=== PATIENT | female | born 1960 | race Caucasian/White ===

== ENCOUNTER 2020-01-12 13:53 | Outpatient (REF) | payer OTHER, SELFPAY | END 2020-01-12 13:54 | disposition home or self-care (01) | LOC: HO.LNP 13:53 | PROVIDERS: Visit Provider Internal Medicine | DX: Z20.828 Contact with and (suspected) exposure to other viral communicable diseases (principal) | CPT/HCPCS: U0003 ==

== ENCOUNTER 2020-02-13 11:04 | Outpatient (REF) | payer OTHER, SELFPAY ==
[2020-02-13 12:03] LABS: Baso%MD 0.4 %; Eos%MD 0.6 %; Hematocrit 39.8 % (37-47); Hemoglobin 13.4 g/dl (12.0-16.0); IG%MD 0.5 %; Lymph%MD 13.1 %; Mean Corpuscular HGB Conc 33.7 g/dl (31.0-35.0); Mean Corpuscular Hemoglobin 32.5 pg (27.0-33.0); Mean Corpuscular Volume 96.6 fL (80-98); Mean Platelet Volume 10.6 fL (9.4-12.3); Mono%MD 3.9 %; Neut%MD 81.5 %; Platelet Count 244 X10*3/uL (160-400); Red Blood Count 4.12 X10*6/uL (4.20-5.50); White Blood Count 11.2 X10*3/uL (4.8-10.8)
[2020-02-13 12:33] LABS: Alanine Aminotransferase 30 U/L (0-31); Albumin Level 4.7 g/dL (3.5-5.0); Alkaline Phosphatase 61 U/L (39-117); Amylase 57 U/L (28-100); Anion Gap 15 (12-20); Aspartate Amino Transferase 21 U/L (5-31); Bilirubin Direct < 0.2 mg/dL (0.0-0.5); Bilirubin Total 0.5 mg/dL (0.0-1.0); Blood Urea Nitrogen 27 mg/dL (9-16); C Reactive Protein 0.07 mg/dL (< or = 0.50); Calcium 9.6 mg/dL (8.4-10.2); Carbon Dioxide 26 mmol/L (22-29); Chloride 102 mmol/L (96-108); Estimated Glomerular Filt Rate > 60; Glucose Random 97 mg/dL (60-115); Iron 94 mcg/dL (30-160); Lipase 24 U/L (8-78); Percent Iron Saturation 27 % (15-50); Potassium 4.8 mmol/l (3.3-5.1); Sodium 138 mmol/L (135-145); Total Iron Binding Capacity 342 mcg/dL (228-428); Unsaturated Iron Binding 248 ug/dL
[2020-02-13 12:55] LABS: Erythrocyte Sedimentation Rate 6 MM/HR (0-20)
[2020-02-13 13:04] LABS: Ferritin 22 ng/mL (10-250); Thyroid Stimulating Hormone 2.29 uIU/mL (0.32-4.0)
[2020-02-13 13:40] LABS: T4 Thyroxine 8.9 ug/dL (4.5-12.0)
[2020-02-13 14:01] LABS: Folate > 20.0 ng/mL (> or = 4.0); Vitamin B12 1854 pg/mL (200-900)
[2020-02-13 14:53] LABS: Band Neutrophils Percent 2 % (3-5); Lymphocytes Absolute Manual 1.3 X10*3/uL (0.6-4.8); Lymphocytes Percent Manual 12 % (20-40); Monocytes Absolute Manual 0.6 X10*3/uL (0.0-1.2); Monocytes Percent Manual 5 % (2-11); Neutrophils Absolute Manual 9.3 X10*3/uL (2.2-7.9); Neutrophils Percent Manual 81 % (45-73)
[2020-02-13 14:54] LABS: Platelet Estimate NORMAL (NORMAL); Platelet Morphology Comment NORMAL; RBC Morphology NORMAL
[2020-02-13 15:08] LABS: Influenza A PCR NEGATIVE (Negative); Influenza B PCR NEGATIVE (Negative); Resp Syncy Virus RNA Qual PCR NEGATIVE (Negative); SARS COV2 PCR INHOUSE NEGATIVE (Negative)
[2020-02-15 08:22] LABS: HBc Num1 0.06 S/CO (0.00-0.79); Hepatitis B Core Antibody Nonreactive (Nonreactive); Hepatitis B Surface Antigen Negative (Negative)
[2020-02-15 08:40] LABS: HBS Num1 0.62 mIU/mL (0-7.99); ~Hepatitis B Surface Antibody NONREACTIVE (Nonreactive)
[2020-02-16 19:53] LABS: TS Negative Control Passed; TS Panel A 1; TS Panel B 2; TS Positive Control Passed; TSpotTB Negative (SeeBelow)
== END 2020-02-13 11:05 | disposition home or self-care (01) ==
LOC: HO.LAB 11:04
PROVIDERS: PCP Internal Medicine; Visit Provider Internal Medicine
DX: Z20.828 Contact with and (suspected) exposure to other viral communicable diseases (principal); K52.89 Other specified noninfective gastroenteritis and colitis; R19.7 Diarrhea, unspecified
CPT/HCPCS: 0241U; 36415; 80053; 80076; 82150; 82248; 82607; 82728; 82746; 83540; 83690; 84436; 84443; 85007; 85027; 85652; 86140; 86481; 86704; 86706; 87340

== ENCOUNTER 2020-03-15 11:04 | Outpatient (REF) | payer BC, SELFPAY ==
--- NOTE | 2020-03-15 11:26 | XR_ITS ---
No arthropathic changes of the sacroiliac joints are visualized. Mild scattered aortic calcific atherosclerosis is visualized. EXAMINATION: XR LUMBOSACRAL SPINE CLINICAL INFORMATION: Right leg pain. COMPARISON: Lumbar spine radiograph 06/22/2014 TECHNIQUE: Three views of the lumbosacral spine. FINDINGS: 6 lumbar type vertebral bodies are identified as noted on the comparison examination. The previous examination suspected hypoplastic 12th ribs vertebral bodies are enumerated with reference to this past scheme with the inferior most lumbar type vertebral body designated as L5 for enumeration purposes in this exam. Moderate rotatory dextroscoliosis of lumbar spine is present and appears slightly increased in prominence compared with 06/22/2014. At L2-L3, moderate-marked intervertebral disc space narrowing is noted along with prominent endplate sclerosis with findings increased in degree compared with 06/22/2014. Mild-moderate intervertebral disc space narrowing at L1-L2 is unchanged appreciably compared with 06/22/2014. Moderate scattered aortic calcific atherosclerosis is noted. XR/XR lumbar spine 2-3V IMPRESSION: 1. Six (6) lumbar type vertebral bodies which may give rise to ambiguity in vertebral body level enumeration. As in the comparison exam of 06/22/2014, the inferior most lumbar type vertebral body is designated L5 for enumeration purposes in this examination. 2. Moderate rotatory dextroscoliosis of the lumbar spine increased in prominence compared with 06/22/2014. 3. L2-L3 moderate-marked intervertebral disc space narrowing consistent with underlying degenerative disc disease with findings increased in prominence compared with 06/22/2014. 4. Unchanged L1-L2 mild-moderate intervertebral disc space narrowing.
[2020-03-15 11:57] LABS: MANUAL DIFF FLAG NO
[2020-03-15 12:16] LABS: Basophils Percent Auto 0.3 % (0-2); Eosinophils Absolute Auto 0.2 X10*3/uL (0.0-0.4); Eosinophils Percent Auto 1.8 % (0-4); Hematocrit 39.7 % (37-47); Hemoglobin 12.9 g/dl (12.0-16.0); Imm Gran Abs Auto 0.02 X10*3/uL (0.00-0.03); Imm Gran Pct Auto 0.2 % (0.0-0.4); Lymphocytes Absolute Auto 1.4 X10*3/uL (1.2-4.9); Lymphocytes Percent Auto 14.9 % (20-40); Mean Corpuscular HGB Conc 32.5 g/dl (31.0-35.0); Mean Corpuscular Hemoglobin 31.9 pg (27.0-33.0); Mean Corpuscular Volume 98.3 fL (80-98); Mean Platelet Volume 10.5 fL (9.4-12.3); Monocytes Absolute Auto 0.4 X10*3/uL (0.1-1.2); Monocytes Percent Auto 4.6 % (2-11); Neutrophils Absolute Auto 7.1 X10*3/uL (2.0-8.3); Neutrophils Percent Auto 78.2 % (45-73); Platelet Count 196 X10*3/uL (160-400); Red Blood Count 4.04 X10*6/uL (4.20-5.50); Red Cell Distribution Width 12.5 % (11.0-16.0); White Blood Count 9.1 X10*3/uL (4.8-10.8)
[2020-03-15 12:28] LABS: Anion Gap 13 (12-20); Blood Urea Nitrogen 24 mg/dL (9-16); C Reactive Protein 0.07 mg/dL (< or = 0.50); Calcium 9.4 mg/dL (8.4-10.2); Carbon Dioxide 28 mmol/L (22-29); Chloride 103 mmol/L (96-108); Estimated Glomerular Filt Rate > 60; Glucose Random 108 mg/dL (60-115); Potassium 4.8 mmol/l (3.3-5.1); Sodium 139 mmol/L (135-145)
== END 2020-03-15 11:05 | disposition home or self-care (01) ==
LOC: HO.LAB 11:04
PROVIDERS: PCP Internal Medicine; Visit Provider Internal Medicine
DX: M79.604 Pain in right leg (principal); M41.9 Scoliosis, unspecified
CPT/HCPCS: 36415; 72100; 80048; 82550; 85025; 86140

== ENCOUNTER 2021-01-29 08:09 | Outpatient (REF) | payer BC, SELFPAY ==
[2021-01-29 08:18] LABS: MANUAL DIFF FLAG NO
[2021-01-29 08:56] LABS: Basophils Percent Auto 0.5 % (0-2); Eosinophils Absolute Auto 0.3 X10*3/uL (0.0-0.4); Eosinophils Percent Auto 3.7 % (0-4); Hematocrit 43.2 % (37.0-47.0); Hemoglobin 14.3 g/dl (12.0-16.0); Imm Gran Abs Auto 0.02 X10*3/uL (0.00-0.03); Imm Gran Pct Auto 0.3 % (0.0-0.4); Lymphocytes Absolute Auto 3.2 X10*3/uL (1.2-4.9); Lymphocytes Percent Auto 40.8 % (20-40); Mean Corpuscular HGB Conc 33.1 g/dl (31.0-35.0); Mean Corpuscular Hemoglobin 32.4 pg (27.0-33.0); Mean Corpuscular Volume 97.7 fL (80.0-98.0); Mean Platelet Volume 10.8 fL (9.4-12.3); Monocytes Absolute Auto 0.5 X10*3/uL (0.1-1.2); Monocytes Percent Auto 6.2 % (2-11); Neutrophils Absolute Auto 3.8 x10*3/uL (2.0-8.3); Neutrophils Percent Auto 48.5 % (45-73); Platelet Count 190 X10*3/uL (160-400); Red Blood Count 4.42 X10*6/uL (4.20-5.50); Red Cell Distribution Width 11.9 % (11.0-16.0); White Blood Count 7.9 X10*3/uL (4.8-10.8)
[2021-01-29 09:21] LABS: Alanine Aminotransferase 24 U/L (0-31); Albumin Level 4.4 g/dL (3.5-5.0); Alkaline Phosphatase 51 U/L (39-117); Anion Gap 12 (12-20); Aspartate Amino Transferase 24 U/L (5-31); Bilirubin Total 0.3 mg/dL (0.0-1.0); Blood Urea Nitrogen 21 mg/dL (9-16); Calcium 9.7 mg/dL (8.4-10.2); Carbon Dioxide 29 mmol/L (22-29); Chloride 104 mmol/L (96-108); Cholesterol 199 mg/dL; Estimated Glomerular Filt Rate > 60; Glucose Random 96 mg/dL (60-115); HDL Cholesterol 68 mg/dL; LDL Cholesterol Calculated 92 mg/dl; Potassium 4.3 mmol/L (3.3-5.1); Sodium 141 mmol/L (135-145); Total Protein 6.5 g/dL (6.5-8.0); Triglycerides 195 mg/dL
[2021-01-29 09:45] LABS: Free T4 (Free Thyroxine) 1.05 ng/dL (0.71-1.85); Thyroid Stimulating Hormone 1.73 uIU/mL (0.32-4.0); Vitamin D 25-OH Total 42.2 ng/mL (>30)
== END 2021-01-29 08:10 | disposition home or self-care (01) ==
LOC: HO.LAB 08:09
PROVIDERS: PCP Internal Medicine; Visit Provider Internal Medicine
DX: I25.10 Atherosclerotic heart disease of native coronary artery without angina pectoris (principal); E78.00 Pure hypercholesterolemia, unspecified; E03.9 Hypothyroidism, unspecified; M19.90 Unspecified osteoarthritis, unspecified site; K58.9 Irritable bowel syndrome, unspecified
CPT/HCPCS: 36415; 80053; 80061; 82306; 84439; 84443; 85025

== ENCOUNTER 2021-06-20 12:46 | Outpatient (REF) | payer BC, SELFPAY ==
[2021-06-20 13:16] LABS: MANUAL DIFF FLAG NO
[2021-06-20 13:30] LABS: Basophils Percent Auto 0.4 % (0-2); Eosinophils Absolute Auto 0.1 X10*3/uL (0.0-0.4); Eosinophils Percent Auto 1.7 % (0-4); Hemoglobin 13.6 g/dl (12.0-16.0); Imm Gran Abs Auto 0.02 X10*3/uL (0.00-0.03); Imm Gran Pct Auto 0.2 % (0.0-0.4); Lymphocytes Percent Auto 12.8 % (20-40); Mean Corpuscular HGB Conc 33.2 g/dl (31.0-35.0); Mean Corpuscular Hemoglobin 32.8 pg (27.0-33.0); Mean Corpuscular Volume 98.8 fL (80.0-98.0); Mean Platelet Volume 10.5 fL (9.4-12.3); Monocytes Absolute Auto 0.4 X10*3/uL (0.1-1.2); Monocytes Percent Auto 5.3 % (2-11); Neutrophils Absolute Auto 6.4 x10*3/uL (2.0-8.3); Neutrophils Percent Auto 79.6 % (45-73); Platelet Count 177 X10*3/uL (160-400); Red Blood Count 4.15 X10*6/uL (4.20-5.50); White Blood Count 8.1 X10*3/uL (4.8-10.8)
[2021-06-20 13:51] LABS: Alanine Aminotransferase 24 U/L (0-31); Albumin Level 4.4 g/dL (3.5-5.0); Alkaline Phosphatase 58 U/L (39-117); Aspartate Amino Transferase 24 U/L (5-31); Bilirubin Direct < 0.2 mg/dL (0.0-0.5); Bilirubin Total 0.3 mg/dL (0.0-1.0); C Reactive Protein 0.14 mg/dL (< or = 0.50); Lipase 12 U/L (8-78); Total Protein 6.5 g/dL (6.5-8.0)
[2021-06-20 14:09] LABS: Erythrocyte Sedimentation Rate 6 MM/HR (0-20)
== END 2021-06-20 12:47 | disposition home or self-care (01) ==
LOC: HO.LAB 12:46
PROVIDERS: PCP Internal Medicine; Visit Provider Internal Medicine
DX: R10.13 Epigastric pain (principal)
CPT/HCPCS: 36415; 80076; 83690; 85025; 85652; 86140

== ENCOUNTER 2021-06-21 11:00 | Outpatient (REF) | payer BC, SELFPAY ==
[2021-06-21 12:14] LABS: Erythrocyte Sedimentation Rate 6 MM/HR (0-20)
[2021-06-21 12:42] LABS: Vitamin B12 1207 pg/mL (200-900)
[2021-06-21 13:22] LABS: Anion Gap 12 (12-20); Blood Urea Nitrogen 29 mg/dL (9-16); Carbon Dioxide 28 mmol/L (22-29); Chloride 103 mmol/L (96-108); Estimated Glomerular Filt Rate > 60; Glucose Random 90 mg/dL (60-115); Potassium 5.3 mmol/L (3.3-5.1); Sodium 138 mmol/L (135-145)
[2021-06-21 13:37] LABS: Free T4 (Free Thyroxine) 1.24 ng/dL (0.71-1.85); Rheumatoid Factor < 15.0 IU/mL (<15.0)
[2021-06-24 13:56] LABS: Anti Nuclear Antibody Screen NEGATIVE (NEGATIVE)
[2021-06-24 22:47] LABS: Lyme Abs Screen <0.90 index
== END 2021-06-21 11:01 | disposition home or self-care (01) ==
LOC: HO.LAB 11:00
PROVIDERS: PCP Internal Medicine; Visit Provider Internal Medicine
DX: R53.83 Other fatigue (principal); E03.9 Hypothyroidism, unspecified; T14.8XXD Other injury of unspecified body region, subsequent encounter; W57.XXXD Bitten or stung by nonvenomous insect and other nonvenomous arthropods, subsequent encounter; M25.50 Pain in unspecified joint
CPT/HCPCS: 36415; 80048; 82607; 84439; 84443; 85652; 86038; 86039; 86431; 86617; 86618

== ENCOUNTER 2021-07-26 10:49 | Day surgery (SDC) | payer BC, SELFPAY ==
--- NOTE | 2021-07-24 13:04 | HO.ANESPROP2 ---
Documented by User: Sharon Morrison NP 07/24/21 13:05 HPI - Anesthesia Eval Consult details Narrative: 61yo F for Upper Endoscopy [facility] Past Medical History Medical History Anxiety Back pain Barretts esophagus Collagenous colitis Erosive esophagitis GERD (gastroesophageal reflux disease) History of degenerative disc disease Hyperlipidemia Hypothyroidism Myocardial infarction On beta rena at home Scoliosis Surgical History Surgical History H/O heart artery stent History of endometrial ablation History of total left knee replacement History of tubal ligation Hx of colonoscopy Hx of esophagogastroduodenoscopy Hx of varicose vein ligation and stripping Social History Social History Patient Tobacco Use Status: Former Tobacco user Tobacco use type: Cigarette Use of substances other than those prescribed or required for medical reasons: No Are you DNR?: No Advance Directives: No Advance Directives Information Provided: Yes Recently lost weight without trying: No Nutrition Risks: No Nutritional Risk Meds Allergies Allergy/AdvReac Type Severity Reaction Status Date / Time droperidol [From Inapsine] Allergy Intermediate SHAKING Verified 07/26/21 11:33 Home Medications Medication Instructions Recorded Confirmed Last Taken Type acetaminophen 500 mg capsule 500 mg PO Q6H PRN 07/22/21 07/22/21 Unknown History albuterol sulfate 90 mcg/actuation 2 puff PO BID PRN 07/22/21 07/22/21 Unknown History aerosol inhaler alprazolam 0.5 mg tablet 1 tab PO BID 07/22/21 07/22/21 Unknown History aspirin 81 mg tablet,delayed 81 mg PO DAILY 07/22/21 07/22/21 Unknown History release atorvastatin 10 mg tablet 1 tab PO DAILY 07/22/21 07/22/21 Unknown History calcium carbonate 600 mg calcium 600 mg PO DAILY 07/22/21 07/22/21 Unknown History (1,500 mg) tablet diclofenac sodium 1 % topical gel TOPICAL DAILY 07/22/21 Unknown History diphenoxylate-atropine 2.5 1 - 2 tab PO Q6H PRN 07/22/21 07/22/21 Unknown History mg-0.025 mg tablet famotidine 20 mg tablet 1 tab PO BID 07/22/21 07/22/21 Unknown History fluticasone propionate 50 1 spray INTRANASAL BID 07/22/21 07/22/21 Unknown History mcg/actuation nasal spray,suspension hyoscyamine sulfate 0.375 mg 1 tab PO Q12H 07/22/21 07/22/21 Unknown History tablet,extended release,12 hr levothyroxine 137 mcg tablet 1 tab PO DAILY 07/22/21 07/22/21 07/26/21 History loratadine 10 mg tablet 1 tab PO DAILY 07/22/21 07/22/21 Unknown History metoprolol tartrate 25 mg tablet 1 tab PO BID 07/22/21 07/22/21 07/26/21 History multivitamin with minerals 1 tab PO DAILY 07/22/21 07/22/21 Unknown History omeprazole 40 mg capsule,delayed 1 cap PO DAILY 07/22/21 07/22/21 07/26/21 History release prednisone 5 mg tablet mg PO 07/22/21 07/26/21 History simethicone 80 mg chewable tablet 80 mg PO BEDTIME 07/22/21 07/22/21 Unknown History trazodone 50 mg tablet 1 - 2 tab PO BEDTIME 07/22/21 07/22/21 Unknown History Exam Exam Date and Time: July 24, 2021 1304 Pertinent Lab Results Pertinent Lab Results: Laboratory Tests 06/20/21 06/21/21 13:15 Unknown WBC 8.1 Hgb 13.6 Hct 41.0 Plt Count 177 Sodium 138 Potassium 5.3 H D Chloride 103 Carbon Dioxide 28 BUN 29 H Creatinine 0.88 Assessment and Plan Assessment Anesthesia Assessment: Chart Reviewed Documented by User: Tabitha Jacobs MD 07/26/21 13:04 [facility] Active Problems Active Problems: 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 Patient states had echo and stress test. Reportedly ok. No reports in chart. Not on any cardiac meds except for metoprolol. Reports no chest pain recently Past Medical History Medical History Anxiety Back pain Barretts esophagus Collagenous colitis Erosive esophagitis GERD (gastroesophageal reflux disease) History of degenerative disc disease Hyperlipidemia Hypothyroidism Myocardial infarction On beta rena at home Scoliosis Family History Family history of problems with anesthesia: No Surgical History Surgical History H/O heart artery stent History of endometrial ablation History of total left knee replacement History of tubal ligation Hx of colonoscopy Hx of esophagogastroduodenoscopy Hx of varicose vein ligation and stripping History of Problems with Anesthesia: No Social History Social History Patient Tobacco Use Status: Former Tobacco user Tobacco use type: Cigarette Use of substances other than those prescribed or required for medical reasons: No Are you DNR?: No Advance Directives: No Advance Directives Information Provided: Yes Recently lost weight without trying: No Nutrition Risks: No Nutritional Risk Meds Allergies Allergy/AdvReac Type Severity Reaction Status Date / Time droperidol [From Inapsine] Allergy Intermediate SHAKING Verified 07/26/21 11:33 Home Medications Medication Instructions Recorded Confirmed Last Taken Type acetaminophen 500 mg capsule 500 mg PO Q6H PRN 07/22/21 07/22/21 Unknown History albuterol sulfate 90 mcg/actuation 2 puff PO BID PRN 07/22/21 07/22/21 Unknown History aerosol inhaler alprazolam 0.5 mg tablet 1 tab PO BID 07/22/21 07/22/21 Unknown History aspirin 81 mg tablet,delayed 81 mg PO DAILY 07/22/21 07/22/21 Unknown History release atorvastatin 10 mg tablet 1 tab PO DAILY 07/22/21 07/22/21 Unknown History calcium carbonate 600 mg calcium 600 mg PO DAILY 07/22/21 07/22/21 Unknown History (1,500 mg) tablet diclofenac sodium 1 % topical gel TOPICAL DAILY 07/22/21 Unknown History diphenoxylate-atropine 2.5 1 - 2 tab PO Q6H PRN 07/22/21 07/22/21 Unknown History mg-0.025 mg tablet famotidine 20 mg tablet 1 tab PO BID 07/22/21 07/22/21 Unknown History fluticasone propionate 50 1 spray INTRANASAL BID 07/22/21 07/22/21 Unknown History mcg/actuation nasal spray,suspension hyoscyamine sulfate 0.375 mg 1 tab PO Q12H 07/22/21 07/22/21 Unknown History tablet,extended release,12 hr levothyroxine 137 mcg tablet 1 tab PO DAILY 07/22/21 07/22/21 07/26/21 History loratadine 10 mg tablet 1 tab PO DAILY 07/22/21 07/22/21 Unknown History metoprolol tartrate 25 mg tablet 1 tab PO BID 07/22/21 07/22/21 07/26/21 History multivitamin with minerals 1 tab PO DAILY 07/22/21 07/22/21 Unknown History omeprazole 40 mg capsule,delayed 1 cap PO DAILY 07/22/21 07/22/21 07/26/21 History release prednisone 5 mg tablet mg PO 07/22/21 07/26/21 History simethicone 80 mg chewable tablet 80 mg PO BEDTIME 07/22/21 07/22/21 Unknown History trazodone 50 mg tablet 1 - 2 tab PO BEDTIME 07/22/21 07/22/21 Unknown History Exam Height,Weight and Vital Signs: Height 5 ft 7 in Weight 59.421 kg Vital Signs Temp Pulse Resp BP Pulse Ox 07/26/21 11:46 98.1 F 63 16 119/65 99 Airway Mallampati Class: II TM Dist: >3cm Neck ROM: Full Loose/Missing/Broken Teeth: No Heart: RRR Lungs: CTAB Assessment and Plan Assessment Anesthesia Assessment: Anesthesia Plan Discussed Final Anesthetic Review Family History of Problems with Anesthesia: No History of Problems with Anesthesia: No NPO: Yes ASA Class: III Final Preanesthetic Review: No Changes in Pt Med Stat, Meds/Allgs Chart Reviewed, Consent Obtained/Reviewed and Anes Risks/Benef Reviewed Patient Risk: Intermediate Procedure Risk: Low Assessment/Block/Sedation in SS: Assess/Block/Sedation-SS Anesthetic Plan Anesthetic Plan: MAC: Disposition: Standard PACU
[2021-07-26 11:37] VITALS: BMI 20.5
[2021-07-26 11:46] VITALS: BP 119/65; PULSE 63; RESP 16; TEMP 36.7; O2SAT 99
[2021-07-26] MEDS: Lactated Ringers 1,000 ML 100 ML IVCONT (11:59)
[2021-07-26 13:50] VITALS: BP 108/62; PULSE 64; RESP 12; TEMP 37.2; O2SAT 4
--- NOTE | 2021-07-26 13:51 | PM.OP ---
Brief Operative Note Date of Service: 07/26/21 Pre-op diagnosis: Abdominal pain, GERD, Mandel's Post-op diagnosis: other (Gastric ulcers, GERD) Procedure: EGD with biopsies Surgeon: Mathew Perez Anesthesia: MAC Was an Nutrition Services Assistant used for this Procedure?: No Estimated blood loss (mL): 2.0 Pathology: other (A. Gastric antrum B. EG Junction at 38cm) Condition: stable Disposition: PACU
[2021-07-26 14:14] VITALS: BP 138/79; PULSE 71; RESP 14; O2SAT 100
--- NOTE | 2021-08-08 17:44 | OP_ITS ---
SURGEON: Mathew Perez MD INDICATIONS: The patient presents for evaluation of abdominal pain, gastroesophageal reflux, and Mandel's esophagus. Full consent was obtained from her for this, including risks of bleeding and perforation. PREOPERATIVE DIAGNOSIS: POSTOPERATIVE DIAGNOSIS: PROCEDURE PERFORMED: Esophagogastroduodenoscopy with biopsies. ESTIMATED BLOOD LOSS: COMPLICATIONS: ANESTHESIA: Monitored anesthesia care. ASSISTANTS: SPECIMENS: PREOPERATIVE DIAGNOSES: Abdominal pain, gastroesophageal reflux, history of Mandel's esophagus. POSTOPERATIVE DIAGNOSES: Abdominal pain, gastroesophageal reflux, history of Mandel's esophagus, pre-pyloric gastric ulcers, small hiatal hernia, gastroesophageal reflux. DESCRIPTION OF PROCEDURE: The patient was placed in the left lateral decubitus position. The Olympus video gastroscope was passed into the posterior oropharynx and upper esophagus under direct vision. The scope was passed slowly to the distal esophagus. The gastroesophageal junction appeared at 38 cm. This area was slightly irregular consistent with reflux with areas of some erythema and some friability. There were no erosions or ulceration. The scope entered into the stomach. There was a small hiatal hernia. The scope was advanced to the pylorus and the duodenum was cannulated to the descending portion of the duodenum including the bulb appeared normal without mass or ulceration. The scope was withdrawn back into the stomach. In the pre-pyloric antrum, almost just at the pylorus, were 2 ulcer craters. One was approximately 12 mm in diameter with a clean base and no sign of any bleeding. The other ulcer, which was opposite that, was approximately 8 mm with a clean base and no bleeding. They appeared very benign. The remainder of the antrum and body appeared normal with good peristalsis. Biopsies were obtained from the antrum. The scope was retroflexed visualizing the proximal stomach carefully, which appeared normal, without any sign of mass or ulceration. The scope was straightened and withdrawn back to the esophagus. Biopsies were obtained at the EG junction. Proximal to this, the esophageal mucosa appeared normal. The scope was withdrawn from the patient. She tolerated the procedure well and was returned to the recovery area in stable condition. IMPRESSION: 1. Pre-pyloric gastric ulcers. 2. Hiatal hernia. 3. Gastroesophageal reflux with history of Mandel's esophagus. PLAN: The results of the biopsies will be checked. If H. pylori is present in the gastric biopsies, I would recommend treating that. She has been advised to stop all NSAIDs, as she had been using Advil every day. However, she does need to stay on her low dose of prednisone and low-dose aspirin in relation to her underlying collagenous colitis and coronary artery disease, respectively. She has been using 1 40mg omeprazole daily and I shall increase this to 40 mg b.i.d. I shall also start her on Carafate 1 g t.i.d. as well. She was advised to see me by the fall for a followup visit. Again, she has been advised to avoid all NSAIDs completely. MD LEONELA Wright/ALCIRA / [id number] MTDD
== END 2021-07-26 14:50 | disposition home or self-care (01) ==
PROVIDERS: PCP Internal Medicine; Visit Provider Internal Medicine
PROC: 0DJ08ZZ Inspection of Upper Intestinal Tract, Via Natural or Artificial Opening Endoscopic (ICD-10-PCS; CPT 43235; principal; 2021-07-26 12:20)
DX: K25.9 Gastric ulcer, unspecified as acute or chronic, without hemorrhage or perforation (principal); K21.9 Gastro-esophageal reflux disease without esophagitis; K22.70 Barrett's esophagus without dysplasia; K52.831 Collagenous colitis; K44.9 Diaphragmatic hernia without obstruction or gangrene; E78.5 Hyperlipidemia, unspecified; E03.9 Hypothyroidism, unspecified; I25.10 Atherosclerotic heart disease of native coronary artery without angina pectoris; I25.2 Old myocardial infarction; Z98.61 Coronary angioplasty status; Z79.52 Long term (current) use of systemic steroids; Z79.82 Long term (current) use of aspirin; Z79.899 Other long term (current) drug therapy; Z96.652 Presence of left artificial knee joint; Z87.891 Personal history of nicotine dependence
CPT/HCPCS: 43239; 88305; 88342

== ENCOUNTER 2021-07-29 13:31 | Outpatient (REF) | payer BC, SELFPAY ==
--- NOTE | ~2021-07-29 | XR_ITS ---
EXAMINATION: XR PELVIS CLINICAL INFORMATION: Back and right hip pain COMPARISON: Left hip x-ray August 2016 TECHNIQUE: AP view of the pelvis. FINDINGS: Bone alignment is normal. No fracture or dislocation is seen. There is mild arthritis at both hip joints with small osteophytes. Sacroiliac joints and pubic symphysis are normal. Bones of the pelvis are normal. Soft tissues are normal. There is curvature of the lumbar sacral spine to the left. XR/XR pelvis 1-2V IMPRESSION: Mild degenerative changes at the hip joints.
--- NOTE | ~2021-07-29 | XR_ITS ---
EXAMINATION: XR LUMBOSACRAL SPINE CLINICAL INFORMATION: Pain COMPARISON: Previous x-ray March 2020 TECHNIQUE: Three views of the lumbosacral spine. FINDINGS: There is curvature of the proximal lumbar spine to the right and lumbar sacral spine to the left. Bone alignment is otherwise normal. No fracture or dislocation is seen. There is degenerative disc disease and spondylosis at L1-L2, L2-L3 and L3-L4. There is lower lumbar spine facet arthritis. There is evidence of atherosclerotic disease. XR/XR lumbar spine 2-3V IMPRESSION: Scoliosis and degenerative changes.
== END 2021-07-29 13:32 | disposition home or self-care (01) ==
LOC: HO.XRAY 13:31
PROVIDERS: PCP Internal Medicine; Visit Provider Internal Medicine
DX: M25.551 Pain in right hip (principal); M54.50 Low back pain, unspecified
CPT/HCPCS: 72100; 72170

== ENCOUNTER 2022-06-18 14:34 | Outpatient (REF) | payer BC, SELFPAY ==
[2022-06-18 14:55] LABS: MANUAL DIFF FLAG NO
[2022-06-18 17:00] LABS: Basophils Percent Auto 0.3 % (0-2); Eosinophils Percent Auto 0.3 % (0-4); Hematocrit 38.6 % (37.0-47.0); Hemoglobin 12.9 g/dl (12.0-16.0); Imm Gran Abs Auto 0.03 X10*3/uL (0.00-0.03); Imm Gran Pct Auto 0.3 % (0.0-0.4); Lymphocytes Absolute Auto 0.9 X10*3/uL (1.2-4.9); Lymphocytes Percent Auto 10.3 % (20-40); Mean Corpuscular HGB Conc 33.4 g/dl (31.0-35.0); Mean Corpuscular Hemoglobin 32.3 pg (27.0-33.0); Mean Corpuscular Volume 96.5 fL (80.0-98.0); Mean Platelet Volume 10.8 fL (9.4-12.3); Monocytes Absolute Auto 0.3 X10*3/uL (0.1-1.2); Monocytes Percent Auto 3.3 % (2-11); Neutrophils Absolute Auto 7.4 x10*3/uL (2.0-8.3); Neutrophils Percent Auto 85.5 % (45-73); Platelet Count 242 X10*3/uL (160-400); Red Cell Distribution Width 12.2 % (11.0-16.0); White Blood Count 8.7 X10*3/uL (4.8-10.8)
[2022-06-18 17:37] LABS: Alanine Aminotransferase 31 U/L (0-31); Albumin Level 4.3 g/dL (3.5-5.0); Alkaline Phosphatase 73 U/L (39-117); Anion Gap 13 (12-20); Aspartate Amino Transferase 22 U/L (5-31); Bilirubin Direct 0.1 mg/dL (0.0-0.5); Bilirubin Total 0.3 mg/dL (0.0-1.0); Blood Urea Nitrogen 19 mg/dL (9-16); C Reactive Protein < 0.10 mg/dL (< or = 0.50); Calcium 8.8 mg/dL (8.4-10.2); Carbon Dioxide 26 mmol/L (22-29); Chloride 104 mmol/L (96-108); Estimated Glomerular Filt Rate > 60; Glucose Random 118 mg/dL (60-115); Potassium 4.5 mmol/L (3.3-5.1); Sodium 138 mmol/L (135-145); Total Protein 6.1 g/dL (6.5-8.0)
[2022-06-19 16:24] LABS: Immunoglobulin A 110 mg/dL (70-320)
[2022-06-20 08:24] LABS: HBc Num1 0.07 S/CO (0.00-0.79); HBsAGNum1 0.29 S/CO (0.00-0.99); Hepatitis B Core Antibody Nonreactive (Nonreactive); Hepatitis B Surface Antigen Negative (Negative); ~Hepatitis B Surface Antibody NONREACTIVE (Nonreactive)
[2022-06-20 23:29] LABS: TS Negative Control Passed; TS Panel A 3; TS Panel B 2; TS Positive Control Passed; TSpotTB Negative (Negative)
[2022-06-21 08:47] LABS: Gliadin Deamidated IgA Ab <1.0 U/mL; Gliadin Deamidated IgG Ab <1.0 U/mL; Transglutaminase Ab IgG <1.0 U/mL; Transglutaminase IgA <1.0 U/mL
[2022-06-22 14:24] LABS: Endomysial IgA Antibody Negative (Negative)
== END 2022-06-18 14:35 | disposition home or self-care (01) ==
LOC: HO.LAB 14:34
PROVIDERS: PCP Internal Medicine; Visit Provider Internal Medicine
DX: K52.89 Other specified noninfective gastroenteritis and colitis (principal); R19.7 Diarrhea, unspecified
CPT/HCPCS: 36415; 80048; 80076; 82784; 84443; 85025; 86140; 86231; 86258; 86364; 86481; 86704; 86706; 87340

== ENCOUNTER 2022-08-25 09:30 | Emergency (ER) | payer BC, SELFPAY ==
--- NOTE | ~2022-08-25 | XR_ITS ---
EXAMINATION: XR ABDOMEN KUB CLINICAL INDICATION: Diarrhea COMPARISON: None available. TECHNIQUE: AP view of the abdomen. FINDINGS: The bowel gas pattern is normal with no evidence of ileus or obstruction. No unusual soft tissue calcifications are noted. There is dextroscoliosis of lumbar spine XR/XR KUB IMPRESSION: Unremarkable examination.
[2022-08-25 10:04] VITALS: BP 117/65; PULSE 66; RESP 18; TEMP 36.1; O2SAT 99; BMI 18.9
[2022-08-25 10:21] LABS: MANUAL DIFF FLAG NO
[2022-08-25 10:25] LABS: Basophils Percent Auto 0.4 % (0-2); Eosinophils Absolute Auto 0.3 X10*3/uL (0.0-0.4); Eosinophils Percent Auto 2.6 % (0-4); Hematocrit 38.6 % (37.0-47.0); Hemoglobin 12.5 g/dl (12.0-16.0); Imm Gran Abs Auto 0.03 X10*3/uL (0.00-0.03); Imm Gran Pct Auto 0.3 % (0.0-0.4); Lymphocytes Absolute Auto 2.3 X10*3/uL (1.2-4.9); Mean Corpuscular HGB Conc 32.4 g/dl (31.0-35.0); Mean Corpuscular Hemoglobin 31.2 pg (27.0-33.0); Mean Corpuscular Volume 96.3 fL (80.0-98.0); Mean Platelet Volume 10.1 fL (9.4-12.3); Monocytes Absolute Auto 0.6 X10*3/uL (0.1-1.2); Neutrophils Absolute Auto 7.2 x10*3/uL (2.0-8.3); Neutrophils Percent Auto 68.7 % (45-73); Platelet Count 192 X10*3/uL (160-400); Red Blood Count 4.01 X10*6/uL (4.20-5.50); Red Cell Distribution Width 12.7 % (11.0-16.0); White Blood Count 10.4 X10*3/uL (4.8-10.8)
[2022-08-25 10:42] LABS: Alanine Aminotransferase 25 U/L (0-31); Albumin Level 3.8 g/dL (3.5-5.0); Alkaline Phosphatase 44 U/L (39-117); Anion Gap 14 (12-20); Aspartate Amino Transferase 23 U/L (5-31); Bilirubin Total 0.3 mg/dL (0.0-1.0); Blood Urea Nitrogen 26 mg/dL (9-16); Calcium 9.1 mg/dL (8.4-10.2); Carbon Dioxide 26 mmol/L (22-29); Chloride 106 mmol/L (96-108); Creatinine Clr Calc Pharmacy 58.7; Estimated Glomerular Filt Rate > 60; Glucose Random 95 mg/dL (60-115); Potassium 4.6 mmol/L (3.3-5.1); Sodium 141 mmol/L (135-145); Total Protein 5.8 g/dL (6.5-8.0)
[2022-08-25 10:50] VITALS: BP 140/78; PULSE 92; RESP 18; TEMP 36.7; O2SAT 98
--- NOTE | 2022-08-25 10:54 | PC.NURSE ---
Alert and oriented. Arrived from home stating tath she is patient of Dr. Vera and for 4-5 years has been having Gi issues. has chronic diarrhea after eating, abdominal cramping after eating, and takes 8-10mg of lomodial daily. for the last two weeks has had increasing lethargy and weakness. States had an episode last week dizzy and lightheaded while in the shower. States legs got weak and flet like they were going to give out. Vomited once this morning, states looked like yellow stomach bile. Also reports lower back pain that she feels may be from having to go to the bathroom all the time. Rates pain at a 7/10 currently. Reports that BM`s are always loose and smell like im rotting from the inside out . States she is unable to digest any food. Center of stomach tender to touch.
--- OUTSIDE RECORDS SUMMARY | 2022-08-25 11:03 | XMS_ITS | Continuity of Care Document ---
Author Name Unknown Organization [facility] ter Address [address] [place] [id number]- Care Team Providers Care Adult Live In Caregiver Name Role Phone Jeff Marcelo MD Primary Care Physician [id number] Date(s): 06/05/20 - 07/05/[address] [address] Attending Physician: Not on Staff, Attending MD Admitting Physician: Not on Staff, Admitting MD Referring Physician: Not on Staff, Referring MD Allergies, Adverse Reactions, Alerts Substance Reaction Severity Status Inapsine Active Medications acetaminophen 325 mg oral tablet 650 mg, By Mouth, Every 6 hours, May take OTC, not to exceed 3000 mg/day, Refills 0, Maintenance, 06/06/20 8:25:00 EDT, Partial fill upon patient request if the prescription is for a schedule II opioid drug. Start Date: 06/06/20 Status: Ordered ALPRAZolam 0.5 mg oral tablet 0.5 mg, 1, tablet, By Mouth, 2 times a day, Refills 0, Maintenance, 06/05/20 6:56:00 EDT, Partial fill upon patient request if the prescription is for a schedule II opioid drug. Start Date: 06/05/20 Status: Ordered Aspirin Tablet 325 mg, By Mouth, 2 times a day, Refills 0, Maintenance, 06/06/20 8:25:00 EDT, Partial fill upon patient request if the prescription is for a schedule II opioid drug. Start Date: 06/06/20 Status: Ordered atropine-diphenoxylate 0.025 mg-2.5 mg oral tablet 2, tablet, By Mouth, 4 times a day, PRN, Refills 0, Maintenance, for loose stool, 05/29/20 10:12:00EDT, Tablet, Partial fill upon patient request if the prescription is for a schedule II opioid drug. Start Date: 05/29/20 Status: Ordered celecoxib 200 mg oral capsule 1 capsule = 200 mg, By Mouth, Daily in AM, 0 Refills, Maintenance, 06/06/20 8:25:00 EDT, Capsule, Partial fill upon patient request if the prescription is for a schedule II opioid drug. Start Date: 06/06/20 Status: Ordered Colace Capsule 100 mg, 1, capsule, By Mouth, 2 times a day, Hold for loose stools, Refills 0, Maintenance, 06/06/20 8:26:00 EDT, Partial fill upon patient request if the prescription is for a schedule II opioid drug. Start Date: 06/06/20 Status: Ordered famotidine 20 mg oral tablet 20 mg, 1, tablet, By Mouth, 2 times a day, # 60 tablet, Refills 0, Maintenance, 05/29/20 10:09:00 EDT, Partial fill upon patient request if the prescription is for a schedule II opioid drug. Start Date: 05/29/20 Status: Ordered fluticasone propionate 55 mcg/inh inhalation powder 1 puffs, Inhalation, Every 12 hours, # 1 each, 0 Refills, Maintenance, 05/29/20 10:13:00 EDT, Powder, Partial fill upon patient request if the prescription is for a schedule II opioid drug. Start Date: 05/29/20 Status: Ordered hyoscyamine 0.375 mg dual-release oral tablet, extended release 1 tablet = 0.375 mg, By Mouth, Every 12 hours, # 28 tablet, 0 Refills, Maintenance, 05/29/20 10:10:00 EDT, ER Tablet, Partial fill upon patient request if the prescription is for a schedule II opioiddrug. Start Date: 05/29/20 Status: Ordered levothyroxine 137 mcg (0.137 mg) oral capsule 1 capsule = 137 mcg, By Mouth, Daily, # 30 capsule, 0 Refills, Maintenance, 05/29/20 10:14:00 EDT, Capsule, Partial fill upon patient request if the prescription is for a schedule II opioid drug. Start Date: 05/29/20 Status: Ordered Lipitor 10 mg oral tablet 1 tablet = 10 mg, By Mouth, Daily, # 90 tablet, 0 Refills, Maintenance, 05/31/20 16:07:00 EDT, [facility], Partial fill upon patient request if the prescription is for a schedule II opioid drug., 170, cm, 05/31/20 15:41:00 EDT, Height Start Date: 05/31/20 Stop Date: 08/29/20 Status: Ordered Maalox Plus Liquid 30 mL, By Mouth, Every 4 hours, PRN Other, Heartburn, 0 Refills, Maintenance, 06/06/20 8:25:00 EDT,Suspension, Partial fill upon patient request if the prescription is for a schedule II opioid drug. Start Date: 06/06/20 Status: Ordered metoprolol 25 mg oral tablet 12.5 mg, 0.5, tablet, By Mouth, 2 times a day, # 180 tablet, Refills 0, Tot. Refills 0, Maintenance, 05/29/20 10:26:00 EDT, Print Requisition, Partial fill upon patient request if the prescription isfor a schedule II opioid drug. Start Date: 05/29/20 Status: Ordered MiraLax Powder 1 pack/packet = 17 Gm, By Mouth, Daily, PRN Constipation, 0 Refills, Maintenance, 06/06/20 8:26:00 EDT, Powder, Partial fill upon patient request if the prescription is for a schedule II opioid drug. Start Date: 06/06/20 Status: Ordered nitroglycerin 0.4 mg sublingual tablet 1 tablet, Sublingual, Once, PRN Chest Pain, one time only for chest pain and SBP greater than 100 mmHg, # 25 tablet, 0 Refills Start Date: 08/25/08 Status: Ordered omeprazole 20 mg oral enteric coated capsule 1 capsule, By Mouth, Daily, # 30 capsule, 0 Refills Start Date: 08/25/08 Status: Ordered ondansetron 4 mg oral tablet 1 tablet = 4 mg, By Mouth, Every 6 hours, # 30 tablet, 0 Refills, Maintenance, 06/06/20 14:27:00 EDT, Tablet, [facility], Partial fill upon patient request if the prescription is for a schedule II opioid drug., 169, cm, 06/06/20 11:11:00... Start Date: 06/06/20 Status: Ordered oxyCODONE 5 mg oral tablet 5 mg, 1, tablet, By Mouth, Every 4 hours, PRN, Refills 0, Tot. Refills 0, Maintenance, Pain , Mild,06/06/20 15:14:00 EDT, Partial fill upon patient request if the prescription is for a schedule II opioid drug. Start Date: 06/06/20 Status: Ordered oxyCODONE 5 mg oral tablet 10 mg, 2, tablet, By Mouth, Every 4 hours, PRN, Refills 0, Tot. Refills 0, Maintenance, Pain , Severe, 06/06/20 15:14:00 EDT, Partial fill upon patient request if the prescription is for a schedule II opioid drug. Start Date: 06/06/20 Status: Ordered predniSONE 5 mg oral tablet 5 tablet = 25 mg, By Mouth, Daily, # 50 tablet, 0 Refills, Maintenance, 05/29/20 10:14:00 EDT, Tablet, Partial fill upon patient request if the prescription is for a schedule II opioid drug. Start Date: 05/29/20 Status: Ordered senna 187 mg oral tablet 1 tablet = 8.6 mg, By Mouth, Daily at bedtime, PRN as needed for constipation, 0 Refills, Maintenance, 06/06/20 8:26:00 EDT, Tablet, Partial fill upon patient request if the prescription is for a schedule II opioid drug. Start Date: 06/06/20 Status: Ordered traZODone 50 mg oral tablet 50 mg, 1, tablet, By Mouth, Daily at bedtime, # 30 tablet, Refills 0, Maintenance, 06/05/20 6:56:00EDT, Partial fill upon patient request if the prescription is for a schedule II opioid drug. Start Date: 06/05/20 Status: Ordered Problem List Condition Effective Dates Status Health Status Inform ant Colitis(Confirmed) Active Family history of cardiac di sorder in father(Confirmed) Active Status post insertion of angela g-eluting stent into left anterior descending artery(Confirmed) Active Hypertension(Confirmed) Active Hypothyroid(Confirmed) Active ST elevation (STEMI) myocard ial infarction involving left anterior descending coronary artery(Confirmed) Active Osteoarthritis(Confirmed) Active History of smoking(Confirmed) Active
--- OUTSIDE RECORDS SUMMARY | 2022-08-25 11:03 | XMS_ITS | Continuity of Care Document ---
Author Name Unknown Organization [facility] Address [address] [address]- Care Team Providers Care Leather Drier Name Role Phone Jeff Marcelo MD Primary Care Physician [phone] [id number] Date[facility] 05/30/[facility] - 06/06/20 [facility] [address] [address]- Attending Physician: Caroline Mccartney NP Admitting Physician: Caroline Mccartney NP Referring Physician: Caroline Mccartney NP Allergies, Adverse Reactions, Alerts Substance Reaction Severity [...] 0 Refills, Maintenance, 06/06/20 14:27:00 EDT, Tablet, [facility], Partial fill upon patient [...]
--- OUTSIDE RECORDS SUMMARY | 2022-08-25 11:03 | XMS_ITS | Continuity of Care Document ---
Author Name Unknown Organization [facility] Address [address] [place] [id number]- Care Team Providers Care Billet Shearer Name Role Phone Jeff Marcelo MD Primary Care Physician Encounter [facility] Date(s): 05/31/20 - 06/30/20 [facility] [address] [place] [id number]- Allergies, Adverse Reactions, Alerts Substance Reaction Severity [...] 0 Refills, Maintenance, 06/06/20 14:27:00 EDT, Tablet, [facility], Partial fill upon patient request if [...]
--- OUTSIDE RECORDS SUMMARY | 2022-08-25 11:03 | XMS_ITS | Continuity of Care Document ---
Author Name Unknown Organization [facility] Address [address] [place] [id number]- Care Team Providers Care Office Messenger Helper Name Role Phone Jeff Marcelo MD Primary Care Physician Encounter 06/07/20 - 06/14/20 [facility] [address] [place] [id number]- Discharge Disposition: GOALS MET Allergies, Adverse Reactions, Alerts Substance Reaction Severity [...] 0 Refills, Maintenance, 06/06/20 14:27:00 EDT, Tablet, [facility], Partial fill upon patient request if [...]
--- OUTSIDE RECORDS SUMMARY | 2022-08-25 11:03 | XMS_ITS | Continuity of Care Document ---
Author Name Unknown Organization [facility] Address [address] [place] [address]- Care Team Providers Care Weekend Receptionist Name Role Phone Jeff Marcelo MD Primary Care Physician [phone] [place] [facility] [place] 12/[place]/[address] [facility] [address] [place] [address]- Attending Physician: Leah Cuevas MD Admitting Physician: Leah Cuevas MD Referring Physician: Jeff Marcelo MD Allergies, Adverse Reactions, Alerts Substance Reaction [...] 0 Refills, Maintenance, 06/06/20 14:27:00 EDT, Tablet, [facility], Partial fill upon patient [...]
--- OUTSIDE RECORDS SUMMARY | 2022-08-25 11:03 | XMS_ITS | Continuity of Care Document ---
Author Name Unknown Organization [facility] ter Address [address] [place] [address]- Care Team Providers Care Technical Maintenance Technician Name Role Phone Jeff Marcelo MD Primary Care Physician [phone] [place] [facility] [place] - 06/24/[address] [address]- Attending Physician: Jimmie Hernandez Admitting Physician: AdmtrJimmie Referring Physician: Admtr, Ar8 Allergies, Adverse Reactions, Alerts Substance Reaction Severity [...] 0 Refills, Maintenance, 06/06/20 14:27:00 EDT, Tablet, [facility], Partial fill upon patient [...]
--- OUTSIDE RECORDS SUMMARY | 2022-08-25 11:03 | XMS_ITS | Continuity of Care Document ---
Author Name Unknown Organization [facility] ter Address [address] [place] [address]- Care Team Providers Care Software Development Analyst Name Role Phone Jeff Marcelo MD Primary Care Physician [phone] [place] [facility] [place]/09/20 - 06/17/[address] [address]- Attending Physician: Arden Nunez MD Admitting Physician: Arden Nunez MD Referring Physician: Arden Nunez MD Allergies, Adverse Reactions, Alerts Substance Reaction [...] 0 Refills, Maintenance, 06/06/20 14:27:00 EDT, Tablet, [facility], Partial fill upon patient [...]
--- OUTSIDE RECORDS SUMMARY | 2022-08-25 11:03 | XMS_ITS | Continuity of Care Document ---
Author Name Unknown Organization [facility] Address [address] [place] [address]- Care Team Providers Care Wood Window And Door Craftsman Name Role Phone Jeff Marcelo MD Primary Care Physician [place] [facility] [place]20 - 01/30/21 [facility] [address] [place] [address]- [place] Allergies, Adverse Reactions, Alerts Substance Reaction Severity [...] mg, By Mouth, Daily, # 90 tablet, 3 Refills, Maintenance, 01/04/21 16:52:00 EDT, [facility], 169, cm, 06/06/20 11:11:00 EDT, Height, 59.1, kg, 06/05/20 7:02:00 EDT, DryWeight Start Date: 01/04/21 Stop Date: 12/30/21 Status: Ordered Maalox Plus Liquid 30 mL, [...] 0 Refills, Maintenance, 06/06/20 14:27:00 EDT, Tablet, [facility], Partial fill upon patient [...]
--- OUTSIDE RECORDS SUMMARY | 2022-08-25 11:03 | XMS_ITS | Continuity of Care Document ---
Author Name Unknown Organization [facility] ter Address [address] [place] [address]- Care Team Providers Care Junior Media Buyer Name Role Phone Jeff Marcelo MD Primary Care Physician Encounter [facility] [place] Date(s): 06/05/20 - 06/06/[address] [address] Discharge Disposition: A-Transfer VNA/Home Health Attending Physician: Arden Nunez MD Admitting Physician: [...] opioid drug. Start Date: 06/06/20 Status: Ordered Acetaminophen Tablet 650 mg, Tablet, By Mouth, 06/06/20 13:00:00 EDT Start Date: 06/06/20 Stop Date: 06/06/20 Status: Completed ALPRAZolam 0.5 mg oral tablet 0.5 mg, [...] opioid drug. Start Date: 05/29/20 Status: Ordered metoprolol 25 mg oral tablet 12.5 mg, Tablet, By Mouth, 06/06/20 9:00:00 EDT Start Date: 06/06/20 Stop Date: 06/06/20 Status: Completed MiraLax Powder 1 pack/packet = 17 Gm, [...] 0 Refills, Maintenance, 06/06/20 14:27:00 EDT, Tablet, [facility], Partial fill upon patient request if the prescription is for a schedule II opioid drug., 169, cm, 06/06/20 11:11:00... Start Date: 06/06/20 Status: Ordered oxyCODONE 5 mg oral tablet 5 mg, Tablet, By Mouth, Every 4 hours, PRN for Pain , Mild, Routine, 06/06/20 13:19:00 EDT Start Date: 06/06/20 Stop Date: 06/07/20 Status: Discontinued oxyCODONE 5 mg oral tablet 5 mg, [...] Active Osteoarthritis(Confirmed) Active History of smoking(Confirmed) Active Results Radiology Reports * Exam Date Time Procedure Performing Provider Status 06/05/20 11:23 PM Knee 1 or 2 Views Left Trina Millicent te; Auth (Verified) Notes: (Knee 1 or 2 Views Left) Reason For Exam: Postop RESULT: Knee 1 or 2 Views Left Knee 1 or 2 Views Left, Reason: Postop; Clinical Question(s): Other:; Implant Position; Special Instructions: Do today at 2200, No flexed knee in the lateral position. Keep leg straight; 2 Views COMPARISON: None. FINDINGS: Status post total left knee arthroplasty. The distal femoral and proximal tibial components are well-positioned without complication. Postsurgical soft tissue changes. A surgical drain terminates in the suprapatellar region. IMPRESSION: Total left knee arthroplasty without complication. WSN: [id number] Ordering Physician: Yasmani Wei V Dictated By: Pj William DO Dictated Date/Time: 06/05/20 11:45 p Reviewed By: Pj William DO Signed By: Pj William DO Signed Date/Time: 06/05/20 11:45 pm Transcribed By: [email or web address] Transcribed Date/Time: 06/05/20 11:45 pm Vital Signs Most recent to oldest [Reference Range]: 1 2 3 Height 169 cm (06/06/20 11:11 AM) 169 cm (06/06/20 6:30 AM) 169 cm (06/05/20 2:23 PM) Weight 59.1 kg (06/05/20 9:19 AM) 59.1 kg (06/05/20 7:02 AM) Oxygen Saturation [94-100 %] 100 % (06/06/20 11:11 AM) 100 % (06/06/20 6:30 AM) 100 % (06/06/20 3:00 AM) Pulse Rate [55-90 bpm] 63 bpm (06/06/20 11:11 AM) 74 bpm (06/06/20 6:30 AM) 64 bpm (06/06/20 6:26 AM) Body Mass Index [18.5-24.99] 20.69 (06/05/20 9:19 AM) 20.69 (06/05/20 7:02 AM) Blood Pressure [90-138/55-84 mm Hg] 131/70mm Hg (06/06/20 11:11 AM) 132/74mm Hg (06/06/20 6:30 AM) 128/72mm Hg (06/06/20 6:26 AM) Respiratory Rate [16-30 br/min] 18 br/min (06/06/20 2:25 PM) 18 br/min (06/06/20 2:25 PM) 18 br/min (06/06/20 1:52 PM) Temperature [96.8-100.4 DegF] 98.8 DegF (06/06/20 11:11 AM) 97.7 DegF (06/06/20 6:30 AM) 97.7 DegF (06/06/20 3:00 AM) Mode of Delivery (Oxygen) Room air (06/06/20 11:11 AM) Room air (06/06/20 6:30 AM) Room air (06/06/20 3:00 AM) Blood pressure sites Arm, right (06/06/20 3:00 AM) Arm, right (06/05/20 11:00 PM) Arm, right (06/05/20 2:23 PM) Temperature Route Oral (06/06/20 11:11 AM) Oral (06/06/20 6:30 AM) Oral (06/06/20 3:00 AM) Dry Weight 59.1 kg (06/05/20 7:02 AM)
--- OUTSIDE RECORDS SUMMARY | 2022-08-25 11:03 | XMS_ITS | Continuity of Care Document ---
Author Name Unknown Organization [facility] Address [address] [place] [address]- Care Team Providers Care Manager Heart Name Role Phone Jeff Marcelo MD Primary Care Physician [phone] [place] [facility] [id number] Date(s): 05/30/20 - 07/04/20 [facility] [address] [place] [address]- Attending Physician: Caroline Mccartney NP Admitting Physician: Caroline Mccartney NP Referring Physician: Jeff Marcelo MD Allergies, Adverse [...] 0 Refills, Maintenance, 06/06/20 14:27:00 EDT, Tablet, [facility], Partial fill upon patient [...]
--- OUTSIDE RECORDS SUMMARY | 2022-08-25 11:03 | XMS_ITS | Continuity of Care Document ---
Author Name Unknown Organization [facility] Address [address] [place] [address]- Care Team Providers Care Hydrostatic Tester Name Role Phone Jeff Marcelo MD Primary Care Physician [phone] En[place] [facility] [place] Date(s): 12/31/20 - 01/30/21 [facility] [address] [place] [address]- [place] Allergies, Adverse Reactions, Alerts Substance Reaction [...] 0 Refills, Maintenance, 06/06/20 14:27:00 EDT, Tablet, [facility], Partial fill upon patient request if [...]
--- OUTSIDE RECORDS SUMMARY | 2022-08-25 11:03 | XMS_ITS | Continuity of Care Document ---
Author Name Unknown Organization [facility] Address [address] [place] [address]- Care Team Providers Care Seo Engineer Name Role Phone Jeff Marcelo MD Primary Care Physician [phone] [place] [facility] [place] 02/10/21 [facility] [address] [place] [address]- Attending Physician: Jimmie Hernandez Admitting Physician: Jimmie Hernandez Referring Physician: AdmtrJimmie Allergies, Adverse Reactions, Alerts Substance Reaction Severity [...] 0 Refills, Maintenance, 06/06/20 14:27:00 EDT, Tablet, [facility], Partial fill upon patient request [...]
--- OUTSIDE RECORDS SUMMARY | 2022-08-25 11:03 | XMS_ITS | Continuity of Care Document ---
Author Name Unknown Organization [facility] Address [address] [place] [address]- Care Team Providers Care Instrument Repairer Steam Plant Name Role Phone Jeff Marcelo MD Primary Care Physician [phone] [place] [facility] [place] - 06/21/20 [facility] [address] [place] [address]- Allergies, Adverse Reactions, Alerts Substance Reaction Severity [...] 0 Refills, Maintenance, 06/06/20 14:27:00 EDT, Tablet, [facility], Partial fill upon patient request [...]
--- OUTSIDE RECORDS SUMMARY | 2022-08-25 11:03 | XMS_ITS ---
Author Name Mathew Marie Address [address] [place] [address] Organization [facility] Address [address] [place] [address] Care Team Providers Care Check Out Clerk Name Role Phone Mathew Marie Unavailable [phone] PROBLEMS Type Condition ICD9-CM Code [id number] Code Onset Dates Condition Status SNOMED Code Problem Collagenous colitis K52.89 Active 34525284 Problem Encounter for screening for malignant neoplasm of rectum Z12.12 Active 259640826 Problem GERD (gastroesophagea l reflux disease) K21.9 Active 142107768 Problem GERD with esophagitis K21.0 Active 388114519 Problem Encounter for screening for malignant neoplasm of colon Z12.11 Active 807229029 Problem Irritable bowel syndrome with diarrhea K58.0 Active 617789745 Problem Abdominal bloating R14.0 Active 842080714 Problem Diarrhea, unspecified type R19.7 Active 47810128 Problem Gastro-esophagea l reflux disease with esophagitis, without bleeding K21.00 Active Problem Collagenous colitis K52.831 Active 66723334 Problem Gastric ulcer K25.9 Active 589726901 Problem Barretts esophagus without dysplasia K22.70 Active 203015858 Problem Abdominal pain, generalized R10.84 Active 485993110 Problem Diarrhea R19.7 Active Problem Microscopic colitis K52.89 Active Problem Abdominal pain, epigastric R10.13 Active 77793716 ALLERGIES Substance Reaction Event Type Date Status Inapsine Unknown Drug Allergy Jun, Active ENCOUNTERS Encounter Location Date Diagnosis [facility] [address] [place] [phone] 08 Aug, 2022 [facility] [address] [place] [address] July, [facility] [address] [place] [address] July, [facility] [address] [place] [address] Jun, [facility] [address] [place] [address] Jun, Collagenous colitis K52.89 ; Barretts esophagus without dysplasia K22.70 and Diarrhea, unspecified type R19.7 [facility] [address] [place] [address] May, [facility] [address] [place] [address] Dec, [facility] [address] [place] [address] Dec, Gastric ulcer K25.9 ; Collagenous colitis K52.89 ; Gastro-esophageal reflux disease with esophagitis, without bleeding K21.00 and Barretts esophagus without dysplasia K22.70 [facility] [address] [place] [address] 24 Dec, 2021 [facility] [address] [place] [phone] 05 Dec, 2021 [facility] Outpatient [address] [place] [id number] July, Gastric ulcer K25.9 ; Gastro-esophageal reflux disease with esophagitis, without bleeding K21.00 ; Hiatal hernia K44.9 and History of colitis Z87.19 [facility] [address] [place] [address] 14 Jun, 2021 Abdominal pain, epigastric R10.13 ; Collagenous colitis K52.89 ; GERD (gastroesophageal reflux disease) K21.9 ; Barretts esophagus without dysplasia K22.70 and Diarrhea, unspecified type R19.7 [facility] [address] [place] [address] Feb, Collagenous colitis K52.89 ; Diarrhea, unspecified type R19.7 and Abdominal bloating R14.0 [facility] [address] [place] [address] Dec, [facility] [address] [place] Oct, [facility] [address] [place] July, Collagenous colitis K52.89 ; Diarrhea, unspecified type R19.7 and Abdominal bloating R14.0 [facility] [address] [place] [address] July, [facility] [address] [place] May, [facility] [address] [place] [address] May, Collagenous colitis K52.89 and Diarrhea R19.7 [facility] [address] [place] May, [facility] [address] [place] May, [facility] [address] [place] Mar, [facility] [address] [facility] [place] Mar, [facility] [address] [place] Mar, [facility] [address] [place] Feb, [facility] [address] [place] [address] Feb, [facility] [address] [place] Jan, Microscopic colitis K52.89 and Diarrhea R19.7 [facility] [address] [place], [place] Dec, [facility] [address] [place] [address] Nov, [facility] [address] [facility] [place] [address] Oct, [facility] [address] [facility] [place] [address] Oct, Collagenous colitis K52.89 ; Irritable bowel syndrome with diarrhea K58.0 ; Abdominal bloating R14.0 and Abdominal pain, generalized R10.84 [facility] [address] [facility] [place] [address] Sep, [facility] [address] [facility] [place] [address] Sep, [facility] [address] [facility] [place] [address] Sep, Collagenous colitis K52.831 ; Diarrhea, unspecified type R19.7 and Abdominal pain, generalized R10.84 [facility] [address] [facility] [place] [address] Sep, Diarrhea, unspecified type R19.7 ; Collagenous colitis K52.89 and Abdominal bloating R14.0 [facility] Outpatient [address] [place] [phone] Nov, Richardson esophagus K22.70 and Gastritis, chronic K29.50 [facility] [address] [place] [phone] Nov, [facility] [address] [place] [address] July, [facility] [address] [place] [address] Jun, [facility] [address] [place] [address] Jun, [facility] [address] [place] [address] [place] [address] May, Barretts esophagus without dysplasia K22.70 ; Collagenous colitis K52.831 ; GERD with esophagitis K21.0 and Irritable bowel syndrome with diarrhea K58.0 [facility] [address] [facility] [place] [address] Dec, [facility] [address] [place] [address] Nov, Collagenous colitis K52.831 ; Barretts esophagus without dysplasia K22.70 ; GERD with esophagitis K21.0 and Irritable bowel syndrome with diarrhea K58.0 [facility] [address] [place] [address] 17 Nov, 2017 [facility] [address] [place] [address] Nov, [facility] [address] [place] [address] Jun, [facility] [address] [place] [address] Jan, [facility] [address] [place] [address] Nov, [facility] [address] [place] [address] Nov, Collagenous colitis K52.831 ; Barretts esophagus without dysplasia K22.70 and GERD with esophagitis K21.0 [facility] [address] [place] [address] Oct, [facility] [address] [place] [address] July, [facility] [address] [place] [address] Jun, [facility] [address] [place] [address] Jun, Collagenous colitis K52.831 ; Barretts esophagus without dysplasia K22.70 and GERD with esophagitis K21.0 [facility] [address] [place] [address] May, [facility] Outpatient [address] [place] [phone] Nov, [facility] [address] [place] [address] Oct, Collagenous colitis K52.89 ; Encounter for screening for malignant neoplasm of colon Z12.11 ; Encounter for screening for malignant neoplasm of rectum Z12.12 and GERD (gastroesophageal reflux disease) K21.9 [facility] [address] [place] [address] July, [facility] [address] [place] [address] Jun, [facility] [address] [place] [address] Jun, Collagenous colitis 558.9 [facility] [address] [place] [address] May, Collagenous colitis 558.9 [facility] [address] [place] [address] Dec, [facility] [address] [place] [address] Sep, [facility] [address] [place] Sep, [facility] [address] [place] [address] Sep, Collagenous colitis 558.9 ; Colon cancer screening V76.51 and Abdominal pain, right upper quadrant 789.01 [facility] [address] [place] [address] Sep, [facility] [address] [place] [address] Sep, Change in bowel habits 787.99 [facility] [address] [place] [address] Aug, Collagenous colitis 558.9 [facility] [address] [place] [address] July, [facility] ER [address] [place] [phone] Dec, [facility] Outpatient [address] [place], [place] [phone] May, [facility] ER [address] [place], [place] [phone] Jan, IMMUNIZATIONS Vaccine Route Administration Date Status Influenza Unknown Jan 28, 2022 Administered Influenza Unknown Dec 19, 2020 Administered Influenza Unknown Jan 04, 2021 Administered Influenza Unknown Nov 07, 2018 Administered Influenza Unknown Dec 16, 2017 Administered SOCIAL HISTORY Qualifiers Date Former Smoker REASON FOR REFERRAL FUNCTIONAL STATUS PLAN OF CARE Activity Details VITAL SIGNS Weight 124 lbs 2022 Weight 129 lbs 2022-01-01 Weight 131 lbs 2021-06-20 Weight 135 lbs 2021-02-06 Weight 132 lbs 2020-07-31 Weight 135 lbs 2020-05-09 Weight 142 lbs 2019-10-12 Weight 142 lbs 2019-09-08 Weight 140 lbs 2018-06-02 Weight 146 lbs 2017-12-04 Weight 150 lbs 2016-12-02 Weight 151 lbs 2016-06-11 Weight 150 lbs 2015-10-31 Weight 152 lbs 2014-09-28 Height 66.5 in 2022 Height 66.5 in 2022-01-01 Height 66.5 in 2021-06-20 Height 66.5 in 2021-02-06 Height 66.5 in 2020-07-31 Height 66.5 in 2020-05-09 Height 66.5 in 2019-10-12 Height 66.5 in 2019-09-08 Height 66.5 in 2018-06-02 Height 66.5 in 2017-12-04 Height 66.5 in 2016-12-02 Height 66.5 in 2016-06-11 Height 66.5 in 2015-10-31 Height 66.5 in 2014-09-28 BMI 19.71 kg/m2 2022 BMI 20.51 kg/m2 2022-01-01 BMI 20.82 kg/m2 2021-06-20 BMI 21.46 kg/m2 2021-02-06 BMI 20.98 kg/m2 2020-07-31 BMI 21.46 kg/m2 2020-05-09 BMI 22.57 kg/m2 2019-10-12 BMI 22.57 kg/m2 2019-09-08 BMI 22.26 kg/m2 2018-06-02 BMI 23.21 kg/m2 2017-12-04 BMI 23.85 kg/m2 2016-12-02 BMI 24.00 kg/m2 2016-06-11 BMI 23.85 kg/m2 2015-10-31 BMI 24.16 kg/m2 2014-09-28 Heart Rate 80 /min 2018-06-02 Heart Rate 84 /min 2015-10-31 Temperature 97.5 degrees Fahrenheit Temperature 96.8 degrees Fahrenheit Temperature 97.5 degrees Fahrenheit Temperature 96.9 degrees Fahrenheit Temperature 97.3 degrees Fahrenheit Temperature 97.5 degrees Fahrenheit Temperature 97.7 degrees Fahrenheit Blood pressure systolic 000 mm Hg Blood pressure diastolic 00 mm Hg 2022-06 MEDICATIONS Medication Instructions Dosage Frequency Start Date End Date Duration Status Caltrate 600 Act nila Atorvastatin Calcium 10 MG Orally Once a day 1 tablet 24h 30 day(s) Active Levothyroxine Sodium 137 MCG Orally Once a day 1 capsule 24h Active Vitamin C 500 MG Orally Once a day 1 tablet 24h Active Diclofenac Sodium 1 % 1 application Activ e Diphenoxylate-At ropine Active Fluticasone Propionate Not-Taki ng Claritin 10 MG Orally Once a day 1 tablet 24h 30 day(s) Active ALPRAZolam 0.5 MG Orally BID 1 tablet 12h Active Metoprolol Tartrate 25 MG Orally Twice a day 1/2 tablet with food 12h Active Gas-X 80 MG Orally prn 1 tablet after meals and at bedtime as needed Active predniSONE 5 MG Orally Once a day 1 tablet 24h 30 day(s) Active Hyoscyamine Sulfate ER 0.375 MG TAKE ONE TABLET BY MOUTH EVERY 12 HOURS 30 Active Multi Vitamin/Minerals - Orally once a day as directed 24h Active Advil Active Famotidine Not-T katerine ng Humira Pen 40 MG/0.4ML Subcutaneous Every other week 1 Pen Jun, 28 days Active Lomotil 2.5-0.025 MG PO Q 6 hours prn diarrhea 1-2 tablets Dec, 30 days Active Hyoscyamine Sulfate 0.125 MG Orally every 4-6 hours prn cramps/bloating 1-2 tablet as needed 30 Not-Taki ng Omeprazole 20 MG Orally QHS 1 capsule Not-Taki ng traZODone HCl 50 MG Orally Once a day 1 tablet at bedtime as needed 24h Active Budesonide 3 MG Orally QD for 1 month and then 2 daily 3 30 Not-Taki ng Humira Pen-CD/UC/HS Starter 80 MG/0.8ML Subcutaneous Daily Take 1 pen on Day #1, Take 1 Pen on Day #2, Take 1 Pen on Day #15 24h Jun, 3 days Active Omeprazole 40 MG Orally Every morning 1 July, 30 day(s) Active predniSONE 5 MG Orally Once a day take 8 pills(40mg) daily for 1 week, and then decrease by 1 pill(5mg) every week 24h 12 Jun, 2022 56 days Active Aspirin 81 MG Orally Once a day 1 tablet 24h Active Omeprazole 40 MG TAKE ONE CAPSULE BY MOUTH TWICE A DAY 30 Active Tylenol Not-Taki ng PROCEDURES Procedure Date Ordered Result Body Site TOBACCO NON-USER Oct 12, 2019 DOC MEDS VERIFIED W/PT OR RE Feb 06, 2021 UPPER GI ENDOSCOPY, BIOPSY Nov 29, 2018 DOC MEDS VERIFIED W/PT OR RE July 31, 2020 DOC MEDS VERIFIED W/PT OR RE May 09, 2020 PT TOBACCO SCREEN RCVD TLK June 02, 2018 TOBACCO NON-USER Feb 06, 2021 TV 21+ Minutes September 08, 2019 TOBACCO NON-USER July 31, 2020 UPPER GI ENDOSCOPY, BIOPSY July 26, 2021 TOBACCO NON-USER May 09, 2020 COLORECTAL CA SCREEN DOC REV Oct 12, 2019 COLORECTAL CA SCREEN DOC REV June 02, 2018 COLORECTAL CA SCREEN DOC REV 2022 TOBACCO NON-USER Jan 01, 2022 TOBACCO NON-USER June 20, 2021 TOBACCO NON-USER 2022 COLORECTAL CA SCREEN DOC REV Feb 06, 2021 BP SCR NOT PRFRM REC REASON NOS Jan 01, 2022 COLORECTAL CA SCREEN DOC REV July 31, 2020 BP SCR NOT PRFRM REC REASON NOS June 20, 2021 COLORECTAL CA SCREEN DOC REV May 09, 2020 BP SCR NOT PRFRM REC REASON NOS Feb 06, 2021 BP SCR PRFRM RCMDD DEFIND SCR INTVL July 31, 2020 DOC MEDS VERIFIED W/PT OR RE Jan 01, 2022 BP SCR PRFRM RCMDD DEFIND SCR INTVL May 09, 2020 DOC MEDS VERIFIED W/PT OR RE June 20, 2021 BP SCR PRFRM RCMDD DEFIND SCR INTVL Oct 12, 2019 COLORECTAL CA SCREEN DOC REV Jan 01, 2022 BP SCR PRFRM RCMDD DEFIND SCR INTVL June 02, 2018 COLORECTAL CA SCREEN DOC REV June 20, 2021 BP SCR NOT PRFRM REC REASON NOS 2022 DOC MEDS VERIFIED W/PT OR RE Oct 12, 2019 DOC MEDS VERIFIED W/PT OR RE June 02, 2018 DOC MEDS VERIFIED W/PT OR RE 2022 RESULTS Name Result Date Reference Range Complete Blood Count Auto Diff 2022 White Blood Count 8.7 4.8-10.8 Red Blood Count 4.00 4.20-5.50 Hemoglobin 12.9 12.0-16.0 Hematocrit 38.6 37.0-47.0 Mean Corpuscular Volume 96.5 80.0 -98.0 Mean Corpuscular Hemoglobin 32.3 27.0-33.0 Mean Corpuscular HGB Conc 33.4 31 .0-35.0 Red Cell Distribution Width 12.2 11.0-16.0 Platelet Count 242 160-400 Mean Platelet Volume 10.8 9.4-12. 3 Neutrophils Percent Auto 85.5 45- 73 Imm Gran Pct Auto 0.3 0.0-0.4 Lymphocytes Percent Auto 10.3 20- 40 Monocytes Percent Auto 3.3 2-11 Eosinophils Percent Auto 0.3 0-4 Basophils Percent Auto 0.3 0-2 NRBC Pct Auto 0.0 0.0-0.2 Neutrophils Absolute Auto 7.4 2. 0-8.3 Imm Gran Abs Auto 0.03 0.00-0.03 Lymphocytes Absolute Auto 0.9 1. 2-4.9 Monocytes Absolute Auto 0.3 0.1- 1.2 Eosinophils Absolute Auto 0.0 0. 0-0.4 Basophils Absolute Auto 0.0 0.0- 0.2 NRBC Abs Auto 0.000 0.0-0.012 Liver Panel 2022 Bilirubin Total 0.3 0.0-1.0 Bilirubin Direct 0.1 0.0-0.5 Aspartate Amino Transferase 22 5-31 Alanine Aminotransferase 31 0-3 1 Total Protein 6.1 6.5-8.0 Albumin Level 4.3 3.5-5.0 Alkaline Phosphatase 73 39-117 Basic Metabolic Panel 2022 Sodium 138 135-145 Potassium 4.5 3.3-5.1 Chloride 104 96-108 Carbon Dioxide 26 22-29 Anion Gap 13 12-20 Blood Urea Nitrogen 19 9-16 Creatinine 0.80 0.5-1.4 Estimated Glomerular Filt Rate >60 Glucose Random 118 60-115 Calcium 8.8 8.4-10.2 C Reactive Protein 2022 C Reactive Protein < 0.10 < or = 0. 50 Immunoglobulin A 2022 Immunoglobulin A 110 70-320 Transglutaminase Ab IgG 2022 Transglutaminase Ab IgG <1.0 Transglutaminase IgA 2022 Transglutaminase IgA <1.0 Gliadin Ab Panel 2022 Gliadin Deamidated IgA Ab <1.0 Gliadin Deamidated IgG Ab <1.0 Endomysial IgA rflx Titer 2022 Endomysial IgA Antibody Negative Nega tive Endomysial Titer TNP Hepatitis B Profile 2022 Hepatitis B Surface Antibody NONREACTIVE Nonreactive Hepatitis B Core Antibody Nonreactive No nreactive Hepatitis B Surface Antigen Negative Negative TSH reflex Free T4 2022 TSH reflex Free T4 1.80 0.32-4.0 T Spot TB 2022 TSpotTB Negative Negative TS Panel A 3 TS Panel B 2 TS Negative Control Passed TS Positive Control Passed Pathology 2021-07-26 Complete Blood Count Auto Diff 2021-06-20 White Blood Count 8.1 4.8-10.8 Red Blood Count 4.15 4.20-5.50 Hemoglobin 13.6 12.0-16.0 Hematocrit 41.0 37.0-47.0 Mean Corpuscular Volume 98.8 80.0 -98.0 Mean Corpuscular Hemoglobin 32.8 27.0-33.0 Mean Corpuscular HGB Conc 33.2 31 .0-35.0 Red Cell Distribution Width 12.0 11.0-16.0 Platelet Count 177 160-400 Mean Platelet Volume 10.5 9.4-12. 3 Neutrophils Percent Auto 79.6 45- 73 Imm Gran Pct Auto 0.2 0.0-0.4 Lymphocytes Percent Auto 12.8 20- 40 Monocytes Percent Auto 5.3 2-11 Eosinophils Percent Auto 1.7 0-4 Basophils Percent Auto 0.4 0-2 NRBC Pct Auto 0.0 0.0-0.2 Neutrophils Absolute Auto 6.4 2. 0-8.3 Imm Gran Abs Auto 0.02 0.00-0.03 Lymphocytes Absolute Auto 1.0 1. 2-4.9 Monocytes Absolute Auto 0.4 0.1- 1.2 Eosinophils Absolute Auto 0.1 0. 0-0.4 Basophils Absolute Auto 0.0 0.0- 0.2 NRBC Abs Auto 0.000 0.0-0.012 Erythrocyte Sedimentation Rate 2021-06-20 Erythrocyte Sedimentation Rate 6 0-20 Liver Panel 2021-06-20 Bilirubin Total 0.3 0.0-1.0 Bilirubin Direct < 0.2 0.0-0.5 Aspartate Amino Transferase 24 5-31 Alanine Aminotransferase 24 0-3 1 Total Protein 6.5 6.5-8.0 Albumin Level 4.4 3.5-5.0 Alkaline Phosphatase 58 39-117 C Reactive Protein 2021-06-20 C Reactive Protein 0.14 < or = 0. 50 Lipase 2021-06-20 Lipase 12 8-78 CHEM 7 PROFILE 2019-09-27 NA 135 135-145 K 4.9 3.3-5.1 CL 99 96-108 CO2 26 22-29 ANION GAP 15 12-20 GLUCOSE,RANDOM 88 60-115 BUN 20 9-16 CREATININE 0.88 0.5-1.4 ESTIMATED GFR >60 LIVER PROFILE 2019-09-27 PROTEIN, TOTAL 6.7 6.5-8.0 ALBUMIN 4.8 3.5-5.0 BILIRUBIN, TOTAL 0.3 0.0-1.0 BILIRUBIN, DIRECT < 0.2 0.0-0.5 ALK. PHOS. 61 39-117 GOT 23 5-31 GPT 25 0-31 AMYLASE 2019-09-27 AMYLASE 36 28-100 LIPASE 2019-09-27 LIPASE 8 8-78 CRP 2019-09-27 CRP 0.31 < OR = 0.50 CBC w DIFF 2019-09-27 WBC 7.4 4.8-10.8 RBC 4.14 4.20-5.50 HEMOGLOBIN 13.0 12.0-16.0 HEMATOCRIT 39.0 37-47 MCV 94.2 80-98 MCH 31.4 27.0-33.0 MCHC 33.3 31.0-35.0 PLATELET COUNT 191 160-400 RDW 11.9 11.0-16.0 NEUTROPHILS 57.6 45-73 LYMPHOCYTES 32.3 20-40 MONOCYTES 6.1 2-11 EOSINOPHILS 3.2 0-4 BASOPHILS 0.5 0-2 ABSOLUTE NEUTROPHIL COUNT 4.3 2. 0-8.3 ABSOLUTE LYMPHOCYTE COUNT 2.4 1. 2-4.9 ABSOLUTE MONOCYTE COUNT 0.5 0.1- 1.2 ABSOLUTE EOSINOPHIL COUNT 0.2 0. 0-0.4 ABSOLUTE BASOPHIL COUNT 0.0 0.0- 0.2 SED RATE (ESR) 2019-09-27 SED RATE 8 0-20 XR ABD UPRIGHT AND CHEST 2019-09-27 STOOL WBC 2019-09-16 STOOL WBC NEGATIVE NEGATIVE GIARDIA AG, STOOL EIA 2019-09-16 GIARDIA AG, STOOL EIA Not Detected Not De tected OVA & PARASITES (O&P) 2019-09-16 OVA & PARASITES SEE NOTE () CULTURE, STOOL 2019-09-16 CULTURE, STOOL STOOL CULTURE RESULT CULTURE, STOOL No Salmonella, Shige lla, Campylobacter isolated. CULTURE, STOOL No Sorbitol-neg E. c simeon isolated. CULTURE, STOOL Contact lab if other pathogens are suspected. CULTURE, STOOL C DIFFICILE RFLX PCR 2019-09-16 C DIFF GDH AG NEGATIVE NEGATIVE CDIFF TOXIN NEGATIVE NEGATIVE C DIFF INTERPRETATION SEE NOTE GI BIOPSY 2018-11-29 G.I. BIOPSY GI BIOPSY 2015-12-03 G.I. BIOPSY US ABD 2014-10-03 LIVER PROFILE 2014-09-20 PROTEIN, TOTAL 6.7 6.5-8.0 ALBUMIN 4.6 3.5-5.0 BILIRUBIN, TOTAL 0.2 0.0-1.0 BILIRUBIN, DIRECT < 0.2 0.0-0.5 ALK. PHOS. 56 39-117 GOT 21 5-31 GPT 23 0-31 CRP 2014-09-20 CRP 1.67 < OR = 0.50 CBC w DIFF 2014-09-20 WBC 8.0 4.8-10.8 ABSOLUTE NEUTROPHIL COUNT 5.3 2. 2-7.9 RBC 4.13 4.20-5.50 HEMOGLOBIN 13.6 12.0-16.0 HEMATOCRIT 37.9 37-47 MCV 91.9 80-98 MCH 33.0 27.0-33.0 MCHC 35.9 31.0-35.0 PLATELET COUNT 186 160-400 RDW 11.4 11.0-16.0 NEUTROPHILS 66.4 45-73 LYMPHOCYTES 24.8 20-40 MONOCYTES 4.5 2-11 EOSINOPHILS 3.4 0-4 BASOPHILS 1.0 0-2 SED RATE (ESR) 2014-09-20 SED RATE 15 0-20 CELIAC PANEL #10 2014-09-20 IgA, SERUM 127 81-463 ANTI-GLIADIN AB - IGA 5 <20 ANTI-GLIADIN AB - IGG 4 <20 TRANSGLUTAMINASE AB IGA 1 <4 TRANSGLUTAMINASE AB IGG 1 <6 REASON FOR VISIT Patient presents today for gerd, See update re:needs r/f on sucrafate/ waiting on pt call back,R/F REQUEST DIPHENOXYLATE -ATROPI/waiting on investigation of ins to start humira/ pa ends september 19,xxxxxxxxxxxxxxxxx, start humira/ pa forms on your desk/ waiting on ins/pt needs one aday omeprazole script/waiting on pt call back, Patient presents today for GERD, gastric ulcer. , needs r/f on lomotil, EGD recall, Patient presents today for a GASTRIC ULCER, INS Referral EXP, left message for pt to call back, gerd,[facility], 1 month f/u, Patient presents today for colitis, Patient presents todayfor colitis, refill on lomotil , Patient presents today for colitis, R/S OV, patient presents todayfor office f/u colitis, COVID Screen, COVID Screen, refill on lomotil , Refill Lomotil , abd pain ,r/s ov , COVID QUES. , needs script for lomotil, diarrhea and abd pain, abd pain, awaiting Covid 19test results, abdominal pain, positive cov2 on 11/03/2019/being seen in office on 11/22/2019/ update, symptoms , patient presents today for abd pain,diarrhea, diarrhea/ update, pt called back, marie patient/explosive diarrhea/stomach pains/ patient called back, Pt''s cell [phone], patient presents today for abd pain, diarrhea, GERD,Barretts, Budesonide, LETTER MAILED ASKING FOR INSURANCE INFORMATION, [place] [facility] not currently active, Patient presents today for follow up colitis, sharpert side pain under ribe cage , PATIENT PRESENTS TODAY FOR f/u visit GERD, RE: budesonide script, diarrhea, refill on budesonide , put on upper recall for 11/2018, Patient presents today for follow up for GERD, refill, refill request/budesonide, Colitis meds, Patient presents today for follow up for GERD, ? insurance, screening,GERD, prescreening colon, Having much diarrhea, Looking for refill, requesting refill/update, REFILL/DELZICOL, screening colonoscopy, cancelled appt, Delzicol RX failed, send over colyte prep, apriso not working Insurance Providers Health Insurance Type Health Plan Insurance Address Health Plan Insurance Phone Health Plan Insurance Name Health Plan Coverage Dates Member ID Patient Relationship to Subscriber Patient Address Patient Phone Patient Name Patient Date of Subscriber ID Subscriber Name Subscriber Date of Group No KELSO PILGRIM [address] [facility] [phone] KELSO PILGRIM self BRITTNEY MOREIRA [id number] [facility] [place] [employer] PROFESSION AL CLAIMS [address] [facility] [phone] [facility] [place] self BRITTNEY MOREIRA [id number]
--- OUTSIDE RECORDS SUMMARY | 2022-08-25 11:03 | XMS_ITS | Continuity of Care Document ---
Author Name Unknown Organization [facility] Address [address] [place] [id number]- Care Team Providers Care Ball Holder Name Role Phone Jeff Marcelo MD Primary Care Physician [place] [facility] 12[place]05[place]20 - 02/10/21 [facility] [address] [place] [id number]- Attending Physician: Leah Cuevas MD Admitting Physician: [...] 0 Refills, Maintenance, 06/06/20 14:27:00 EDT, Tablet, [facility], Partial fill upon patient request [...]
--- OUTSIDE RECORDS SUMMARY | 2022-08-25 11:03 | XMS_ITS | Continuity of Care Document ---
Author Name Unknown Organization [facility] Address [address] [address]- Care Team Providers Care Allopathic Doctor Name Role Phone Jeff Marcelo MD Primary Care Physician [facility] [id number] Date(s): 05/30/20 - 06/29/20 [facility] [address] [address]- Attending Physician: Jimmie Hernandez Admitting Physician: AdmtrJimmie [...] 0 Refills, Maintenance, 06/06/20 14:27:00 EDT, Tablet, [facility], Partial fill upon patient [...]
--- OUTSIDE RECORDS SUMMARY | 2022-08-25 11:03 | XMS_ITS | Continuity of Care Document ---
Author Name Unknown Organization [facility] Address [address] [place] [address]- Care Team Providers Care Rehab Tech Name Role Phone Jeff Marcelo MD Primary Care Physician [phone] [facility] [id number] Date(s): 05/31/20 - 06/30/20 [facility] [address], [place] [address] Attending Physician: Jimmie Hernandez Admitting Physician: AdmtrJimmie Referring Physician: Admtr, ArBryan Allergies, Adverse Reactions, Alerts Substance Reaction Severity [...] 0 Refills, Maintenance, 06/06/20 14:27:00 EDT, Tablet, [facility], Partial fill upon patient request [...]
--- OUTSIDE RECORDS SUMMARY | 2022-08-25 11:03 | XMS_ITS | Continuity of Care Document ---
Author Name Unknown Organization [facility] Address [address] [place] [id number] Care Team Providers Care Wash Tub Machine Operator Name Role Phone Jeff Marcelo MD Primary Care Physician [phone] Encounter [facility] [place] [id number] Date(s): 06/04/20 - 07/04/20 [facility] [address] [place] [id number]- Attending Physician: Jimmie Hernandez Admitting Physician: AdmtrJimmie [...] 0 Refills, Maintenance, 06/06/20 14:27:00 EDT, Tablet, [facility], Partial fill upon patient [...]
[2022-08-25] MEDS: 0.9 % Sodium Chloride 1,000 ML 999 ML IV (11:58)
[2022-08-25 12:09] LABS: Appearance Urine Clear; Color Urine Yellow; Glucose Urine UA Negative (Negative); Leukocyte Esterase Urine Negative (Negative); Nitrite Urine Positive (Negative); Specific Gravity - Urine 1.025 (1.005-1.025); UMIC TRIGGER UACC YES; Urine Blood Negative (Negative); Urine Ketones Negative (Negative); Urine Protein Negative (Neg-Trace)
[2022-08-25 12:11] LABS: Bacteria Urine 4+ (None Seen); Hyaline Casts Urine 0-2 /LPF (0-2); RBC Urine 0-2 /HPF (0-2); Squamous Epithelial Cell Urine 0-2 /HPF (0-2); UACC Culture Trigger YES; WBC Urine 0-5 /HPF (0-5)
--- NOTE | 2022-08-25 12:45 | PC.NURSE ---
Alert and oriented, states still has 6/10 abdominal pain. Iv fluids running as ordered. Blood cultures obtained per order.
[2022-08-25 12:57] LABS: Lactic Acid 0.5 mmol/L (0.5-2.0)
[2022-08-25] MEDS: cefTRIAXone sodium 1 GM in 0.9 % Sodium Chloride 50 ML IV (13:03)
--- NOTE | 2022-08-25 13:11 | ED_ITS ---
HPI - General Adult General Chief complaint: General Medical Stated complaint: abd pain, throwing up Time Seen by Provider: 08/25/22 10:58 Source: patient Mode of arrival: ambulatory History of Present Illness HPI narrative: 62-year-old female who presents with complaints of chronic diarrhea but states she has been experiencing some nausea and vomiting with increasing feeling unwell. Patient states she has had some lightheadedness. She denies any overt fevers, but describes abdominal discomfort. Related Data Home Medications Medication Instructions Recorded Confirmed acetaminophen 500 mg capsule 500 mg PO Q6H PRN Pain 07/22/21 07/22/21 albuterol sulfate 90 mcg/actuation 2 puff PO BID PRN Wheezing 07/22/21 07/22/21 aerosol inhaler alprazolam 0.5 mg tablet 1 tab PO BID 07/22/21 07/22/21 aspirin 81 mg tablet,delayed 81 mg PO DAILY 07/22/21 07/22/21 release atorvastatin 10 mg tablet 1 tab PO DAILY 07/22/21 07/22/21 calcium carbonate 600 mg calcium 600 mg PO DAILY 07/22/21 07/22/21 (1,500 mg) tablet diclofenac sodium 1 % topical gel topical DAILY 07/22/21 diphenoxylate-atropine 2.5 1 - 2 tab PO Q6H PRN diarrhea 07/22/21 07/22/21 mg-0.025 mg tablet famotidine 20 mg tablet 1 tab PO BID 07/22/21 07/22/21 fluticasone propionate 50 1 spray intranasal BID 07/22/21 07/22/21 mcg/actuation nasal spray,suspension hyoscyamine sulfate 0.375 mg 1 tab PO Q12H 07/22/21 07/22/21 tablet,extended release,12 hr levothyroxine 137 mcg tablet 1 tab PO DAILY 07/22/21 07/22/21 loratadine 10 mg tablet 1 tab PO DAILY 07/22/21 07/22/21 metoprolol tartrate 25 mg tablet 1 tab PO BID 07/22/21 07/22/21 multivitamin with minerals 1 tab PO DAILY 07/22/21 07/22/21 omeprazole 40 mg capsule,delayed 1 cap PO DAILY 07/22/21 07/22/21 release prednisone 5 mg tablet mg PO 07/22/21 simethicone 80 mg chewable tablet 80 mg PO BEDTIME 07/22/21 07/22/21 trazodone 50 mg tablet 1 - 2 tab PO BEDTIME 07/22/21 07/22/21 Previous Rx's Medication Instructions Recorded cefdinir 300 mg capsule 300 mg PO BID 7 days #14 caps 08/25/22 ondansetron 4 mg disintegrating 4 mg PO Q8H PRN nausea and 08/25/22 tablet vomiting 4 days #10 tabs Allergies Allergy/AdvReac Type Severity Reaction Status Date / Time droperidol [From Inapsine] Allergy Intermediate SHAKING Verified 08/25/22 10:10 Review of Systems Review of Systems: Pertinent positives and negatives as stated in HPI [facility] Past Medical History Source: nursing notes reviewed Medical History Anxiety Back pain Barretts esophagus Collagenous colitis Erosive esophagitis GERD (gastroesophageal reflux disease) History of degenerative disc disease Hyperlipidemia Hypothyroidism Myocardial infarction On beta rena at home Scoliosis Surgical History H/O heart artery stent History of endometrial ablation History of total left knee replacement History of tubal ligation Hx of colonoscopy Hx of esophagogastroduodenoscopy Hx of varicose vein ligation and stripping Social History Social History Alcohol intake: former Patient Tobacco Use Status: Former Tobacco user Tobacco use type: Cigarette Smoked in Last 30 Days: No Use of substances other than those prescribed or required for medical reasons: No Advance Directives: No Advance Directives Information Provided: Yes Patient : No Physical Exam ED Vital Signs: Vital Signs - 24 hr 08/25/22 10:04 08/25/22 10:50 08/25/22 13:29 Temperature 97.0 F 98.1 F Pulse Rate 66 92 95 Respiratory Rate 18 18 18 Blood Pressure 117/65 140/78 H 134/73 Pulse Oximetry 99 98 100 Oxygen Delivery Method Room Air Room Air Room Air BMI result Body Mass Index 18.9 VITAL SIGNS: Reviewed. GENERAL: Well developed, well nourished, in no acute distress. HEAD: Normocephalic/atraumatic EYES: PERRLA, EOMI OROPHARYNX: no oral lesions noted, posterior pharynx clear NECK: Supple, no adenopathy LUNGS: Normal breath sounds. No adventitious sounds or accessory muscle use. SpO2<98> CARDIOVASCULAR: Regular rate and rhythm without noted murmurs ABDOMEN: Soft, non-tender, non-distended with bowel sounds. MUSCULOSKELETAL: No tenderness, deformities, or effusions noted on gross inspection. EXTREMITIES: No cyanosis, clubbing or edema. SKIN: Inspection of the skin reveals no rashes NEUROLOGIC: Alert and oriented x 4. Strength and sensation to light touch were grossly intact x 4. Medications Administered Discontinued Medications Generic Name Dose Route Start Last Admin Trade Name Freq PRN Reason Stop Dose Admin Sodium Chloride 1,000 mls @ 999 mls/hr 08/25/22 11:30 08/25/22 13:03 Ns IV 08/25/22 12:30 Infused .Q1H1M CHARU Infusion Ceftriaxone Sodium 1 gm/ 50 mls @ 100 mls/hr 08/25/22 12:25 08/25/22 13:33 Sodium Chloride IV 08/25/22 12:54 Infused ONCE ONE Infusion Ondansetron HCl 4 mg 08/25/22 13:15 08/25/22 13:28 Ondansetron Hcl 4 Mg/2 Ml Vial IVPUSH 08/25/22 13:16 4 mg ONCE ONE Administration Medical Decision Making Medical Decision Making MDM Narrative: 62-year-old female with history and clinical presentation after review of all investigations my diagnosis is pyelonephritis, she is otherwise hemodynamically stable, not meeting SIRS, no further episodes of nausea, vomiting or diarrhea here in the emergency room. I did discuss the results with the patient, she has received IV fluids and will receive an initial dose of IV antibiotics in the discharged on remaining course. Patient has had IV fluid hydration, antibiotics, and is tolerating oral intake. Differential Diagnosis Please see the discussion above Lab Data Please see the discussion above 08/25/22 10:15 08/25/22 10:15 Labs: Lab Results 08/25/22 08/25/22 08/25/22 Range/Units 10:15 10:15 11:54 WBC 10.4 (4.8-10.8) X10*3/uL RBC 4.01 L (4.20-5.50) X10*6/uL Hgb 12.5 (12.0-16.0) g/dl Hct 38.6 (37.0-47.0) % MCV 96.3 (80.0-98.0) fL MCH 31.2 (27.0-33.0) pg MCHC 32.4 (31.0-35.0) g/dl RDW 12.7 (11.0-16.0) % Plt Count 192 (160-400) X10*3/uL MPV 10.1 (9.4-12.3) fL Immature Gran % (Auto) 0.3 (0.0-0.4) % Neut % (Auto) 68.7 (45-73) % Lymph % (Auto) 22.0 (20-40) % [place] % (Auto) 6.0 (2-11) % Eos % (Auto) 2.6 (0-4) % Baso % (Auto) 0.4 (0-2) % Lymph # (Auto) 2.3 (1.2-4.9) X10*3/uL [place] # (Auto) 0.6 (0.1-1.2) X10*3/uL Eos # (Auto) 0.3 (0.0-0.4) X10*3/uL Baso # (Auto) 0.0 (0.0-0.2) X10*3/uL Abs Immat Gran (auto) 0.03 (0.00-0.03) X10*3/uL Absolute Neuts (auto) 7.2 (2.0-8.3) x10*3/uL Absolute Nucleated RBC 0.000 (0.0-0.012) X10*3/uL Nucleated RBC % (auto) 0.0 (0.0-0.2) /100WBC Sodium 141 (135-145) mmol/L Potassium 4.6 (3.3-5.1) mmol/L Chloride 106 (96-108) mmol/L Carbon Dioxide 26 (22-29) mmol/L Anion Gap 14 (12-20) BUN 26 H (9-16) mg/dL Creatinine 0.85 (0.5-1.4) mg/dL Estim Creat Clear Calc 58.7 Estimated GFR > 60 Random Glucose 95 (60-115) mg/dL Lactic Acid (0.5-2.0) mmol/L Calcium 9.1 (8.4-10.2) mg/dL Total Bilirubin 0.3 (0.0-1.0) mg/dL AST 23 (5-31) U/L ALT 25 (0-31) U/L Alkaline Phosphatase 44 (39-117) U/L Total Protein 5.8 L (6.5-8.0) g/dL Albumin 3.8 (3.5-5.0) g/dL Urine Color Yellow Urine Appearance Clear Urine pH 6.0 (5.0-9.0) Ur Specific [place] 1.025 (1.005-1.025) Urine Protein Negative (Neg-Trace) mg/dL Urine Glucose (UA) Negative (Negative) mg/dL Urine Ketones Negative (Negative) mg/dL Urine Blood Negative (Negative) Urine Nitrite Positive H (Negative) Ur Leukocyte Esterase Negative (Negative) Urine RBC 0-2 (0-2) /HPF Urine WBC 0-5 (0-5) /HPF Ur Squamous Epith Cells 0-2 (0-2) /HPF Urine Bacteria 4+ (None Seen) Hyaline Casts 0-2 (0-2) /LPF 08/25/22 Range/Units 12:39 WBC (4.8-10.8) X10*3/uL RBC (4.20-5.50) X10*6/uL Hgb (12.0-16.0) g/dl Hct (37.0-47.0) % MCV (80.0-98.0) fL MCH (27.0-33.0) pg MCHC (31.0-35.0) g/dl RDW (11.0-16.0) % Plt Count (160-400) X10*3/uL MPV (9.4-12.3) fL Immature Gran % (Auto) (0.0-0.4) % Neut % (Auto) (45-73) % Lymph % (Auto) (20-40) % [place] % (Auto) (2-11) % Eos % (Auto) (0-4) % Baso % (Auto) (0-2) % Lymph # (Auto) (1.2-4.9) X10*3/uL [place] # (Auto) (0.1-1.2) X10*3/uL Eos # (Auto) (0.0-0.4) X10*3/uL Baso # (Auto) (0.0-0.2) X10*3/uL Abs Immat Gran (auto) (0.00-0.03) X10*3/uL Absolute Neuts (auto) (2.0-8.3) x10*3/uL Absolute Nucleated RBC (0.0-0.012) X10*3/uL Nucleated RBC % (auto) (0.0-0.2) /100WBC Sodium (135-145) mmol/L Potassium (3.3-5.1) mmol/L Chloride (96-108) mmol/L Carbon Dioxide (22-29) mmol/L Anion Gap (12-20) BUN (9-16) mg/dL Creatinine (0.5-1.4) mg/dL Estim Creat Clear Calc Estimated GFR Random Glucose (60-115) mg/dL Lactic Acid 0.5 (0.5-2.0) mmol/L Calcium (8.4-10.2) mg/dL Total Bilirubin (0.0-1.0) mg/dL AST (5-31) U/L ALT (0-31) U/L Alkaline Phosphatase (39-117) U/L Total Protein (6.5-8.0) g/dL Albumin (3.5-5.0) g/dL Urine Color Urine Appearance Urine pH (5.0-9.0) Ur Specific Poyen (1.005-1.025) Urine Protein (Neg-Trace) mg/dL Urine Glucose (UA) (Negative) mg/dL Urine Ketones (Negative) mg/dL Urine Blood (Negative) Urine Nitrite (Negative) Ur Leukocyte Esterase (Negative) Urine RBC (0-2) /HPF Urine WBC (0-5) /HPF Ur Squamous Epith Cells (0-2) /HPF Urine Bacteria (None Seen) Hyaline Casts (0-2) /LPF Radiology Impression Radiologist Impression: My interpretation is in agreement with radiology's impression Discharge Plan Discharge Clinical Impression: Pyelonephritis Patient Disposition: Home, Self-Care Instructions: Kidney Infection (ED) Additional Instructions: 1. Resume all home medications as prescribed. 2. Please complete the entire course of antibiotics as ordered. 3. You have been given a prescription for antinausea medication. 4. Please follow-up with the primary care doctor in the next 1-2 days. Return to the ER for any worsening symptoms. Prescriptions: New cefdinir 300 mg capsule 300 mg PO BID 7 Days Qty: 14 0RF ondansetron 4 mg tablet,disintegrating 4 mg PO Q8H PRN (Reason: nausea and vomiting) 4 Days Qty: 10 0RF No Action levothyroxine 137 mcg tablet 1 tab PO DAILY trazodone 50 mg tablet 1 - 2 tab PO BEDTIME atorvastatin 10 mg tablet 1 tab PO DAILY prednisone 5 mg tablet PO diphenoxylate-atropine 2.5-0.025 mg tablet 1 - 2 tab PO Q6H PRN (Reason: diarrhea) omeprazole 40 mg capsule,delayed release(DR/EC) 1 cap PO DAILY aspirin [Aspir-81] 81 mg Tablet,Delayed Release (Dr/Ec) 81 mg PO DAILY alprazolam 0.5 mg tablet 1 tab PO BID calcium carbonate [Caltrate 600] 600 mg calcium (1,500 mg) Tablet 600 mg PO DAILY famotidine 20 mg tablet 1 tab PO BID hyoscyamine sulfate 0.375 mg tablet extended release 12 hr 1 tab PO Q12H multivitamin with minerals Tablet 1 tab PO DAILY albuterol sulfate 90 mcg/actuation HFA aerosol inhaler 2 puff PO BID PRN (Reason: Wheezing) fluticasone propionate 50 mcg/actuation spray,suspension 1 spray intranasal BID acetaminophen 500 mg Capsule 500 mg PO Q6H PRN (Reason: Pain) loratadine 10 mg tablet 1 tab PO DAILY simethicone [Gas-X] 80 mg Tablet,Chewable 80 mg PO BEDTIME metoprolol tartrate 25 mg tablet 1 tab PO BID diclofenac sodium 1 % gel TOPICAL DAILY Referrals: Jeff Marcelo MD [Primary Care Provider] -
[2022-08-25] MEDS: ondansetron HCL 4 MG/2 ML VIAL IVPUSH (13:28)
[2022-08-25 13:29] VITALS: BP 134/73; PULSE 95; RESP 18; O2SAT 100
[2022-08-25 14:06] VITALS: BP 124/63; PULSE 61; RESP 14; TEMP 37.6; O2SAT 96
--- NOTE | 2022-08-25 14:21 | PC.NURSE ---
Alert and oriented, reviewed discharge plan with patient who verbalized understanding.
== END 2022-08-25 14:21 | disposition home or self-care (01) ==
PROVIDERS: Emergency Provider Student in an Organized Health Care Education/Training Program; PCP Internal Medicine
DX: N12 Tubulo-interstitial nephritis, not specified as acute or chronic (principal); R19.7 Diarrhea, unspecified; Z87.891 Personal history of nicotine dependence; Z79.899 Other long term (current) drug therapy
CPT/HCPCS: 36415; 74018; 80053; 81001; 83605; 85025; 87040; 87086; 87088; 87186; 96361; 96365; 96375; 99284; J0696; J2405

== ENCOUNTER 2022-10-25 07:47 | Outpatient (REF) | payer BC, SELFPAY ==
[2022-10-25 08:12] LABS: MANUAL DIFF FLAG NO
[2022-10-25 09:03] LABS: Basophils Absolute Auto 0.1 X10*3/uL (0.0-0.2); Basophils Percent Auto 0.6 % (0-2); Eosinophils Absolute Auto 0.3 X10*3/uL (0.0-0.4); Eosinophils Percent Auto 3.4 % (0-4); Hematocrit 36.8 % (37.0-47.0); Hemoglobin 11.9 g/dl (12.0-16.0); Imm Gran Abs Auto 0.03 X10*3/uL (0.00-0.03); Imm Gran Pct Auto 0.4 % (0.0-0.4); Lymphocytes Absolute Auto 2.9 X10*3/uL (1.2-4.9); Lymphocytes Percent Auto 34.2 % (20-40); Mean Corpuscular HGB Conc 32.3 g/dl (31.0-35.0); Mean Corpuscular Hemoglobin 30.6 pg (27.0-33.0); Mean Corpuscular Volume 94.6 fL (80.0-98.0); Mean Platelet Volume 10.5 fL (9.4-12.3); Monocytes Absolute Auto 0.6 X10*3/uL (0.1-1.2); Monocytes Percent Auto 7.1 % (2-11); Neutrophils Absolute Auto 4.6 x10*3/uL (2.0-8.3); Neutrophils Percent Auto 54.3 % (45-73); Platelet Count 252 X10*3/uL (160-400); Red Blood Count 3.89 X10*6/uL (4.20-5.50); White Blood Count 8.5 X10*3/uL (4.8-10.8)
[2022-10-25 09:14] LABS: Appearance Urine Clear; Color Urine Yellow; Glucose Urine UA Negative (Negative); Leukocyte Esterase Urine Negative (Negative); Nitrite Urine Negative (Negative); PH 7.5 (5.0-9.0); Specific Gravity - Urine 1.015 (1.005-1.025); Urine Blood Negative (Negative); Urine Ketones Negative (Negative); Urine Protein Negative (Neg-Trace)
[2022-10-25 09:46] LABS: Alanine Aminotransferase 23 U/L (0-31); Albumin Level 3.9 g/dL (3.5-5.0); Alkaline Phosphatase 62 U/L (39-117); Anion Gap 10 (12-20); Aspartate Amino Transferase 20 U/L (5-31); Bilirubin Total 0.2 mg/dL (0.0-1.0); Blood Urea Nitrogen 20 mg/dL (9-16); C Reactive Protein < 0.10 mg/dL (< or = 0.50); Calcium 9.1 mg/dL (8.4-10.2); Carbon Dioxide 29 mmol/L (22-29); Chloride 104 mmol/L (96-108); Cholesterol 232 mg/dL; Estimated Glomerular Filt Rate > 60; Glucose Random 88 mg/dL (60-115); HDL Cholesterol 71 mg/dL; LDL Cholesterol Calculated 120 mg/dl; Potassium 4.2 mmol/L (3.3-5.1); Sodium 139 mmol/L (135-145); Triglycerides 209 mg/dL
[2022-10-25 09:51] LABS: Free T4 (Free Thyroxine) 0.94 ng/dL (0.71-1.85); Thyroid Stimulating Hormone 5.33 uIU/mL (0.32-4.0)
== END 2022-10-25 07:48 | disposition home or self-care (01) ==
LOC: HO.LAB 07:47
PROVIDERS: PCP Internal Medicine; Visit Provider Internal Medicine
DX: I25.10 Atherosclerotic heart disease of native coronary artery without angina pectoris (principal); E03.9 Hypothyroidism, unspecified; E78.00 Pure hypercholesterolemia, unspecified; R63.4 Abnormal weight loss
CPT/HCPCS: 36415; 80053; 80061; 81003; 82550; 84439; 84443; 85025; 86140

== ENCOUNTER 2022-12-02 08:36 | Outpatient (REF) | payer BC, SELFPAY ==
[2022-12-05 03:58] LABS: HPV mRNA E6/E7 rflx Not Detected (Not Detected)
== END 2022-12-02 08:37 | disposition home or self-care (01) ==
LOC: HO.LNP 08:36
PROVIDERS: PCP Internal Medicine; Visit Provider Advanced Practice Midwife
DX: Z01.419 Encounter for gynecological examination (general) (routine) without abnormal findings (principal); Z11.51 Encounter for screening for human papillomavirus (HPV)
CPT/HCPCS: 87624; 88142

== ENCOUNTER 2022-12-02 08:36 | Outpatient (AMB) | payer BC, SELFPAY ==
--- NOTE | 2022-12-02 08:38 | MHC.OFFVIS ---
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 Scribed for KVNG Mclean by Radha Alexander chief medical officer, on 12/02/2022 at 8:58am EST. Asbestos Remover: Asbestos Remover Present (Jeni) Allergies droperidol [From Inapsine] Allergy (Intermediate, Verified 12/02/22 08:39) SHAKING HPI HPI Comments History of Present Illness Details She is a postmenopausal woman presenting for annual exam. 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 Patient admits she tries to eat a healthy diet including Calcium and Vitamin D. She stays active with exercise. Currently sexually active. STD screening offered; she declines. Denies vaginal itching and irritation. Denies family hx of breast, colon and ovarian cancer. Last pap smear 06/23/14. Last mammogram 02/09/19. UTD on colonoscopy. [facility] Medical History On beta rena at home Back pain History of degenerative disc disease Scoliosis Erosive esophagitis Collagenous colitis Barretts esophagus GERD (gastroesophageal reflux disease) Hyperlipidemia Hypothyroidism Anxiety Myocardial infarction Surgical History H/O heart artery stent History of total left knee replacement History of endometrial ablation History of tubal ligation Hx of varicose vein ligation and stripping Hx of esophagogastroduodenoscopy Hx of colonoscopy Family History Father Diabetes Family/Other Breast cancer Social History Alcohol intake: former Patient Tobacco Use Status: Former Tobacco user Tobacco use type: Cigarette Sexual orientation: Straight/Heterosexual Gender identity: Female Female Reproductive History Menstrual Menopause type: natural Total pregnancies: 3 Full term: 3 Number of Living Children: 3 Date of last pap smear: 06/23/14 (neg pap and hpv) Date of Mammogram: 02/09/19 Physical Exam Vital Signs: Last Vital Signs BP 100/60 12/02/22 08:39 BMI result Body Mass Index 20.2 Const General: cooperative, healthy appearing, no acute distress, well developed and alert Orientation/consciousness: patient oriented x3 HEENT Head: Yes normal to inspection Eyes General: appearance normal, both eyes and all related structures Neck Neck: Yes normal visual inspection Thyroid: Thyroid normal Chest Chest palpation & inspection: normal inspection of the chest Breast/axilla inspection: normal inspection of the breasts (no puckering, dimpling, peau de orange, retraction, discharge, masses) Breast/axilla palpation: normal palpation of the breasts Resp Effort & Inspection: normal respiratory effort GI Inspection: Yes normal to inspection Palpation (GI): Soft to palpation (to palpation) Rectal Exam - Female: deferred General: Yes bladder normal to inspection External Female Exam: normal external appearance and normal appearance of the urethra Speculum Exam - Vagina: normal appearance of the vagina, normal palpation and vagina atrophic Speculum Exam - Cervix: normal appearance of the cervix and normal palpation Bimanual exam- vagina & uterus: normal palpation and normal palpation Bimanual Exam- Adnexa, other: normal adnexae and no masses Skin General skin exam: no rashes or lesions noted Neuro General: patient oriented x3 Cognition (Neuro): normal cognition Extrem General: Yes normal to inspection Psych Attitude: cooperative Thought process: Normal thought process present Assessment & Plan Assessment & Plan (1) Encounter for well woman exam: Code(s): Z01.419 - Encounter for gynecological examination (general) (routine) without abnormal findings Plan: Discussed: Current recommendations for pap smears per ASCCP guidelines. Breast awareness and periodic self breast exams. Encouraged yearly mammograms. Mammogram ordered. Maintaining a healthy lifestyle including a well balanced diet including Calcium and Vitamin D and routine exercise. Encouraged patient to sign up for patient portal. Contact office with any PMB. All of her questions and concerns were addressed to the best of my ability. RTO in 1 year for AG. Orders: Orders MM tomosynthesis screening BI Today Z12.31 - Encounter for screening mammogram for malignant neoplasm of breast Pap Smear Today Z01.419 - Encounter for gynecological examination (general) (routine) without abnormal findings Coding Level of Care Code New Pt Prev Care 40-64y(75001) Diagnoses Encounter for well woman exam Z01.419
[2022-12-02 08:39] VITALS: BP 100/60; BMI 20.2
== END 2022-12-02 09:24 | disposition home or self-care (01) ==
PROVIDERS: PCP Internal Medicine; Visit Provider Advanced Practice Midwife
DX: Z01.419 Encounter for gynecological examination (general) (routine) without abnormal findings (principal)
CPT/HCPCS: 99386

== ENCOUNTER 2023-01-08 08:57 | Outpatient (REF) | payer BC, SELFPAY ==
--- NOTE | ~2023-01-08 | MM_ITS ---
EXAMINATION: BONE DENSITOMETRY CLINICAL INDICATION: Menopause. COMPARISON: Baseline BD dated 04/02/2012. TECHNIQUE: Using a [employer] DXA System (software version: 13.1) manufactured by [employer], dual-energy x-ray absorptiometry was performed of the lumbar spine and left hip. The images are of good technical quality. Summary results are attached. FINDINGS: LEFT FEMUR, NECK: Current: BMD 0.808 g/cm2, Z-score -0.1, T-score -1.7, osteopenia. Baseline: BMD 0.933 g/cm2. LEFT FEMUR, TOTAL: Current: BMD 0.792 g/cm2, Z-score -0.4, T-score -1.7, osteopenia, 15.0% decrease from baseline (<5% change is not significant). Baseline: BMD 0.932 g/cm2. AP SPINE L1-L4 (excluding L2): The data of L1-L4 has been changed to exclude the L2 vertebral body, because degenerative sclerosis at this level may cause overestimation of lumbar spine density. Current: BMD 1.318 g/cm2, Z-score 3.0, T-score 1.2, normal, 5.4% increase from baseline (<5% change is not significant). Baseline: BMD 1.250 g/cm2. IDENTIFIED RISK FACTORS: Early menopause, glucocorticoids (chronic), secondary osteoporosis (intestinal or bowel disease). HISTORY OF FRACTURE: None listed. MEDICATIONS: None listed. MM/XR DEXA axial skeleton IMPRESSION: 1. DIAGNOSIS: Osteopenia based on the lowest T-score value of -1.7 in the femur neck and total femur applying World Health Organization criteria. 2. 10-YEAR FRACTURE RISK PREDICTION, FRAX: Major osteoporotic fracture (clinical spine, forearm, hip or shoulder) 12.7%. Hip fracture 1.8%. 3. Treatment Recommendations: NOF guidelines recommend consideration for treatment in postmenopausal women and men age 50 and older presenting with the following: -A hip or vertebral (clinical or morphometric) fracture. -T-score less than or equal to -2.5 at the femoral neck or spine after appropriate evaluation to exclude secondary causes. -Low bone mass at the hip or spine and a 10-year fracture probability by FRAX of greater than or equal to 3% for hip fracture or greater than or equal to 20% for major osteoporotic fracture based on the [place] adapted WHO algorithm. 4. Other Recommendations: All treatment decisions require clinical judgment and consideration of individual patient factors, including patient preferences, comorbidities, previous drug use, risk factors not captured in the FRAX model (e.g. frailty, falls, vitamin D deficiency, increased bone turnover, interval significant decline in bone density) and possible under or overestimation of fracture risk by FRAX. Additional medical evaluation for secondary cause of low bone mineral density may be appropriate. FUTURE SCAN RECOMMENDATION: People with diagnosed cases of osteoporosis or at high risk for fracture should have regular bone mineral density tests. For patients eligible for Medicare, routine testing is allowed once every 2 years. The testing frequency can be increased to one year for patients who have rapidly progressing disease, those who are receiving or discontinuing medical therapy to restore bone mass, or have additional risk factors.
== END 2023-01-08 08:58 | disposition home or self-care (01) ==
LOC: HO.MAMMO 08:57
PROVIDERS: PCP Internal Medicine; Visit Provider Advanced Practice Midwife
DX: Z12.31 Encounter for screening mammogram for malignant neoplasm of breast (principal); Z13.820 Encounter for screening for osteoporosis; Z78.0 Asymptomatic menopausal state
CPT/HCPCS: 77063; 77067; 77080

== ENCOUNTER → 2023-01-08 09:30 | Outpatient (BNV) | payer BC, SELFPAY | PROVIDERS: PCP Internal Medicine; Visit Provider Radiology Diagnostic Radiology | DX: Z12.31 Encounter for screening mammogram for malignant neoplasm of breast (principal) | CPT/HCPCS: 77063; 77067 ==

== ENCOUNTER 2023-02-19 12:17 | Outpatient (REF) | payer BC, SELFPAY ==
[2023-02-19 13:50] LABS: Basophils Absolute Auto 0.1 X10*3/uL (0.0-0.2); Basophils Percent Auto 0.5 % (0-2); Eosinophils Absolute Auto 0.1 X10*3/uL (0.0-0.4); Eosinophils Percent Auto 0.7 % (0-4); Hematocrit 30.2 % (37.0-47.0); Hemoglobin 8.8 g/dl (12.0-16.0); Imm Gran Abs Auto 0.05 X10*3/uL (0.00-0.03); Imm Gran Pct Auto 0.5 % (0.0-0.4); Lymphocytes Percent Auto 9.4 % (20-40); MANUAL DIFF FLAG NO; Mean Corpuscular HGB Conc 29.1 g/dl (31.0-35.0); Mean Corpuscular Hemoglobin 22.9 pg (27.0-33.0); Mean Corpuscular Volume 78.4 fL (80.0-98.0); Mean Platelet Volume 10.4 fL (9.4-12.3); Monocytes Absolute Auto 0.4 X10*3/uL (0.1-1.2); Monocytes Percent Auto 3.2 % (2-11); Neutrophils Absolute Auto 9.4 x10*3/uL (2.0-8.3); Neutrophils Percent Auto 85.7 % (45-73); Platelet Count 346 X10*3/uL (160-400); Red Blood Count 3.85 X10*6/uL (4.20-5.50); Red Cell Distribution Width 15.8 % (11.0-16.0)
[2023-02-19 14:04] LABS: Alanine Aminotransferase 23 U/L (0-31); Albumin Level 4.3 g/dL (3.5-5.0); Alkaline Phosphatase 63 U/L (39-117); Anion Gap 13 (12-20); Aspartate Amino Transferase 20 U/L (5-31); Bilirubin Total 0.2 mg/dL (0.0-1.0); Blood Urea Nitrogen 21 mg/dL (9-16); C Reactive Protein < 0.10 mg/dL (< or = 0.50); Calcium 9.3 mg/dL (8.4-10.2); Carbon Dioxide 24 mmol/L (22-29); Chloride 104 mmol/L (96-108); Estimated Glomerular Filt Rate > 60; Glucose Random 116 mg/dL (60-115); Potassium 4.3 mmol/L (3.3-5.1); Sodium 137 mmol/L (135-145); Total Protein 6.6 g/dL (6.5-8.0)
[2023-02-19 14:07] LABS: Estimated Average Glucose 117 mg/dL; Hemoglobin A1c % 5.7 % (<6.0)
[2023-02-19 14:10] LABS: Free T4 (Free Thyroxine) 0.84 ng/dL (0.71-1.85); Thyroid Stimulating Hormone 5.04 uIU/mL (0.32-4.0)
[2023-02-19 15:01] LABS: Appearance Urine Clear; Color Urine Yellow; Glucose Urine UA Negative (Negative); Leukocyte Esterase Urine Negative (Negative); Nitrite Urine Positive (Negative); Specific Gravity - Urine 1.015 (1.005-1.025); UMIC TRIGGER UACC YES; Urine Blood Negative (Negative); Urine Ketones Negative (Negative); Urine Protein Negative (Neg-Trace)
[2023-02-19 15:10] LABS: Bacteria Urine 4+ (None Seen); Hyaline Casts Urine 0-2 /LPF (0-2); RBC Urine 0-2 /HPF (0-2); Squamous Epithelial Cell Urine 0-2 /HPF (0-2); UACC Culture Trigger YES; WBC Urine 0-5 /HPF (0-5)
== END 2023-02-19 12:18 | disposition home or self-care (01) ==
LOC: HO.10HDL 12:17
PROVIDERS: Visit Provider Internal Medicine
DX: R06.02 Shortness of breath (principal); E03.9 Hypothyroidism, unspecified; M25.50 Pain in unspecified joint; R82.90 Unspecified abnormal findings in urine; Z83.3 Family history of diabetes mellitus
CPT/HCPCS: 36415; 80053; 81001; 82550; 83036; 84439; 84443; 85025; 86140; 87086; 87088; 87186

== ENCOUNTER 2023-02-23 11:14 | Day surgery (SDC) | payer BC, SELFPAY ==
--- NOTE | 2023-02-20 09:22 | HO.ANESPROP2 ---
Documented by User: Sharon Morrison NP 02/20/23 09:24 HPI - Anesthesia Eval Consult details Narrative: 62yo F for Upper Endoscopy CAD with RI / stent 2008 [facility] Past Medical History Medical History On beta rena at home Back pain History of degenerative disc disease Scoliosis Erosive esophagitis Collagenous colitis Barretts esophagus GERD (gastroesophageal reflux disease) Hyperlipidemia Hypothyroidism Anxiety Myocardial infarction Family History Family History Father Diabetes Family/Other Breast cancer Family history of problems with anesthesia: No Surgical History Surgical History H/O heart artery stent History of total left knee replacement History of endometrial ablation History of tubal ligation Hx of varicose vein ligation and stripping Hx of esophagogastroduodenoscopy Hx of colonoscopy History of Problems with Anesthesia: No Social History Social History Alcohol intake: former Patient Tobacco Use Status: Former Tobacco user Tobacco use type: Cigarette Advance Directives: No Advance Directives Information Provided: Yes Sexual orientation: Straight/Heterosexual Gender identity: Female Meds Allergies Allergy/AdvReac Type Severity Reaction Status Date / Time droperidol [From Inapsine] Allergy Intermediate SHAKING Verified 12/02/22 08:39 Home Medications Medication Instructions Recorded Confirmed Last Taken Type acetaminophen 500 mg capsule 500 mg PO Q6H PRN Pain 07/22/21 07/22/21 Unknown History albuterol sulfate 90 mcg/actuation 2 puff PO BID PRN Wheezing 07/22/21 07/22/21 Unknown History aerosol inhaler alprazolam 0.5 mg tablet 1 tab PO BID 07/22/21 07/22/21 Unknown History aspirin 81 mg tablet,delayed 81 mg PO DAILY 07/22/21 07/22/21 Unknown History release atorvastatin 10 mg tablet 1 tab PO DAILY 07/22/21 07/22/21 Unknown History calcium carbonate 600 mg calcium 600 mg PO DAILY 07/22/21 07/22/21 Unknown History (1,500 mg) tablet diclofenac sodium 1 % topical gel topical DAILY 07/22/21 Unknown History diphenoxylate-atropine 2.5 1 - 2 tab PO Q6H PRN diarrhea 07/22/21 07/22/21 Unknown History mg-0.025 mg tablet famotidine 20 mg tablet 1 tab PO BID 07/22/21 07/22/21 Unknown History fluticasone propionate 50 1 spray intranasal BID 07/22/21 07/22/21 Unknown History mcg/actuation nasal spray,suspension hyoscyamine sulfate 0.375 mg 1 tab PO Q12H 07/22/21 07/22/21 Unknown History tablet,extended release,12 hr levothyroxine 137 mcg tablet 1 tab PO DAILY 07/22/21 07/22/21 07/26/21 History loratadine 10 mg tablet 1 tab PO DAILY 07/22/21 07/22/21 Unknown History metoprolol tartrate 25 mg tablet 1 tab PO BID 07/22/21 07/22/21 07/26/21 History multivitamin with minerals 1 tab PO DAILY 07/22/21 07/22/21 Unknown History omeprazole 40 mg capsule,delayed 1 cap PO DAILY 07/22/21 07/22/21 07/26/21 History release prednisone 5 mg tablet mg PO 07/22/21 07/26/21 History simethicone 80 mg chewable tablet 80 mg PO BEDTIME 07/22/21 07/22/21 Unknown History trazodone 50 mg tablet 1 - 2 tab PO BEDTIME 07/22/21 07/22/21 Unknown History sucralfate 1 gram tablet 1 g PO QID 12/02/22 Unknown History Exam Pertinent Lab Results Pertinent Lab Results: Laboratory Tests 02/19/23 12:36 WBC 11.0 H Hgb 8.8 L D Hct 30.2 L Plt Count 346 D Sodium 137 Potassium 4.3 Chloride 104 Carbon Dioxide 24 BUN 21 H Creatinine 0.73 Assessment and Plan Assessment Anesthesia Assessment: Chart Reviewed Final Anesthetic Review Family History of Problems with Anesthesia: No History of Problems with Anesthesia: No Documented by User: Tabitha Jacobs MD 02/23/23 12:42 PMFSH Active Problems Active Problems: CAD. Stent placed >10 years ago. Denies recent chest pain Former smoker Past Medical History Medical History On beta rena at home Back pain History of degenerative disc disease Scoliosis Erosive esophagitis Collagenous colitis Barretts esophagus GERD (gastroesophageal reflux disease) Hyperlipidemia Hypothyroidism Anxiety Myocardial infarction Family History Family History Father Diabetes Family/Other Breast cancer Surgical History Surgical History H/O heart artery stent History of total left knee replacement History of endometrial ablation History of tubal ligation Hx of varicose vein ligation and stripping Hx of esophagogastroduodenoscopy Hx of colonoscopy Social History Social History Alcohol intake: former Patient Tobacco Use Status: Former Tobacco user Tobacco use type: Cigarette Advance Directives: No Advance Directives Information Provided: Yes Sexual orientation: Straight/Heterosexual Gender identity: Female Meds Allergies Allergy/AdvReac Type Severity Reaction Status Date / Time droperidol [From Inapsine] Allergy Intermediate SHAKING Verified 12/02/22 08:39 Home Medications Medication Instructions Recorded Confirmed Last Taken Type acetaminophen 500 mg capsule 500 mg PO Q6H PRN Pain 07/22/21 07/22/21 Unknown History albuterol sulfate 90 mcg/actuation 2 puff PO BID PRN Wheezing 07/22/21 07/22/21 Unknown History aerosol inhaler alprazolam 0.5 mg tablet 1 tab PO BID 07/22/21 07/22/21 Unknown History aspirin 81 mg tablet,delayed 81 mg PO DAILY 07/22/21 07/22/21 Unknown History release atorvastatin 10 mg tablet 1 tab PO DAILY 07/22/21 07/22/21 Unknown History calcium carbonate 600 mg calcium 600 mg PO DAILY 07/22/21 07/22/21 Unknown History (1,500 mg) tablet diclofenac sodium 1 % topical gel topical DAILY 07/22/21 Unknown History diphenoxylate-atropine 2.5 1 - 2 tab PO Q6H PRN diarrhea 07/22/21 07/22/21 Unknown History mg-0.025 mg tablet famotidine 20 mg tablet 1 tab PO BID 07/22/21 07/22/21 Unknown History fluticasone propionate 50 1 spray intranasal BID 07/22/21 07/22/21 Unknown History mcg/actuation nasal spray,suspension hyoscyamine sulfate 0.375 mg 1 tab PO Q12H 07/22/21 07/22/21 Unknown History tablet,extended release,12 hr levothyroxine 137 mcg tablet 1 tab PO DAILY 07/22/21 07/22/21 07/26/21 History loratadine 10 mg tablet 1 tab PO DAILY 07/22/21 07/22/21 Unknown History metoprolol tartrate 25 mg tablet 1 tab PO BID 07/22/21 07/22/21 07/26/21 History multivitamin with minerals 1 tab PO DAILY 07/22/21 07/22/21 Unknown History omeprazole 40 mg capsule,delayed 1 cap PO DAILY 07/22/21 07/22/21 07/26/21 History release prednisone 5 mg tablet mg PO 07/22/21 07/26/21 History simethicone 80 mg chewable tablet 80 mg PO BEDTIME 07/22/21 07/22/21 Unknown History trazodone 50 mg tablet 1 - 2 tab PO BEDTIME 07/22/21 07/22/21 Unknown History sucralfate 1 gram tablet 1 g PO QID 12/02/22 Unknown History Exam Height,Weight and Vital Signs: Height 5 ft 7 in Weight 58.06 kg Vital Signs Temp Pulse Resp BP Pulse Ox O2 Del Method 02/23/23 12:05 97.2 F 71 16 128/70 100 Room Air Airway Mallampati Class: II TM Dist: >3cm Neck ROM: Full Loose/Missing/Broken Teeth: Yes (Missing Molars top right and left. Denies broken or loose teeth) Heart: RRR Lungs: CTAB Assessment and Plan Assessment Anesthesia Assessment: Anesthesia Plan Discussed Final Anesthetic Review NPO: Yes ASA Class: III Final Preanesthetic Review: No Changes in Pt Med Stat, Meds/Allgs Chart Reviewed, Consent Obtained/Reviewed and Anes Risks/Benef Reviewed Patient Risk: Intermediate Procedure Risk: Low Assessment/Block/Sedation in SS: Assess/Block/Sedation-SS Anesthetic Plan Anesthetic Plan: GA and MAC: Disposition: Standard PACU
[2023-02-23] VITALS (7 sets, daily range): BP systolic 125–146; BP diastolic 60–77; PULSE 67–71; RESP 16; TEMP 36.2–36.9; O2SAT 98–100
--- OUTSIDE RECORDS SUMMARY | 2023-02-23 11:16 | XMS_ITS | Continuity of Care Document ---
Author Name Unknown Organization [facility] Address [address] [place] [id number]- Care Team Providers Care X Ray Examiner Of Aircraft Name Role Phone Jeff Marcelo MD Primary Care Physician [phone] [facility] [place] [facility] [address] [place] [id number]- Attending Physician: Leah Cuevas MD Admitting Physician: [...] Start Date: 06/05/20 Status: Ordered Aspirin Tablet 81 mg, By Mouth, Daily, Refills 0, Maintenance, 06/06/20 8:25:00 EDT, Partial fill upon patient request if the prescription is for a schedule II opioid drug. Start Date: 06/06/20 Status: Ordered atorvastatin 10 mg oral tablet 1 tablet, By Mouth, Daily, # 90 tablet, 3 Refills, Maintenance, 07/21/22 10:02:00 EDT, [facility], 169, cm, 08/23/21 14:23:00 EDT, Height Start Date: 07/21/22 Status: Ordered famotidine 20 mg oral tablet [...] Date: 01/04/21 Stop Date: 12/30/21 Status: Ordered metoprolol 25 mg oral tablet 12.5 mg, 0.5, tablet, By Mouth, 2 times a day, # 180 tablet, Refills 0, Tot. Refills 0, Maintenance, 05/29/20 10:26:00 EDT, Print Requisition, Partial fill upon patient request if the prescription isfor a schedule II opioid drug. Start Date: 05/29/20 Status: Ordered nitroglycerin 0.4 mg sublingual tablet 1 tablet, Sublingual, Once, PRN Chest Pain, one time only for chest pain and SBP greater than 100 mmHg, # 25 tablet, 0 Refills Start Date: 08/25/08 Status: Ordered omeprazole 20 mg oral enteric coated capsule = 40 mg, By Mouth, 2 times a day, # 30 capsule, 0 Refills, 08/25/08 17:22:03 EDT Start Date: 08/25/08 Status: Ordered predniSONE 5 mg oral tablet 5 tablet = 25 mg, By Mouth, Daily, # 50 tablet, 0 Refills, Maintenance, 05/29/20 10:14:00 EDT, Tablet, Partial fill upon patient request if the prescription is for a schedule II opioid drug. Start Date: 05/29/20 Status: Ordered Sucralfate = 600 mg, By Mouth, 3 times a day before meals and bedtime, 0 Refills, Maintenance, 08/23/21 14:28:00 EDT, Partial fill upon patient request if the prescription is for a schedule II opioid drug. Start Date: 08/23/21 Status: Ordered traZODone 50 mg oral tablet 50 mg, 1, tablet, By Mouth, Daily at bedtime, # 30 tablet, Refills 0, Maintenance, 06/05/20 6:56:00EDT, Partial fill upon patient request if the prescription is for a schedule II opioid drug. Start Date: 06/05/20 Status: Ordered Problem List Condition Confirmation Course Effective Dates Status H ealth Status Informant Colitis Confirmed Active Coronary artery disease Confirmed Active Family history of cardiac disorder in father Confirmed Active Status post insertion of drug-eluting stent into left anterior descending artery Confirmed Active Hyperlipidemia Confirmed Active Hypertension Confirmed Active Hypothyroid Confirmed Active ST elevation (STEMI) myocardial infarction involving left anterior descending coronary artery Confirmed Active Osteoarthritis Confirmed Active History of smoking Confirmed Active Patient Care team information Care Team Personnel Name: Jeff Marcelo MD Position: [facility] Outreach Member Role: PCP Address: Address: [address] [place] [address]- [place] Name: Jelena Stringer RN Position: [facility] Hospital Milling Machinist Member Role: Primary Care Nurse Care Team Related Persons Name: BETTIE MOREIRA Address: [address] [place] [address]
--- OUTSIDE RECORDS SUMMARY | 2023-02-23 11:16 | XMS_ITS | Continuity of Care Document ---
Author Name Unknown Organization [facility] Address [address] [place] [id number]- Care Team Providers Care Search Marketing Analyst Name Role Phone Jeff Marcelo MD Primary Care Physician [place] [facility] [place] [facility] [address] [place] [id number]- Attending Physician: Jimmie Hernandez Admitting Physician: Jimmie [...] Team Personnel Name: Jeff Marcelo MD Position: [facility] Outreach Member Role: PCP Address: Address: [address] [place] [address]- [place] Name: Jelena Stringer RN Position: [facility] Hospital Sewing Room Supervisor Member Role: Primary Care Nurse Care Team Related Persons Name: BETTIE MOREIRA Address: [address] [address]
[2023-02-23] MEDS: Lactated Ringers 1,000 ML 100 ML IVCONT (12:08)
--- NOTE | 2023-02-23 13:01 | PM.OP ---
Brief Operative Note Date of Service: 02/23/23 Pre-op diagnosis: GERD, Hx of gastric ulcers Post-op diagnosis: other (Pyloric channel ulcer with partial gastric outlet obstruction, Hiatal hernia with GERD) Procedure: EGD with biopsies Surgeon: Mathew Perez MD Anesthesia: MAC Was an Cath Laboratory Technician used for this Procedure?: No Estimated blood loss (mL): 2.0 Pathology: other (A. Gastric antrum) Condition: stable Disposition: PACU
[2023-02-23 13:20] LABS: MANUAL DIFF FLAG NO
[2023-02-23 13:25] LABS: Basophils Percent Auto 0.5 % (0-2); Eosinophils Absolute Auto 0.3 X10*3/uL (0.0-0.4); Eosinophils Percent Auto 4.2 % (0-4); Hematocrit 27.1 % (37.0-47.0); Imm Gran Abs Auto 0.03 X10*3/uL (0.00-0.03); Imm Gran Pct Auto 0.4 % (0.0-0.4); Lymphocytes Absolute Auto 2.1 X10*3/uL (1.2-4.9); Lymphocytes Percent Auto 28.7 % (20-40); Mean Corpuscular HGB Conc 29.5 g/dl (31.0-35.0); Mean Corpuscular Hemoglobin 22.9 pg (27.0-33.0); Mean Corpuscular Volume 77.7 fL (80.0-98.0); Mean Platelet Volume 9.3 fL (9.4-12.3); Monocytes Absolute Auto 0.5 X10*3/uL (0.1-1.2); Monocytes Percent Auto 7.2 % (2-11); Neutrophils Absolute Auto 4.3 x10*3/uL (2.0-8.3); Platelet Count 263 X10*3/uL (160-400); Red Blood Count 3.49 X10*6/uL (4.20-5.50); Red Cell Distribution Width 16.1 % (11.0-16.0); White Blood Count 7.4 X10*3/uL (4.8-10.8)
[2023-02-23 13:28] LABS: INTERNATIONAL NORM RATIO 1.1 (0.9-1.1); Prothrombin Time 13.4 SEC (11.1-13.3)
--- NOTE | 2023-02-23 14:10 | OP_ITS ---
DATE OF SERVICE: 02/23/2023 SURGEON: Mathew Perez MD INDICATIONS: The patient presents for evaluation of chronic gastroesophageal reflux, upper abdominal discomfort, and anemia. Full consent has been obtained from her for this, including risks of bleeding and perforation. PREOPERATIVE DIAGNOSIS: POSTOPERATIVE DIAGNOSIS: PROCEDURE PERFORMED: Esophagogastroduodenoscopy with biopsies. ESTIMATED BLOOD LOSS: COMPLICATIONS: ANESTHESIA: Monitored anesthesia care converted to GA via Endotracheal Intubation. ASSISTANTS: SPECIMENS: PREOPERATIVE DIAGNOSES: Gastroesophageal reflux, upper abdominal discomfort, and anemia. POSTOPERATIVE DIAGNOSES: Gastroesophageal reflux, upper abdominal discomfort, anemia, pyloric channel ulcer with partial gastric outlet obstruction and gastric retention, hiatal hernia, reflux. DESCRIPTION OF PROCEDURE: The patient was placed in the left lateral decubitus position. The Olympus video gastroscope was passed in the posterior oropharynx and upper esophagus under direct vision. The scope was passed slowly to the distal esophagus. The gastroesophageal junction appeared normal at 35 cm. There was no esophagitis, Mandel's mucosa, nor mass. The scope entered the stomach. There was a small hiatal hernia. Immediately upon entering the stomach, I visualized some retained old food and liquid. I could see the pyloric channel had an associated ulcer. However, at that point the scope was taken out of the patient due to the gastric retention and her increased risk of aspiration. She was then intubated under GA by the anesthesiologist so as to protect the airway in the event of reflux and to avoid aspiration. Once she was intubated and under general anesthesia, the scope was then placed back into the posterior oropharynx and upper esophagus under direct vision. The scope was advanced back to the distal esophagus. The scope entered the stomach and was advanced to the region of the pylorus. The pyloric channel was notable for a circumferential ulceration with friability. I was unable to advance the gastroscope into the duodenum; although I was able to visualize the duodenal bulb well and there did not appear to be any associated ulceration or mass in the bulb. Peristalsis in the stomach appeared normal. The pyloric channel ulcer was quite friable with oozing, but there was no active bleeding. Given the associated ulceration and friability, I did not think dilating with a balloon was safe at this time. I did obtain gastric antral biopsies. The scope was retroflexed visualizing the proximal stomach carefully, which appeared normal without mass or ulceration; although visualization was somewhat limited due to the retained food. The scope was straightened and withdrawn back into the esophagus. The esophageal mucosa appeared normal. The scope was withdrawn from the patient. She tolerated the procedure well and was returned to the recovery area in stable condition. IMPRESSION: 1. Pyloric channel ulcer with gastric outlet obstruction and gastric retention. 2. Hiatal hernia and reflux. PLAN: These findings were discussed with the patient in detail once she was fully awake. Given these findings, she has been advised to be sure to avoid all NSAIDs long-term including her diclofenac gel. She is already on omeprazole 40 mg each morning and 40 mg each evening, as well as sucralfate 4 times a day. She advises me that she is using an 81mg aspirin twice a day for her underlying coronary artery disease, rather than just once a day as directed by her physicians. As such, I advised her to just use it once a day. She was advised to stay on a very, very soft diet, such as mashed potatoes, smoothies, and scrambled eggs and to avoid all roughage such as salads, raw fruits and vegetables until this situation gets treated and improved. She was advised to resume her single 81mg aspirin on , February 26. She was advised not to eat or drink for at least several hours before bedtime. We will need to repeat the upper endoscopy in about 3 or 4 weeks to hopefully find the ulcer has healed and then be able to dilate the narrow area in the pyloric channel to allow for better stomach emptying. I shall check a repeat CBC and gastrin level today. She was advised to use iron supplements twice a day. She has been given written instructions for all this and I did review this with her daughter, Abbie as well. She will continue her current regimen of prednisone 7.5 mg alternating with 5 mg daily for underlying collagenous colitis and chronic diarrhea. Despite the omeprazole and sucralfate, I suspect the combination of 2 low-dose aspirin for the coronary artery disease and the prednisone is contributing to the ulcer as well. Gastric biopsies in early 2021 when she had other ulcers had been negative for H pylori. MD LEONELA Wright/ALCIRA / [id number]
[2023-02-28 15:28] LABS: Gastrin 441 pg/mL (<=100)
== END 2023-02-23 14:47 | disposition home or self-care (01) ==
PROVIDERS: PCP Internal Medicine; Visit Provider Internal Medicine
PROC: 0DJ08ZZ Inspection of Upper Intestinal Tract, Via Natural or Artificial Opening Endoscopic (ICD-10-PCS; CPT 43235; principal; 2023-02-23 12:20)
DX: K25.9 Gastric ulcer, unspecified as acute or chronic, without hemorrhage or perforation (principal); K31.89 Other diseases of stomach and duodenum; K44.9 Diaphragmatic hernia without obstruction or gangrene; K21.9 Gastro-esophageal reflux disease without esophagitis; K52.89 Other specified noninfective gastroenteritis and colitis; D64.9 Anemia, unspecified; Z87.19 Personal history of other diseases of the digestive system; E78.5 Hyperlipidemia, unspecified; I25.2 Old myocardial infarction; E03.9 Hypothyroidism, unspecified; Z87.891 Personal history of nicotine dependence; Z79.899 Other long term (current) drug therapy; Z79.02 Long term (current) use of antithrombotics/antiplatelets; Z79.82 Long term (current) use of aspirin
CPT/HCPCS: 43239; 36415; 82941; 85025; 85610; 88305; 88342; J2704

== ENCOUNTER 2023-02-26 11:03 | Outpatient (REF) | payer BC, SELFPAY ==
[2023-02-26 11:15] LABS: MANUAL DIFF FLAG NO
[2023-02-26 12:09] LABS: Basophils Absolute Auto 0.1 X10*3/uL (0.0-0.2); Basophils Percent Auto 0.7 % (0-2); Eosinophils Absolute Auto 0.3 X10*3/uL (0.0-0.4); Eosinophils Percent Auto 3.1 % (0-4); Hematocrit 29.8 % (37.0-47.0); Hemoglobin 8.6 g/dl (12.0-16.0); Imm Gran Abs Auto 0.06 X10*3/uL (0.00-0.03); Imm Gran Pct Auto 0.6 % (0.0-0.4); Lymphocytes Absolute Auto 1.2 X10*3/uL (1.2-4.9); Lymphocytes Percent Auto 12.3 % (20-40); Mean Corpuscular HGB Conc 28.9 g/dl (31.0-35.0); Mean Corpuscular Hemoglobin 23.1 pg (27.0-33.0); Mean Corpuscular Volume 80.1 fL (80.0-98.0); Mean Platelet Volume 10.2 fL (9.4-12.3); Monocytes Absolute Auto 0.5 X10*3/uL (0.1-1.2); Monocytes Percent Auto 5.7 % (2-11); Neutrophils Absolute Auto 7.4 x10*3/uL (2.0-8.3); Neutrophils Percent Auto 77.6 % (45-73); Platelet Count 309 X10*3/uL (160-400); Red Blood Count 3.72 X10*6/uL (4.20-5.50); White Blood Count 9.6 X10*3/uL (4.8-10.8)
== END 2023-02-26 11:04 | disposition home or self-care (01) ==
LOC: HO.LAB 11:03
PROVIDERS: PCP Internal Medicine; Visit Provider Internal Medicine
DX: D50.0 Iron deficiency anemia secondary to blood loss (chronic) (principal)
CPT/HCPCS: 36415; 85025

== ENCOUNTER 2023-03-12 10:40 | Outpatient (REF) | payer BC, SELFPAY ==
[2023-03-12 11:07] LABS: Basophils Absolute Auto 0.1 X10*3/uL (0.0-0.2); Basophils Percent Auto 0.6 % (0-2); Eosinophils Absolute Auto 0.2 X10*3/uL (0.0-0.4); Eosinophils Percent Auto 2.5 % (0-4); Hematocrit 34.6 % (37.0-47.0); Hemoglobin 10.4 g/dl (12.0-16.0); Imm Gran Abs Auto 0.04 X10*3/uL (0.00-0.03); Imm Gran Pct Auto 0.4 % (0.0-0.4); Lymphocytes Absolute Auto 1.3 X10*3/uL (1.2-4.9); Lymphocytes Percent Auto 13.4 % (20-40); MANUAL DIFF FLAG NO; Mean Corpuscular HGB Conc 30.1 g/dl (31.0-35.0); Mean Corpuscular Hemoglobin 25.6 pg (27.0-33.0); Mean Corpuscular Volume 85.2 fL (80.0-98.0); Mean Platelet Volume 9.8 fL (9.4-12.3); Monocytes Absolute Auto 0.5 X10*3/uL (0.1-1.2); Monocytes Percent Auto 5.7 % (2-11); Neutrophils Absolute Auto 7.2 x10*3/uL (2.0-8.3); Neutrophils Percent Auto 77.4 % (45-73); Platelet Count 237 X10*3/uL (160-400); Red Blood Count 4.06 X10*6/uL (4.20-5.50); White Blood Count 9.3 X10*3/uL (4.8-10.8)
== END 2023-03-12 10:41 | disposition home or self-care (01) ==
LOC: HO.10HDL 10:40
PROVIDERS: Visit Provider Internal Medicine
DX: D50.0 Iron deficiency anemia secondary to blood loss (chronic) (principal)
CPT/HCPCS: 36415; 85025

== ENCOUNTER 2023-03-26 13:04 | Day surgery (SDC) | payer BC, SELFPAY ==
--- NOTE | 2023-03-24 12:16 | HO.ANESPROP2 ---
Documented by User: Sharon Morrison NP 03/24/23 12:17 HPI - Anesthesia Eval Consult details Narrative: 62yo F for?Upper Endoscopy with Balloon Dilitation s/p same 02/2023 - required rapid sequence induction when found to have food in stomach with EGD CAD with MT / stent 2008 [facility] Past Medical History Medical History On beta rena at home Back pain History of degenerative disc disease Scoliosis Erosive esophagitis Collagenous colitis Barretts esophagus GERD (gastroesophageal reflux disease) Hyperlipidemia Hypothyroidism Anxiety Myocardial infarction Family History Family History Father Diabetes Family/Other Breast cancer Family history of problems with anesthesia: No Surgical History Surgical History H/O heart artery stent History of total left knee replacement History of endometrial ablation History of tubal ligation Hx of varicose vein ligation and stripping Hx of esophagogastroduodenoscopy Hx of colonoscopy History of Problems with Anesthesia: No Social History Social History Alcohol intake: former Patient Tobacco Use Status: Former Tobacco user Tobacco use type: Cigarette Use of substances other than those prescribed or required for medical reasons: No Are you DNR?: No Advance Directives: No Advance Directives Information Provided: Yes Sexual orientation: Straight/Heterosexual Gender identity: Female Meds Allergies Allergy/AdvReac Type Severity Reaction Status Date / Time droperidol [From Inapsine] Allergy Intermediate SHAKING Verified 03/26/23 13:35 Home Medications Medication Instructions Recorded Confirmed Last Taken Type acetaminophen 500 mg capsule 500 mg PO Q6H PRN Pain 07/22/21 03/24/23 Unknown History albuterol sulfate 90 mcg/actuation 2 puff PO BID PRN Wheezing 07/22/21 03/24/23 Unknown History aerosol inhaler alprazolam 0.5 mg tablet 1 tab PO BID 07/22/21 03/24/23 Unknown History aspirin 81 mg tablet,delayed 81 mg PO DAILY 07/22/21 03/24/23 Unknown History release atorvastatin 10 mg tablet 1 tab PO DAILY 07/22/21 03/24/23 Unknown History calcium carbonate 600 mg calcium 600 mg PO DAILY 07/22/21 03/24/23 Unknown History (1,500 mg) tablet diclofenac sodium 1 % topical gel 1 ea topical DAILY 07/22/21 03/24/23 Unknown History diphenoxylate-atropine 2.5 1 - 2 tab PO Q6H PRN diarrhea 07/22/21 03/24/23 Unknown History mg-0.025 mg tablet famotidine 20 mg tablet 1 tab PO BID 07/22/21 03/24/23 Unknown History fluticasone propionate 50 1 spray intranasal BID 07/22/21 03/24/23 Unknown History mcg/actuation nasal spray,suspension hyoscyamine sulfate 0.375 mg 1 tab PO Q12H 07/22/21 03/24/23 Unknown History tablet,extended release,12 hr levothyroxine 137 mcg tablet 1 tab PO DAILY 07/22/21 03/26/23 03/26/23 History loratadine 10 mg tablet 1 tab PO DAILY 07/22/21 03/24/23 Unknown History metoprolol tartrate 25 mg tablet 1 tab PO BID 07/22/21 03/26/23 03/26/23 History multivitamin with minerals 1 tab PO DAILY 07/22/21 03/24/23 Unknown History omeprazole 40 mg capsule,delayed 1 cap PO DAILY 07/22/21 03/24/23 07/26/21 History release prednisone 5 mg tablet 10 mg PO DAILY 07/22/21 03/24/23 07/26/21 History simethicone 80 mg chewable tablet 80 mg PO BEDTIME 07/22/21 03/24/23 Unknown History trazodone 50 mg tablet 1 - 2 tab PO BEDTIME 07/22/21 03/24/23 Unknown History sucralfate 1 gram tablet 1 g PO QID 12/02/22 03/24/23 Unknown History Exam Height,Weight and Vital Signs: Height 5 ft 6.5 in Weight 57.153 kg Pertinent Lab Results Pertinent Lab Results: Laboratory Tests 02/19/23 12:36 WBC 11.0 H Hgb 8.8 L D Hct 30.2 L Plt Count 346 D Sodium 137 Potassium 4.3 Chloride 104 Carbon Dioxide 24 BUN 21 H Creatinine 0.73 Assessment and Plan Assessment Anesthesia Assessment: Chart Reviewed Final Anesthetic Review Family History of Problems with Anesthesia: No History of Problems with Anesthesia: No Documented by User: Pretty Keyes MD 03/26/23 14:21 PMFSH Past Medical History Medical History On beta rena at home Back pain History of degenerative disc disease Scoliosis Erosive esophagitis Collagenous colitis Barretts esophagus GERD (gastroesophageal reflux disease) Hyperlipidemia Hypothyroidism Anxiety Myocardial infarction Family History Family History Father Diabetes Family/Other Breast cancer Surgical History Surgical History H/O heart artery stent History of total left knee replacement History of endometrial ablation History of tubal ligation Hx of varicose vein ligation and stripping Hx of esophagogastroduodenoscopy Hx of colonoscopy Social History Social History Alcohol intake: former Patient Tobacco Use Status: Former Tobacco user Tobacco use type: Cigarette Use of substances other than those prescribed or required for medical reasons: No Are you DNR?: No Advance Directives: No Advance Directives Information Provided: Yes Sexual orientation: Straight/Heterosexual Gender identity: Female Meds Allergies Allergy/AdvReac Type Severity Reaction Status Date / Time droperidol [From Inapsine] Allergy Intermediate SHAKING Verified 03/26/23 13:35 Home Medications Medication Instructions Recorded Confirmed Last Taken Type acetaminophen 500 mg capsule 500 mg PO Q6H PRN Pain 07/22/21 03/24/23 Unknown History albuterol sulfate 90 mcg/actuation 2 puff PO BID PRN Wheezing 07/22/21 03/24/23 Unknown History aerosol inhaler alprazolam 0.5 mg tablet 1 tab PO BID 07/22/21 03/24/23 Unknown History aspirin 81 mg tablet,delayed 81 mg PO DAILY 07/22/21 03/24/23 Unknown History release atorvastatin 10 mg tablet 1 tab PO DAILY 07/22/21 03/24/23 Unknown History calcium carbonate 600 mg calcium 600 mg PO DAILY 07/22/21 03/24/23 Unknown History (1,500 mg) tablet diclofenac sodium 1 % topical gel 1 ea topical DAILY 07/22/21 03/24/23 Unknown History diphenoxylate-atropine 2.5 1 - 2 tab PO Q6H PRN diarrhea 07/22/21 03/24/23 Unknown History mg-0.025 mg tablet famotidine 20 mg tablet 1 tab PO BID 07/22/21 03/24/23 Unknown History fluticasone propionate 50 1 spray intranasal BID 07/22/21 03/24/23 Unknown History mcg/actuation nasal spray,suspension hyoscyamine sulfate 0.375 mg 1 tab PO Q12H 07/22/21 03/24/23 Unknown History tablet,extended release,12 hr levothyroxine 137 mcg tablet 1 tab PO DAILY 07/22/21 03/26/23 03/26/23 History loratadine 10 mg tablet 1 tab PO DAILY 07/22/21 03/24/23 Unknown History metoprolol tartrate 25 mg tablet 1 tab PO BID 07/22/21 03/26/23 03/26/23 History multivitamin with minerals 1 tab PO DAILY 07/22/21 03/24/23 Unknown History omeprazole 40 mg capsule,delayed 1 cap PO DAILY 07/22/21 03/24/23 07/26/21 History release prednisone 5 mg tablet 10 mg PO DAILY 07/22/21 03/24/23 07/26/21 History simethicone 80 mg chewable tablet 80 mg PO BEDTIME 07/22/21 03/24/23 Unknown History trazodone 50 mg tablet 1 - 2 tab PO BEDTIME 07/22/21 03/24/23 Unknown History sucralfate 1 gram tablet 1 g PO QID 12/02/22 03/24/23 Unknown History Exam Airway Mallampati Class: II TM Dist: <=3cm Neck ROM: Limited Heart: rrr Lungs: cta Assessment and Plan Final Anesthetic Review NPO: Yes ASA Class: III Final Preanesthetic Review: No Changes in Pt Med Stat, Meds/Allgs Chart Reviewed, Consent Obtained/Reviewed and Anes Risks/Benef Reviewed Patient Risk: Intermediate Procedure Risk: Low Anesthetic Plan Anesthetic Plan: GA (pt has pyloric ulcer with stricture, last anesthetic mac converted to GA due to food visualised in stomach. says pt still on same meds, he did not dilate last procedure, pathology unchanged.) Disposition: Standard PACU
--- OUTSIDE RECORDS SUMMARY | 2023-03-26 13:07 | XMS_ITS | Patient Health Record ---
Author Name Unknown Organization [facility] Address [address] [place] [address] Care Team Providers Care Finisher Hand Name Role Phone Jeff Flores MD Primary Care Provider Mathew Torres [phone] ALLERGIES Allergen (clinical drug ingredient) Drug/Non Drug Allergy documented on EMR Reaction Allergy Type Onset Date Status Inapsine Unknown Drug Allergy Active RESULTS Component Value Reference Range Notes TSH reflex Free T4 Reviewed date:2022 06:40:53 PM Interpretation: Performing Lab:[facility], [address] [place] [phone] Notes/Report: TSH reflex Free T4 1.80 0.32-4.0 uIU/mL T Spot TB Reviewed date:06/21/2022 06:54:51 PM Interpretation: Performing Lab:[facility], [address] [place] [phone] Notes/Report: TSpotTB Negative Negative A negative test result does not exclude the possibility of exposure to or infection with Mycobacterium tuberculosis (M. tuberculosis). Patients with recent exposure to TB infected individuals exhibiting a negative T-SPOT.TB result should be considered for retesting within 6 weeks or if other relevant clinical symptoms indicate. Results from T-SPOT.TB testing must be used in conjunction with each individual's epidemiological history, current medical status, and results of other diagnostic evaluations. The T-SPOT.TB test is qualitative and results are reported as positive, borderline, or negative, given that the test controls perform as expected. In line with the Centers for Disease Control and Prevention's 2010 recommendation to report quantitative measurements alongside the qualitative result, the laboratory provides spot counts for informational purposes only. The T-SPOT.TB test should not be interpreted as a quantitative test. TS Panel A 3 TS Panel B 2 TS Negative Control Passed TS Positive Control Passed For additional information, please refer to http://education.MobilePeak/faq/LAU711 (This link is being provided for informational/ educational purposes only.) THIS TEST WAS PERFORMED AT: [employer]/[address] [phone] MARCO CARROLL MD,PHD Complete Blood Count Auto Di ff Reviewed date:2022 06:39:41 PM Interpretation: Performing Lab:[facility], [address] [place] [phone] Notes/Report: White Blood Count 8.7 4.8-10.8 X10*3/uL Red Blood Count 4.00 4.20-5.50 X10*6/uL Hemoglobin 12.9 12.0-16.0 g/dl Hematocrit 38.6 37.0-47.0 % Mean Corpuscular Volume 96.5 80.0-98.0 fL Mean Corpuscular Hemoglobin 32.3 27.0-33.0 pg Mean Corpuscular HGB Conc 33.4 31.0-35.0 g/dl Red Cell Distribution Width 12.2 11.0-16.0 % Platelet Count 242 160-400 X10*3/uL Mean Platelet Volume 10.8 9.4-12.3 fL Neutrophils Percent Auto 85.5 45-73 % Imm Gran Pct Auto 0.3 0.0-0.4 % Lymphocytes Percent Auto 10.3 20-40 % Monocytes Percent Auto 3.3 2-11 % Eosinophils Percent Auto 0.3 0-4 % Basophils Percent Auto 0.3 0-2 % NRBC Pct Auto 0.0 0.0-0.2 /100WBC Neutrophils Absolute Auto 7.4 2.0-8.3 x10*3/u L Imm Gran Abs Auto 0.03 0.00-0.03 X10*3/uL Lymphocytes Absolute Auto 0.9 1.2-4.9 X10*3/u L Monocytes Absolute Auto 0.3 0.1-1.2 X10*3/uL Eosinophils Absolute Auto 0.0 0.0-0.4 X10*3/u L Basophils Absolute Auto 0.0 0.0-0.2 X10*3/uL NRBC Abs Auto 0.000 0.0-0.012 X10*3/uL Liver Panel Reviewed date:2022 06:40:03 PM Interpretation: Performing Lab:[facility], [address] [place] [phone] Notes/Report: Bilirubin Total 0.3 0.0-1.0 mg/dL Bilirubin Direct 0.1 0.0-0.5 mg/dL Aspartate Amino Transferase 22 5-31 U/L Alanine Aminotransferase 31 0-31 U/L Total Protein 6.1 6.5-8.0 g/dL Albumin Level 4.3 3.5-5.0 g/dL Alkaline Phosphatase 73 39-117 U/L Basic Metabolic Panel Reviewed date:2022 06:40:31 PM Interpretation: Performing Lab:[facility], [address] [place] [phone] Notes/Report: Sodium 138 135-145 mmol/L Potassium 4.5 3.3-5.1 mmol/L Chloride 104 96-108 mmol/L Carbon Dioxide 26 22-29 mmol/L Anion Gap 13 12-20 Blood Urea Nitrogen 19 9-16 mg/dL Creatinine 0.80 0.5-1.4 mg/dL Estimated Glomerular Filt Rate > 60 NOTE: For -Greenlandic individuals, multiply the result by 1.210. Chronic Kidney Disease: Estimated GFR < 60 mL/min/1.73m2 Severe Kidney Disease: Estimated GFR < 15 mL/min/1.73m2 Glucose Random 118 60-115 mg/dL Calcium 8.8 8.4-10.2 mg/dL C Reactive Protein Reviewed date:2022 06:40:44 PM Interpretation: Performing Lab:[facility], [address] [place] [phone] Notes/Report: C Reactive Protein < 0.10 < or = 0.50 mg/dL Immunoglobulin A Reviewed date:06/29/2022 12:36:15 AM Interpretation: Performing Lab:[facility], [address] [place] [phone] Notes/Report: Immunoglobulin A 110 70-320 mg/dL THIS TEST WAS PERFORMED AT: [facility] [address] [place] [phone] DEBI DODD MD Transglutaminase Ab IgG Reviewed date:06/29/2022 12:36:25 AM Interpretation: Performing Lab:[address] [phone] Notes/Report: Transglutaminase Ab IgG <1.0 Value Interpretation ----- <15.0 Antibody not detected > or = 15.0 Antibody detected THIS TEST WAS PERFORMED AT: [facility] [address] [place] [phone] DEBI DODD MD Transglutaminase IgA Reviewed date:06/29/2022 12:36:38 AM Interpretation: Performing Lab:[address] [phone] Notes/Report: Transglutaminase IgA <1.0 Value Interpretation ----- <15.0 Antibody not detected > or = 15.0 Antibody detected THIS TEST WAS PERFORMED AT: [facility] [address] [place] [phone] DEBI DODD MD Gliadin Ab Panel Reviewed date:06/29/2022 12:36:48 AM Interpretation: Performing Lab:[address] [phone] Notes/Report: Gliadin Deamidated IgA Ab <1.0 Value Interpretation ----- <15.0 Antibody not detected > or = 15.0 Antibody detected Gliadin Deamidated IgG Ab <1.0 Value Interpretation ----- <15.0 Antibody not detected > or = 15.0 Antibody detected THIS TEST WAS PERFORMED AT: [facility] [address] [place] [phone] DEBI DODD MD Endomysial IgA rflx Titer Reviewed date:06/29/2022 12:37:11 AM Interpretation: Performing Lab:[address], [place] [address] Notes/Report: Endomysial IgA Antibody Negative Negative THIS TEST WAS PERFORMED AT: [employer]/[address] MARCO CARROLL MD,PHD Endomysial Titer TNP Hepatitis B Profile Reviewed date:06/21/2022 06:54:37 PM Interpretation: Performing Lab:[address] [phone] Notes/Report: Hepatitis B Surface Antibody NONREACTIVE Nonreactive Nonreactive: < 8.00 mIU/mL Hepatitis B Core Antibody Nonreactive Nonreactive Hepatitis B Surface Antigen Negative Negative Gastrin (Not yet reviewed by provider) Interpretation: Performing Lab:[address] [phone] Notes/Report: Gastrin 441 <=100 pg/mL Reference range applies to fasting specimens only. For additional information, please refer to [email or web address].com.tr.Dasher/[email or web address] (This link is being provided for informational/ educational purposes only.) THIS TEST WAS PERFORMED AT: [employer]/[facility] MARCO CARROLL MD,PHD Complete Blood Count Auto Di ff Reviewed date:02/23/2023 05:46:57 PM Interpretation: Performing Lab:[address] [phone] Notes/Report: White Blood Count 7.4 4.8-10.8 X10*3/uL Red Blood Count 3.49 4.20-5.50 X10*6/uL Hemoglobin 8.0 12.0-16.0 g/dl Hematocrit 27.1 37.0-47.0 % Mean Corpuscular Volume 77.7 80.0-98.0 fL Mean Corpuscular Hemoglobin 22.9 27.0-33.0 pg Mean Corpuscular HGB Conc 29.5 31.0-35.0 g/dl Red Cell Distribution Width 16.1 11.0-16.0 % Platelet Count 263 160-400 X10*3/uL Mean Platelet Volume 9.3 9.4-12.3 fL Neutrophils Percent Auto 59.0 45-73 % Imm Gran Pct Auto 0.4 0.0-0.4 % Lymphocytes Percent Auto 28.7 20-40 % Monocytes Percent Auto 7.2 2-11 % Eosinophils Percent Auto 4.2 0-4 % Basophils Percent Auto 0.5 0-2 % NRBC Pct Auto 0.0 0.0-0.2 /100WBC Neutrophils Absolute Auto 4.3 2.0-8.3 x10*3/u L Imm Gran Abs Auto 0.03 0.00-0.03 X10*3/uL Lymphocytes Absolute Auto 2.1 1.2-4.9 X10*3/u L Monocytes Absolute Auto 0.5 0.1-1.2 X10*3/uL Eosinophils Absolute Auto 0.3 0.0-0.4 X10*3/u L Basophils Absolute Auto 0.0 0.0-0.2 X10*3/uL NRBC Abs Auto 0.000 0.0-0.012 X10*3/uL Prothrombin Time INR Reviewed date:02/23/2023 05:47:02 PM Interpretation: Performing Lab:[facility], [address] [place] [phone] Notes/Report: Prothrombin Time 13.4 11.1-13.3 SEC INTERNATIONAL NORM RATIO 1.1 0.9-1.1 INTERNATIONAL NORMALIZED RATIO (INR) REFERENCE RANGES Reference Range For patients not on anticoagulant therapy: 0.9 - 1.1 INR ranges for oral anticoagulant therapy: For prevention and treatment of venous thrombosis and pulmonary embolism: 2.0 - 3.0 For acute myocardial infarction with aspirin therapy: 2.0 - 3.0 For acute myocardial infarction without aspirin therapy: 3.0 - 4.0 For patients with mechanical prosthetic heart valves: 2.5 - 3.5 Pathology Reviewed date:02/26/2023 05:14:26 PM Interpretation: Performing Lab:[facility], [address] [place] [phone] Notes/Report: Complete Blood Count Auto Di ff Reviewed date:02/26/2023 05:13:34 PM Interpretation: Performing Lab:[facility], [address] [place] [phone] Notes/Report: White Blood Count 9.6 4.8-10.8 X10*3/uL Red Blood Count 3.72 4.20-5.50 X10*6/uL Hemoglobin 8.6 12.0-16.0 g/dl Hematocrit 29.8 37.0-47.0 % Mean Corpuscular Volume 80.1 80.0-98.0 fL Mean Corpuscular Hemoglobin 23.1 27.0-33.0 pg Mean Corpuscular HGB Conc 28.9 31.0-35.0 g/dl Red Cell Distribution Width 18.0 11.0-16.0 % Platelet Count 309 160-400 X10*3/uL Mean Platelet Volume 10.2 9.4-12.3 fL Neutrophils Percent Auto 77.6 45-73 % Imm Gran Pct Auto 0.6 0.0-0.4 % Lymphocytes Percent Auto 12.3 20-40 % Monocytes Percent Auto 5.7 2-11 % Eosinophils Percent Auto 3.1 0-4 % Basophils Percent Auto 0.7 0-2 % NRBC Pct Auto 0.0 0.0-0.2 /100WBC Neutrophils Absolute Auto 7.4 2.0-8.3 x10*3/u L Imm Gran Abs Auto 0.06 0.00-0.03 X10*3/uL Lymphocytes Absolute Auto 1.2 1.2-4.9 X10*3/u L Monocytes Absolute Auto 0.5 0.1-1.2 X10*3/uL Eosinophils Absolute Auto 0.3 0.0-0.4 X10*3/u L Basophils Absolute Auto 0.1 0.0-0.2 X10*3/uL NRBC Abs Auto 0.000 0.0-0.012 X10*3/uL Complete Blood Count Auto Di ff Reviewed date:03/21/2023 07:21:24 PM Interpretation: Performing Lab:[facility], [address] [place] [phone] Notes/Report: White Blood Count 9.3 4.8-10.8 X10*3/uL Red Blood Count 4.06 4.20-5.50 X10*6/uL Hemoglobin 10.4 12.0-16.0 g/dl Hematocrit 34.6 37.0-47.0 % Mean Corpuscular Volume 85.2 80.0-98.0 fL Mean Corpuscular Hemoglobin 25.6 27.0-33.0 pg Mean Corpuscular HGB Conc 30.1 31.0-35.0 g/dl Red Cell Distribution Width 26.0 11.0-16.0 % Platelet Count 237 160-400 X10*3/uL Mean Platelet Volume 9.8 9.4-12.3 fL Neutrophils Percent Auto 77.4 45-73 % Imm Gran Pct Auto 0.4 0.0-0.4 % Lymphocytes Percent Auto 13.4 20-40 % Monocytes Percent Auto 5.7 2-11 % Eosinophils Percent Auto 2.5 0-4 % Basophils Percent Auto 0.6 0-2 % NRBC Pct Auto 0.0 0.0-0.2 /100WBC Neutrophils Absolute Auto 7.2 2.0-8.3 x10*3/u L Imm Gran Abs Auto 0.04 0.00-0.03 X10*3/uL Lymphocytes Absolute Auto 1.3 1.2-4.9 X10*3/u L Monocytes Absolute Auto 0.5 0.1-1.2 X10*3/uL Eosinophils Absolute Auto 0.2 0.0-0.4 X10*3/u L Basophils Absolute Auto 0.1 0.0-0.2 X10*3/uL NRBC Abs Auto 0.000 0.0-0.012 X10*3/uL REASON FOR REFERRAL Referring Provider First Name Jeff Referring Provider Last Name Davian Referring Provider Speciality Internal edicine Referred Organization [facility] Referred Provider Mathew Guevara Referred Address [address] [place] [address] [address],[phone],[place] Referred Provider Specialty Gastroentero logy General Notes Loretta Beckett 023 09:38:24 AM EDT > REQUESTED AN HMO BLUE REFERRAL FROM DR FLORES'S OFFICE FOR PROCEDURE WITH DR GUEVARA ON 02-06-2023 EXT [id number] Referral Priority Routine Referring Provider First Name Jeff Referring Provider Last Name Davian Referring Provider Speciality Internal edicine Referred Organization [facility] Referred Provider Mathew Guevara Referred Address [address] [place] [address], [place] [address],[place],[address],[place] Referred Provider Specialty Gastroentero logy Referral Priority Routine MEDICATIONS Medication SIG (Take, Route, Frequency, Duration) Notes Start Date End Date Status Metoprolol Tartrate 25 MG 1/2 tablet with food Orally Twice a day Active Aspirin 81 MG 1 tablet Orally Once a day Active predniSONE 10 MG 1 tablet Orally Once a day Active traZODone HCl 50 MG 1 tablet at bedtime as needed Orally Once a day Active Levothyroxine Sodium 137 MCG 1 capsule Orally Once a day Active Advil PRN Active Sucralfate 1 GM 1 tablet on an empty stomach 30-60 minutes before a meal, and once at bedtime Orally Four times a day for 30 days Please make sure this Sucralfate prescription won't interfere with her other medications. Thanks very much. 10/28/2022 Active Lomotil 2.5-0.025 MG 1-2 tablets PO Q 6 hours prn diarrhea for 30 days 12/19/2020 Active ALPRAZolam 0.5 MG 1 tablet Orally BID Active Atorvastatin Calcium 10 MG 1 tablet Orally Once a day for 30 day(s) Active Diclofenac Sodium 1 % 1 application Externally Gel Active Caltrate 600 Active Diphenoxylate-Atropin e Active Claritin 10 MG 1 tablet Orally Once a day for 30 day(s) Active Gas-X 80 MG 1 tablet after meals and at bedtime as needed Orally prn Active Vitamin C 500 MG 1 tablet Orally Once a day Active Multi Vitamin/Minerals - as directed Orally once a day Active Diphenoxylate-Atropin e 2.5-0.025 MG TAKE 1-2 TABLETS BY MOUTH EVERY 6 HOURS NEEDED FOR DIARRHEA for 12 11/21/2022 Active Omeprazole 40 MG TAKE ONE CAPSULE BY MOUTH TWICE A DAY for 30 Active Hyoscyamine Sulfate ER 0.375 MG TAKE ONE TABLET BY MOUTH EVERY 12 HOURS for 30 Active IMMUNIZATIONS Vaccine Route Administration Date Status Comme nts Influenza Unknown 12/16/2017 Administered Influenza Unknown 11/07/2018 Administered Influenza Unknown 01/04/2021 Administered Influenza Unknown 12/19/2020 Administered Influenza Unknown 01/28/2022 Administered Influenza Unknown 05/09/2020 Refused SOCIAL HISTORY Tobacco Use: Social History Observation Description Date Details (start date - stop date) Former Smoker NA - NA Sex Assigned At : Social History Observation Description Sex Assigned At Unknown Tobacco Use/Smoking Question Answer Notes Patient is a former smoker How long has it been since you last smoked? 6-12 months Alcohol Screen Question Answer Notes Did you have a drink containing alcohol in the p ast year? No Points 0 Interpretation Negative PROBLEMS Problem Type ICD Code Onset Dates Problem Status W/U Status Risk SNOMED Code Notes Problem Encounter for screening for malignant neoplasm of colon (Z12.11) Active confirmed 707920151 Problem Abdominal bloating (R14.0) Active confirmed 537318634 Problem Diarrhea (R19.7) Active confirmed Diarrhea (79393955) Problem Irritable bowel syndrome with diarrhea (K58.0) Active confirmed 937555001 Problem Encounter for screening for malignant neoplasm of rectum (Z12.12) Active confirmed Screening fo r malignant neoplasm of rectum (449971793) Problem Abdominal pain, epigastric (R10.13) Active confirmed 96144188 Problem Iron deficiency anemia (D50.9) Active confirmed Iron deficien cy anemia (81460273) Problem Barretts esophagus without dysplasia (K22.70) Active confirmed 833817204 Problem Microscopic colitis (K52.89) Active confirmed Microscopic col itis (570127213) Problem Iron deficiency anemia due to chronic blood loss (D50.0) Active confirmed 060248777 Problem GERD with esophagitis (K21.0) Active confirmed 118701356 Problem GERD (gastroesophage al reflux disease) (K21.9) Active confirmed Gastroesophagea l reflux disease (510854672) Problem Collagenous colitis (K52.89) Active confirmed 10623332 Problem Abdominal pain, generalized (R10.84) Active confirmed 584455530 Problem Diarrhea, unspecified type (R19.7) Active confirmed 04875015 Problem Collagenous colitis (K52.831) Active confirmed 71861737 Problem Gastric ulcer (K25.9) Active confirmed Gastric ulcer (203619381) Problem Acute pyloric channel ulcer (K25.3) Active confirmed 16917879 Problem Gastro-esophage al reflux disease with esophagitis, without bleeding (K21.00) Active confirmed Gastroesophagea l reflux disease with esophagitis (disorder) (194201696) Problem Partial gastric outlet obstruction (K31.1) Active confirmed 595580351 Encounters Encounter Location Date Provider Diagnosis [facility] [address] [place] [id number] 02/06/2023 Mathew Guevara [facility] [address] [place] [id number] 02/23/2023 Mathew Guevara Hiatal hernia K44.9 ; Gastric ulcer K25.9 ; Pyloric stricture K31.1 ; Chronic GERD K21.9 ; Upper abdominal pain R10.10 and Iron deficiency anemia D50.9 [facility] [address] [place] [id number] 03/26/2023 Mathew Guevara [facility] [address] [place] [address] 2022 Mathew Guevara Collagenous colitis K52.89 ; Barretts esophagus without dysplasia K22.70 and Diarrhea, unspecified type R19.7 [facility] [address] [place] [address] 10/28/2022 Mathew Guevara Collagenous colitis K52.89 ; GERD (gastroesophageal reflux disease) K21.9 and Gastric ulcer K25.9 [facility] [address] [place] [phone] 05/14/2022 Mathew Guevara [facility] [address] [place] [phone] 2022 Mathew Guevara [facility] [address] [place] [phone] 07/09/2022 Mathew Guevara [facility] [address] [place] [address] 07/29/2022 Mathew Guevara [facility] [address] [place] [phone] 08/14/2022 Mathew Guevara [facility] [address] [place] [phone] 11/20/2022 Mathew Guevara [facility] [address] [place] [address] 02/03/2023 Mathew Guevara [facility] [address] [place] [address] 02/17/2023 Mathew Guevara [facility] [address] [place] [address] 02/18/2023 Mathew Guevara [facility] [address] [place] [address] 02/20/2023 Mathew Guevara [facility] [address] [place] [address] 02/23/2023 Mathew Guevara Iron deficiency anemia due to chronic blood loss D50.0 [facility] [address] [place] [address] 02/26/2023 Mathew Guevara Acute pyloric channe l ulcer K25.3 ; Partial gastric outlet obstruction K31.1 and Iron deficiency anemia due to chronic blood loss D50.0 ASSESSMENTS Encounter Date Diagnosis Assessment Notes Treatment Notes Treatment Clinical Notes 02/23/2023 Hiatal hernia (ICD-10 - K44.9) 02/23/2023 Gastric ulcer (ICD-10 - K25.9) 2022 Barretts esophagus without dysplasia (ICD-10 - K22.70) Decrease omeprazole to just once a day 2022 Collagenous colitis (ICD-10 - K52.89) Increase prednisone to 40mg daily(8 of the 5mg pills) for 1 week, and then decrease by 1 pill per week. We will look into getting you on Humira 10/28/2022 GERD (gastroesophageal reflux disease) (ICD-10 - K21.9) 10/28/2022 Collagenous colitis (ICD-10 - K52.89) Decrease the prednisone to 1 1/2 pills alternating with 2 pills every day. After 1 month go to 1 1/2 pills daily and then stay on that. 02/23/2023 Iron deficiency anemia due to chronic blood loss (ICD-10 - D50.0) 02/26/2023 Acute pyloric channel ulcer (ICD-10 - K25.3) 02/23/2023 Pyloric stricture (ICD-10 - K31.1) 2022 Diarrhea, unspecified type (ICD-10 - R19.7) 10/28/2022 Gastric ulcer (ICD-10 - K25.9) Begin the Carafate and use the Omeprazole once or twice every day 02/26/2023 Partial gastric outlet obstruction (ICD-10 - K31.1) 02/23/2023 Chronic GERD (ICD-10 - K21.9) 02/26/2023 Iron deficiency anemia due to chronic blood loss (ICD-10 - D50.0) 02/23/2023 Upper abdominal pain (ICD-10 - R10.10) 02/23/2023 Iron deficiency anemia (ICD-10 - D50.9) PLAN OF TREATMENT Pending Test Test Name Order Date CHEM 7 PROFILE 09/17/2019 CHEM 7 PROFILE 2022 CHEM 7 PROFILE 01/24/2020 LIVER PROFILE 2022 LIVER PROFILE 01/24/2020 LIVER PROFILE 08/21/2014 LIVER PROFILE 06/20/2021 LIVER PROFILE 09/17/2019 AMYLASE 09/17/2019 AMYLASE 01/24/2020 LIPASE 09/17/2019 LIPASE 01/24/2020 LIPASE 06/20/2021 T4 (THYROXINE) 01/24/2020 TSH (THYROID STIMULATING HORMONE) 2019 IRON + IBC (FE) 01/24/2020 FERRITIN 01/24/2020 CRP 06/20/2021 CRP 2022 CRP 08/21/2014 CRP 09/17/2019 CRP 01/24/2020 VITAMIN B12 AND FOLATE 01/24/2020 CBC w DIFF 06/20/2021 CBC w DIFF 2022 CBC w DIFF 02/23/2023 CBC w DIFF 08/21/2014 CBC w DIFF 09/17/2019 CBC w DIFF 02/26/2023 CBC with MANUAL DIFFERENTIAL 01/24/2020 SED RATE (ESR) 01/24/2020 SED RATE (ESR) 06/20/2021 SED RATE (ESR) 2022 SED RATE (ESR) 08/21/2014 SED RATE (ESR) 09/17/2019 HEPATITIS B PROFILE 01/24/2020 HEPATITIS B PROFILE 2022 STOOL WBC 09/08/2019 CELIAC PANEL #10 09/07/2014 GIARDIA AG, STOOL EIA 09/08/2019 OVA & PARASITES (O&P) 09/08/2019 CULTURE, STOOL 09/08/2019 T SPOT TB 01/24/2020 C DIFFICILE RFLX PCR 09/08/2019 CALPROTECTIN, STOOL 01/24/2020 Gastrin 02/23/2023 Celiac Panel 10 2022 Future Test Test Name Order Date UPPER GI ENDOSCOPY 10/31/2015 COLONOSCOPY 10/31/2015 UPPER GI ENDOSCOPY 06/02/2018 UPPER GI ENDOSCOPY 06/20/2021 UPPER GI ENDOSCOPY 10/28/2022 UPPER GI ENDOSCOPY DILATION OF GASTRIC O UTLET OBSTRUCTION 02/26/2023 Next Appt Details Provider Name:Mathew Guevara , 03/26/2023 02:10:00 PM, [address] [place] [address] , [place], [place], [phone], Insurance Providers Payer Name Payer Address Payer Phone Subscriber Number Group Number Insured Name Patient Relationship to Insured Coverage Start Date Coverage End Date [facility] [employer] [address] [place] [address] [id number] BRITTNEY MOREIRA Self - patient is the insured MEDICAL (GENERAL) HISTORY Medical History History ICD Code Colonoscopy 06-03-2004--diagn osed with collagenous colitis--responded well to Asacol for a few years--has responded to courses of Entocort---celiac disease labs are negative Hypothyroidism Denies DM,CVA,Lung disease,renal disease Anxiety [place] at age 48-had 1 stent placed Hyperlipiodemia Negative abdominal ultrasound in 2014 an d 2019 GERD and Mandel's esophagus --upper endoscopy in November 2015 revealed a small hiatal hernia, erosive esophagitis, and Mandel's esophagus, with biopsies negative for dysplasia---duodenal biopsies were negative for celiac disease Colonoscopy in November 6 reveal biopsies consistent with collagenous colitis, but no evidence of any polyps Negative celiac disease labs in 2014 EGD in 11/2018 with erosive g astritis, neg. Hpylori; no Mandel's nor esophagitis; small HH Collagenous colitis flared u p toward the latter part of 2019 and required the addition of prednisone and Lomotil on a regular basis--her symptoms were refractory to Mesalamine products, Entocort, Imodium, and cholestyramine Upper endoscopy in June of 2021- two benign gastric ulcers with gastric biopsies negative for H. pylori-these were felt to be related to her use of prednisone, aspirin 81 mg, and Advil--biopsies from the gastroesophageal junction did not show any sign of Mandel's mucosa She was approved to start Hu maribel in 06/2022 due to a flareup of colitis colitis that required increasing her prednisone to 40 mg daily. However, she decided to hold off on that due to a urinary infection and dental issues. Surgical History Surgery Date(Month/Year) Varicose vein stripping Tubal ligation Uterine ablation Left knee replacement 06/05/[address] Nunez
[2023-03-26] MEDS: Lactated Ringers 1,000 ML 100 ML IVCONT (13:33)
[2023-03-26 13:34] VITALS: BP 128/74; PULSE 72; RESP 16; TEMP 36.7; O2SAT 100
[2023-03-26 15:35] VITALS: BP 124/77; PULSE 75; RESP 16; TEMP 36.6; O2SAT 99
[2023-03-26] MEDS: ondansetron HCL 4 MG/2 ML VIAL IVPUSH (15:37)
--- NOTE | 2023-03-26 15:39 | PM.OP ---
Brief Operative Note Date of Service: 03/26/23 Pre-op diagnosis: Pyloric stricture Post-op diagnosis: other (Same, Pyloric ulcer) Procedure: EGD with Pyloric Balloon Dilation with an 8 to 10mm Balloon Surgeon: Mathew Perez MD Anesthesia: GETA Was an Salesperson Books used for this Procedure?: No Estimated blood loss (mL): 2.0 Pathology: none sent Condition: stable Disposition: PACU
[2023-03-26 15:40] VITALS: BP 138/80; PULSE 72; RESP 16; O2SAT 99
[2023-03-26 15:45] VITALS: BP 138/78; PULSE 71; RESP 16; O2SAT 99
[2023-03-26 15:50] VITALS: BP 151/82; PULSE 72; RESP 16; O2SAT 100
[2023-03-26 16:05] VITALS: BP 127/61; PULSE 69; RESP 18; TEMP 36.2; O2SAT 99
--- NOTE | 2023-03-27 12:57 | OP_ITS ---
DATE OF SERVICE: 03/26/2023 SURGEON: Mathew Perez MD INDICATIONS: The patient presents for followup of a pyloric channel ulcer and pyloric stricture. Full consent has been obtained from her for this, including risks of bleeding and perforation. 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 PROCEDURE PERFORMED: Esophagogastroduodenoscopy with balloon dilation of pyloric stricture. ESTIMATED BLOOD LOSS: COMPLICATIONS: ANESTHESIA: General anesthesia. ASSISTANTS: SPECIMENS: PREOPERATIVE DIAGNOSES: Pyloric channel ulcer and pyloric channel stricture. DESCRIPTION OF PROCEDURE: The patient was placed in the supine position. The Olympus video gastroscope was passed in the posterior oropharynx and upper esophagus under direct vision. The scope was passed slowly to the distal esophagus. The gastroesophageal junction appeared normal at 36 cm. There was no sign of any esophagitis. The scope entered the stomach. There was a small hiatal hernia. There was a very small retained food in the proximal stomach, but otherwise just some bile and liquid were suctioned away and removed. The scope was advanced to the pylorus. The pyloric channel still had some overlying exudate and friability consistent with ulcer disease in the pyloric channel. Despite some gentle pressure, the scope would not enter the duodenum. The duodenal bulb did appear normal from what I could see through the pylorus. Using the [employer] pyloric balloon, I did dilate the pylorus from 8 mm to 10 mm at the recommended pressure for 60 seconds each. Post dilation, it was easy to then advance the scope into the duodenum to the second and third portions. The duodenum including the bulb appeared normal without mass or ulceration. The scope was withdrawn back to the stomach. The pyloric channel was friable, but there was no sign of any active bleeding. I did not dilate the pylorus any further given the associated ulceration and friability. The gastric antrum and body appeared normal with good peristalsis. The scope was retroflexed visualizing the proximal stomach carefully, which appeared normal, without any sign of mass or ulceration. The scope was straightened. Biopsies were not obtained as gastric biopsies from last month were negative for H pylori. The scope was withdrawn back to the esophagus. The esophageal mucosa appeared normal. The scope was withdrawn from the patient. She tolerated the procedure well and was returned to the recovery area in stable condition. IMPRESSION: 1. Pyloric ulcer with pyloric channel stricture, status post balloon dilation. 2. Hiatal hernia. PLAN: The patient will continue her current regimen of omeprazole 40 mg twice a day, and she will continue to avoid all NSAIDs other than her single 81 mg aspirin daily for her heart. She will continue her sucralfate 1 g q.i.d. as well in addition to the omeprazole. She did have an elevated gastrin level over 400 in February, which I checked due to her recurrent ulcer disease. We shall continue to follow this and may need imaging of the pancreas. However, I want to see if the elevated gastrin level will possibly come down by decreasing her component of gastric outlet obstruction. She will be seen in followup in the office as well. Her most recent hemoglobin is up to 10.4, and we shall continue to follow that as well on her oral iron. MD LEONELA Wright/ALCIRA / [id number] IBRAHIMA
== END 2023-03-26 16:13 | disposition home or self-care (01) ==
PROVIDERS: PCP Internal Medicine; Visit Provider Internal Medicine
PROC: (CPT 43245; principal; 2023-03-26 14:10)
DX: K31.1 Adult hypertrophic pyloric stenosis (principal); K25.3 Acute gastric ulcer without hemorrhage or perforation; E16.4 Increased secretion of gastrin; K21.9 Gastro-esophageal reflux disease without esophagitis; K44.9 Diaphragmatic hernia without obstruction or gangrene; K52.831 Collagenous colitis; K22.70 Barrett's esophagus without dysplasia; Z79.52 Long term (current) use of systemic steroids; I25.2 Old myocardial infarction; Z95.5 Presence of coronary angioplasty implant and graft; I25.10 Atherosclerotic heart disease of native coronary artery without angina pectoris; E78.5 Hyperlipidemia, unspecified; Z79.899 Other long term (current) drug therapy; Z79.82 Long term (current) use of aspirin; Z88.8 Allergy status to other drugs, medicaments and biological substances; Z87.891 Personal history of nicotine dependence
CPT/HCPCS: 43245; C1726; J0330; J2405; J2704

== ENCOUNTER 2023-04-25 08:13 | Outpatient (REF) | payer BC, SELFPAY ==
[2023-04-25 08:29] LABS: MANUAL DIFF FLAG NO
[2023-04-25 12:00] LABS: Basophils Absolute Auto 0.1 X10*3/uL (0.0-0.2); Basophils Percent Auto 0.8 % (0-2); Eosinophils Absolute Auto 0.3 X10*3/uL (0.0-0.4); Eosinophils Percent Auto 4.7 % (0-4); Hematocrit 40.5 % (37.0-47.0); Imm Gran Abs Auto 0.03 X10*3/uL (0.00-0.03); Imm Gran Pct Auto 0.4 % (0.0-0.4); Lymphocytes Absolute Auto 2.5 X10*3/uL (1.2-4.9); Lymphocytes Percent Auto 35.8 % (20-40); Mean Corpuscular HGB Conc 32.1 g/dl (31.0-35.0); Mean Corpuscular Hemoglobin 28.9 pg (27.0-33.0); Mean Platelet Volume 10.5 fL (9.4-12.3); Monocytes Absolute Auto 0.5 X10*3/uL (0.1-1.2); Monocytes Percent Auto 6.5 % (2-11); Neutrophils Absolute Auto 3.7 x10*3/uL (2.0-8.3); Neutrophils Percent Auto 51.8 % (45-73); Platelet Count 181 X10*3/uL (160-400); Red Cell Distribution Width 22.3 % (11.0-16.0); White Blood Count 7.1 X10*3/uL (4.8-10.8)
[2023-05-01 03:58] LABS: Gastrin 129 pg/mL (<=100)
== END 2023-04-25 08:14 | disposition home or self-care (01) ==
LOC: HO.LAB 08:13
PROVIDERS: PCP Internal Medicine; Visit Provider Internal Medicine
DX: D50.0 Iron deficiency anemia secondary to blood loss (chronic) (principal); E16.4 Increased secretion of gastrin
CPT/HCPCS: 36415; 82941; 85025

== ENCOUNTER 2023-06-16 06:22 | Day surgery (SDC) | payer BC, SELFPAY ==
--- NOTE | 2023-06-15 10:42 | HO.ANESPROP2 ---
Documented by User: Sharon Morrison NP 06/15/23 10:45 HPI - Anesthesia Eval Consult details Narrative: 62yo F for Upper Endoscopy with Balloon Dilitation s/p same 03/2023 with GA-ETT 7 s/p same 02/2023 - required rapid sequence induction when found to have food in stomach with EGD CAD with NC / stent 2008 [facility] Past Medical History Medical History On beta rena at home Back pain History of degenerative disc disease Scoliosis Erosive esophagitis Collagenous colitis Barretts esophagus GERD (gastroesophageal reflux disease) Hyperlipidemia Hypothyroidism Anxiety Myocardial infarction Family History Family History Father Diabetes Family/Other Breast cancer Family history of problems with anesthesia: No Surgical History Surgical History H/O heart artery stent History of total left knee replacement History of endometrial ablation History of tubal ligation Hx of varicose vein ligation and stripping Hx of esophagogastroduodenoscopy Hx of colonoscopy History of Problems with Anesthesia: No Social History Social History Alcohol intake: former Patient Tobacco Use Status: Former Tobacco user Quit Date: 2 yrs ago Tobacco use type: Cigarette Use of substances other than those prescribed or required for medical reasons: No Are you DNR?: No Advance Directives: No Advance Directives Information Provided: Yes Sexual orientation: Straight/Heterosexual Gender identity: Female Meds Allergies Allergy/AdvReac Type Severity Reaction Status Date / Time droperidol [From Inapsine] Allergy Intermediate SHAKING Verified 06/16/23 06:35 Home Medications ?Medication ?Instructions ?Recorded ?Confirmed ?Last Taken ?Type albuterol sulfate 90 mcg/actuation 2 puff PO BID PRN Wheezing 07/22/21 03/24/23 Unknown History aerosol inhaler alprazolam 0.5 mg tablet 1 tab PO BID 07/22/21 06/12/23 Unknown History aspirin 81 mg tablet,delayed 81 mg PO DAILY 07/22/21 06/12/23 Unknown History release atorvastatin 10 mg tablet 1 tab PO DAILY 07/22/21 06/12/23 Unknown History calcium carbonate 600 mg calcium 600 mg PO DAILY 07/22/21 06/12/23 Unknown History (1,500 mg) tablet diphenoxylate-atropine 2.5 1 - 2 tab PO Q6H PRN diarrhea 07/22/21 06/12/23 Unknown History mg-0.025 mg tablet hyoscyamine sulfate 0.375 mg 1 tab PO Q12H 07/22/21 06/12/23 Unknown History tablet,extended release,12 hr levothyroxine 137 mcg tablet 1 tab PO DAILY 07/22/21 06/12/23 03/26/23 History loratadine 10 mg tablet 1 tab PO DAILY 07/22/21 06/12/23 Unknown History metoprolol tartrate 25 mg tablet 12.5 mg PO BID 07/22/21 06/12/23 03/26/23 History multivitamin with minerals 1 tab PO DAILY 07/22/21 06/12/23 Unknown History omeprazole 40 mg capsule,delayed 1 cap PO DAILY 07/22/21 06/12/23 07/26/21 History release prednisone 5 mg tablet 10 mg PO DAILY 07/22/21 06/12/23 07/26/21 History simethicone 80 mg chewable tablet 80 mg PO BEDTIME PRN Abdominal 07/22/21 06/12/23 Unknown History Discomfort trazodone 50 mg tablet 1 - 2 tab PO BEDTIME 07/22/21 06/12/23 Unknown History ascorbic acid (vitamin C) 500 mg 500 mg PO DAILY 06/12/23 06/12/23 Unknown History tablet (Vitamin C) sucralfate 1 gram tablet 1 g PO QID 06/16/23 06/16/23 Unknown History Exam Height,Weight and Vital Signs: Height 5 ft 6.5 in Weight 57.153 kg Pertinent Lab Results Pertinent Lab Results: Laboratory Tests 02/19/23 12:36 WBC 11.0 H Hgb 8.8 L D Hct 30.2 L Plt Count 346 D Sodium 137 Potassium 4.3 Chloride 104 Carbon Dioxide 24 BUN 21 H Creatinine 0.73 Laboratory Tests 04/25/23 08:28 WBC 7.1 Hgb 13.0 D Hct 40.5 Plt Count 181 Assessment and Plan Assessment Anesthesia Assessment: Chart Reviewed Final Anesthetic Review Family History of Problems with Anesthesia: No History of Problems with Anesthesia: No Documented by User: Apurva Castañeda MD 06/16/23 07:30 [facility] Past Medical History Medical History On beta rena at home Back pain History of degenerative disc disease Scoliosis Erosive esophagitis Collagenous colitis Barretts esophagus GERD (gastroesophageal reflux disease) Hyperlipidemia Hypothyroidism Anxiety Myocardial infarction Family History Family History Father Diabetes Family/Other Breast cancer Surgical History Surgical History H/O heart artery stent History of total left knee replacement History of endometrial ablation History of tubal ligation Hx of varicose vein ligation and stripping Hx of esophagogastroduodenoscopy Hx of colonoscopy Social History Social History Alcohol intake: former Patient Tobacco Use Status: Former Tobacco user Quit Date: 2 yrs ago Tobacco use type: Cigarette Use of substances other than those prescribed or required for medical reasons: No Are you DNR?: No Advance Directives: No Advance Directives Information Provided: Yes Sexual orientation: Straight/Heterosexual Gender identity: Female Meds Allergies Allergy/AdvReac Type Severity Reaction Status Date / Time droperidol [From Inapsine] Allergy Intermediate SHAKING Verified 06/16/23 06:35 Home Medications ?Medication ?Instructions ?Recorded ?Confirmed ?Last Taken ?Type albuterol sulfate 90 mcg/actuation 2 puff PO BID PRN Wheezing 07/22/21 03/24/23 Unknown History aerosol inhaler alprazolam 0.5 mg tablet 1 tab PO BID 07/22/21 06/12/23 Unknown History aspirin 81 mg tablet,delayed 81 mg PO DAILY 07/22/21 06/12/23 Unknown History release atorvastatin 10 mg tablet 1 tab PO DAILY 07/22/21 06/12/23 Unknown History calcium carbonate 600 mg calcium 600 mg PO DAILY 07/22/21 06/12/23 Unknown History (1,500 mg) tablet diphenoxylate-atropine 2.5 1 - 2 tab PO Q6H PRN diarrhea 07/22/21 06/12/23 Unknown History mg-0.025 mg tablet hyoscyamine sulfate 0.375 mg 1 tab PO Q12H 07/22/21 06/12/23 Unknown History tablet,extended release,12 hr levothyroxine 137 mcg tablet 1 tab PO DAILY 07/22/21 06/12/23 03/26/23 History loratadine 10 mg tablet 1 tab PO DAILY 07/22/21 06/12/23 Unknown History metoprolol tartrate 25 mg tablet 12.5 mg PO BID 07/22/21 06/12/23 03/26/23 History multivitamin with minerals 1 tab PO DAILY 07/22/21 06/12/23 Unknown History omeprazole 40 mg capsule,delayed 1 cap PO DAILY 07/22/21 06/12/23 07/26/21 History release prednisone 5 mg tablet 10 mg PO DAILY 07/22/21 06/12/23 07/26/21 History simethicone 80 mg chewable tablet 80 mg PO BEDTIME PRN Abdominal 07/22/21 06/12/23 Unknown History Discomfort trazodone 50 mg tablet 1 - 2 tab PO BEDTIME 07/22/21 06/12/23 Unknown History ascorbic acid (vitamin C) 500 mg 500 mg PO DAILY 06/12/23 06/12/23 Unknown History tablet (Vitamin C) sucralfate 1 gram tablet 1 g PO QID 06/16/23 06/16/23 Unknown History Exam Airway Mallampati Class: II TM Dist: >3cm Neck ROM: Full Loose/Missing/Broken Teeth: No Heart: RRR Lungs: CTA Assessment and Plan Assessment Anesthesia Assessment: Anesthesia Plan Discussed Final Anesthetic Review NPO: Yes ASA Class: III Final Preanesthetic Review: Meds/Allgs Chart Reviewed, Consent Obtained/Reviewed and Anes Risks/Benef Reviewed Patient Risk: Intermediate Procedure Risk: Intermediate Anesthetic Plan Anesthetic Plan: MAC: Disposition: Standard PACU
[2023-06-16 06:38] VITALS: BMI 20.7
[2023-06-16 06:50] VITALS: BP 121/66; PULSE 59; RESP 16; TEMP 36.2; O2SAT 98
[2023-06-16] MEDS: Lactated Ringers 1,000 ML 100 ML IVCONT (07:00)
[2023-06-16 08:03] VITALS: BP 107/58; PULSE 58; RESP 16; TEMP 37; O2SAT 98
--- NOTE | 2023-06-16 08:10 | P.BOP_ITS ---
Brief Operative Note Date of Service: 06/16/23 Pre-op diagnosis: Pyloric stricture Post-op diagnosis: other (Same, Pyloric ulcer, Minimal gastric retention) Procedure: EGD with pyloric balloon dilation from 12 to 13.5mm Surgeon: Mathew Perez MD Anesthesia: MAC Was an Bond Clerk used for this Procedure?: No Estimated blood loss (mL): 2.0 Pathology: none sent Condition: stable Disposition: PACU
[2023-06-16 08:18] VITALS: BP 119/67; PULSE 58; RESP 16; TEMP 37; O2SAT 98
--- NOTE | 2023-06-16 08:53 | OP_ITS ---
DATE OF SERVICE: 06/16/2023 SURGEON: Mathew Perez MD INDICATIONS: The patient presents for evaluation of known pyloric stricture and pyloric ulcer. Full consent was obtained from her for this, including risks of bleeding and perforation. PREOPERATIVE DIAGNOSIS: POSTOPERATIVE DIAGNOSIS: PROCEDURE PERFORMED: Esophagogastroduodenoscopy with balloon dilation of pyloric stricture. ESTIMATED BLOOD LOSS: COMPLICATIONS: ANESTHESIA: Monitored anesthesia care. ASSISTANTS: SPECIMENS: PREOPERATIVE DIAGNOSES: Pyloric stricture and pyloric ulcer. POSTOPERATIVE DIAGNOSES: Pyloric stricture and pyloric ulcer, minimal gastric retention. DESCRIPTION OF PROCEDURE: The patient was placed in the left lateral decubitus position. The Olympus video gastroscope was passed in the posterior oropharynx and upper esophagus under direct vision. The scope was passed slowly to the distal esophagus. The gastroesophageal junction appeared at 36 cm. There was no sign of any esophagitis nor Mandel mucosa. There was a small hiatal hernia. There was a very minimal retained liquid and several small pieces of food noted in the stomach. However, there was no significant retention of solid nor liquid food. The scope was advanced to pylorus. The pyloric channel still had some overlying exudate and friability, but overall appeared improved from previously. The scope passed into the duodenum easily which was an improvement compared to previous procedures in which the scope could not be passed. The duodenum was cannulated to the descending portion. The duodenum including the bulb appeared normal. The scope was withdrawn back in the stomach. The gastric antrum and body appeared normal with good peristalsis. The scope was retroflexed visualizing the proximal stomach carefully, which appeared normal, without any sign of mass or ulceration. The scope was straightened. I did use a [employer] incremental pyloric dilating balloon to dilate the pyloric channel from 12 mm to 13.5 mm at the recommended pressure for 60 seconds each. Post-dilation there was clear disruption of the stricture and heme. It was definitely easy to pass the scope into and out of the duodenum at that point. The scope was then withdrawn back in the esophagus. The esophageal mucosa appeared normal. The scope was withdrawn from the patient. She tolerated the procedure well and was returned to recovery area in stable condition. IMPRESSION: 1. Pyloric channel ulcer and stricture, status post balloon dilation. 2. Hiatal hernia. PLAN: The patient will continue her current regimen of omeprazole and sucralfate. She was advised to resume her low-dose aspirin tomorrow. She was reminded to avoid all NSAIDs long-term. She was instructed to decrease her prednisone to 5 mg daily in regard to the underlying collagenous colitis. She will be seen in followup. At this point, I would hold off on any further upper endoscopies as long as she is doing well from a symptomatic standpoint. She does report that she has been eating normally and comfortably, and has gained about 7 pounds. This has been discussed with her . MD LEONELA Wright/ALCIRA / [id number] MTDD
== END 2023-06-16 08:44 | disposition home or self-care (01) ==
PROVIDERS: PCP Internal Medicine; Visit Provider Internal Medicine
PROC: (CPT 43245; principal; 2023-06-16 07:30)
DX: K31.1 Adult hypertrophic pyloric stenosis (principal); K44.9 Diaphragmatic hernia without obstruction or gangrene; K25.9 Gastric ulcer, unspecified as acute or chronic, without hemorrhage or perforation; K52.831 Collagenous colitis; K21.9 Gastro-esophageal reflux disease without esophagitis; Z79.82 Long term (current) use of aspirin; Z79.52 Long term (current) use of systemic steroids; Z79.899 Other long term (current) drug therapy; Z88.8 Allergy status to other drugs, medicaments and biological substances; Z87.891 Personal history of nicotine dependence
CPT/HCPCS: 43245; C1726; J2704; J3010

== ENCOUNTER 2023-08-06 12:16 | Outpatient (REF) | payer BC, SELFPAY ==
[2023-08-06 12:28] LABS: MANUAL DIFF FLAG NO
[2023-08-06 12:38] LABS: Basophils Absolute Auto 0.1 X10*3/uL (0.0-0.2); Basophils Percent Auto 0.7 % (0-2); Eosinophils Absolute Auto 0.1 X10*3/uL (0.0-0.4); Eosinophils Percent Auto 1.4 % (0-4); Hematocrit 40.1 % (37.0-47.0); Hemoglobin 13.8 g/dl (12.0-16.0); Imm Gran Abs Auto 0.04 X10*3/uL (0.00-0.03); Imm Gran Pct Auto 0.4 % (0.0-0.4); Lymphocytes Absolute Auto 1.2 X10*3/uL (1.2-4.9); Mean Corpuscular HGB Conc 34.4 g/dl (31.0-35.0); Mean Corpuscular Hemoglobin 33.5 pg (27.0-33.0); Mean Corpuscular Volume 97.3 fL (80.0-98.0); Monocytes Absolute Auto 0.4 X10*3/uL (0.1-1.2); Monocytes Percent Auto 4.4 % (2-11); Neutrophils Absolute Auto 7.4 x10*3/uL (2.0-8.3); Neutrophils Percent Auto 80.1 % (45-73); Platelet Count 197 X10*3/uL (160-400); Red Blood Count 4.12 X10*6/uL (4.20-5.50); Red Cell Distribution Width 12.9 % (11.0-16.0); White Blood Count 9.2 X10*3/uL (4.8-10.8)
[2023-08-06 13:08] LABS: Anion Gap 12 (12-20); Blood Urea Nitrogen 18 mg/dL (9-16); Calcium 9.7 mg/dL (8.4-10.2); Carbon Dioxide 28 mmol/L (22-29); Chloride 102 mmol/L (96-108); Estimated Glomerular Filt Rate > 60; Glucose Random 109 mg/dL (60-115); Iron 107 mcg/dL (30-160); Percent Iron Saturation 37 % (15-50); Potassium 4.9 mmol/L (3.3-5.1); Sodium 137 mmol/L (135-145); Total Iron Binding Capacity 290 mcg/dL (228-428); Unsaturated Iron Binding 183 ug/dL
[2023-08-06 13:26] LABS: Free T4 (Free Thyroxine) 1.05 ng/dL (0.71-1.85); Thyroid Stimulating Hormone 1.55 uIU/mL (0.32-4.0)
== END 2023-08-06 12:17 | disposition home or self-care (01) ==
LOC: HO.LAB 12:16
PROVIDERS: PCP Internal Medicine; Visit Provider Internal Medicine
DX: D64.9 Anemia, unspecified (principal); E03.9 Hypothyroidism, unspecified
CPT/HCPCS: 36415; 80048; 83540; 84439; 84443; 85025

== ENCOUNTER 2023-08-19 10:47 | Outpatient (REF) | payer BC, SELFPAY ==
--- NOTE | ~2023-08-19 | XR_ITS ---
EXAMINATION: XR LUMBOSACRAL SPINE CLINICAL INFORMATION: Back pain. COMPARISON: KUB of 08/25/2022, lumbar spine of 07/29/2021. TECHNIQUE: Three views of the lumbosacral spine. FINDINGS: Dextroscoliosis of the lumbar spine. Facet arthritis in the lower lumbar spine. Multilevel lumbar spondylosis with loss of disc space height and hypertrophic change most notable at L2-L3. XR/XR lumbar spine 2-3V IMPRESSION: Multilevel lumbar spondylosis most notable at L2-L3.
== END 2023-08-19 10:48 | disposition home or self-care (01) ==
LOC: HO.XRAY 10:47
PROVIDERS: PCP Internal Medicine; Visit Provider Internal Medicine
DX: M54.9 Dorsalgia, unspecified (principal); M41.9 Scoliosis, unspecified
CPT/HCPCS: 72100

== ENCOUNTER 2024-01-14 08:56 | Outpatient (REF) | payer BC, SELFPAY ==
--- NOTE | ~2024-01-14 | MM_ITS ---
EXAMINATION: MM SCREENING DIGITAL BREAST TOMOSYNTHESIS, BILATERAL CLINICAL INFORMATION: Screening. Asymptomatic. COMPARISON: Mammography: Comparison is made with available priors TECHNIQUE: Digital breast mammography with tomosynthesis is performed in both the craniocaudal and mediolateral oblique views along with computer-aided detection (CAD). FINDINGS: The breasts are heterogeneously dense, which may obscure small masses (ACR BI-RADS breast composition Category c). There are no significant masses, abnormal calcifications, or other abnormalities. MM/MM tomosynthesis screening BI IMPRESSION: No mammographic evidence of malignancy. ASSESSMENT: BI-RADS BI-RADS 1 - Negative RECOMMENDATION: Routine annual mammography screening. 1 year F/U This examination should not preclude the clinical evaluation of a suspicious palpable abnormality. This patient's information was entered into a reminder system with a target due date for their next mammogram. Electronically signed by: Ruth Yuen DO 01/22/2024 04:07 PM JULIOCESAR
== END 2024-01-14 08:57 | disposition home or self-care (01) ==
LOC: HO.MAMMO 08:56
PROVIDERS: PCP Internal Medicine; Visit Provider Internal Medicine
DX: Z12.31 Encounter for screening mammogram for malignant neoplasm of breast (principal)
CPT/HCPCS: 77063; 77067

== ENCOUNTER → 2024-01-14 09:00 | Outpatient (BNV) | payer BC, SELFPAY | PROVIDERS: PCP Internal Medicine; Visit Provider Internal Medicine | DX: Z12.31 Encounter for screening mammogram for malignant neoplasm of breast (principal) | CPT/HCPCS: 77063; 77067 ==

== ENCOUNTER 2024-05-31 10:09 | Outpatient (AMB) | payer BC, SELFPAY ==
[2024-05-31 10:45] VITALS: BP 116/72; BMI 21.5
--- NOTE | 2024-05-31 10:45 | MHC.OFFVIS ---
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 She is doing well with clinical professor concerns: admits to vaginal odor, no itching or irritation, no urinary symptoms or pelvic pain. Currently not sexually active. Attempting to eat a healthy diet with calcium and vitamin D and stays active with exercise-walks. Last pap smear; 2022, negative. Last mammogram; 2023. Colonoscopy is booked. Denies any family history of ovarian or colon cancer FH breast cancer-m.cousin.. [facility] Medical History (Updated 05/31/24 @ 11:00 by Michelle Salgado CNM) Encounter for well woman exam with routine gynecological exam On beta rena at home Back pain History of degenerative disc disease Scoliosis Erosive esophagitis Collagenous colitis Barretts esophagus GERD (gastroesophageal reflux disease) Hyperlipidemia Hypothyroidism Anxiety Myocardial infarction Surgical History H/O heart artery stent History of total left knee replacement History of endometrial ablation History of tubal ligation Hx of varicose vein ligation and stripping Hx of esophagogastroduodenoscopy Hx of colonoscopy Family History (Updated 05/31/24 @ 10:48 by BAYLEE Brice) Father Diabetes Family/Other Breast cancer Cervical cancer Skin cancer Social History Alcohol intake: former Patient Tobacco Use Status: Former Tobacco user Tobacco use type: Cigarette Sexual orientation: Straight/Heterosexual Gender identity: Female Female Reproductive History Menstrual control method: permanent sterilization Permanent Sterilization: BTL Total pregnancies: 3 Full term: 3 Number of Living Children: 3 Date of last pap smear: 12/02/22 (neg pap and hpv) Date of Mammogram: 01/14/24 (Birad 1) Date of last Bone Density Screenin01/08/23 Review of Systems Const All systems reviewed & are unremarkable except as noted in HPI and below Reports as per HPI Eyes Reports no additional complaints ENT Reports no additional complaints Card Reports no additional complaints Resp Reports no additional complaints GI Reports as per HPI and Reports no additional complaints Reports as per HPI Musc Reports no additional complaints Skin/Breast Reports as per HPI Neuro Reports no additional complaints Psych Reports no additional complaints Endo Reports no additional complaints Mc/Lymph Reports no additional complaints Aller/Immun Reports no additional complaints Physical Exam Vital Signs: Last Vital Signs BP 116/72 05/31/24 10:45 BMI result Body Mass Index 21.5 Const General: cooperative, healthy appearing, no acute distress, well developed and alert Orientation/consciousness: patient oriented x3 HEENT Head: Yes normal to inspection Eyes General: appearance normal, both eyes and all related structures Neck Neck: Yes normal visual inspection Thyroid: Thyroid normal Chest Chest palpation & inspection: normal inspection of the chest and other (no puckering, dimpling, peau de orange, retraction, discharge, masses) Breast/axilla inspection: normal inspection of the breasts Breast/axilla palpation: normal palpation of the breasts Resp Effort & Inspection: normal respiratory effort GI Inspection: Yes normal to inspection Palpation (GI): Soft to palpation Rectal Exam - Female: deferred General: Yes bladder normal to palpation External Female Exam: normal external appearance and normal appearance of the urethra Speculum Exam - Vagina: normal appearance of the vagina, normal palpation, normal vaginal discharge (scant clear) and vagina atrophic Speculum Exam - Cervix: normal appearance of the cervix and normal palpation Bimanual exam- vagina & uterus: normal bimanual exam, normal palpation, uterine size normal, bladder normal to palpation, normal palpation and non-tender Bimanual Exam- Adnexa, other: no masses Skin Other: moultiple nevi, moles General skin exam: no rashes or lesions noted Rashes: no rashes Neuro General: patient oriented x3 Cognition (Neuro): normal cognition Extrem General: Yes normal to inspection Psych Attitude: cooperative Thought process: Normal thought process present Assessment & Plan Assessment & Plan (1) Encounter for well woman exam with routine gynecological exam: Code(s): Z01.419 - Encounter for gynecological examination (general) (routine) without abnormal findings Category: Medical Plan: Discussed: Current recommendations for pap smears per ASCCP guidelines. Breast awareness, periodic self breast exams and yearly mammogram. Maintain a healthy lifestyle, well balanced diet including Calcium 1,200 mg and Vitamin D 600 IU daily, and routine exercise. Contact the office with any postmenopausal bleeding. Patient verbalizes understanding and agrees to the plan of care. She was given opportunity to ask questions and all questions were answered to the best of my ability. RTO in 1 year for annual clinical professor exam. This note is constructed using voice recognition software. While every effort has been made to ensure accuracy, marketing strategy analyst errors may have been included. (2) Vaginal odor: Code(s): N89.8 - Other specified noninflammatory disorders of vagina Plan: BV panel taken, await results for plan of care. Discussed/reviewed various causes of odors, some can be benign sources. Total time I personally spent on visit and management today: ?10 minutes. Time spent included review of pertinent office notes in the electronic health record; review of laboratory and imaging results; review of personal family medical history; performing physical exam; discussing diagnosis and plan of care with the patient; documenting the encounter in the EMR. (3) Skin mole: Code(s): D22.9 - Melanocytic nevi, unspecified Plan Referral placed to dermatology for a general skin evaluation. Orders: Orders Bacterial Vaginosis Panel Today N89.8 - Other specified noninflammatory disorders of vagina Bacterial Vaginosis Panel Today D22.9 - Melanocytic nevi, unspecified, N89.8 - Other specified noninflammatory disorders of vagina Referrals Dermatology Referral D22.9 - Melanocytic nevi, unspecified Coding Level of Care Code Est Pt Level 2 (73698) Est Pt Prev Care 40-64y(82767) Diagnoses Encounter for well woman exam with routine gynecological exam Z01.419 Vaginal odor N89.8 Skin mole D22.9
--- OUTSIDE RECORDS SUMMARY | 2024-05-31 12:03 | XMS_ITS ---
Author Organization [facility] Address [address] [place] [phone] Care Team Providers Care Inker Machine Name Role Phone Jeff Marcelo MD Primary Care Provider Mathew Torres [phone] Encounters Encounter Location Date Provider Diagnosis [facility] [address] [place] [phone] 01/29/2024 Mathew Perez Plan Of Treatment Next Appt Details Provider Name:Mathew Perez , 06/20/2024 09:30:00 AM, [address] [place] [address], [phone], Progress Notes * BRITTNEY MOREIRAOB:1960 (63 yo F)Acc No.[id number]:01/29/2024 Patient:?BRITTNEY MOREIRA :1960???Age:63 Y???Sex:Female Address:[address] [place] [id number] * true * Date:? Generated for Printi alec/Lamin/eTransmitting on:?05/31/2024 12:03 PM EDT
--- OUTSIDE RECORDS SUMMARY | 2024-05-31 12:03 | XMS_ITS ---
Author Organization [facility] Address [address] [place] [phone] Care Team Providers Care Transverse Abdominal Muscle Surgeon Name Role Phone Jeff Marcelo MD Primary Care Provider Mathew Torres [phone] REASON FOR VISIT lomotil Medications Medication SIG (Take, Route, Frequency, Duration) Notes Start Date End Date Status Diphenoxylate-Atropine 2.5-0.025 MG TAKE 1-2 TABLETS BY MOUTH EVERY 6 HOURS IF NEEDED FOR DIARRHEA Orally Every 6 hours if needed for diarrhea for 30 days 05/16/2024 Active Encounters Encounter Location Date Provider Diagnosis [facility] [address] [facility] [address] [place] [phone] 05/16/2024 Mathew Perez Plan Of Treatment Medication Medication Name Sig Start Date Stop Date Notes Diphenoxylate-Atropine 2.5-0.025 MG TAKE 1-2 TABLETS BY MOUTH EVERY 6 HOURS IF NEEDED FOR DIARRHEA Orally Every 6 hours if needed for diarrhea for 30 days 05/16/2024 Next Appt Details Provider Name:Mathew Perez , 06/20/2024 09:30:00 AM, [address] [place] [address], [id number], Progress Notes * BRITTNEY MOREIRAOB:1960 (63 yo F)Acc No.[id number]:05/16/2024 Patient:?BRITTNEY MOREIRA :1960???Age:63 Y???Sex:Female Address:[address] [place] [address] [place] [address] * Refills? Refill Diphenoxylate-Atropine Tablet, 2.5-0.025 MG, Orally, 100, TAKE 1-2 TABLETS BY MOUTH EVERY 6 HOURS IF NEEDED FOR DIARRHEA, Every 6 hours if needed for diarrhea, 30 days, Refills=5 * true * Date:? Generated for Marina michael/Lamin/Shaheeditting on:?05/31/2024 12:03 PM EDT
--- OUTSIDE RECORDS SUMMARY | 2024-05-31 12:04 | XMS_ITS ---
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 Role Phone Jeff Marcelo MD Primary Care Provider Mathew Torres [phone] Allergies Allergen (clinical drug ingredient) Drug/Non Drug Allergy documented on EMR Reaction Allergy Type Onset Date Status Inapsine Unknown Drug Allergy Active REASON FOR VISIT Patient presents today for pyloric stricture Medications Medication SIG (Take, Route, Frequency, Duration) Notes Start Date End Date Status Levothyroxine Sodium 137 MCG 1 capsule Orally Once a day Active ALPRAZolam 0.5 MG 1 tablet Orally BID Active Atorvastatin Calcium 10 MG 1 tablet Oral ly Once a day for 30 day(s) Active Caltrate 600 Active traZODone HCl 50 MG 1 tablet at bedtime as needed Orally Once a day Active predniSONE 5 MG 1 tablet Orally Once a day for 90 days Active Sucralfate 1 GM TAKE 1 TABLET BY LUPE 4 TIMES A DAY ON AN EMPTY STOMACH, 30 TO 60 MINUTES BEFORE A MEAL, AND ONCE AT BEDTIME for 30 Active Hyoscyamine Sulfate ER 0.375 MG TAKE ONE TABLET BY MOUTH EVERY 12 HOURS for 30 Active Diphenoxylate-Atropine 2.5-0.025 MG TAKE 1 OR 2 TABLETS BY MOUTH EVERY 6 HOURS NEEDED FOR DIARRHEA. for 10/29/2023 Active Omeprazole 40 MG TAKE ONE CAPSULE BY MOUTH TWICE A DAY Orally Twice a day for 30 days Active Advil PRN Active Lomotil 2.5-0.025 MG 1-2 tablets PO Q 6 hours prn diarrhea for 30 days 12/19/2020 Active Famotidine 40 MG 1 Orally Twice a day for 10 days 04/12/2023 Active Ondansetron 4 MG 1 tablet on the tong ue and allow to dissolve Orally Every 6 hours as needed for nausea for 30 day(s) 03/26/2023 Active predniSONE 10 MG 1 tablet Orally Once a day Active Diclofenac Sodium 1 % 1 application Externally Gel Active Diphenoxylate-Atropine Active Claritin 10 MG 1 tablet Orally Once a day for 30 day(s) Active Gas-X 80 MG 1 tablet after meals and at bedtime as needed Orally prn Active Vitamin C 500 MG 1 tablet Orally Once a day Active Multi Vitamin/Minerals - as directed Ora lly once a day Active Metoprolol Tartrate 25 MG 1/2 tablet wit h food Orally Twice a day Active Aspirin 81 MG 1 tablet Orally Once a day Active Immunizations Vaccine Route Administration Date Status Comme nts Influenza Unknown 02/24/2024 Refused Social History Tobacco Use: Social History Observation Description Date Details (start date - stop date) Former Smoker NA - NA Tobacco Use/Smoking Question Answer Notes Patient is a former smoker How long has it been since you last smoked? 6-12 months Alcohol Screen Question Answer Notes Did you have a drink containing alcohol in the p ast year? No Points 0 Interpretation Negative Section Notes: Nonsmoker since fall ; no sig alcohol Problems Problem Type SNOMED Code ICD Code Onset Dates Problem Status W/U Status Risk Notes Problem Family history of polyp of colon (situation) (188725835) Family history of colon polyps, unspecified (Z83.719) Active confirmed Vital Signs Temperature 96.9 degrees Fahrenheit 02/24/20 24 Blood pressure systolic 000 mm Hg 02/24/20 24 Blood pressure diastolic 00 mm Hg 024 Height 66.5 in 02/24/2024 Weight 137 lbs 02/24/2024 BMI 21.78 kg/m2 02/24/2024 Encounters Encounter Location Date Provider Diagnosis [facility] [address] [place] [address] 02/24/2024 Mathew Perez Collagenous colitis K52.89 ; Pyloric stricture K31.1 ; Encounter for screening for malignant neoplasm of colon Z12.11 ; GERD (gastroesophageal reflux disease) K21.9 ; Barretts esophagus without dysplasia K22.70 ; Acute pyloric channel ulcer K25.3 and Family history of colon polyps, unspecified Z83.719 Assessments Encounter Date Diagnosis (ICD Code) Assessment Notes Treatment Notes Treatment Clinical Notes Section Notes 02/24/2024 Collagenous colitis (ICD-10 - K52.89) Need Bone density [place] [facility] Overall, Brittney Meyer appears well. Her chronic GI issues of the collagenous colitis and pyloric stricture seem to be clinically stable at this time on her current medical regimen. I did advise her to continue the low-dose prednisone 5 mg per day to hopefully maintain remission of the collagenous colitis and avoid exacerbations. We again reviewed potential side effects of prednisone on a long-term basis but at this point given her inability to come off of the prednisone without exacerbating the colitis we're both comfortable with her remaining on the low-dose. She was advised to continue her calcium and vitamin D long-term in that regard. I did advise her to continue her current regimen of the omeprazole and sucralfate in regard to the pyloric stricture. She will undergo a repeat upper endoscopy to reassess the stricture and determine whether or not repeat dilation is required and/or if any change in her regimen is required. I also recommended a colonoscopy on the same day for followup of screening given her last exam being in 2015 and the reported family history of her brother having had multiple colon polyps removed. We did review the rationale for that in regard to colon cancer prevention. Full consent was obtained from her for both procedures, including risks of bleeding and perforation. The procedures will be done with monitored anesthesia care. She was given the below instructions regarding adjustment of her medications for the procedure. Brittney Meyer was comfortable with this plan. Thank you again for allowing me to participate in Brittney Meyer's care. I shall continue to keep you advised of her progress. 02/24/2024 Pyloric stricture (ICD-10 - K31.1) Overall, Brittney Meyer appears well. Her chronic GI issues of the collagenous colitis and pyloric stricture seem to be clinically stable at this time on her current medical regimen. I did advise her to continue the low-dose prednisone 5 mg per day to hopefully maintain remission of the collagenous colitis and avoid exacerbations. We again reviewed potential side effects of prednisone on a long-term basis but at this point given her inability to come off of the prednisone without exacerbating the colitis we're both comfortable with her remaining on the low-dose. She was advised to continue her calcium and vitamin D long-term in that regard. I did advise her to continue her current regimen of the omeprazole and sucralfate in regard to the pyloric stricture. She will undergo a repeat upper endoscopy to reassess the stricture and determine whether or not repeat dilation is required and/or if any change in her regimen is required. I also recommended a colonoscopy on the same day for followup of screening given her last exam being in 2015 and the reported family history of her brother having had multiple colon polyps removed. We did review the rationale for that in regard to colon cancer prevention. Full consent was obtained from her for both procedures, including risks of bleeding and perforation. The procedures will be done with monitored anesthesia care. She was given the below instructions regarding adjustment of her medications for the procedure. Brittney Meyer was comfortable with this plan. Thank you again for allowing me to participate in Brittney Meyer's care. I shall continue to keep you advised of her progress. 02/24/2024 Encounter for screening for malignant neoplasm of colon (ICD-10 - Z12.11) Do not take aspirin on the morning of the procedures Overall, Brittney Meyer appears well. Her chronic GI issues of the collagenous colitis and pyloric stricture seem to be clinically stable at this time on her current medical regimen. I did advise her to continue the low-dose prednisone 5 mg per day to hopefully maintain remission of the collagenous colitis and avoid exacerbations. We again reviewed potential side effects of prednisone on a long-term basis but at this point given her inability to come off of the prednisone without exacerbating the colitis we're both comfortable with her remaining on the low-dose. She was advised to continue her calcium and vitamin D long-term in that regard. I did advise her to continue her current regimen of the omeprazole and sucralfate in regard to the pyloric stricture. She will undergo a repeat upper endoscopy to reassess the stricture and determine whether or not repeat dilation is required and/or if any change in her regimen is required. I also recommended a colonoscopy on the same day for followup of screening given her last exam being in 2015 and the reported family history of her brother having had multiple colon polyps removed. We did review the rationale for that in regard to colon cancer prevention. Full consent was obtained from her for both procedures, including risks of bleeding and perforation. The procedures will be done with monitored anesthesia care. She was given the below instructions regarding adjustment of her medications for the procedure. Brittney Meyer was comfortable with this plan. Thank you again for allowing me to participate in Brittney Meyer's care. I shall continue to keep you advised of her progress. 02/24/2024 GERD (gastroesophage al reflux disease) (ICD-10 - K21.9) Overall, Brittney Meyer appears well. Her chronic GI issues of the collagenous colitis and pyloric stricture seem to be clinically stable at this time on her current medical regimen. I did advise her to continue the low-dose prednisone 5 mg per day to hopefully maintain remission of the collagenous colitis and avoid exacerbations. We again reviewed potential side effects of prednisone on a long-term basis but at this point given her inability to come off of the prednisone without exacerbating the colitis we're both comfortable with her remaining on the low-dose. She was advised to continue her calcium and vitamin D long-term in that regard. I did advise her to continue her current regimen of the omeprazole and sucralfate in regard to the pyloric stricture. She will undergo a repeat upper endoscopy to reassess the stricture and determine whether or not repeat dilation is required and/or if any change in her regimen is required. I also recommended a colonoscopy on the same day for followup of screening given her last exam being in 2015 and the reported family history of her brother having had multiple colon polyps removed. We did review the rationale for that in regard to colon cancer prevention. Full consent was obtained from her for both procedures, including risks of bleeding and perforation. The procedures will be done with monitored anesthesia care. She was given the below instructions regarding adjustment of her medications for the procedure. Brittney Meyer was comfortable with this plan. Thank you again for allowing me to participate in Brittney Meyer's care. I shall continue to keep you advised of her progress. 02/24/2024 Barretts esophagus without dysplasia (ICD-10 - K22.70) Overall, Brittney Meyer appears well. Her chronic GI issues of the collagenous colitis and pyloric stricture seem to be clinically stable at this time on her current medical regimen. I did advise her to continue the low-dose prednisone 5 mg per day to hopefully maintain remission of the collagenous colitis and avoid exacerbations. We again reviewed potential side effects of prednisone on a long-term basis but at this point given her inability to come off of the prednisone without exacerbating the colitis we're both comfortable with her remaining on the low-dose. She was advised to continue her calcium and vitamin D long-term in that regard. I did advise her to continue her current regimen of the omeprazole and sucralfate in regard to the pyloric stricture. She will undergo a repeat upper endoscopy to reassess the stricture and determine whether or not repeat dilation is required and/or if any change in her regimen is required. I also recommended a colonoscopy on the same day for followup of screening given her last exam being in 2015 and the reported family history of her brother having had multiple colon polyps removed. We did review the rationale for that in regard to colon cancer prevention. Full consent was obtained from her for both procedures, including risks of bleeding and perforation. The procedures will be done with monitored anesthesia care. She was given the below instructions regarding adjustment of her medications for the procedure. Brittney Meyer was comfortable with this plan. Thank you again for allowing me to participate in Brittney Meyer's care. I shall continue to keep you advised of her progress. 02/24/2024 Acute pyloric channel ulcer (ICD-10 - K25.3) Overall, Brittney Meyer appears well. Her chronic GI issues of the collagenous colitis and pyloric stricture seem to be clinically stable at this time on her current medical regimen. I did advise her to continue the low-dose prednisone 5 mg per day to hopefully maintain remission of the collagenous colitis and avoid exacerbations. We again reviewed potential side effects of prednisone on a long-term basis but at this point given her inability to come off of the prednisone without exacerbating the colitis we're both comfortable with her remaining on the low-dose. She was advised to continue her calcium and vitamin D long-term in that regard. I did advise her to continue her current regimen of the omeprazole and sucralfate in regard to the pyloric stricture. She will undergo a repeat upper endoscopy to reassess the stricture and determine whether or not repeat dilation is required and/or if any change in her regimen is required. I also recommended a colonoscopy on the same day for followup of screening given her last exam being in 2015 and the reported family history of her brother having had multiple colon polyps removed. We did review the rationale for that in regard to colon cancer prevention. Full consent was obtained from her for both procedures, including risks of bleeding and perforation. The procedures will be done with monitored anesthesia care. She was given the below instructions regarding adjustment of her medications for the procedure. Brittney Meyer was comfortable with this plan. Thank you again for allowing me to participate in Brittney Meyer's care. I shall continue to keep you advised of her progress. 02/24/2024 Family history of colon polyps, unspecified (ICD-10 - Z83.719) Overall, Brittney Meyer appears well. Her chronic GI issues of the collagenous colitis and pyloric stricture seem to be clinically stable at this time on her current medical regimen. I did advise her to continue the low-dose prednisone 5 mg per day to hopefully maintain remission of the collagenous colitis and avoid exacerbations. We again reviewed potential side effects of prednisone on a long-term basis but at this point given her inability to come off of the prednisone without exacerbating the colitis we're both comfortable with her remaining on the low-dose. She was advised to continue her calcium and vitamin D long-term in that regard. I did advise her to continue her current regimen of the omeprazole and sucralfate in regard to the pyloric stricture. She will undergo a repeat upper endoscopy to reassess the stricture and determine whether or not repeat dilation is required and/or if any change in her regimen is required. I also recommended a colonoscopy on the same day for followup of screening given her last exam being in 2015 and the reported family history of her brother having had multiple colon polyps removed. We did review the rationale for that in regard to colon cancer prevention. Full consent was obtained from her for both procedures, including risks of bleeding and perforation. The procedures will be done with monitored anesthesia care. She was given the below instructions regarding adjustment of her medications for the procedure. Brittney Meyer was comfortable with this plan. Thank you again for allowing me to participate in Brittney Meyer's care. I shall continue to keep you advised of her progress. Plan Of Treatment Treatment Notes Assessment Notes Collagenous colitis Need Bone density st [facility] from [facility] Encounter for screening for malignant neoplasm of colon Do not take aspirin on the morning of e procedures Future Test Test Name Order Date UPPER GI ENDOSCOPY DILATION OF GASTRIC O UTLET OBSTRUCTION 02/24/2024 COLONOSCOPY 02/24/2024 Next Appt Details Follow Up: prn, Reason: Provider Name:Mathew Perez , 06/20/2024 09:30:00 AM, [address] [place] [address], [phone], Progress Notes * BRITTNEY MOREIRAOB:1960 (63 yo F)Acc No.[id number]:02/24/2024 Progress Notes Patient:?BRITTNEY MOREIRA Provider:?Mathew Perez MD :1960???Age:63 Y???Sex:Female D ate:02/24/2024 Address:[address] [place], [place] [id number] Pcp:Jeff Marcelo MD Subjective: * Chief Complaints: * ???Patient presents today fo r pyloric stricture * HPI: ???incontinence:? I saw Brittney Meyer in followup today in regard to her underlying history of collagenous colitis, a pyloric channel ulcer with an associated stricture, family history of colorectal polyps, and discussion of colorectal cancer screening. ?I last saw Brittney Meyer in June, at which time she underwent a followup upper endoscopy. This revealed the pylorus to be more patent. At that time I was able to pass the gastroscope into the duodenum without having to dilate the pylorus first. However, there was still some associated ulceration and relative narrowing. Therefore, I did dilate the pyloric channel with a balloon. At the time of that endoscopy there was a very minimal amount of liquid and tiny bits of food in the stomach. ?Since the procedure in June she has been basically feeling well. She has been eating carefully but generally normally. She remains on omeprazole 40 mg b.i.d. and sucralfate q.i.d.. She denies any significant heartburn, dysphagia, abdominal pain, vomiting, nausea, nor jaundice. Her weight has been quite stable since over one year ago. She still will have some reflux in the evening if she tends to eat too close to bedtime. She does describe that she does have to eat smaller meals than previously but is otherwise eating quite adequately as her weight has remained very stable. ?She does describe that her brother had multiple colon polyps removed. However, there is no known family history of colon cancer. Brittney Meyer's last colonoscopy in 2016 did not reveal any polyps although did show the underlying collagenous colitis on the biopsies. ?She does report that her bowel movements have remained quite stable on the low dose of maintenance prednisone at this time. She denies any significant diarrhea, constipation, hematochezia, or melena. As you know, previous attempts at weaning her off the prednisone completely were unsuccessful despite trying to treat the colitis with mesalamine, cholestyramine, and Lomotil. She reports that she still uses the 0.375 mg hyoscyamine twice a day and only occasional Lomotil. At one point we were going to get her started on Humira for the colitis but she opted to hold off on that and to stay on the low dose of prednisone. ?She does report that she had a bone density study about a year or so ago that was normal as far she knows. I asked her about that as she is on chronic prednisone and was going to order one for her myself. * ROS:?General/Constitutional:?Patient denies?denies.?Chills?denies.?Fatigue?denies.?Ophthalmologic:?Patient denies? Negative..?ENT:?Patient denies?Negative..?Respiratory:?Patient denies?No coughing/hemoptysis..?Cardiovascular:?Patient denies? No chest pain/orthopnea..?Gastrointestinal:?Comments?See HPI for details.?Genitourinary:?Patient denies? No dysuria/hematuria..?Incontinence?denies.?Musculoskeletal:?Patient denies?Left knee pain.?Skin:?Patient denies?No rash/pruritus..?Neurologic:?Patient denies? No headaches/seizures..?Psychiatric:?Patient denies?Negative..? * Medical History:? * Surgical History:?Varicose v ein stripping Tubal ligation Uterine ablation Left knee replacement 06/05/[address] Nunez * Hospitalization/Major Diagno stic Procedure:?No Hospitalization History. * Family History:?Father: dece ased, diagnosed with HTN (hypertension), Diabetes.?Mother: , diagnosed with HTN (hypertension).?Maternal uncle: , pancreatic cancer.? No family hx of colon cancer nor celiac disease. Father may have had colitis-not sure what type. 1st cousin with cervical and breast cancer; she also had colon cancer in her 60's. * Social History:?Tobacco Use:?Tobacco Use/Smoking?Patient is a?former smoker,?How long has it been since you last smoked??6-12 months.?Drugs/Alcohol:?Alcohol Screen?Did you have a drink containing alcohol in the past year??No,?Points?0,?Interpretation?Negative.?Miscellaneous:?Marital status: . 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 ???Nonsmoker since fall; no sig alcohol. * Medications:?TakingCaltrate 600 Atorvastatin Calcium 10 MG Tablet 1 tablet Orally Once a dayALPRAZolam 0.5 MG Tablet 1 tablet Orally BIDLevothyroxine Sodium 137 MCG Capsule 1 capsule Orally Once a daytraZODone HCl 50 MG Tablet 1 tablet at bedtime as needed Orally Once a dayAspirin 81 MG Tablet Chewable 1 tablet Orally Once a dayMetoprolol Tartrate 25 MG Tablet 1/2 tablet with food Orally Twice a dayMulti Vitamin/Minerals - Tablet as directed Orally once a dayVitamin C 500 MG Capsule 1 tablet Orally Once a dayGas-X 80 MG Tablet Chewable 1 tablet after meals and at bedtime as needed Orally prnClaritin 10 MG Tablet 1 tablet Orally Once a dayDiphenoxylate-Atropine Diclofenac Sodium 1 % Gel 1 application Externally , Notes: GelLomotil 2.5-0.025 MG Tablet 1-2 tablets PO Q 6 hours prn diarrheaAdvil , Notes: PRNpredniSONE 10 MG Tablet 1 tablet Orally Once a dayOndansetron 4 MG Tablet Disintegrating 1 tablet on the tongue and allow to dissolve Orally Every 6 hours as needed for nauseaFamotidine 40 MG Tablet 1 Orally Twice a dayOmeprazole 40 MG Capsule Delayed Release TAKE ONE CAPSULE BY MOUTH TWICE A DAY Orally Twice a dayDiphenoxylate-Atropine 2.5-0.025 MG Tablet TAKE 1 OR 2 TABLETS BY MOUTH EVERY 6 HOURS NEEDED FOR DIARRHEA. Hyoscyamine Sulfate ER 0.375 MG Tablet Extended Release 12 Hour TAKE ONE TABLET BY MOUTH EVERY 12 HOURS Sucralfate 1 GM Tablet TAKE 1 TABLET BY MOUTH 4 TIMES A DAY ON AN EMPTY STOMACH, 30 TO 60 MINUTES BEFORE A MEAL, AND ONCE AT BEDTIME predniSONE 5 MG Tablet 1 tablet Orally Once a dayMedication List reviewed and reconciled with the patientTaking Caltrate 600 Taking Atorvastatin Calcium 10 MG Tablet 1 tablet Orally Once a dayTaking ALPRAZolam 0.5 MG Tablet 1 tablet Orally BIDTaking Levothyroxine Sodium 137 MCG Capsule 1 capsule Orally Once a dayTaking traZODone HCl 50 MG Tablet 1 tablet at bedtime as needed Orally Once a dayTaking Aspirin 81 MG Tablet Chewable 1 tablet Orally Once a dayTaking Metoprolol Tartrate 25 MG Tablet 1/2 tablet with food Orally Twice a dayTaking Multi Vitamin/Minerals - Tablet as directed Orally once a dayTaking Vitamin C 500 MG Capsule 1 tablet Orally Once a dayTaking Gas-X 80 MG Tablet Chewable 1 tablet after meals and at bedtime as needed Orally prnTaking Claritin 10 MG Tablet 1 tablet Orally Once a dayTaking Diphenoxylate-Atropine Taking Diclofenac Sodium 1 % Gel 1 application Externally , Notes: GelTaking Lomotil 2.5-0.025 MG Tablet 1-2 tablets PO Q 6 hours prn diarrheaTaking Advil , Notes: PRNTaking predniSONE 10 MG Tablet 1 tablet Orally Once a dayTaking Ondansetron 4 MG Tablet Disintegrating 1 tablet on the tongue and allow to dissolve Orally Every 6 hours as needed for nauseaTaking Famotidine 40 MG Tablet 1 Orally Twice a dayTaking Omeprazole 40 MG Capsule Delayed Release TAKE ONE CAPSULE BY MOUTH TWICE A DAY Orally Twice a dayTaking Diphenoxylate-Atropine 2.5-0.025 MG Tablet TAKE 1 OR 2 TABLETS BY MOUTH EVERY 6 HOURS NEEDED FOR DIARRHEA. Taking Hyoscyamine Sulfate ER 0.375 MG Tablet Extended Release 12 Hour TAKE ONE TABLET BY MOUTH EVERY 12 HOURS Taking Sucralfate 1 GM Tablet TAKE 1 TABLET BY MOUTH 4 TIMES A DAY ON AN EMPTY STOMACH, 30 TO 60 MINUTES BEFORE A MEAL, AND ONCE AT BEDTIME Taking predniSONE 5 MG Tablet 1 tablet Orally Once a dayMedication List reviewed and reconciled with the patient * Allergies:?Inapsineyes[Aller gies Verified] Objective: * Vitals:?Wt: 137 lbs, Ht: 66. 5 in, BMI:21.78 Index, BP: 000/00 mm Hg, Temp: 96.9. * Examination: ???General Examination: ?GENERAL APPEARANCE:?pleasant, well nourished, well developed, in no acute distress.?EYES:?sclera non-icteric.?ORAL CAVITY:?mucosa moist.?NECK/THYROID:?no cervical lymphadenopathy, neck supple.?SKIN:?nonjaundiced, no spider angiomata..?HEART:?S1, S2 normal.?LUNGS:?clear to auscultation bilaterally.?ABDOMEN:?normal bowel sounds, no guarding or rigidity, no hepatosplenomegaly, no masses palpable, soft, nontender, nondistended..?EXTREMITIES:?no edema.?NEUROLOGIC:?alert and oriented.? Assessment: * Assessment: 1.?Pyloric stricture - K31.1 (Primary)?2.?Collagenous colitis - K52.89?3.?Encounter for screening for malignant neoplasm of colon - Z12.11?4.?GERD (gastroesophageal reflux disease) - K21.9?5.?Barretts esophagus without dysplasia - K22.70?6.?Acute pyloric channel ulcer - K25.3?7.?Family history of colon polyps, unspecified - Z83.719? Overall, Karunadarian florian. Her chronic GI issues of the collagenous colitis and pyloric stricture seem to be clinically stable at this time on her current medical regimen. I did advise her to continue the low-dose prednisone 5 mg per day to hopefully maintain remission of the collagenous colitis and avoid exacerbations. We again reviewed potential side effects of prednisone on a long-term basis but at this point given her inability to come off of the prednisone without exacerbating the colitis we're both comfortable with her remaining on the low-dose. She was advised to continue her calcium and vitamin D long-term in that regard. I did advise her to continue her current regimen of the omeprazole and sucralfate in regard to the pyloric stricture. She will undergo a repeat upper endoscopy to reassess the stricture and determine whether or not repeat dilation is required and/or if any change in her regimen is required. I also recommended a colonoscopy on the same day for followup of screening given her last exam being in 2015 and the reported family history of her brother having had multiple colon polyps removed. We did review the rationale for that in regard to colon cancer prevention. Full consent was obtained from her for both procedures, including risks of bleeding and perforation. The procedures will be done with monitored anesthesia care. She was given the below instructions regarding adjustment of her medications for the procedure. Brittney Meyer was comfortable with this plan. Thank you again for allowing me to participate in Brittney Meyer's care. I shall continue to keep you advised of her progress. Plan: * Treatment: 2.?Collagenous colitis? Notes: Need Bone density study from [facility] [place]3.?Encounter for screening for malignant neoplasm of colon?Procedure: COLONOSCOPY (Ordered for 02/24/2024)* with MACsched for 06/20/24 at 9:30 ammiralax Notes: Do not take aspirin on the morning of the procedures??4.?GERD (gastroesophageal reflux disease)?Procedure: UPPER GI ENDOSCOPY DILATION OF GASTRIC OUTLET OBSTRUCTION (Ordered for 02/24/2024)* with MAC 5.?Barretts esophagus without dysplasia?Procedure: UPPER GI ENDOSCOPY DILATION OF GASTRIC OUTLET OBSTRUCTION (Ordered for 02/24/2024)* with MAC 6.?Acute pyloric channel ulcer?Procedure: UPPER GI ENDOSCOPY DILATION OF GASTRIC OUTLET OBSTRUCTION (Ordered for 02/24/2024)* with MAC 7.?Family history of colon polyps, unspecified?Procedure: COLONOSCOPY (Ordered for 02/24/2024)* with MACsched for 06/20/24 at 9:30 ammiralax * Immunizations:? Influenza (Not administered - Refused: Patient decision) * Procedure Codes:?3017F COLOR ECTAL CA SCREEN DOC [id number] TOBACCO NON-BREIH9402 BP SCR NOT PRFRM REC REASON NOS * Follow Up:?prn * * Sign off status: Completed true * Provider:?Mathew Perez MD Date:? 024 Generated for Nelidai alec/Lamin/eTransmitting on:?05/31/2024 12:03 PM EDT History and Physical Notes * HPI (History of Present Illness) Category Sub-Category Detail Notes Category Not es incontinence I saw Brittney Meyer in followup today in regard to her underlying history of collagenous colitis, a pyloric channel ulcer with an associated stricture, family history of colorectal polyps, and discussion of colorectal cancer screening. I last saw Brittney Meyer in June, at which time she underwent a followup upper endoscopy. This revealed the pylorus to be more patent. At that time I was able to pass the gastroscope into the duodenum without having to dilate the pylorus first. However, there was still some associated ulceration and relative narrowing. Therefore, I did dilate the pyloric channel with a balloon. At the time of that endoscopy there was a very minimal amount of liquid and tiny bits of food in the stomach. Since the procedure in June she has been basically feeling well. She has been eating carefully but generally normally. She remains on omeprazole 40 mg b.i.d. and sucralfate q.i.d.. She denies any significant heartburn, dysphagia, abdominal pain, vomiting, nausea, nor jaundice. Her weight has been quite stable since over one year ago. She still will have some reflux in the evening if she tends to eat too close to bedtime. She does describe that she does have to eat smaller meals than previously but is otherwise eating quite adequately as her weight has remained very stable. She does describe that her brother had multiple colon polyps removed. However, there is no known family history of colon cancer. Brittney Meyer's last colonoscopy in 2015 did not reveal any polyps although did show the underlying collagenous colitis on the biopsies. She does report that her bowel movements have remained quite stable on the low dose of maintenance prednisone at this time. She denies any significant diarrhea, constipation, hematochezia, or melena. As you know, previous attempts at weaning her off the prednisone completely were unsuccessful despite trying to treat the colitis with mesalamine, cholestyramine, and Lomotil. She reports that she still uses the 0.375 mg hyoscyamine twice a day and only occasional Lomotil. At one point we were going to get her started on Humira for the colitis but she opted to hold off on that and to stay on the low dose of prednisone. She does report that she had a bone density study about a year or so ago that was normal as far she knows. I asked her about that as she is on chronic prednisone and was going to order one for her myself. Examination Category Sub-Category Detail Notes Category Not es General Examination GENERAL APPEARANCE: pleasant , well nourished, well developed, in no acute distress EYES: sclera non-icteric NECK/THYROID: no cervical lymphade nopathy, neck supple HEART: S1, S2 normal LUNGS: clear to auscultatio n bilaterally ABDOMEN: normal bowel sounds, no guarding or rigidity, no hepatosplenomegaly, no masses palpable, soft, nontender, nondistended. NEUROLOGIC: alert and oriented SKIN: nonjaundiced, no spi anca angiomata. EXTREMITIES: no edema ORAL CAVITY: mucosa moist
== END 2024-05-31 11:18 | disposition home or self-care (01) ==
LOC: HO.HWS 10:09
PROVIDERS: PCP Internal Medicine; Visit Provider Advanced Practice Midwife
DX: Z01.419 Encounter for gynecological examination (general) (routine) without abnormal findings (principal); N89.8 Other specified noninflammatory disorders of vagina; D22.9 Melanocytic nevi, unspecified
CPT/HCPCS: 99212; 99396; 99459

== ENCOUNTER 2024-05-31 10:09 | Outpatient (REF) | payer BC, SELFPAY ==
[2024-05-31 14:46] LABS: Bacterial Vaginosis PCR NEGATIVE (Negative); Candida Group PCR NOT DETECTED (Not Detect); Candida glab krusei PCR NOT DETECTED (Not Detect); Trichomonas vaginalis PCR NOT DETECTED (Not Detect)
== END 2024-05-31 10:10 | disposition home or self-care (01) ==
LOC: HO.LAB 10:09
PROVIDERS: PCP Internal Medicine; Visit Provider Advanced Practice Midwife
DX: Z01.419 Encounter for gynecological examination (general) (routine) without abnormal findings (principal); N89.8 Other specified noninflammatory disorders of vagina; D22.9 Melanocytic nevi, unspecified
CPT/HCPCS: 81515

== ENCOUNTER 2024-06-20 08:22 | Day surgery (SDC) | payer BC, SELFPAY ==
[2024-06-20 08:33] VITALS: BMI 21.1
--- NOTE | 2024-06-20 08:35 | P.CONAN_ITS ---
HPI - Anesthesia Eval Consult details Narrative: double endo plus colon PMFSH Active Problems Active Problems: All Active Problems Encounter for well woman exam with routine gynecological exam (Acute) Past Medical History Medical History Encounter for well woman exam with routine gynecological exam On beta rena at home Back pain History of degenerative disc disease Scoliosis Erosive esophagitis Collagenous colitis Barretts esophagus GERD (gastroesophageal reflux disease) Hyperlipidemia Hypothyroidism Anxiety Myocardial infarction Family History Family History Father Diabetes Family/Other Breast cancer Cervical cancer Skin cancer Family history of problems with anesthesia: No Surgical History Surgical History H/O heart artery stent History of total left knee replacement History of endometrial ablation History of tubal ligation Hx of varicose vein ligation and stripping Hx of esophagogastroduodenoscopy Hx of colonoscopy History of Problems with Anesthesia: No Social History Social History Are you a primary physician assistant primary care to a significant other at home: No Do you presently have visiting nurse or other home services: No Alcohol intake: former Patient Tobacco Use Status: Former Tobacco user Tobacco use type: Cigarette Have you been hit, kicked, punched, or otherwise hurt by someone within the past year? If so, by whom?: No Are you DNR?: No Advance Directives: No Advance Directives Information Provided: Yes Poor oral hygiene: No Sexual orientation: Straight/Heterosexual Gender identity: Female Meds Allergies Allergy/AdvReac Type Severity Reaction Status Date / Time droperidol [From Inapsine] Allergy Intermediate SHAKING Verified 06/20/24 08:36 Active Medications: Current Medications Lactated Ringer's (Lr) 1,000 mls @ 50 mls/hr IVCONT .Q20H CHARU Sodium Biphosphate/Sodium Phosphate (Sodium Phosphate,[place]-Dibasic 133 Ml Enema) 133 ml CO ONCE PRN PRN Reason: Poor Colonoscopy Prep Results Home Medications ?Medication ?Instructions ?Recorded ?Confirmed ?Last Taken ?Type albuterol sulfate 90 mcg/actuation 2 puff PO BID PRN Wheezing 07/22/21 06/16/24 Unknown History aerosol inhaler aspirin 81 mg tablet,delayed 81 mg PO DAILY 07/22/21 06/12/23 06/09/23 History release atorvastatin 10 mg tablet 1 tab PO DAILY 07/22/21 06/16/24 Unknown History calcium carbonate 600 mg PO DAILY 07/22/21 06/12/23 Unknown History diphenoxylate-atropine 2.5 1 - 2 tab PO Q6H PRN diarrhea 07/22/21 06/16/24 Unknown History mg-0.025 mg tablet hyoscyamine sulfate 0.375 mg 1 tab PO Q12H 07/22/21 06/16/24 Unknown History tablet,extended release,12 hr levothyroxine 137 mcg tablet 1 tab PO DAILY 07/22/21 06/16/24 06/16/23 05:45 History loratadine 10 mg tablet 1 tab PO DAILY 07/22/21 06/16/24 Unknown History metoprolol tartrate 25 mg tablet 12.5 mg PO BID 07/22/21 06/16/24 06/16/23 05:45 History multivitamin with minerals 1 tab PO DAILY 07/22/21 06/12/23 Unknown History omeprazole 40 mg capsule,delayed 1 cap PO DAILY 07/22/21 06/16/24 07/26/21 History release prednisone 5 mg tablet 10 mg PO DAILY 07/22/21 06/16/24 07/26/21 History simethicone 80 mg chewable tablet 80 mg PO BEDTIME PRN Abdominal 07/22/21 06/16/24 Unknown History Discomfort trazodone 50 mg tablet 1 - 2 tab PO BEDTIME 07/22/21 06/16/24 Unknown History ascorbic acid (vitamin C) 500 mg 500 mg PO DAILY 06/12/23 06/12/23 Unknown History tablet (Vitamin C) sucralfate 1 gram tablet 1 g PO QID 06/16/23 06/16/24 Unknown History Exam Height,Weight and Vital Signs: Height 5 ft 6.5 in Weight 60.328 kg Airway Mallampati Class: II TM Dist: >3cm Neck ROM: Full Heart: rrr Lungs: cta Assessment and Plan Assessment Anesthesia Assessment: Anesthesia Plan Discussed and Chart Reviewed Final Anesthetic Review Family History of Problems with Anesthesia: No History of Problems with Anesthesia: No NPO: Yes ASA Class: III Final Preanesthetic Review: No Changes in Pt Med Stat, Meds/Allgs Chart Reviewed, Consent Obtained/Reviewed and Anes Risks/Benef Reviewed Patient Risk: Intermediate Procedure Risk: Low Anesthetic Plan Anesthetic Plan: MAC: Disposition: Standard PACU
[2024-06-20 08:37] VITALS: BP 90/54; PULSE 69; RESP 18; TEMP 36.8; O2SAT 96
[2024-06-20] MEDS: Lactated Ringers 1,000 ML 50 ML IVCONT (08:42)
[2024-06-20 08:48] VITALS: BP 102/65
[2024-06-20 10:16] VITALS: BP 94/53; PULSE 58; RESP 16; TEMP 36.1; O2SAT 98
--- NOTE | 2024-06-20 10:23 | PM.OP ---
Brief Operative Note Date of Service: 06/20/24 Pre-op diagnosis: Pyloric stricture, Screening Post-op diagnosis: other (Same, Hiatal hernia, Colon polyp) Procedure: EGD with Pyloric Dilation 12mm to 13.5mm and 15mm, and biopsies, and Colonoscopy to the cecum and TI with cold snare polypectomy x 1 with placement of 2 Resolution clips, and biopsies Surgeon: Mathew Perez MD Anesthesia: MAC Was an Solution Sales Senior Executive used for this Procedure?: No Estimated blood loss (mL): 2.0 Pathology: other (A. Gastric antrum B. Ascending colon polyp C. Ascending colon) Condition: stable Disposition: PACU
[2024-06-20 10:30] VITALS: BP 122/63; PULSE 61; RESP 16; TEMP 36.1; O2SAT 98
--- NOTE | 2024-06-20 11:46 | OP_ITS ---
DATE OF SERVICE: 06/20/2024 SURGEON: Mathew Perez MD INDICATIONS: The patient presents for followup of a history of pyloric stricture and colorectal cancer screening. Full consent has been obtained from her for this, including risks of bleeding and perforation. PREOPERATIVE DIAGNOSIS: POSTOPERATIVE DIAGNOSIS: PROCEDURE PERFORMED: Esophagogastroduodenoscopy with balloon dilation of pyloric stricture, and biopsies, and colonoscopy to the cecum and terminal ileum with biopsies, cold snare polypectomy, and placement of 2 resolution clips onto the polypectomy site. ESTIMATED BLOOD LOSS: COMPLICATIONS: ANESTHESIA: Medication used, monitored anesthesia care. ASSISTANTS: SPECIMENS: PREOPERATIVE DIAGNOSES: History of pyloric stricture, history of collagenous colitis, colorectal cancer screening, family history of colon polyps. POSTOPERATIVE DIAGNOSES: History of pyloric stricture, history of collagenous colitis, colorectal cancer screening, family history of colon polyps, pyloric stricture, hiatal hernia, colon polyp, diverticulosis, and internal hemorrhoids. DESCRIPTION OF PROCEDURE: The patient was placed in the left lateral decubitus position. The Olympus video gastroscope was passed in the posterior oropharynx and upper esophagus under direct vision. The scope was passed slowly into the distal esophagus. The gastroesophageal junction appeared at 38 cm. There was some very minimal irregularity consistent with reflux but no evidence of any esophagitis nor Mandel esophagus. The scope entered the stomach. There was a small hiatal hernia. There was no retained food in the stomach. The scope was advanced to the pylorus. The pylorus was somewhat narrow, but allowed easy passage of the scope into the duodenum with some gentle pressure. There was no ulceration within the pyloric channel. The duodenal bulb and descending duodenum appeared normal as well. The scope was withdrawn back in the colon. I did use a pyloric balloon to dilate the pylorus from 12 mm to 13.5 mm to 15 mm at the recommended pressure given that there was some slight narrowing and based on her clinical history. Post dilation, there was some heme noted and the pylorus was definitely more patent. The gastric antrum and body had some areas of erythema but otherwise appeared normal. There was good peristalsis. Biopsies were obtained. The scope was retroflexed visualizing the proximal stomach carefully, which appeared normal, without any sign of mass or ulceration. The scope was straightened and withdrawn back in the esophagus. The esophageal mucosa appeared normal. The scope was withdrawn from the patient. She was turned around for the colonoscopy. The digital rectal exam revealed no abnormalities. The Olympus video pediatric colonoscope was entered into the rectum and advanced easily to the cecum. Once in the cecum I did identify normal-appearing cecal pouch with appendiceal orifice and a normal-appearing ileocecal valve. The terminal ileum was cannulated and appeared normal. The scope was withdrawn back in the colon. The entire cecum and ileocecal valve appeared normal. The scope was slowly withdrawn assessing all mucosal surfaces carefully. Preparation was for the most part very good, but there were some areas that had some residual vegetable matter. In the proximal ascending colon was an approximately 6 to 8 mm flat, but slightly raised polyp, which was removed by cold snare polypectomy and recovered by suction. The polypectomy site appeared clean, without any sign of residual polyp nor bleeding. Two resolution clips were applied to the polypectomy site with good deployment and good hemostasis. I did not visualize any other polyps, colitis, nor angiodysplasia. I did obtain random biopsies in the ascending colon given the history of underlying collagenous colitis. There was a mild amount of sigmoid diverticulosis. In the rectum, scope was retroflexed visualizing internal hemorrhoids, but no other pathology. The rectal mucosa appeared normal. Scope was straightened and withdrawn from the patient. She tolerated both procedures well and was returned to the recovery area in stable condition. IMPRESSION: 1. Mild pyloric stricture, status post balloon dilation. 2. Hiatal hernia. 3. Colon polyp. 4. History of collagenous colitis. 5. Diverticulosis. 6. Internal hemorrhoids. PLAN: The results of the pathology will be checked. She was advised to resume her aspirin in 48 hours. She was advised to continue her current regimen of the b.i.d. omeprazole and the q.i.d. sucralfate. I would recommend a repeat colonoscopy in 5 years. She will be seen in the fall for a followup visit as well. She was advised to avoid all NSAIDs long-term. MD LEONELA Wright/ALCIRA / [phone] MTDIdalia
== END 2024-06-20 11:17 | disposition home or self-care (01) ==
PROVIDERS: PCP Internal Medicine; Visit Provider Internal Medicine
PROC: (CPT 45385; principal; 2024-06-20 09:30)
PROC: 0DJD8ZZ Inspection of Lower Intestinal Tract, Via Natural or Artificial Opening Endoscopic (ICD-10-PCS; CPT 45378; 2024-06-20 09:30)
DX: Z12.11 Encounter for screening for malignant neoplasm of colon (principal); D12.2 Benign neoplasm of ascending colon; K52.831 Collagenous colitis; K57.30 Diverticulosis of large intestine without perforation or abscess without bleeding; K64.8 Other hemorrhoids; Z83.719 Family history of colon polyps, unspecified; K31.1 Adult hypertrophic pyloric stenosis; K44.9 Diaphragmatic hernia without obstruction or gangrene; K25.3 Acute gastric ulcer without hemorrhage or perforation; K21.9 Gastro-esophageal reflux disease without esophagitis; E78.5 Hyperlipidemia, unspecified
CPT/HCPCS: 45385; 45380; 43249; 43239; 88305; 88342; C1726; J2003; J2704

== ENCOUNTER 2024-08-09 09:22 | Outpatient (REF) | payer BC, SELFPAY ==
[2024-08-09 10:20] LABS: MANUAL DIFF FLAG NO
[2024-08-09 11:18] LABS: Basophils Percent Auto 0.4 % (0-2); Eosinophils Absolute Auto 0.2 X10*3/uL (0.0-0.4); Eosinophils Percent Auto 1.4 % (0-4); Hematocrit 40.2 % (37.0-47.0); Hemoglobin 13.7 g/dl (12.0-16.0); Imm Gran Abs Auto 0.06 X10*3/uL (0.00-0.03); Imm Gran Pct Auto 0.6 % (0.0-0.4); Lymphocytes Absolute Auto 1.4 X10*3/uL (1.2-4.9); Lymphocytes Percent Auto 13.4 % (20-40); Mean Corpuscular HGB Conc 34.1 g/dl (31.0-35.0); Mean Corpuscular Hemoglobin 32.5 pg (27.0-33.0); Mean Corpuscular Volume 95.3 fL (80.0-98.0); Monocytes Absolute Auto 0.6 X10*3/uL (0.1-1.2); Monocytes Percent Auto 5.8 % (2-11); Neutrophils Absolute Auto 8.4 x10*3/uL (2.0-8.3); Neutrophils Percent Auto 78.4 % (45-73); Platelet Count 219 X10*3/uL (160-400); Red Blood Count 4.22 X10*6/uL (4.20-5.50); White Blood Count 10.7 X10*3/uL (4.8-10.8)
[2024-08-09 11:52] LABS: Anion Gap 12 (12-20); Blood Urea Nitrogen 20 mg/dL (9-16); Calcium 9.5 mg/dL (8.4-10.2); Carbon Dioxide 29 mmol/L (22-29); Chloride 99 mmol/L (96-108); Cholesterol 213 mg/dL (<200); Estimated Glomerular Filt Rate > 60; Glucose Random 85 mg/dL (60-115); HDL Cholesterol 63 mg/dL (>40); Iron 137 mcg/dL (30-160); LDL Cholesterol Calculated 121 mg/dL (<100); Percent Iron Saturation 49 % (15-50); Potassium 4.5 mmol/L (3.3-5.1); Sodium 135 mmol/L (135-145); Total Iron Binding Capacity 281 mcg/dL (228-428); Triglycerides 149 mg/dL (<150); Unsaturated Iron Binding 144 ug/dL
[2024-08-09 12:07] LABS: TSH reflex Free T4 3.84 uIU/mL (0.32-4.0); Vitamin D 25-OH Total 90.3 ng/mL (>30)
[2024-08-09 12:10] LABS: Vitamin B12 987 pg/mL (200-900)
== END 2024-08-09 09:23 | disposition home or self-care (01) ==
LOC: HO.LAB 09:22
PROVIDERS: PCP Internal Medicine; Visit Provider Physician Assistant
DX: E03.9 Hypothyroidism, unspecified (principal); E78.5 Hyperlipidemia, unspecified; I25.10 Atherosclerotic heart disease of native coronary artery without angina pectoris; K22.70 Barrett's esophagus without dysplasia; R53.83 Other fatigue; M53.9 Dorsopathy, unspecified; L82.1 Other seborrheic keratosis; M85.80 Other specified disorders of bone density and structure, unspecified site
CPT/HCPCS: 36415; 80048; 80061; 82306; 82607; 83540; 84443; 85025

== ENCOUNTER 2024-08-09 09:22 | Outpatient (AMB) | payer BC, SELFPAY ==
--- NOTE | 2024-08-09 09:25 | MHC.PC.OV ---
Vital Signs 08/09/24 09:30 Height 5 ft 7 in Weight 59.421 kg BMI 20.5 BP 118/68 Respiration 14 Pulse 62 Pulse Source Pulse Oximeter Temp 97.6 F Temp Source Temporal Artery Scan Pulse Oximetry (%) 97 Oxygen Delivery Method Room Air Intake Visit Reasons: refill rx Signs And Displays Sales Representative Required: No Accompanied by: Self / Same As Patient Allergies droperidol [From Inapsine] Allergy (Intermediate, Verified 08/09/24 09:26) SHAKING Medication List - Last Reconciled 08/09/24 by AVIS Ruiz albuterol sulfate 90 mcg/actuation 2 puffs PO BID PRN alprazolam 0.5 mg PO BID ascorbic acid (vitamin C) (Vitamin C) 500 mg PO DAILY aspirin 81 mg PO DAILY calcium carbonate 600 mg PO DAILY diphenoxylate-atropine 2.5-0.025 mg 1 - 2 tabs PO Q6H PRN gabapentin 300 mg PO BEDTIME hyoscyamine sulfate ER 1 tab PO Q12H levothyroxine 1 tab PO DAILY loratadine 1 tab PO DAILY metoprolol tartrate 12.5 mg (1/2 x 25 mg) PO BID multivitamin with minerals 1 tab PO DAILY omeprazole 1 cap PO DAILY prednisone 10 mg PO DAILY simethicone 80 mg PO BEDTIME PRN sucralfate 1 g PO QID trazodone 100 mg PO BEDTIME HPI HPI Comments History of Present Illness Details 64 year old female with history of CAD s/p ISIDRO x1 age 48, barretts esophagus, hypothyrdoism, hyperlipidemia presents to the office today for management of chronic conditions and to establish care. Hypothyroidism-overdue for TSH. Continues on levothyroxine daily. CAD-s/p ISIDRO x1 at age 48. Has not seen Cardiology in over 10 years. However, has no recurrent chest pain. Continues on baby aspirin, metoprolol. She did discontinue her statin but does feel she should resume this pending results of studies. Barretts esophagus-has undergone pyloric dilation. Overall, reflux symptoms are well-controlled with omeprazole, simethicone, sucralfate and Tikosyn mean. She also avoids triggering foods and eats dinner early. Anxiety-she is taking Xanax b.i.d. with good effect. States if she misses a dose she does experience significant anxiety. Insomnia well managed with trazodone which he reports taking 100 mg nightly Chronic low back pain with right-sided numbness-MRI of the lumbar spine does show scoliosis, mild to moderate multilevel degenerative disc disease with loss of disc height and disc desiccation seen throughout. Vertebral heights preserved, no melena movement. No high-grade canal stenosis or herniation. There are concentric disc bulges with multilevel foraminal narrowing and moderate to severe right foraminal narrowing at L4-5. No evidence of bone marrow edema. She is taking gabapentin at bedtime and Tylenol. Occasionally takes ibuprofen though is mindful of this given her gastric issues. Requesting pain management referral She was seen by her workforce specialist who noted skin lesions of the breasts bilaterally and sides of the chest bilaterally. She does report itchiness. They are new within the past year. Requesting derm referral Health maintenance: Last mammogram-01/2024, negative for malignancy, 1 year follow-up DEXA scan-last performed 01/08 showing osteopenia with lowest T value-1.7 and the femoral neck and total femur. FRAX score 12.7%. She does take calcium and vitamin-D Last Pap-12/02, negative for malignancy or suspicious lesion Last colonoscopy-11/2015 with 10 year follow-up advised ROS: General: No fevers, malaise, unintentional weight loss Cardiovascular: No chest pain, palpitations, or leg edema Respiratory: No shortness of breath, wheezing, cough GI: No abdominal pain, nausea, vomiting, diarrhea, constipation, melena, hematochezia. see hpi : No dysuria, hematuria, increased urinary frequency, decreased urinary output MSK:see hpi Neuro: No headaches, weakness. see hpi Skin: No rashes or lesions EXAM: Constitutional - Awake and Alert, No apparent distress Cardiovascular - S1S2, RRR, No edema Respiratory - Normal lung expansion, Normal respiratory effort, No respiratory distress, CTA bilaterally Extremities - no calf tenderness bilaterally, no swelling Skin - Warm/Dry. Tiny subcentimeter scaling woodward lesions on the bilateral breasts and sides of chest Neurological - Alert & oriented x3 Psychological - Appropriate affect [facility] Medical History (Updated 08/09/24 @ 10:04 by AVIS Ruiz) Seborrheic keratosis Osteopenia Right leg paresthesias Multilevel degenerative disc disease CAD (coronary artery disease) Encounter for well woman exam with routine gynecological exam On beta rena at home Back pain History of degenerative disc disease Scoliosis Erosive esophagitis Collagenous colitis Barretts esophagus GERD (gastroesophageal reflux disease) Hyperlipidemia Hypothyroidism Anxiety Myocardial infarction Surgical History (Updated 06/23/24 @ 06:39 by Meño Gonzalez MD) H/O heart artery stent History of total left knee replacement History of endometrial ablation History of tubal ligation Hx of varicose vein ligation and stripping Hx of esophagogastroduodenoscopy Hx of colonoscopy (06/20/24) Family History Father Diabetes Family/Other Breast cancer Cervical cancer Skin cancer Social History Are you a primary customer care agent to a significant other at home: No Do you presently have visiting nurse or other home services: No Alcohol intake: former Patient Tobacco Use Status: Former Tobacco user Tobacco use type: Cigarette Sexual orientation: Straight/Heterosexual Gender identity: Female Questionnaire PHQ-9 Over the last 2 weeks, how often have you been bothered by any of the following problems? 1. Little interest or pleasure in doing things: not at all 2. Feeling down, depressed, or hopeless: not at all 3. Trouble falling or staying asleep, or sleeping too much: not at all 4. Feeling tired or having little energy: not at all 5. Poor appetite or overeating: not at all 6. Feeling bad about yourself - or that you are a failure or have let yourself or your family down: not at all 7. Trouble concentrating on things, such as reading the newspaper or watching television: not at all 8. Moving or speaking so slowly that other people could have noticed. Or the opposite - being so fidgety or restless that you have been moving around a lot more than usual: not at all 9. Thoughts that you would be better off or of hurting yourself in some way: not at all Total score: 0 Source: Developed by Drs. Mathew Biswas, Claudette Saldana, Pratik Kim and colleagues, with an educational javi from [employer]. Thrive Questionnaire Date Thrive assessed: 08/09/24 I am a: Patient What is your living situation today?: I have a steady place to live Within the past 12 months, did the food you bought not last and you didn't have the money to get more?: Never true Within the past 12 months, did you worry whether your food would run out before you got money to buy more?: Never true Do you have trouble paying for medicines?: No Do you have trouble getting transportation to medical appointments?: No Do you have trouble paying your heating and electricity bill?: No Do you have trouble taking care of your child, family member or friend?: No Do you have trouble with day-to-day activities such as bathing, preparing meals, shopping, managing finances, etc.?: No Are you currently unemployed and looking for a job?: No Are you interested in more education?: No Please select the resources that you would like help with: None THRIVE Score: 0 HÉCTOR-7 AMB Questionnaire HÉCTOR-7 Date HÉCTOR - 7 assessed: 08/09/24 Feeling nervous, anxious, or on edge: 0 = Not at all Not being able to stop or control worryin = Not at all Worrying too much about different things: 0 = Not at all Trouble relaxin = Not at all Being so restless that it is hard to sit still: 0 = Not at all Becoming easily annoyed or irritable: 0 = Not at all Feeling afraid as if something awful might happen: 0 = Not at all Total HÉCTOR-7 score (0-4 normal; 5-9 mild; 10-14 moderate; 15-21 severe): 0 Source: Developed by Drs. Mathew Biswas, Claudette Saldana, Pratik Kim and colleagues, with an educational javi from [employer]. Physical exam (Primary Care) Vital Signs: Last Vital Signs Temp 97.6 F 08/09/24 09:30 Pulse 62 08/09/24 09:30 Resp 14 08/09/24 09:30 BP 118/68 08/09/24 09:30 Pulse Ox 97 08/09/24 09:30 Oxygen Delivery Method Room Air 08/09/24 09:30 BMI result Body Mass Index 20.5 Tobacco/Smoking Status: Tobacco use Status Patient Tobacco Use Status Former Tobacco user 08/09/24 09:33 Tobacco use type Cigarette 08/09/24 09:33 PHQ-9: PHQ-9 Score PHQ-9: Total score 0 08/09/24 10:09 Thrive Assessment: Date of Thrive Assessment Date Thrive assessed 08/09/24 08/09/24 10:09 Coding Level of Care Code New Pt Level 4 (74425) Complex EM visit Add On G2211 Diagnoses Hypothyroidism E03.9 Hyperlipidemia E78.5 CAD (coronary artery disease) I25.10 Barretts esophagus K22.70 Multilevel degenerative disc disease M53.9 Seborrheic keratosis L82.1 Osteopenia M85.80 Assessment & Plan Assessment & Plan (1) Hypothyroidism: Code(s): E03.9 - Hypothyroidism, unspecified Category: Medical Plan: TSH with reflex free T4 ordered. Continue levothyroxine, dose to be adjusted as needed pending results (2) Hyperlipidemia: Code(s): E78.5 - Hyperlipidemia, unspecified Category: Medical Plan: Lipid panel order. I do recommend resuming statin given history of coronary artery disease. However, we will assess dosage pending results of study. Recommend diet low in saturated fat and highly processed foods. (3) CAD (coronary artery disease): Code(s): I25.10 - Atherosclerotic heart disease of [place] coronary artery without angina pectoris Category: Medical Plan: No recent anginal chest pain. Continue aspirin, metoprolol. Do recommend statin as above. (4) Barretts esophagus: Code(s): K22.70 - Mandel's esophagus without dysplasia Category: Medical Plan: Continue following with Gastroenterology. Continue avoidance of triggering foods. Continue PPI, simethicone, sucralfate, hyoscyamine. (5) Multilevel degenerative disc disease: Code(s): M53.9 - Dorsopathy, unspecified Category: Medical Plan: MRI reviewed. She is referred to pain management. Continue p.r.n. pain management (6) Seborrheic keratosis: Code(s): L82.1 - Other seborrheic keratosis Category: Medical Plan: Referral to Dermatology placed (7) Osteopenia: Code(s): M85.80 - Other specified disorders of bone density and structure, unspecified site Category: Medical Plan: DEXA scans up-to-date. Will evaluate vitamin-D level. Continue calcium and vitamin-D supplementation. Recommend weight-bearing exercise. Plan Follow-up in the office in 6 months, sooner if needed. Labs to be completed today as ordered. Orders: Orders Basic Metabolic Panel Today I25.10 - Atherosclerotic heart disease of [place] coronary artery without angina pectoris Lipid Panel Today I25.10 - Atherosclerotic heart disease of [place] coronary artery without angina pectoris Vitamin D 25-OH Total Today M85.80 - Other specified disorders of bone density and structure, unspecified site, R53.83 - Other fatigue Vitamin B12 Today M85.80 - Other specified disorders of bone density and structure, unspecified site, R53.83 - Other fatigue Complete Blood Count Auto Diff Today I25.10 - Atherosclerotic heart disease of [place] coronary artery without angina pectoris IRON PROFILE Today I25.10 - Atherosclerotic heart disease of [place] coronary artery without angina pectoris TSH reflex Free T4 Today I25.10 - Atherosclerotic heart disease of [place] coronary artery without angina pectoris Referrals Pain Management Referral E03.9 - Hypothyroidism, unspecified, E78.5 - Hyperlipidemia, unspecified, I25.10 - Atherosclerotic heart disease of [place] coronary artery without angina pectoris, K22.70 - Mandel's esophagus without dysplasia, M53.9 - Dorsopathy, unspecified, R20.2 - Paresthesia of skin Dermatology Referral D22.9 - Melanocytic nevi, unspecified, L82.1 - Other seborrheic keratosis Medications: New trazodone 100 mg PO BEDTIME 90 tabs 1RF Discontinued trazodone Discontinued Reason: Doctor's Order 50 - 100 mg (1 - 2 x 50 mg) PO BEDTIME 180 tabs 1RF
[2024-08-09 09:30] VITALS: BP 118/68; PULSE 62; RESP 14; TEMP 36.4; O2SAT 97; BMI 20.5
== END 2024-08-09 10:37 | disposition home or self-care (01) ==
LOC: HO.HMCHD 09:22
PROVIDERS: PCP Internal Medicine; Visit Provider Physician Assistant
DX: E03.9 Hypothyroidism, unspecified (principal); E78.5 Hyperlipidemia, unspecified; I25.10 Atherosclerotic heart disease of native coronary artery without angina pectoris; K22.70 Barrett's esophagus without dysplasia; M53.9 Dorsopathy, unspecified; L82.1 Other seborrheic keratosis; M85.80 Other specified disorders of bone density and structure, unspecified site

== ENCOUNTER 2024-09-05 09:38 | Outpatient (AMB) | payer BC, SELFPAY ==
--- OUTSIDE RECORDS SUMMARY | 2023-10-27 09:20 | XMS_ITS ---
Author Organization [facility] Address [address] [facility] [address] [place] [phone] Care Team Providers Care Industrial Electrical Technician Name Role Phone Fouzia Sargent M.D. Primary Care Provider Mathew Morales [phone] REASON FOR VISIT Patient presents today for pyloric stricture Encounters Encounter Location Date Provider Diagnosis [facility] [address] [place] [phone] 10/27/2023 Mathew Perez Plan Of Treatment Next Appt Details Provider Name:Mathew Perez , 12/15/2024 11:00:00 AM, [address] [place] [address], [address], [place], [address], Progress Notes * BRITTNEY MOREIRAOB:1960 (64 yo F)Acc No.[id number]:10/27/2023 Progress Notes Patient: Abdi HAMEED BRITTNEY MANSFIELD Provider: Ronal Perez MD :1960 A ge:63 Y S ex:Female Date:10/27/2023 Address:[address] [place] [address] Pcp:Fouzia Sargent M.D. Subjective: * Chief Complaints: [...] 0 10/27/2023 Generated for Marina michael/Lamin/Adam on: 0 09/05/2024 10:03 AM EDT
--- NOTE | 2024-09-05 09:44 | MHC.OFFVIS ---
Vital Signs 09/05/24 09:49 Height 5 ft 7 in Weight 126 lb 7 oz BMI 19.8 BP 136/85 Blood Pressure Location Lt brachial Position Sitting Pulse 77 Pulse Source Pulse Oximeter Pulse Oximetry (%) 95 Oxygen Delivery Method Room Air Intake Visit Reasons: Dorsopathy, unspecified Intake Note: Pain today 2/ Research Hydraulic Engineer Required: No Accompanied by: Self / Same As Patient Allergies droperidol (From Inapsine) Allergy (Intermediate, Verified 09/05/24 09:48) SHAKING HPI Comments Details: The patient is a 64-year-old female presenting with chronic back pain radiating to the right leg. The back pain has been present for several years, with the patient reporting it started a couple of years ago. The pain is described as aching, heavy, shooting, radiating, throbbing and lancinating, with a severity of 10/10, affecting daily activities and mobility but not sleep. The pain radiates from the lower back across both buttocks and down the right leg, anterior thigh and into lateral shine with associated numbness and tingling. The patient denies any trauma or injury as a cause of the pain. 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 The patient has not undergone any recent physical therapy, massage, acupunture, TENS unit or chiropractic manipulation for the back pain. She completed PT about 6 years ago with partial relief. She has been using Tylenol for pain relief, which provides some alleviation. The patient also uses a heating pad at night, which helps reduce the pain. The patient has significant scoliosis with kyphotic posture and osteoarthritis, with imaging showing disc degeneration and spinal stenosis at L4-L5. She also has history of a left knee replacement four years ago, which healed well. The patient has a history of a bleeding ulcer and is currently taking prednisone for stomach issues per GI provider. She experienced a myocardial infarction at age 48 and currently takes baby aspirin. - Onset: Pain started a couple of years ago. - Quality: Described as aching, heavy, shooting, throbbing, radiating, numbness, pins and needles and lancinating. - Location: Lower back, radiating across both buttocks and down the right leg anteriorly and laterally. - Radiation: Pain radiates to the right leg. - Severity: Rated as 10/10 with movements, 2/10 sitting or resting. - Exacerbating factors: Standing for long periods, bending down, and driving for extended periods. Weather changes. - Relieving factors: Sitting, rest, Tylenol, and heat application. - Impact: Affects daily activities but not sleep. - Affect: Pain impacts daily activities but not sleep. - Analgesia: Currently using Tylenol and heating pad for pain relief; pain rated as 10/10 with ADLs/walking. - Adverse Effects: No adverse effects from current pain management reported. - Activities of Daily Living: Pain affects standing, bending, and driving. - Aberrant Drug Related Behaviors: No aberrant behaviors reported. Oswestry Low Back Pain Disability Score=18 [facility] Medical History Seborrheic keratosis Osteopenia Right leg paresthesias Multilevel degenerative disc disease CAD (coronary artery disease) Encounter for well woman exam with routine gynecological exam On beta rena at home Back pain History of degenerative disc disease Scoliosis Erosive esophagitis Collagenous colitis Barretts esophagus GERD (gastroesophageal reflux disease) Hyperlipidemia Hypothyroidism Anxiety Myocardial infarction Surgical History H/O heart artery stent History of total left knee replacement History of endometrial ablation History of tubal ligation Hx of varicose vein ligation and stripping Hx of esophagogastroduodenoscopy Hx of colonoscopy (06/20/24) Family History Father Diabetes Family/Other Breast cancer Cervical cancer Skin cancer Social History Are you a primary critical care cns to a significant other at home: No Do you presently have visiting nurse or other home services: No Alcohol intake: former Patient Tobacco Use Status: Former Tobacco user Tobacco use type: Cigarette Sexual orientation: Straight/Heterosexual Gender identity: Female Review of Systems Const Details: - Musculoskeletal: Reports chronic back pain radiating to the right leg, numbness, and tingling. - Neurological: Denies tingling, weakness, bladder or bowel dysfunction or saddle anesthesia. - Genitourinary: Denies urinary or bowel incontinence. - Gastrointestinal: Reports history of bleeding ulcer. - Cardiovascular: Reports history of myocardial infarction. All systems reviewed & are unremarkable except as noted in HPI and below Physical Exam Vital Signs: Last Vital Signs Pulse 77 09/05/24 09:49 BP 136/85 09/05/24 09:49 Pulse Ox 95 09/05/24 09:49 Oxygen Delivery Method Room Air 09/05/24 09:49 BMI result Body Mass Index 19.8 General: Appears afebrile. Alert and oriented. Mood and affect appropriate. Follows and participates in conversation appropriately. Respiratory effort is unlabored. No cough. Able to transition from sit to stand unassisted. Ambulates with bilaterally normal heel strike and toe off. General: Yes no CVA tenderness Back/Spine/Pelvis Other: Limited lumbar ROM due to pain. Lumbar flexion forward, bending and extension with axial rotation reproduce moderate-severe pain. Demonstrates 5/5 strength of quadriceps bilaterally as well as flexion/dorsiflexion of bilateral feet against resistance. 2+ pedal pulses bilaterally. Straight leg rise with dorsiflexion positive on the right. +1 right +2 left patellar and achilles reflexes bilaterally. Facet loading test positive bilaterally. Brittany sign, Chriss?s, Pelvic compression and Stinchfield tests are positive on the right. No groin pain with I/E hip rotations. Valsalva maneuver negative. Back: no CVA tenderness Cervical Spine: cervical ROM normal, loss of normal cervical lordosis, cervical muscular tenderness and No Cervical spine tenderness Thoracic/Lumbar Spine: thoracic and lumbar spine normal to inspection, No Thoracic/lumbar spine scar(s), kyphosis, Lasegue's sign positive on the right and localized, pain with thoraco-lumbar ROM, paraspinal muscle tenderness, thoraco-lumbar ROM limited, Thoracic/lumbar scoliosis, No thoracic spinal tenderness and lumbar spinal tenderness at L3, at L4 and at L5 Pelvis: no buttock tenderness Sacroiliac joints: on the right tender to palpation and on the left nontender Results Reviewed Results Reviewed: MR SPINE LUMBAR without CONTRAST 12/19/23 at [facility] INDICATION: Low back pain, RLE radiculopathy for 4 years, scoliosis. TECHNIQUE: Unenhanced multiplanar, multisequence MR imaging of the lumbar spine. COMPARISON: None available. FINDINGS: There is a right convex thoracolumbar curvature. Normal lumbar alignment is demonstrated. Vertebral heights are well maintained. Bone marrow signal is within normal limits, and no suspicious osseous lesion is identified. Conus medullaris is unremarkable. Paraspinal soft tissues and visualized portions of the abdomen and pelvis are unremarkable. At L1-2 concentric disc bulge with bcco-gc-nzmoohfz canal narrowing, and laqu-vy-iybasrtm bilateral foraminal narrowing. At L2-3 concentric disc bulge with mild canal narrowing, mild right and moderate left foraminal narrowing. At L3-4 concentric disc bulge with bbja-cb-iwanmirx canal narrowing, moderate right and vzrypmlt-fv-ebvtgo left foraminal narrowing. At L4-5 concentric disc bulge with crkc-ji-kzjhpbig canal narrowing, tgizgccj-yw-rwzwzu right and mild left foraminal narrowing. At L5-S1 concentric disc bulge with mild canal narrowing and mild bilateral foraminal narrowing. IMPRESSION: 1.Right convex thoracolumbar curvature. 2.Awlz-ls-xwpukkrm multilevel degenerative disc disease with loss of disc height and disc desiccation seen diffusely throughout the lumbar spine. 3.Vertebral heights are preserved. No malalignments. 4.No high-grade canal stenosis or disc herniation. 5.Concentric disc bulges with multilevel foraminal narrowing as above. Jfyeswdv-bx-szsyiv right foraminal narrowing at L4-5 level. 6.No STIR signal abnormality to suggest bone marrow edema, soft tissue or ligamentous injury. XR LUMBOSACRAL SPINE 08/19/23 CLINICAL INFORMATION: Back pain. COMPARISON: KUB of 08/25/2022, lumbar spine of 07/29/2021. TECHNIQUE: Three views of the lumbosacral spine. FINDINGS: Dextroscoliosis of the lumbar spine. Facet arthritis in the lower lumbar spine. Multilevel lumbar spondylosis with loss of disc space height and hypertrophic change most notable at L2-L3. IMPRESSION: Multilevel lumbar spondylosis most notable at L2-L3. Assessment & Plan Assessment & Plan (1) Right leg paresthesias: Code(s): R20.2 - Paresthesia of skin Category: Medical (2) Lumbar radiculopathy, right: Code(s): M54.16 - Radiculopathy, lumbar region Category: Medical (3) Lumbar degenerative disc disease: Code(s): M51.369 - Other intervertebral disc degeneration, lumbar region without mention of lumbar back pain or lower extremity pain Category: Medical (4) Lumbar scoliosis: Code(s): M41.9 - Scoliosis, unspecified Category: Medical (5) Lumbosacral spondylosis: Code(s): M47.817 - Spondylosis without myelopathy or radiculopathy, lumbosacral region Category: Medical Plan The plan includes initiating physical therapy to address the chronic back pain and improve mobility. An epidural steroid injection at the right L4-L5 level is planned to alleviate the lumbar radiculopathy symptoms, pending insurance approval. The patient is advised to avoid aspirin one week prior to the injection to minimize bleeding risk. The patient will continue using Tylenol and heating pads for pain management at home. Follow-up with a neurosurgeon may be considered if conservative measures do not provide sufficient relief. Schedule Right L4-L5 TFESI with local, oral Ativan and fluoroscopy. Expectations, risks and benefits were reviewed. Patient is aware she will be contacted to schedule this procedure. All questions and concerns have been answered and patient agreed with the treatment plan. Follow up after injection and sooner as needed. Patient was informed and verbally consented to the use of an ambient scribe for clinic note documentation during this visit. Orders: Orders PT Evaluation and Treatment Today M41.9 - Scoliosis, unspecified, M47.817 - Spondylosis without myelopathy or radiculopathy, lumbosacral region, M51.369 - Other intervertebral disc degeneration, lumbar region without mention of lumbar back pain or lower extremity pain, M54.16 - Radiculopathy, lumbar region, R20.2 - Paresthesia of skin Medications: New lidocaine 5% 1 patch topical DAILY 30 ea 1RF pain 30 days M47.817 - Spondylosis without myelopathy or radiculopathy, lumbosacral region, M51.369 - Other intervertebral disc degeneration, lumbar region without mention of lumbar back pain or lower extremity pain, M53.9 - Dorsopathy, unspecified, M54.16 - Radiculopathy, lumbar region Coding Level of Care Code New Pt Level 4 (17445) Diagnoses Right leg paresthesias R20.2 Lumbar radiculopathy, right M54.16 Lumbar degenerative disc disease M51.369 Lumbar scoliosis M41.9 Lumbosacral spondylosis M47.817
[2024-09-05 09:49] VITALS: BP 136/85; PULSE 77; O2SAT 95; BMI 19.8
== END 2024-09-05 10:23 | disposition home or self-care (01) ==
LOC: HO.PMC 09:39
PROVIDERS: PCP Internal Medicine; Visit Provider Nurse Practitioner Family
DX: R20.2 Paresthesia of skin (principal); M54.16 Radiculopathy, lumbar region; M51.369 Other intervertebral disc degeneration, lumbar region without mention of lumbar back pain or lower extremity pain; M41.9 Scoliosis, unspecified; M47.817 Spondylosis without myelopathy or radiculopathy, lumbosacral region
CPT/HCPCS: 99204

== ENCOUNTER 2024-11-02 11:00 | Outpatient (RCR) | payer BC, SELFPAY ==
--- NOTE | 2024-09-19 10:01 | MHC.PT.EP ---
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 Examination shows decreased lumbar ROM, decreased hip ROM, R genu valgus, impaired gait pattern, impaired postural awareness, and decreased core/LE strength. Recommend PT 2x/week for 6 week to address impairments, implement HEP and optimize functional mobility. Frequency and Duration: The patient will be seen 2x/week for 6 weeks Short Term Goals: 3 weeks I with HEP Nursing Program Manager Goals: 6 weeks I with HEP and self management of sx Pt will be able to walk > 20 min with pain < 3/1o Pt will be able to perform manager drive with pain < 3/10 Pt will report > 50% decrease in pain with functional mobility Treatment Plan: Modalities to reduce pain, spasms and effusion. Manual therapy to restore motion and function. Therapeutic exercise to improve strength and flexibility. Neuromuscular re-education for posture and balance. Therapeutic activities to return to functional activities of daily living. Electronically signed by: Jane Miranda PT Please sign and return to therapist. Thank you for your referral.
--- NOTE | 2024-11-02 11:54 | MHC.PT.DC ---
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 Reviewed HEP and encouraged she continue I at home, especially with postural awareness and finding 'length' through spine. D/c at this time Electronically signed by: Jane Miranda PT Please sign and return to therapist. Thank you for your referral.
== END 2024-11-02 11:55 | disposition home or self-care (01) ==
LOC: HO.PT 11:00
PROVIDERS: PCP Internal Medicine; Visit Provider Nurse Practitioner Family
DX: R20.2 Paresthesia of skin (principal); M54.16 Radiculopathy, lumbar region; M51.369 Other intervertebral disc degeneration, lumbar region without mention of lumbar back pain or lower extremity pain
CPT/HCPCS: 97110; 97112; 97161

== ENCOUNTER 2024-12-27 10:05 | Outpatient (AMB) | payer BC, SELFPAY ==
--- OUTSIDE RECORDS SUMMARY | 2023-10-27 09:20 | XMS_ITS ---
Author Organization [facility] Address [address] [facility] [address] [place] [phone] Care Team Providers Care Emergency Communications Dispatcher Name Role Phone Fouzia Sargent M.D. Primary Care Provider Mathew Morales [phone] REASON FOR VISIT Patient presents today for pyloric stricture Encounters Encounter Location Date Provider Diagnosis [facility] [address] [place] [phone] 10/27/2023 Mathew Perez Plan Of Treatment Next Appt Details Provider Name:Mathew Perez , 12/12/2025 10:20:00 AM, [address] [facility], [address], [place], [address], Progress Notes * BRITTNEY MOREIRAOB:1960 (64 yo F)Acc No.[id number]:10/27/2023 Progress Notes Patient: Abdi HAMEED BRITTNEY MANSFIELD Provider: Ronal Perez MD :1960 A ge:63 Y S ex:Female Date:10/27/2023 Address:[address] [place] [address] Pcp:Fouzia Sargent M.D. Subjective: * Chief Complaints: [...] 10/27/2023 Generated for Marina michael/Lamin/Adam on: 1 11:50 AM EDT
--- OUTSIDE RECORDS SUMMARY | 2024-06-20 05:30 | XMS_ITS ---
Author Organization [facility] Address [address] [place] [address] Care Team Providers Care Soil Tester Name Role Phone Fouzia Sargent M.D. Primary Care Provider Mathew Morales Unavailable [phone] REASON FOR VISIT screening,gerd,richardson's, pyloric stricture, acute pyloric channel ulcer Encounters Encounter Location Date Provider Diagnosis [facility] [place] Outpatient [address] [place] [id number] 06/20/2024 Mathew Perez Colon cancer scree sergey [...] 10:20:00 AM, [address], [address], [place], [address], Progress Notes * BRITTNEY MOREIRAOB:1960 (64 yo F)Acc No.[id number]:06/20/2024 EGD and COL/MAC Patient: BRITTNEY LIRIANO Provider: Ronal Perez MD :1960 A ge:64 Y S ex:Female Date:06/20/2024 Address:[address] [place] [address] Pcp:Fouzia Sargent M.D. Subjective: * Chief Complaints: [...] Procedure Codes: 4 5385 LESION REMOVAL COLONOSCOPY, 55657 COLONOSCOPY AND BIOPSY, Modifiers: 59 , 04559 ESOPH ENDOSCOPY, DILATION * * The named appointment provid er may or may not be the originator of this progress note, and it is not deemed complete until electronically signed by the appointment provider. Sign off status: Pending * Provider: Ronal Perez MD Date: 0 06/20/2024 Generated for Marina michael/Lamin/Oralsmitting on: 1 11:51 AM EDT
--- OUTSIDE RECORDS SUMMARY | 2024-12-15 07:00 | XMS_ITS ---
Author Organization [facility] Address [address] [place] [address] Care Team Providers Care Applications Programmer Analyst Name Role Phone Fouzia Sargent M.D. Primary Care Provider Mathew Morales Unavailable [phone] Allergies Allergen (clinical drug ingredient) Drug/Non Drug Allergy documented on EMR Reaction Allergy Type Onset Date Status Inapsine Unknown Drug Allergy Active REASON FOR VISIT Patient presents today for pyloric stricture Medications Medication SIG (Take, Route, Frequency, Duration) Notes Start Date End Date Status predniSONE 10 MG 1 tablet Orally Once a day Not-Taking predniSONE 5 MG 1 tablet Orally Once a day; Duration: 90 days Active Diphenoxylate-Atropine 2.5-0.025 MG TAKE ONE TO TWO TABLETS BY MOUTH EVERY 6 HOURS IF NEEDED FOR DIARRHEA; Duration: 12 08/30/2024 Active Hyoscyamine Sulfate ER 0.375 MG TAKE ONE TABLET BY MOUTH EVERY 12 HOURS; Duration: 30 Active Diclofenac Sodium 1 % 1 application Externally Gel Not-Taking Claritin 10 MG 1 tablet Orally Once a day; Duration: 30 day(s) Active Diphenoxylate-Atropine Active Lomotil 2.5-0.025 MG 1-2 tablets PO Q 6 hours prn diarrhea; Duration: 30 days 12/19/2020 Active Famotidine 20 MG 1 Orally Twice a day ; Duration: 10 days 04/12/2023 Active Sucralfate 1 GM TAKE 1 TABLET BY LUPE TH 4 TIMES A DAY ON AN EMPTY STOMACH, 30 TO 60 MINUTES BEFORE A MEAL, AND ONCE AT BEDTIME; Duration: 30 Active Vitamin C 500 MG 1 tablet Orally Once a day Active Gas-X 80 MG 1 tablet after meals and at bedtime as needed Orally prn Active Aspirin 81 MG 1 tablet Orally Once a day Active Metoprolol Tartrate 25 MG 1/2 tablet wit h food Orally Twice a day Active Multi Vitamin/Minerals - as directed Ora lly once a day Active Caltrate 600 Active Atorvastatin Calcium 10 MG 1 tablet Orally Once a day; Duration: 30 day(s) Active ALPRAZolam 0.5 MG 1 tablet Orally BID Active Levothyroxine Sodium 137 MCG 1 capsule Orally Once a day Active traZODone HCl 50 MG 1 tablet at bedtime as needed Orally Once a day Active Ondansetron 4 MG 1 tablet on the tong ue and allow to dissolve Orally Every 6 hours as needed for nausea; Duration: 30 day(s) 03/26/2023 Not-Taking Omeprazole 40 MG TAKE ONE CAPSULE BY MOUTH TWICE A DAY Orally Twice a day; Duration: 30 days Not-Taking Immunizations Vaccine Route Administration Date Status Comme nts Influenza Unknown 12/15/2024 Refused Social History Tobacco Use: Social History [...] Nonsmoker since fall ; no sig alcohol Vital Signs Temperature 98.6 degrees Fahrenheit 12/16/19 25 Blood pressure systolic 001 mm Hg 12/16/19 25 Blood pressure diastolic 01 mm Hg 025 Height 66.5 in 12/15/2024 Weight 132 lbs 12/15/2024 BMI 20.98 kg/m2 12/15/2024 Encounters Encounter Location Date Provider Diagnosis [facility] [address] [place] [address] 12/15/2024 Mathew Perez Encounter for screening for malignant neoplasm of colon Z12.11 ; GERD (gastroesophageal reflux disease) K21.9 ; Collagenous colitis K52.831 ; Acute pyloric channel ulcer K25.3 and Partial gastric outlet obstruction K31.1 Assessments Encounter Date Diagnosis (ICD Code) Assessment Notes Treatment Notes Treatment Clinical Notes Section Notes 12/15/2024 Encounter for screening for malignant neoplasm of colon (ICD-10 - Z12.11) Repeat colonoscopy in 202912/15/2024 GERD (gastroesophagea l reflux disease) (ICD-10 - K21.9) 12/15/2024 Collagenous colitis (ICD-10 - K52.831) 12/15/2024 Acute pyloric channel ulcer (ICD-10 - K25.3) Continue the sucralfate and the famotidine custodial for the history of the ulcer and reflux 12/15/2024 Partial gastric outlet obstruction (ICD-10 - K31.1) Plan Of Treatment Treatment Notes Assessment Notes Encounter for screening for malignant neoplasm of colon Repeat colonoscopy in 2029 Acute pyloric channel ulcer Continue the sucralfate and the famotidine custodial for the history of the ulcer and reflux Next Appt Details Follow Up: 1 Year, Reason: Provider Name:Mathew Perez , 12/12/2025 10:20:00 AM, [address] [place] [address], [address], [address], Progress Notes * BRITTNEY MOREIRAOB:1960 (64 yo F)Acc No.[id number]:12/15/2024 Progress Notes Patient: Abdi HAMEED BRITTNEY MANSFIELD Provider: Ronal Perez MD :1960 A ge:64 Y S ex:Female Date:12/15/2024 Address:[address] [place], [place] [id number] Pcp:Fouzia Sargent M.D. Subjective: * Chief Complaints: * 1 . Patient presents today for pyloric stricture. * Medical History: C olonoscopy 06-03-2004- diagnosed with collagenous colitis- responded well to Asacol for a few years- has responded to courses of Entocort- -celiac disease labs are negative, Hypothyroidism, Denies DM,CVA,Lung disease,renal disease, Anxiety, AL at age 48-had 1 stent placed, Hyperlipiodemia, Negative abdominal ultrasound in 2014 and 2019, GERD and Mandel's esophagus- upper endoscopy in November 2015 revealed a small hiatal hernia, erosive esophagitis, and Mandel's esophagus, with biopsies negative for dysplasia- -duodenal biopsies were negative for celiac disease, Colonoscopy in November 2015 reveal biopsies consistent with collagenous colitis, but no evidence of any polyps, Negative celiac disease labs in 2014, EGD in 11/2018 with erosive gastritis, neg. Hpylori; no Mandel's nor esophagitis; small HH, Collagenous colitis flared up toward the latter part of 2019 and required the addition of prednisone and Lomotil on a regular basis- her symptoms were refractory to Mesalamine products, Entocort, Imodium, and cholestyramine , Upper endoscopy in June of 2021- two benign gastric ulcers with gastric biopsies negative for H. pylori-these were felt to be related to her use of prednisone, aspirin 81 mg, and Advil- biopsies from the gastroesophageal junction did not show any sign of Mandel's mucosa, She was approved to start Humira in 06/2022 due to a flareup of colitis colitis that required increasing her prednisone to 40 mg daily. However, she decided to hold off on that due to a urinary infection and dental issues., EGD 06/2023 with improvement, although still with some inflammation in the pyloric channel and some mild narrowing; only minimal gastric retention; dilated pylorus with a 12mm to 13.5mm balloon. * Surgical History: V aricose vein stripping , Tubal ligation , Uterine ablation , Left knee replacement 06/05/[address] Nunez , Carpal tunnel . * Family History: F ather: , diagnosed with Diabetes, HTN (hypertension). M other: , diagnosed with HTN (hypertension). M aternal uncle: , pancreatic cancer. NO family hx of liver cancer, cousin had colon cancer. * Social History: T obacco Use: T obacco Use/Smoking P atient is a f ormer smoker, H ow long has it been since you last smoked? 6 -12 months. D rugs/Alcohol: A lcohol Screen D id you have a drink containing alcohol in the past year? N o, P oints 0 , I nterpretation N egative. M iscellaneous: M arital status: . 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 N onsmoker since fall; no sig alcohol. * Medications: T aking Caltrate 600 , Taking Atorvastatin Calcium 10 MG Tablet 1 tablet Orally Once a day , Taking ALPRAZolam 0.5 MG Tablet 1 tablet Orally BID , Taking Levothyroxine Sodium 137 MCG Capsule 1 capsule Orally Once a day , Taking traZODone HCl 50 MG Tablet 1 tablet at bedtime as needed Orally Once a day , Taking Aspirin 81 MG Tablet Chewable 1 tablet Orally Once a day , Taking Metoprolol Tartrate 25 MG Tablet 1/2 tablet with food Orally Twice a day , Taking Multi Vitamin/Minerals - Tablet as directed Orally once a day , Taking Vitamin C 500 MG Capsule 1 tablet Orally Once a day , Taking Gas-X 80 MG Tablet Chewable 1 tablet after meals and at bedtime as needed Orally prn , Taking Claritin 10 MG Tablet 1 tablet Orally Once a day , Taking Diphenoxylate-Atropine , Taking Lomotil 2.5-0.025 MG Tablet 1-2 tablets PO Q 6 hours prn diarrhea , Taking Famotidine 20 MG Tablet 1 Orally Twice a day , Taking Sucralfate 1 GM Tablet TAKE 1 TABLET BY MOUTH 4 TIMES A DAY ON AN EMPTY STOMACH, 30 TO 60 MINUTES BEFORE A MEAL, AND ONCE AT BEDTIME , Taking predniSONE 5 MG Tablet 1 tablet Orally Once a day , Taking Diphenoxylate-Atropine 2.5-0.025 MG Tablet TAKE ONE TO TWO TABLETS BY MOUTH EVERY 6 HOURS IF NEEDED FOR DIARRHEA , Taking Hyoscyamine Sulfate ER 0.375 MG Tablet Extended Release 12 Hour TAKE ONE TABLET BY MOUTH EVERY 12 HOURS , Not-Taking/PRN Diclofenac Sodium 1 % Gel 1 application Externally , Notes to Pharmacist: Gel, Not-Taking/PRN predniSONE 10 MG Tablet 1 tablet Orally Once a day , Not-Taking/PRN Ondansetron 4 MG Tablet Disintegrating 1 tablet on the tongue and allow to dissolve Orally Every 6 hours as needed for nausea , Not-Taking/PRN Omeprazole 40 MG Capsule Delayed Release TAKE ONE CAPSULE BY MOUTH TWICE A DAY Orally Twice a day , Discontinued Advil , Notes to Pharmacist: PRN, Medication List reviewed and reconciled with the patient * Allergies: I napsine. Objective: * Vitals: W t: 132 lbs, Ht: 66.5 in, BMI: 20.98 Index, BP: 001/01 mm Hg, Temp: 98.6, Wt-k.87. Assessment: * Assessment: 1. E ncounter for screening for malignant neoplasm of colon - Z12.11 (Primary) 2 . G ERD (gastroesophageal reflux disease) - K21.9 3 . C otiliaous colitis - K52.831 4 . A cute pyloric channel ulcer - K25.3 5 . P artial gastric outlet obstruction - K31.1 Plan: * Treatment: 2. A cute pyloric channel ulcer Notes: Continue the sucralfate and the famotidine medical terminologist for the history of the ulcer and reflux? * Immunizations: Influenza (Not administered - Refused: Patient decision) * Preventive Medicine: Urinary Incontinence: U rinary Incontinence A ssessment: A bsent, P nahun of care documented: N o, reason not specified. Screenings: F all Risk Screening F all Risk Assessment: N o falls in the past year, S creening: N o falls in the past year, A ssessment: N ot performed, no reason specified, P nahun of Care: N ot documented, no reason specified. * Follow Up: 1 Year * * The named appointment provid er may or may not be the originator of this progress note, and it is not deemed complete until electronically signed by the appointment provider. Sign off status: Pending * Provider: Ronal Preez MD Date: Generated for Marina michael/Lamin/Oralsmitting on: 11:50 AM EDT
--- NOTE | 2024-12-27 10:10 | MHC.OFFVIS ---
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 Back pain is persistent and significant, ranging from moderate to severe, and has been impacting her daily activities. She is apprehensive about GABBIE injections and back surgery, seeking alternative management options to address her axial low back pain. Patient reports, since last visit in August, her right leg symptoms have been intermittent. She reports lower back pain with prolonged standing, movements, especially bending backwards or side rotations. She also reports mild to moderate pain with bending down or vacuuming. The patient has a history of multilevel lumbar spondylosis, which contributes to her lower back pain. Imaging from a year ago revealed disc bulging and foraminal narrowing, particularly mortypte-cr-lbhvqa right foraminal narrowing at L4-5 level which exacerbates her right leg symptoms. She reports that her back pain varies with activity, sometimes improving slightly but often worsening with exertion. The pain primarily affects her lower back rather than her right leg, although intermittent numbness in the leg is noted. The patient has tried physical therapy, which provides temporary relief, and she continues exercises at home as instructed. She is cautious about starting new medications without knowing her current vitamin levels, particularly vitamin D and calcium for osteopenia. In July, she experienced carpal tunnel syndrome, which required cortisone injections administered under sedation due to her fear of the procedure. She is interested to undergo diagnostic lumbar medial branch blocks under light sedation for potential Sprint PNS trial or RFA procedures. Denies any recent cough, cold, infection, fever or any significant changes in medical history since last office visit. PRIOR: The patient is a 64-year-old female presenting with chronic back pain radiating to the right leg. The back pain has been present for several years, with the patient reporting it started a couple of years ago. The pain is described as aching, heavy, shooting, radiating, throbbing and lancinating, with a severity of 10/10, affecting daily activities and mobility but not sleep. The pain radiates from the lower back across both buttocks and down the right leg, anterior thigh and into lateral shine with associated numbness and tingling. The patient denies any trauma or injury as a cause of the pain. 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 The patient has not undergone any recent physical therapy, massage, acupunture, TENS unit or chiropractic manipulation for the back pain. She completed PT about 6 years ago with partial relief. She has been using Tylenol for pain relief, which provides some alleviation. The patient also uses a heating pad at night, which helps reduce the pain. The patient has significant scoliosis with kyphotic posture and osteoarthritis, with imaging showing disc degeneration and spinal stenosis at L4-L5. She also has history of a left knee replacement four years ago, which healed well. The patient has a history of a bleeding ulcer and is currently taking prednisone for stomach issues per GI provider. She experienced a myocardial infarction at age 48 and currently takes baby aspirin. - Onset: Pain started a couple of years ago. - Quality: Described as aching, heavy, shooting, throbbing, radiating, numbness, pins and needles and lancinating. - Location: Lower back, radiating across both buttocks and down the right leg anteriorly and laterally. - Radiation: Pain radiates to the right leg. - Severity: Rated as 10/10 with movements, 2/10 sitting or resting. - Exacerbating factors: Standing for long periods, bending down, and driving for extended periods. Weather changes. - Relieving factors: Sitting, rest, Tylenol, and heat application. - Impact: Affects daily activities but not sleep. - Affect: Pain impacts daily activities but not sleep. - Analgesia: Currently using Tylenol and heating pad for pain relief; pain rated as 10/10 with ADLs/walking. - Adverse Effects: No adverse effects from current pain management reported. - Activities of Daily Living: Pain affects standing, bending, and driving. - Aberrant Drug Related Behaviors: No aberrant behaviors reported. Oswestry Low Back Pain Disability Score=18 [facility] Medical History (Updated 12/27/24 @ 11:05 by GIAN Presley) Chronic low back pain Seborrheic keratosis Osteopenia Right leg paresthesias Multilevel degenerative disc disease CAD (coronary artery disease) Encounter for well woman exam with routine gynecological exam On beta rena at home Back pain History of degenerative disc disease Scoliosis Erosive esophagitis Collagenous colitis Barretts esophagus GERD (gastroesophageal reflux disease) Hyperlipidemia Hypothyroidism Anxiety Myocardial infarction Surgical History H/O heart artery stent History of total left knee replacement History of endometrial ablation History of tubal ligation Hx of varicose vein ligation and stripping Hx of esophagogastroduodenoscopy Hx of colonoscopy (06/20/24) Family History Father Diabetes Family/Other Breast cancer Cervical cancer Skin cancer Social History Are you a primary manager medicare marketing to a significant other at home: No Do you presently have visiting nurse or other home services: No Alcohol intake: former Patient Tobacco Use Status: Former Tobacco user Tobacco use type: Cigarette Sexual orientation: Straight/Heterosexual Gender identity: Female Review of Systems Const Details: - Musculoskeletal: Reports lower back pain and intermittent numbness in the right leg. - Neurological: Denies persistent leg pain, reports intermittent numbness in the right leg. Denies bladder or bowel dysfunction or saddle anesthesia. All systems reviewed & are unremarkable except as noted in HPI and below Physical Exam Vital Signs: Last Vital Signs Pulse 65 12/27/24 10:18 BP 132/62 12/27/24 10:18 Pulse Ox 98 12/27/24 10:18 Oxygen Delivery Method Room Air 12/27/24 10:18 BMI result Body Mass Index 20.6 General: Appears afebrile. Alert and oriented. Mood and affect appropriate. Follows and participates in conversation appropriately. Respiratory effort is unlabored. No cough. Able to transition from sit to stand unassisted. Ambulates with bilaterally normal heel strike and toe off. General: Yes no CVA tenderness Back/Spine/Pelvis Other: Limited lumbar ROM due to pain. Lumbar extension with axial rotations reproduce moderate pain. Bending forward and flexion reproduces mild to moderate pain. Demonstrates 5/5 left and 4/5 right strength of quadriceps bilaterally as well as flexion/dorsiflexion of bilateral feet against resistance. 2+ pedal pulses bilaterally. Straight leg rise with dorsiflexion positive on the right. +1 right +2 left patellar and achilles reflexes bilaterally. Facet loading test positive bilaterally. Brittany sign, Chriss?s, Pelvic compression and Stinchfield tests are positive on the right. No groin pain with I/E hip rotations. Valsalva maneuver negative. Back: no CVA tenderness Cervical Spine: cervical ROM normal, loss of normal cervical lordosis, cervical muscular tenderness and No Cervical spine tenderness Thoracic/Lumbar Spine: thoracic and lumbar spine normal to inspection, No Thoracic/lumbar spine scar(s), kyphosis, Lasegue's sign positive on the right and diffuse, pain with thoraco-lumbar ROM, paraspinal muscle tenderness, thoraco-lumbar ROM limited, Thoracic/lumbar scoliosis, No thoracic spinal tenderness and lumbar spinal tenderness at L3, at L4 and at L5 Pelvis: no buttock tenderness Sacroiliac joints: on the right tender to palpation and on the left nontender Extrem General: Yes capillary refill normal, Yes no clubbing, cyanosis or edema and Yes no calf tenderness Results Reviewed Results Reviewed: MR SPINE LUMBAR without CONTRAST 12/19/23 at [facility] INDICATION: Low back pain, RLE radiculopathy for 4 years, scoliosis. TECHNIQUE: Unenhanced multiplanar, multisequence MR imaging of the lumbar spine. COMPARISON: None available. FINDINGS: There is a right convex thoracolumbar curvature. Normal lumbar alignment is demonstrated. Vertebral heights are well maintained. Bone marrow signal is within normal limits, and no suspicious osseous lesion is identified. Conus medullaris is unremarkable. Paraspinal soft tissues and visualized portions of the abdomen and pelvis are unremarkable. At L1-2 concentric disc bulge with xauu-ac-cbhcmdwt canal narrowing, and tsiw-gg-wjcuocbu bilateral foraminal narrowing. At L2-3 concentric disc bulge with mild canal narrowing, mild right and moderate left foraminal narrowing. At L3-4 concentric disc bulge with qrcw-nu-rmecyshf canal narrowing, moderate right and doxrtwot-dv-llmohz left foraminal narrowing. At L4-5 concentric disc bulge with aeyr-ky-glhvvztf canal narrowing, gphtykvp-ae-zaeyas right and mild left foraminal narrowing. At L5-S1 concentric disc bulge with mild canal narrowing and mild bilateral foraminal narrowing. IMPRESSION: 1.Right convex thoracolumbar curvature. 2.Qmmd-er-sdrhjfep multilevel degenerative disc disease with loss of disc height and disc desiccation seen diffusely throughout the lumbar spine. 3.Vertebral heights are preserved. No malalignments. 4.No high-grade canal stenosis or disc herniation. 5.Concentric disc bulges with multilevel foraminal narrowing as above. Pdkfweve-ih-ezojqh right foraminal narrowing at L4-5 level. 6.No STIR signal abnormality to suggest bone marrow edema, soft tissue or ligamentous injury. XR LUMBOSACRAL SPINE 08/19/23 CLINICAL INFORMATION: Back pain. COMPARISON: [facility]UB of 08/25/2022, lumbar spine of 07/29/2021. TECHNIQUE: Three views of the lumbosacral spine. FINDINGS: Dextroscoliosis of the lumbar spine. Facet arthritis in the lower lumbar spine. Multilevel lumbar spondylosis with loss of disc space height and hypertrophic change most notable at L2-L3. IMPRESSION: Multilevel lumbar spondylosis most notable at L2-L3. Assessment & Plan Assessment & Plan (1) Multilevel degenerative disc disease: Code(s): M53.9 - Dorsopathy, unspecified Category: Medical (2) Lumbar radiculopathy, right: Code(s): M54.16 - Radiculopathy, lumbar region Category: Medical (3) Lumbar degenerative disc disease: Code(s): M51.369 - Other intervertebral disc degeneration, lumbar region without mention of lumbar back pain or lower extremity pain Category: Medical (4) Lumbar scoliosis: Code(s): M41.9 - Scoliosis, unspecified Category: Medical (5) Lumbosacral spondylosis: Code(s): M47.817 - Spondylosis without myelopathy or radiculopathy, lumbosacral region Category: Medical (6) Chronic low back pain: Code(s): M54.50 - Low back pain, unspecified; G89.29 - Other chronic pain Category: Medical Plan The plan involves considering alternatives to previously planned right L4-L5 TFESI injection for managing lumbar spinal stenosis and associated pain. Patient reports right leg symptoms and pain have been intermittent but axial low back pain has been persistent with daily activities and most movements. We will proceed with scheduling bilateral diagnostic L3-L4 DR L5 MBB with light sedation and fluoroscopy for potential Sprint PNS trial or lumbar medial branch RFA procedures for a longer term pain relief. Information on radiofrequency ablation and spinal stimulation will be provided, with the understanding that injections will guide candidacy for these procedures. Expectations, risks and benefits were reviewed. Patient is aware she will be contacted to schedule this procedure. The patient is advised to continue with physical therapy and home exercises, which have provided temporary relief. All questions and concerns have been answered and patient agreed with the treatment plan. Follow up after injections and sooner as needed. Patient was informed and verbally consented to the use of an ambient scribe for clinic note documentation during this visit. Coding Level of Care Code Est Pt Level 4 (24586) Complex EM visit Add On G2211 Diagnoses Multilevel degenerative disc disease M53.9 Lumbar radiculopathy, right M54.16 Lumbar degenerative disc disease M51.369 Lumbar scoliosis M41.9 Lumbosacral spondylosis M47.817 Chronic low back pain M54.50; G89.29
[2024-12-27 10:18] VITALS: BP 132/62; PULSE 65; O2SAT 98; BMI 20.6
--- OUTSIDE RECORDS SUMMARY | 2024-12-27 11:51 | XMS_ITS | Patient Health Record ---
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 Primary Care Provider Unavail able Mathew Marie Unavailable [phone] Allergies Allergen (clinical drug ingredient) Drug/Non Drug Allergy documented on EMR Reaction Allergy Type Onset Date Status Inapsine Unknown Drug Allergy Active Results Component Value Reference Range Notes Pathology Reviewed date:06/29/2024 11:45:15 AM Interpretation: Performing Lab:[facility], [address] [place] [phone] Notes/Report: Reason For Referral Referring Provider First Name Jeff Referring Provider Last Name Davian (RETI RED) Referring Provider Speciality Internal M edicine Referred Organization [facility] Referred Provider Mathew Marie Referred Address [address] [place] [address],[facility] [address] [place] [phone], Referred Provider Specialty Gastroentero logy General Notes Loretta Beckett 024 01:32:07 PM EST > requested an o blue ref for visit with Dr. Marie on 02-24-2024 (daid 02-17-2024) [phone] Referral Priority Routine Referral Organization [facility] Referring Provider First Name Mathew Referring Provider Last Name Chris Referring Provider Speciality Gastroente rology Referred Provider Davian (RETIRED)Nia Referred Provider Specialty Internal Med icine General Notes Loretta Beckett 2024 11:00:15 AM pt is calling bc/bs to request change of provide to Dr. Aishwarya Myers. Call [facility] to request a new referral for the patient's procedure on 06-20-[address] Marie Referral Priority Routine Referring Provider First Name Winter Referring Provider Last Name Arie Referred Organization [facility] Referred Provider Mathew Marie Referred Address [address] [place] [address],[place], [place],[address],[place] Referred Provider Specialty Gastroentero logy General Notes Loretta Beckett 2024 11:30:52 AM >requested referral from winter myers's office for colon and egd with dr marie on 06-17-24 Referral Priority Routine Medications Medication SIG (Take, Route, Frequency, Duration) Notes Start Date End Date Status Vitamin C 500 MG 1 tablet Orally Once a day Active predniSONE 10 MG 1 tablet Orally Once a day Not-Taking Gas-X 80 MG 1 tablet after meals and at bedtime as needed Orally prn Active Ondansetron 4 MG 1 tablet on the tong ue and allow to dissolve Orally Every 6 hours as needed for nausea; Duration: 30 day(s) 03/26/2023 Not-Taking Claritin 10 MG 1 tablet Orally Once a day; Duration: 30 day(s) Active Omeprazole 40 MG TAKE ONE CAPSULE BY MOUTH TWICE A DAY Orally Twice a day; Duration: 30 days Not-Taking Caltrate 600 Active Diphenoxylate-Atropine Active Atorvastatin Calcium 10 MG 1 tablet Orally Once a day; Duration: 30 day(s) Active Lomotil 2.5-0.025 MG 1-2 tablets PO Q 6 hours prn diarrhea; Duration: 30 days 12/19/2020 Active ALPRAZolam 0.5 MG 1 tablet Orally BID Active Famotidine 20 MG 1 Orally Twice a day ; Duration: 10 days 04/12/2023 Active Levothyroxine Sodium 137 MCG 1 capsule Orally Once a day Active Sucralfate 1 GM TAKE 1 TABLET BY LUPE TH 4 TIMES A DAY ON AN EMPTY STOMACH, 30 TO 60 MINUTES BEFORE A MEAL, AND ONCE AT BEDTIME; Duration: 30 Active traZODone HCl 50 MG 1 tablet at bedtime as needed Orally Once a day Active predniSONE 5 MG 1 tablet Orally Once a day; Duration: 90 days Active Aspirin 81 MG 1 tablet Orally Once a day Active Diphenoxylate-Atropine 2.5-0.025 MG TAKE ONE TO TWO TABLETS BY MOUTH EVERY 6 HOURS IF NEEDED FOR DIARRHEA; Duration: 12 08/30/2024 Active Metoprolol Tartrate 25 MG 1/2 tablet wit h food Orally Twice a day Active Hyoscyamine Sulfate ER 0.375 MG TAKE ONE TABLET BY MOUTH EVERY 12 HOURS; Duration: 30 Active Multi Vitamin/Minerals - as directed Ora lly once a day Active Diclofenac Sodium 1 % 1 application Externally Gel Not-Taking Immunizations Vaccine Route Administration Date Status Comme nts Influenza Unknown 12/16/2017 Administered Influenza Unknown 11/07/2018 Administered Influenza Unknown 01/04/2021 Administered Influenza Unknown 12/19/2020 Administered Influenza Unknown 01/28/2022 Administered Influenza Unknown 05/09/2020 Refused Influenza Unknown 02/24/2024 Refused Influenza Unknown 12/15/2024 Refused Social History Tobacco [...] Nonsmoker since fall ; no sig alcohol Smokes 1/2 ppd; no sig alcoh ol Smokes 1/2 ppd; no sig alcoh ol Smokes 1/2 ppd; no sig alcoh ol Smokes 1/2 ppd; no sig alcoh ol Smokes 1/2 ppd; no sig alcoh ol Smokes 1/2 ppd; no sig alcoh ol Smokes 1/2 ppd; no sig alcoh ol Nonsmoker; no sig alcohol Nonsmoker; no sig alcohol Nonsmoker since fall ; no sig alcohol Nonsmoker since fall ; no sig alcohol Nonsmoker since fall ; no sig alcohol Nonsmoker since fall ; no sig alcohol Nonsmoker since fall ; no sig alcohol Nonsmoker since fall ; no sig alcohol Nonsmoker since fall ; no sig alcohol Problems Problem Type SNOMED Code ICD Code Onset Dates Problem Status W/U Status Risk Notes Problem Screening for malignant neoplasm of colon (096487203) Encounter for screening for malignant neoplasm of colon (Z12.11) Active confirmed Problem Abdominal bloating (714691573) Abdominal bloating (R14.0) Active confirmed Problem Diarrhea (55850448) Diarrhea (R19.7) Active confirmed Problem Irritable bowel syndrome with diarrhea (104722380) Irritable bowel syndrome with diarrhea (K58.0) Active confirmed Problem Screening for malignant neoplasm of rectum (489197500) Encounter for screening for malignant neoplasm of rectum (Z12.12) Active confirmed Problem Epigastric pain (59814247) Abdominal pain, epigastric (R10.13) Active confirmed Problem Iron deficiency anemia (42821105) Iron deficiency anemia (D50.9) Active confirmed Problem Mandel's esophagus (707756563) Barretts esophagus without dysplasia (K22.70) Active confirmed Problem Microscopic colitis (113643117) Microscopic colitis (K52.89) Active confirmed Problem Iron deficiency anemia due to chronic blood loss (893198795) Iron deficiency anemia due to chronic blood loss (D50.0) Active confirmed Problem Gastroesophageal reflux disease with esophagitis (disorder) (145786974) GERD with esophagitis (K21.0) Active confirmed Problem Gastroesophageal reflux disease (599904119) GERD (gastroesophag eal reflux disease) (K21.9) Active confirmed Problem Collagenous colitis (44730131) Collagenous colitis (K52.89) Active confirmed Problem Generalized abdominal pain (638185856) Abdominal pain, generalized (R10.84) Active confirmed Problem Diarrhea (26525665) Diarrhea, unspecified type (R19.7) Active confirmed Problem Collagenous colitis (32922037) Collagenous colitis (K52.831) Active confirmed Problem Gastric ulcer (836834328) Gastric ulcer (K25.9) Active confirmed Problem Acquired hypertrophic pyloric stenosis (98414173) Pyloric stricture (K31.1) Active confirmed Problem Acute gastric ulcer without hemorrhage, without perforation AND without obstruction (41931002) Pyloric channel ulcer, acute (K25.3) Active confirmed Problem Acute gastric ulcer without hemorrhage, without perforation AND without obstruction (25930613) Acute pyloric channel ulcer (K25.3) Active confirmed Problem Gastroesophageal reflux disease with esophagitis (disorder) (045303397) Gastro-esophag eal reflux disease with esophagitis, without bleeding (K21.00) Active confirmed Problem Acquired hypertrophic pyloric stenosis (78576260) Partial gastric outlet obstruction (K31.1) Active confirmed Problem Family history of polyp of colon (situation) (444336055) Family history of colon polyps, unspecified (Z83.719) Active confirmed Problem Abnormality of secretion of gastrin (04149137) Elevated gastrin level (E16.4) Active confirmed Vital Signs Temperature 98.6 degrees Fahrenheit 12/15/2024 Blood pressure diastolic 01 mm Hg 12/15/2024 Height 66.5 in 12/15/2024 Blood pressure systolic 001 mm Hg 12/15/2024 Weight 132 lbs 12/15/2024 BMI 20.98 kg/m2 12/15/2024 Encounters Encounter Location Date Provider Diagnosis [facility] Outpatient [address] [place] [phone] 06/20/2024 Mathew Marie Colon cancer screeni ng Z12.11 ; Colon polyps K63.5 ; Diverticulosis of large intestine without perforation or abscess without bleeding K57.30 ; Other hemorrhoids K64.8 ; Pyloric stricture K31.1 and Hiatal hernia K44.9 [facility] [address] [place] [phone] 12/15/2024 Mathew Marie Encounter for screen ing for malignant neoplasm of colon Z12.11 ; GERD (gastroesophageal reflux disease) K21.9 ; Collagenous colitis K52.831 ; Acute pyloric channel ulcer K25.3 and Partial gastric outlet obstruction K31.1 [facility] [address] [place] [phone] 02/24/2024 Mathew Marie Collagenous colitis K52.89 ; Pyloric stricture K31.1 ; Encounter for screening for malignant neoplasm of colon Z12.11 ; GERD (gastroesophageal reflux disease) K21.9 ; Barretts esophagus without dysplasia K22.70 ; Acute pyloric channel ulcer K25.3 and Family history of colon polyps, unspecified Z83.719 [facility] [address] [place] [phone] 01/29/2024 Mathew Marie [facility] [address] [place] [phone] 05/16/2024 Mathew Marie [facility] [address] [place] [phone] 06/01/2024 Mathew Marie [facility] [address] [place] [phone] 06/16/2024 Mathew Marie [facility] [address] [place] [phone] 06/19/2024 Mathew Marie [facility] [address] [place] [address] 06/28/2024 Mathew Marie [facility] [address] [place] [address] 06/28/2024 Mathew Marie [facility] [address] [place] [address] 08/03/2024 Mathew Marie Assessments Encounter Date Diagnosis (ICD Code) Assessment Notes Treatment Notes Treatment Clinical Notes Section Notes 06/20/2024 Colon cancer screening (ICD-10 - Z12.11) 06/20/2024 Colon polyps (ICD-10 - K63.5) 12/15/2024 Encounter for screening for malignant neoplasm of colon (ICD-10 - Z12.11) Repeat colonoscopy in 202902/24/2024 Collagenous colitis (ICD-10 - K52.89) Need Bone density study from [facility] Overall, Brittney Meyer appears well. Her chronic [...] to keep you advised of her progress. 06/20/2024 Diverticulosis of large intestine without perforation or abscess without bleeding (ICD-10 - K57.30) 12/15/2024 GERD (gastroesophageal reflux disease) (ICD-10 - K21.9) 02/24/2024 Encounter for screening for malignant neoplasm [...] to keep you advised of her progress. 06/20/2024 Other hemorrhoids (ICD-10 - K64.8) 12/15/2024 Collagenous colitis (ICD-10 - K52.831) 02/24/2024 GERD (gastroesophageal reflux disease) (ICD-10 - K21.9) Overall, Brittney [...] to keep you advised of her progress. 06/20/2024 Pyloric stricture (ICD-10 - K31.1) 12/15/2024 Acute pyloric channel ulcer (ICD-10 - K25.3) Continue the sucralfate and the famotidine detention for the history of the ulcer and reflux 02/24/2024 Barretts esophagus without dysplasia (ICD-10 - [...] to keep you advised of her progress. 06/20/2024 Hiatal hernia (ICD-10 - K44.9) 12/15/2024 Partial gastric outlet obstruction (ICD-10 - K31.1) 02/24/2024 Acute pyloric channel ulcer (ICD-10 - [...] advised of her progress. Plan Of Treatment Pending Test Test Name Order Date CHEM 7 PROFILE 09/17/2019 CHEM 7 PROFILE 2022 CHEM 7 PROFILE 01/24/2020 LIVER PROFILE 01/24/2020 LIVER PROFILE 08/21/2014 LIVER PROFILE 09/17/2019 LIVER PROFILE 06/20/2021 LIVER PROFILE 2022 AMYLASE 01/24/2020 AMYLASE 09/17/2019 LIPASE 09/17/2019 LIPASE 01/24/2020 LIPASE 06/20/2021 T4 (THYROXINE) 01/24/2020 TSH (THYROID STIMULATING HORMONE) 2019 IRON + IBC (FE) 01/24/2020 FERRITIN 01/24/2020 CRP 06/20/2021 CRP 2022 CRP 09/17/2019 CRP 08/21/2014 CRP 01/24/2020 VITAMIN B12 AND FOLATE 01/24/2020 CBC w DIFF 02/23/2023 CBC w DIFF 06/20/2021 CBC w DIFF 02/26/2023 CBC w DIFF 2022 CBC w DIFF 09/17/2019 CBC w DIFF 08/21/2014 CBC with MANUAL DIFFERENTIAL 01/24/2020 SED RATE (ESR) 01/24/2020 SED RATE (ESR) 06/20/2021 SED RATE (ESR) 2022 SED RATE (ESR) 09/17/2019 SED RATE (ESR) 08/21/2014 HEPATITIS B PROFILE 01/24/2020 HEPATITIS B PROFILE 2022 STOOL WBC 09/08/2019 CELIAC PANEL #10 09/07/2014 GIARDIA AG, STOOL EIA 09/08/2019 OVA & PARASITES (O&P) 09/08/2019 CULTURE, STOOL 09/08/2019 T SPOT TB 01/24/2020 C DIFFICILE RFLX PCR 09/08/2019 CALPROTECTIN, STOOL 01/24/2020 Gastrin 02/26/2023 Celiac Panel 10 2022 Future Test Test Name Order Date UPPER GI ENDOSCOPY 10/31/2015 COLONOSCOPY 10/31/2015 UPPER GI ENDOSCOPY 06/02/2018 UPPER GI ENDOSCOPY 06/20/2021 UPPER GI ENDOSCOPY 10/28/2022 UPPER GI ENDOSCOPY DILATION OF GASTRIC O UTLET OBSTRUCTION 05/08/2023 UPPER GI ENDOSCOPY DILATION OF GASTRIC O UTLET OBSTRUCTION 02/24/2024 COLONOSCOPY 02/24/2024 Next Appt Details Provider Name:Mathew Marie , 12/12/2025 10:20:00 AM, [address], [address], [place], [address], Insurance Providers Payer Name Payer Address Payer Phone Subscriber Number Group Number Insured Name Patient Relationship to Insured Coverage Start Date Coverage End Date [facility] [employer] [address] [place] [address] [id number] BRITTNEY MOREIRA Self - patient is the insured Medical (General) History Medical History History ICD Code Colonoscopy 06-03-2004- diagn osed with collagenous colitis- responded well to Asacol for a few years- has responded to courses of Entocort- -celiac disease labs are negative Hypothyroidism Denies DM,CVA,Lung disease,renal disease Anxiety NC at age 48-had 1 stent placed Hyperlipiodemia Negative abdominal ultrasound in 2014 an d 2019 GERD and Mandel's esophagus - upper endoscopy in November 2015 revealed a small hiatal hernia, erosive esophagitis, and Mandel's esophagus, with biopsies negative for dysplasia- -duodenal biopsies were negative for celiac disease Colonoscopy [...] Mandel's mucosa She was approved to start H umira in 06/2022 due to a flareup of colitis colitis that required increasing her prednisone to 40 mg daily. However, she decided to hold off on that due to a urinary infection and dental issues. EGD 06/2023 with improvement, although still with some inflammation in the pyloric channel and some mild narrowing; only minimal gastric retention; dilated pylorus with a 12mm to 13.5mm balloon Surgical History Surgery Date(Month/Year) Carpal tunnel Left knee replacement 06/05/[address] Nunez Uterine ablation Tubal ligation Varicose vein stripping
== END 2024-12-27 10:47 | disposition home or self-care (01) ==
LOC: HO.PMC 10:06
PROVIDERS: PCP Internal Medicine; Visit Provider Nurse Practitioner Family
DX: M53.9 Dorsopathy, unspecified (principal); M54.16 Radiculopathy, lumbar region; M51.369 Other intervertebral disc degeneration, lumbar region without mention of lumbar back pain or lower extremity pain; M41.9 Scoliosis, unspecified; M47.817 Spondylosis without myelopathy or radiculopathy, lumbosacral region; M54.50 Low back pain, unspecified; G89.29 Other chronic pain
CPT/HCPCS: 99214

== ENCOUNTER 2025-01-19 09:59 | Outpatient (REF) | payer BC, SELFPAY ==
--- OUTSIDE RECORDS SUMMARY | 2023-10-27 08:20 | XMS_ITS ---
Author Organization [facility] Address [address] [facility] [address] [place] [phone] Care Team Providers Care Marketing Producer Name Role Phone Fouzia Sargent M.D. Primary Care Provider Mathew Morales [phone] REASON FOR VISIT Patient presents today for pyloric stricture Encounters Encounter Location Date Provider Diagnosis [facility] [address] [place] [phone] 10/27/2023 Mathew Perez Plan Of Treatment Next Appt Details Provider Name:Mathew Perez , 12/12/2025 10:20:00 AM, [address] [facility], [address], [place], [address], Progress Notes * BRITTNEY MOREIRAOB:1960 (64 yo F)Acc No.[id number]:10/27/2023 Progress Notes Patient: Abdi HAMEED BRITTNEY MANSFIELD Provider: Ronal Perez MD :1960 A ge:63 Y S ex:Female Date:10/27/2023 Address:[address] [place] [address] Pcp:Fouzia Sargent M.D. Subjective: * Chief Complaints: * 1 . Patient presents today for pyloric stricture. * Medical History: Objective: * Vitals: Assessment: Plan: * Treatment: * * The named appointment provid er may or may not be the originator of this progress note, and it is not deemed complete until electronically signed by the appointment provider. Sign off status: Pending * Provider: Ronal Perez MD Date: 0 10/27/2023 Generated for Marina michael/Lamin/Adam on: 1 03/21/2024 11:56 AM EST
--- OUTSIDE RECORDS SUMMARY | 2024-06-20 04:30 | XMS_ITS ---
Author Organization [facility] Address [address] [place] [address] Care Team Providers Care Shuttle Final Inspector Name Role Phone Fouzia Sargent M.D. Primary Care Provider Mathew Morales Unavailable [phone] REASON FOR VISIT screening,gerd,richardson's, pyloric stricture, acute pyloric channel ulcer Encounters Encounter Location Date Provider Diagnosis [facility] [place] Outpatient [address] [place] [id number] 06/20/2024 Mathew Perez Colon cancer scree sergey Z12.11 ; Colon polyps K63.5 ; Diverticulosis of large intestine without perforation or abscess without bleeding K57.30 ; Other hemorrhoids K64.8 ; Pyloric stricture K31.1 and Hiatal hernia K44.9 Assessments Encounter Date Diagnosis (ICD Code) Assessment Notes Treatment Notes Treatment Clinical Notes Section Notes 06/20/2024 Colon cancer screening (ICD-10 - Z12.11) 06/20/2024 Colon polyps (ICD-10 - K63.5) 06/20/2024 Diverticulosis of large intestine without perforation or abscess without bleeding (ICD-10 - K57.30) 06/20/2024 Other hemorrhoids (ICD-10 - K64.8) 06/20/2024 Pyloric stricture (ICD-10 - K31.1) 06/20/2024 Hiatal hernia (ICD-10 - K44.9) Plan Of Treatment Next Appt Details Provider Name:Mathew Perez , 12/12/2025 10:20:00 AM, [address], [address], [place], [address], Progress Notes * BRITTNEY MOREIRAOB:1960 (64 yo F)Acc No.[id number]:06/20/2024 EGD and COL/MAC Patient: BRITTNEY LIRIANO Provider: Ronal Perez MD :1960 A ge:64 Y S ex:Female Date:06/20/2024 Address:[address] [place] [address] Pcp:Fouzia Sargent M.D. Subjective: * Chief Complaints: * 1 . Screening,gerd,richardson's, pyloric stricture, acute pyloric channel ulcer. * Medical History: Objective: * Vitals: Assessment: * Assessment: 1. C olon cancer screening - Z12.11 (Primary) 2 . C olon polyps - K63.5? 3. D iverticulosis of large intestine without perforation or abscess without bleeding - K57.30 4 . O ther hemorrhoids - K64.8 5 . P yloric stricture - K31.1 6 . H iatal hernia - K44.9 Plan: * Treatment: * Procedure Codes: 4 5385 LESION REMOVAL COLONOSCOPY, 47686 COLONOSCOPY AND BIOPSY, Modifiers: 59 , 28025 ESOPH ENDOSCOPY, DILATION * * The named appointment provid er may or may not be the originator of this progress note, and it is not deemed complete until electronically signed by the appointment provider. Sign off status: Pending * Provider: Ronal Perez MD Date: 0 06/20/2024 Generated for Marina michael/Lamin/Oralsmitting on: 1 03/21/2024 11:56 AM EST
--- OUTSIDE RECORDS SUMMARY | 2025-01-19 11:57 | XMS_ITS | Data Portability ---
Author Organization [facility], [facility] Address [address] [place] [address] Care Team Providers Care Wine Bottle Inspector Name Role Phone ELDER FLORES Primary Care Provider Assessment Encounter Date Assessment Date Assessment LastModified [...] today surgery to be scheduled with my soda worker. ranjith Not available 11/23/2023 11:59:29 Plan of [...] time and date of appt 2023 024 [facility] ([facility]), [address], [address], 4 13:41:42 Surgeries None record ed. Imaging XR, hand, 3 or more view - 3 views bilate ral hands pt in room 113 2023 024 ranjith Not available 14:39:38 Medication Orders None record ed. Patient TargetsNo targets recorded. Patient Instructions Encounter Date Encounter Id Patient Instructions Last Modified By Organization Details Last Modified Time 07/26/2024 [id number] work restrictions, upper extremity* - Dr. Mallroy right carpal tunnel release 07/12/2024 [email or web address] Not available 07/26/2024 08:58:00 Reason for Referral None Reported. Results Created Date Observation Date Name Description Value Unit Range Abnormal Flag Note LastModifiedBy Organization Detail LastModifiedTime 10/28/19 24 10/23/2023 nerve condu ction study /EMG (PROC ) No observ ation record ed. [facility] [address], Jaden Waggonerfl[place]IZAB[place], [id number], 10/28/2023 14:17:06 11/07/19 24 06/05/2020 patricki ng/danny rat tic resul t No observ ation record ed. [email or web address] Not Available 10/09 01:09:53 Result Notes None recorded. Problems Name Problem SNOMED Code Status Onset Date Resolution Date Notes Provider Name and Address Organization Details Recorded Time No complaints 225104234 Active Status: 'I'; Not Available [facility] 4 09:21:01 Idiopathic osteoarthri tis 219733027 Active 2017 Problem Code: M17.12; Problem Code Type: ICD-10; Status: 'A'; Not Available [facility] 4 11:57:44 Problem Notes None recorded. Procedures Surgical History Date Name Laterality Status Provider Name and Address Organization Details Recorded Time CARPAL TUNNEL RELEASE (SURG) completed EDGAR BOLANOS [place] [facility] [place] [facility] 07/13/2024 12:49:31 Imaging Results None recorded. Procedure [...] Updated DateTime 07/27/2023 170.18 cm 20.8 kg/m2 19840.79 g REYNOLD OCTAVIOHARVEY [facility] 07/27/2023 14:22:37 Date Recorded Body height Body mass index (BMI) Body weight Provider Name and Address Organization Details Last Updated DateTime 11/23/2023 170.18 cm 21.8 kg/m2 50063.34 g REYNOLD COOPER [facility] 11/23/2023 11:05:22 Social History None recorded. Functional Status None recorded. Mental Status None recorded. Family History Nothing Reported. Medical History No medical history recorded. Gynecological HistoryNo gynecological history recorded. Obstetrics History GPAL:G 0 P 0 0 0 0 Past Encounters Encounter ID Performer Location Encounter Start Date Encounter Closed Date Diagnosis/Indication Diagnosis SNOMED-CT Code Diagnosis ICD10 Code Diagnosis IMO Codes Diagnosis Note [id number] MD Emily Parra [address] [place] [address] [address] [place] [address] 07/27/2023 13:58:08 08/17/2023 11:16:24 Pain of bilateral hands 8816722564 7477565 M79.642 M79.641 Carpal bernadette shey syndrome of left wrist 7300948489 15319 G56.02 Carpal bernadette shey syndrome of right wrist 8883751086 29892 G56.01 Osteoarthr osis of the carpometacarpal joint of the thumb 58589617 M18.9 [id number] MD Emily Parra [address] [place] [address] 11/23/2023 10:55:10 12/03/2023 08:28:53 Osteoarthrosis of the carpometacarpal joint of the thumb 79850118 M18.9 Carpal bernadette shey syndrome of left wrist 2701340368 50453 G56.02 Carpal bernadette shey syndrome of right wrist 6063087338 00679 G56.01 [id number] Cathy Monique, OTR/L,CHT NIURKA Pride [address] [place] [address] 07/26/2024 08:32:44 07/26/2024 08:58:07 Carpal tunnel syndrome of right wrist 7167923004 94646 G56.01 [id number] The surgical wound is inspected and found [...] positive response to light touch. Postoperative visit 6085 45775 Z48.89 [id number] Sutures are removed today without complicati on. 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 Symptoms are worse on the right side than the left. She has pain at the base of the thumb with pinching exterminator helper termite activities she has difficulty opening bottles and jars. At the initial visit, EMG was ordered to assess for severity of nerve compression. She was also provided splints for each problem. Brace: +/- relief, the daytime splints for the thumb arthritis were more helpful. Vanessa Mallory MD [address], [place], [address], [facility] 11/23/2023 12:00:10 5 text/html This is a 64-year-old woman who had a right carpal tunnel release procedure on 07/12/[address] Mallory. Today at 2 weeks postop we will assess the postoperative site remove the sutures and advise on a home program. Cathy Monique, OTR/L,CHT [address], [place], [address], [facility] 07/26/2024 08:58:02 OBGyn Episode No OBEpisode recorded.
--- OUTSIDE RECORDS SUMMARY | 2025-01-19 11:57 | XMS_ITS | Patient Health Record ---
Author Organization [facility] Address [address] [place] [address] Care Team Providers Care Regulatory Submissions Specialist Name Role Phone Winter Myers M.D. Primary Care Provider Kelechi able Mathew Marie Unavailable [phone] Allergies Allergen (clinical drug ingredient) Drug/Non Drug Allergy documented on EMR Reaction Allergy Type Onset Date Status Inapsine Unknown Drug Allergy Active Results Component Value Reference Range Notes Pathology Reviewed date:06/29/2024 11:45:15 AM Interpretation: Performing Lab:[facility], [address] [place] [phone] Notes/Report: Reason For Referral Referral Organization [facility] Referring Provider First Name Mathew Referring Provider Last Name Chris Referring Provider Speciality Gastroente rology Referred Provider Davian (RETIRED)Nia Referred Provider Specialty Internal Med icine General Notes Loretta Beckett 2024 11:00:15 AM pt is calling /bs to request change of provide to Dr. Aishwarya Myers. [place] [facility] [place] request a new referral for the patient's procedure on 06-20-[address] Marie Referral Priority Routine Referring Provider First Name Winter Referring Provider Last Name Arie Referred Organization [facility] Referred Provider Mathew Marie Referred Address [address],[place], [place],[address], Referred Provider Specialty Gastroentero logy General Notes [...] Problem Screening for malignant neoplasm of colon (407704253) Encounter for screening for malignant neoplasm of colon (Z12.11) Active confirmed Problem Abdominal bloating (944803493) Abdominal bloating (R14.0) Active confirmed Problem Diarrhea (39389842) Diarrhea (R19.7) Active confirmed Problem Irritable bowel syndrome with diarrhea (324580646) Irritable bowel syndrome with diarrhea (K58.0) Active confirmed Problem Screening for malignant neoplasm of rectum (056427881) Encounter for screening for malignant neoplasm of rectum (Z12.12) Active confirmed Problem Epigastric pain (23064408) Abdominal pain, epigastric (R10.13) Active confirmed Problem Iron deficiency anemia (78244769) Iron deficiency anemia (D50.9) Active confirmed Problem Mandel's esophagus (386206380) Barretts esophagus without dysplasia (K22.70) Active confirmed Problem Microscopic colitis (657973141) Microscopic colitis (K52.89) Active confirmed Problem Iron deficiency anemia due to chronic blood loss (482342366) Iron deficiency anemia due to chronic blood loss (D50.0) Active confirmed Problem Gastroesophageal reflux disease with esophagitis (disorder) (160428032) GERD with esophagitis (K21.0) Active confirmed Problem Gastroesophageal reflux disease (512727267) GERD (gastroesophag eal reflux disease) (K21.9) Active confirmed Problem Collagenous colitis (70355121) Collagenous colitis (K52.89) Active confirmed Problem Generalized abdominal pain (854283569) Abdominal pain, generalized (R10.84) Active confirmed Problem Diarrhea (76013903) Diarrhea, unspecified type (R19.7) Active confirmed Problem Collagenous colitis (62638597) Collagenous colitis (K52.831) Active confirmed Problem Gastric ulcer (152006127) Gastric ulcer (K25.9) Active confirmed Problem Acquired hypertrophic pyloric stenosis (83684058) Pyloric stricture (K31.1) Active confirmed Problem Acute gastric ulcer without hemorrhage, without perforation AND without obstruction (34086522) Pyloric channel ulcer, acute (K25.3) Active confirmed Problem Acute gastric ulcer without hemorrhage, without perforation AND without obstruction (06431154) Acute pyloric channel ulcer (K25.3) Active confirmed Problem Gastroesophageal reflux disease with esophagitis (disorder) (568465216) Gastro-esophag eal reflux disease with esophagitis, without bleeding (K21.00) Active confirmed Problem Acquired hypertrophic pyloric stenosis (58017498) Partial gastric outlet obstruction (K31.1) Active confirmed Problem Family history of polyp of colon (situation) (042074977) Family history of colon polyps, unspecified (Z83.719) Active confirmed Problem Abnormality of secretion of gastrin (18680291) Elevated gastrin level (E16.4) Active confirmed Vital Signs Temperature 98.6 degrees Fahrenheit 12/15/2024 Blood pressure diastolic 01 mm Hg 12/15/2024 Height 66.5 in 12/15/2024 Blood pressure systolic 001 mm Hg 12/15/2024 Weight 132 lbs 12/15/2024 BMI 20.98 kg/m2 12/15/2024 Encounters Encounter Location Date Provider Diagnosis [facility] Outpatient [address] [place] [id number] 06/20/2024 Mathew Marie Colon cancer screeni ng Z12.11 ; Colon polyps K63.5 ; Diverticulosis of large intestine without perforation or abscess without bleeding K57.30 ; Other hemorrhoids K64.8 ; Pyloric stricture K31.1 and Hiatal hernia K44.9 [facility] [address] [place] [phone] 02/24/2024 Mathew Marie Collagenous colitis K52.89 ; Pyloric stricture K31.1 ; Encounter for screening for malignant neoplasm of colon Z12.11 ; GERD (gastroesophageal reflux disease) K21.9 ; Barretts esophagus without dysplasia K22.70 ; Acute pyloric channel ulcer K25.3 and Family history of colon polyps, unspecified Z83.719 [facility] [address] [place] [phone] 12/15/2024 Mathew Marie Encounter for screen ing for malignant neoplasm of colon Z12.11 ; Collagenous colitis K52.831 ; GERD (gastroesophageal reflux disease) K21.9 ; Acute pyloric channel ulcer K25.3 and Partial gastric outlet obstruction K31.1 [facility] [address] [place] [phone] 01/29/2024 Mathew Marie [facility] [address] [place] [phone] 05/16/2024 Mathew Marie [facility] [address] [place] [phone] 06/01/2024 Mathew Marie [facility] [address] [place] [phone] 06/16/2024 Mathew Marie [facility] [address] [place] [phone] 06/19/2024 Mathew Marie [facility] [address] [place] [phone] 06/28/2024 Mathew Marie [facility] [address] [place] [phone] 06/28/2024 Mathew Marie [facility] [address] [place] [phone] 08/03/2024 Mathew Marie Assessments Encounter Date Diagnosis (ICD Code) Assessment Notes Treatment Notes Treatment Clinical Notes Section Notes 06/20/2024 Colon cancer screening (ICD-10 - Z12.11) 06/20/2024 Colon polyps (ICD-10 - K63.5) 02/24/2024 Collagenous colitis (ICD-10 - K52.89) Need Bone density study from [facility] Overall, Brittney Meyer appears well. Her chronic [...] 02/24/2024 Pyloric stricture (ICD-10 - K31.1) Overall, Brtitney Meyer appears well. Her chronic GI issues [...] need for a follow-up screening colonoscopy in 2030. If things remain well I will plan [...] K25.3) Continue the sucralfate and the famotidine communications maintainer for the history of the ulcer and [...] Test Name Order Date CHEM 7 PROFILE 2022 CHEM 7 PROFILE 01/24/2020 CHEM 7 PROFILE 09/17/2019 LIVER PROFILE 09/17/2019 LIVER PROFILE 06/20/2021 LIVER PROFILE 2022 LIVER PROFILE 01/24/2020 LIVER PROFILE 08/21/2014 AMYLASE 09/17/2019 AMYLASE 01/24/2020 LIPASE 01/24/2020 LIPASE 06/20/2021 LIPASE 09/17/2019 T4 (THYROXINE) 01/24/2020 TSH (THYROID STIMULATING HORMONE) 2019 IRON + IBC (FE) 01/24/2020 FERRITIN 01/24/2020 CRP 01/24/2020 CRP 06/20/2021 CRP 2022 CRP 09/17/2019 CRP 08/21/2014 VITAMIN B12 AND FOLATE 01/24/2020 CBC w DIFF 08/21/2014 CBC w DIFF 02/23/2023 CBC w DIFF 06/20/2021 CBC w DIFF 02/26/2023 CBC w DIFF 2022 CBC w DIFF 09/17/2019 CBC with MANUAL DIFFERENTIAL 01/24/2020 SED RATE (ESR) 2022 SED RATE (ESR) 09/17/2019 SED RATE (ESR) 08/21/2014 SED RATE (ESR) 01/24/2020 SED RATE (ESR) 06/20/2021 HEPATITIS B PROFILE 2022 HEPATITIS B PROFILE 01/24/2020 STOOL WBC 09/08/2019 CELIAC PANEL #10 09/07/2014 [...] COLONOSCOPY 02/24/2024 Next Appt Details Provider Name:Mathew Zavala Chris , 12/12/2025 10:20:00 AM, [address], [address], [place], [address], Insurance Providers Payer Name Payer Address Payer Phone Subscriber Number Group Number Insured Name Patient Relationship to Insured Coverage Start Date Coverage End Date [facility] [employer] [address] [place] [address] [phone] [id number] BRITTNEY MOREIRA Self - patient is the insured Medical (General) History Medical History History ICD Code Colonoscopy 06-03-2004- diagn osed with collagenous colitis- responded well to Asacol for a few years- has responded to courses of Entocort- -celiac disease labs are negative Hypothyroidism Denies DM,CVA,Lung disease,renal disease Anxiety RI at age 48-had 1 stent placed Hyperlipiodemia [...]
== END 2025-01-19 10:00 | disposition home or self-care (01) ==
LOC: HO.MAMMO 09:59
PROVIDERS: PCP Physician Assistant; Visit Provider Physician Assistant
DX: Z12.31 Encounter for screening mammogram for malignant neoplasm of breast (principal)
CPT/HCPCS: 77063; 77067

== ENCOUNTER → 2025-01-19 10:00 | Outpatient (BNV) | payer BC, SELFPAY | PROVIDERS: PCP Physician Assistant; Visit Provider Internal Medicine | DX: Z12.31 Encounter for screening mammogram for malignant neoplasm of breast (principal) | CPT/HCPCS: 77063; 77067 ==

== ENCOUNTER 2025-01-27 09:37 | Day surgery (SDC) | payer BC, SELFPAY ==
--- OUTSIDE RECORDS SUMMARY | 2023-10-27 09:20 | XMS_ITS ---
Author Organization [facility] Address [address] [facility] [address] [place] [phone] Care Team Providers Care Campground Cleaning Attendant Name Role Phone Fouzia Sargent M.D. Primary Care Provider Mathew Morales [phone] REASON FOR VISIT Patient presents today for pyloric stricture Encounters Encounter Location Date Provider Diagnosis [facility] [address] [place] [phone] 10/27/2023 Mathew Perez Plan Of Treatment Next Appt Details Provider Name:Mathew Perez , 12/12/2025 10:20:00 AM, [address] [facility], [address], [place], [address], Progress Notes * BRITTNEY MOREIRAOB:1960 (64 yo F)Acc No.[id number]:10/27/2023 Progress Notes Patient: Abdi HAMEED BRITTNEY MANSFIELD Provider: Ronal Perez MD :1960 A ge:63 Y S ex:Female Date:10/27/2023 Address:[address] [place] [address] Pcp:Fouzia Sargent M.D. Subjective: * Chief Complaints: [...] 10/27/2023 Generated for Marina michael/Lamin/Adam on: 1 02:26 PM EDT
--- OUTSIDE RECORDS SUMMARY | 2024-06-20 05:30 | XMS_ITS ---
Author Organization [facility] Address [address] [place] [address] Care Team Providers Care Laborer Filter Plant Name Role Phone Fouzia Sargent M.D. Primary Care Provider Mathew Morales Unavailable [phone] REASON FOR VISIT screening,gerd,richardson's, pyloric stricture, acute pyloric channel ulcer Encounters Encounter Location Date Provider Diagnosis [facility] [address] [place] [id number] 06/20/2024 Mathew Perez Colon cancer scree sergey [...] 10:20:00 AM, [address], [address], [place], [address], Progress Notes * BRITTNEY MOREIRAOB:1960 (64 yo F)Acc No.[id number]:06/20/2024 EGD and COL/MAC Patient: BRITTNEY LIRIANO Provider: Ronal Perez MD :1960 A ge:64 Y S ex:Female Date:06/20/2024 Address:[address] [place] [address] Pcp:Fouzia Sargent M.D. Subjective: * Chief Complaints: [...] Procedure Codes: 4 5385 LESION REMOVAL COLONOSCOPY, 46385 COLONOSCOPY AND BIOPSY, Modifiers: 59 , 00714 ESOPH ENDOSCOPY, DILATION * * The named appointment provid er may or may not be the originator of this progress note, and it is not deemed complete until electronically signed by the appointment provider. Sign off status: Pending * Provider: Ronal Perez MD Date: 0 06/20/2024 Generated for Marina michael/Lamin/Oralsmitting on: 1 02:26 PM EDT
--- OUTSIDE RECORDS SUMMARY | 2025-01-06 14:26 | XMS_ITS | Patient Health Record ---
Author Organization [facility] Address [address] [facility] [address] [place] [phone] Care Team Providers Care Propeller Engineer Name Role Phone Winter Myers M.D. Primary Care Provider Unavail able Mathew Marei Unavailable [phone] Allergies Allergen (clinical drug ingredient) Drug/Non Drug Allergy documented on EMR Reaction Allergy Type Onset Date Status Inapsine Unknown Drug Allergy Active Results Component Value Reference Range Notes Pathology Reviewed date:06/29/2024 11:45:15 AM Interpretation: Performing Lab:[facility], [address] [place] [phone] Notes/Report: Reason For Referral Referring Provider First Name Jeff Referring Provider Last Name Davian (RETI RED) Referring Provider Speciality Internal M edicine Referred Organization [facility] Referred Provider Mathew Marie Referred Address [address] [place] [address],[facility] [address] [place] [phone], Referred Provider Specialty Gastroentero logy General Notes Loretta Beckett 024 01:32:07 PM EST > requested an o blue ref for visit with Dr. Marie on 02-24-2024 (daid 02-17-2024) [phone] Referral Priority Routine Referral Organization [facility] Referring Provider First Name Mathew Referring Provider Last Name Chris Referring Provider Speciality Gastroente rology Referred Provider Davian (RETIRED)Nia Referred Provider Specialty Internal Med icine General Notes Loretta Beckett 2024 11:00:15 AM pt is calling bc/bs to request change of provide to Dr. Aishwarya Myers. Call [facility] to request a new referral for the patient's procedure on 06-20-[address] Marie Referral Priority Routine Referring Provider First Name Winter Referring Provider Last Name Arie Referred Organization [facility] Referred Provider Mathew Marie Referred Address [address] [place] [address],[place], [place],[address],[place] Referred Provider Specialty Gastroentero logy General Notes [...] No Points 0 Interpretation Negative Section Notes: Smokes 1/2 ppd; no sig alcoh ol [...] Problem Screening for malignant neoplasm of colon (705166983) Encounter for screening for malignant neoplasm of colon (Z12.11) Active confirmed Problem Abdominal bloating (210715526) Abdominal bloating (R14.0) Active confirmed Problem Diarrhea (01750940) Diarrhea (R19.7) Active confirmed Problem Irritable bowel syndrome with diarrhea (121363068) Irritable bowel syndrome with diarrhea (K58.0) Active confirmed Problem Screening for malignant neoplasm of rectum (241988223) Encounter for screening for malignant neoplasm of rectum (Z12.12) Active confirmed Problem Epigastric pain (32563321) Abdominal pain, epigastric (R10.13) Active confirmed Problem Iron deficiency anemia (97406372) Iron deficiency anemia (D50.9) Active confirmed Problem Mandel's esophagus (709890033) Barretts esophagus without dysplasia (K22.70) Active confirmed Problem Microscopic colitis (425187458) Microscopic colitis (K52.89) Active confirmed Problem Iron deficiency anemia due to chronic blood loss (807747310) Iron deficiency anemia due to chronic blood loss (D50.0) Active confirmed Problem Gastroesophageal reflux disease with esophagitis (disorder) (114695262) GERD with esophagitis (K21.0) Active confirmed Problem Gastroesophageal reflux disease (085664614) GERD (gastroesophag eal reflux disease) (K21.9) Active confirmed Problem Collagenous colitis (23168720) Collagenous colitis (K52.89) Active confirmed Problem Generalized abdominal pain (939768071) Abdominal pain, generalized (R10.84) Active confirmed Problem Diarrhea (53759027) Diarrhea, unspecified type (R19.7) Active confirmed Problem Collagenous colitis (23756860) Collagenous colitis (K52.831) Active confirmed Problem Gastric ulcer (987673333) Gastric ulcer (K25.9) Active confirmed Problem Acquired hypertrophic pyloric stenosis (63857853) Pyloric stricture (K31.1) Active confirmed Problem Acute gastric ulcer without hemorrhage, without perforation AND without obstruction (55575508) Pyloric channel ulcer, acute (K25.3) Active confirmed Problem Acute gastric ulcer without hemorrhage, without perforation AND without obstruction (24785170) Acute pyloric channel ulcer (K25.3) Active confirmed Problem Gastroesophageal reflux disease with esophagitis (disorder) (685769262) Gastro-esophag eal reflux disease with esophagitis, without bleeding (K21.00) Active confirmed Problem Acquired hypertrophic pyloric stenosis (00407034) Partial gastric outlet obstruction (K31.1) Active confirmed Problem Family history of polyp of colon (situation) (118832722) Family history of colon polyps, unspecified (Z83.719) Active confirmed Problem Abnormality of secretion of gastrin (37966911) Elevated gastrin level (E16.4) Active confirmed Vital Signs Temperature 98.6 degrees Fahrenheit 12/15/2024 Blood pressure diastolic 01 mm Hg 12/15/2024 Height 66.5 in 12/15/2024 Blood pressure systolic 001 mm Hg 12/15/2024 Weight 132 lbs 12/15/2024 BMI 20.98 kg/m2 12/15/2024 Encounters Encounter Location Date Provider Diagnosis [facility] [address] [place] [phone] 06/20/2024 Mathew Marie Colon cancer screeni ng Z12.11 ; Colon polyps K63.5 ; Diverticulosis of large intestine without perforation or abscess without bleeding K57.30 ; Other hemorrhoids K64.8 ; Pyloric stricture K31.1 and Hiatal hernia K44.9 [facility] [address] [place] [phone] 02/24/2024 Mathwe Marie Collagenous colitis K52.89 ; Pyloric stricture K31.1 ; Encounter for screening for malignant neoplasm of colon Z12.11 ; GERD (gastroesophageal reflux disease) K21.9 ; Barretts esophagus without dysplasia K22.70 ; Acute pyloric channel ulcer K25.3 and Family history of colon polyps, unspecified Z83.719 [facility] [address] [place] [phone] 12/15/2024 Mathew Marie Encounter for screen ing for malignant neoplasm of colon Z12.11 ; Collagenous colitis K52.831 ; GERD (gastroesophageal reflux disease) K21.9 ; Acute pyloric channel ulcer K25.3 and Partial gastric outlet obstruction K31.1 [facility] [address] [place] [phone] 01/29/2024 Mathew Marie [facility] [address] [place] [phone] 05/16/2024 Mathew Marie [facility] [address] [place] [phone] 06/01/2024 Mathew Marie [facility] [address] [place] [phone] 06/16/2024 Mathew Marie [facility] [address] [place] [address] 06/19/2024 Mathew Marie [facility] [address] [place] [address] 06/28/2024 Mathew Marie [facility] [address] [place] [phone] 06/28/2024 Mathew Marie [facility] [address] [place] [address] 08/03/2024 Mathew Marie Assessments Encounter Date Diagnosis (ICD Code) Assessment Notes Treatment Notes Treatment Clinical Notes Section Notes 06/20/2024 Colon cancer screening (ICD-10 - Z12.11) 06/20/2024 Colon polyps (ICD-10 - K63.5) 02/24/2024 Collagenous colitis (ICD-10 - K52.89) Need [facility] [place] [facility] Overall, Brittney Meyer appears well. Her chronic [...] screening given her last exam being in 2016 and the reported family history of her [...] to keep you advised of her progress. 12/15/2024 Encounter for screening for malignant neoplasm of colon (ICD-10 - Z12.11) Repeat colonoscopy in 2029 Overall, Brittney Meyer appears quite well and her GI symptoms remain very stable. As such, I did advise her to continue the famotidine and Carafate long-term given the previous history of the refractory pyloric channel ulcer and subsequent stricture. I did remind her to stay off all NSAIDs long-term. She does remain on her low-dose aspirin for the underlying coronary artery disease. I did advise her to continue the low-dose prednisone along with her vitamin D and calcium in regards to the underlying collagenous colitis. This seems to be working very well to keep things in remission at this point. In the past, whenever we have tried to stop the prednisone, her colitis would flareup and be refractory to other treatments. I did review with her the need for a follow-up screening colonoscopy in 2029. If things remain well I will plan to see her in 1 year for a follow-up visit. I did advise her to definitely contact me prior to that if she has any questions or problems I can be of assistance with. I did advise her to call for refills as needed. Brittney Meyer was very comfortable with this plan. Thank you again for allowing me to participate in Brittney Meyer's care. I shall continue to keep you advised of her progress. 12/15/2024 Collagenous colitis (ICD-10 - K52.831) Overall, Brittney Meyer appears quite well and her GI symptoms remain very stable. As such, I did advise her to continue the famotidine and Carafate long-term given the previous history of the refractory pyloric channel ulcer and subsequent stricture. I did remind her to stay off all NSAIDs long-term. She does remain on her low-dose aspirin for the underlying coronary artery disease. I did advise her to continue the low-dose prednisone along with her vitamin D and calcium in regards to the underlying collagenous colitis. This seems to be working very well to keep things in remission at this point. In the past, whenever we have tried to stop the prednisone, her colitis would flareup and be refractory to other treatments. I did review with her the need for a follow-up screening colonoscopy in 2029. If things remain well I will plan to see her in 1 year for a follow-up visit. I did advise her to definitely contact me prior to that if she has any questions or problems I can be of assistance with. I did advise her to call for refills as needed. Brittney Meyer was very comfortable with this plan. Thank you again for allowing me to participate in Brittney Meyer's care. I shall continue to keep you advised of her progress. 06/20/2024 Diverticulosis of large intestine without perforation or abscess without bleeding (ICD-10 - K57.30) 02/24/2024 Encounter for screening for malignant neoplasm [...] to keep you advised of her progress. 12/15/2024 GERD (gastroesophageal reflux disease) (ICD-10 - K21.9) Overall, Brittney Meyer appears quite well and her GI symptoms remain very stable. As such, I did advise her to continue the famotidine and Carafate long-term given the previous history of the refractory pyloric channel ulcer and subsequent stricture. I did remind her to stay off all NSAIDs long-term. She does remain on her low-dose aspirin for the underlying coronary artery disease. I did advise her to continue the low-dose prednisone along with her vitamin D and calcium in regards to the underlying collagenous colitis. This seems to be working very well to keep things in remission at this point. In the past, whenever we have tried to stop the prednisone, her colitis would flareup and be refractory to other treatments. I did review with her the need for a follow-up screening colonoscopy in 2029. If things remain well I will plan to see her in 1 year for a follow-up visit. I did advise her to definitely contact me prior to that if she has any questions or problems I can be of assistance with. I did advise her to call for refills as needed. Brittney Meyer was very comfortable with this plan. Thank you again for allowing me to participate in Brittney Meyer's care. I shall continue to keep you advised of her progress. 06/20/2024 Other hemorrhoids (ICD-10 - K64.8) 02/24/2024 GERD (gastroesophageal reflux disease) (ICD-10 - [...] to keep you advised of her progress. 12/15/2024 Acute pyloric channel ulcer (ICD-10 - K25.3) Continue the sucralfate and the famotidine senior living for the history of the ulcer and reflux Overall, Brittney Meyer appears quite well and her GI symptoms remain very stable. As such, I did advise her to continue the famotidine and Carafate long-term given the previous history of the refractory pyloric channel ulcer and subsequent stricture. I did remind her to stay off all NSAIDs long-term. She does remain on her low-dose aspirin for the underlying coronary artery disease. I did advise her to continue the low-dose prednisone along with her vitamin D and calcium in regards to the underlying collagenous colitis. This seems to be working very well to keep things in remission at this point. In the past, whenever we have tried to stop the prednisone, her colitis would flareup and be refractory to other treatments. I did review with her the need for a follow-up screening colonoscopy in 2029. If things remain well I will plan to see her in 1 year for a follow-up visit. I did advise her to definitely contact me prior to that if she has any questions or problems I can be of assistance with. I did advise her to call for refills as needed. Brittney Meyer was very comfortable with this plan. Thank you again for allowing me to participate in Brittney Meyer's care. I shall continue to keep you advised of her progress. 06/20/2024 Pyloric stricture (ICD-10 - K31.1) 02/24/2024 Barretts esophagus without dysplasia (ICD-10 - [...] to keep you advised of her progress. 12/15/2024 Partial gastric outlet obstruction (ICD-10 - K31.1) Overall, Brittney Meyer appears quite well and her GI symptoms remain very stable. As such, I did advise her to continue the famotidine and Carafate long-term given the previous history of the refractory pyloric channel ulcer and subsequent stricture. I did remind her to stay off all NSAIDs long-term. She does remain on her low-dose aspirin for the underlying coronary artery disease. I did advise her to continue the low-dose prednisone along with her vitamin D and calcium in regards to the underlying collagenous colitis. This seems to be working very well to keep things in remission at this point. In the past, whenever we have tried to stop the prednisone, her colitis would flareup and be refractory to other treatments. I did review with her the need for a follow-up screening colonoscopy in 2029. If things remain well I will plan to see her in 1 year for a follow-up visit. I did advise her to definitely contact me prior to that if she has any questions or problems I can be of assistance with. I did advise her to call for refills as needed. Brittney Meyer was very comfortable with this plan. Thank you again for allowing me to participate in Brittney Meyer's care. I shall continue to keep you advised of her progress. 06/20/2024 Hiatal hernia (ICD-10 - K44.9) 02/24/2024 Acute pyloric channel ulcer (ICD-10 - [...] 2022 CHEM 7 PROFILE 01/24/2020 LIVER PROFILE 09/17/2019 LIVER PROFILE 06/20/2021 LIVER PROFILE 2022 LIVER PROFILE 01/24/2020 LIVER PROFILE 08/21/2014 AMYLASE 09/17/2019 AMYLASE 01/24/2020 LIPASE 01/24/2020 LIPASE 06/20/2021 LIPASE 09/17/2019 T4 (THYROXINE) 01/24/2020 TSH (THYROID STIMULATING HORMONE) 2019 IRON + IBC (FE) 01/24/2020 FERRITIN 01/24/2020 CRP 08/21/2014 CRP 01/24/2020 CRP 06/20/2021 CRP 2022 CRP 09/17/2019 VITAMIN B12 AND FOLATE 01/24/2020 CBC w DIFF 02/26/2023 CBC w DIFF 2022 CBC w DIFF 09/17/2019 CBC w DIFF 08/21/2014 CBC w DIFF 02/23/2023 CBC w DIFF 06/20/2021 CBC with MANUAL DIFFERENTIAL 01/24/2020 SED RATE (ESR) 06/20/2021 SED RATE (ESR) 2022 SED RATE (ESR) 09/17/2019 SED RATE (ESR) 08/21/2014 SED RATE (ESR) 01/24/2020 HEPATITIS B PROFILE 01/24/2020 HEPATITIS B PROFILE [...] Name:Mathew Marie , 12/12/2025 10:20:00 AM, [address], [address], [place], [address], Insurance Providers Payer Name Payer Address Payer Phone Subscriber Number Group Number Insured Name Patient Relationship to Insured Coverage Start Date Coverage End Date [employer] [address] [place] [address] [id number] HARISHBRITTNEY Self - patient is the insured Medical (General) History Medical History History ICD Code Colonoscopy 06-03-2004- diagn osed with collagenous colitis- responded well to Asacol for a few years- has responded to courses of Entocort- -celiac disease labs are negative Hypothyroidism Denies DM,CVA,Lung disease,renal disease Anxiety VT at age 48-had 1 stent placed Hyperlipiodemia Negative abdominal ultrasound in 2014 an 2019 GERD and Mandel's esophagus - upper endoscopy in November 2015 revealed a small hiatal hernia, erosive esophagitis, and Mandel's esophagus, with biopsies negative for dysplasia- -duodenal biopsies were negative for celiac disease Colonoscopy in November reveal biopsies consistent with collagenous colitis, but [...] pylorus with a 12mm to 13.5mm balloon Screening colonoscopy in June 2024 with a single serrated polyp removed Upper endoscopy in June revealed no sign of active esophagitis or any sign of a pyloric channel ulcer. The pyloric channel was patent although I did use a15mm balloon to dilate it at that time nonetheless. Surgical History Surgery Date(Month/Year) Carpal tunnel Left knee replacement 06/05/[address] Nunez Uterine ablation Tubal ligation Varicose vein stripping
--- OUTSIDE RECORDS SUMMARY | 2025-01-06 14:27 | XMS_ITS | Data Portability ---
Author Organization [facility], [facility] Address [address] [place] [address] Care Team Providers Care Finance Lead Name Role Phone ELDER FLORES Primary Care Provider [phone] Assessment Encounter Date Assessment Date Assessment LastModified by Organization Details LastModified Time 07/27/2023 07/27/2023 Assessment: Bilateral thumb CMC arthritis, STT arthritis, bilateral carpal tunnel syndrome based on clinical exam, initial diagnosis today. Plan: Pathophysiology of each of these problems has been reviewed in detail. Initial treatment for carpal tunnel syndrome will include nighttime splinting and bilateral upper extremity EMG is ordered to confirm the diagnosis and assess severity thereof. She is also provided prescriptions for bilateral thumb splints for CMC arthritis. She is counseled on splint wear. Follow-up after the nerve studies have been performed so we can review the results together. The patient is ambulatory, but has weakness and/or instability of their extremity which requires stabilization from this semi-rigid/rigid orthosis to improve their function. Verbal and written instructions for their use and application of this item were given. patient was instructed that should the brace result in increased pain, decreased sensation, increased swelling or an overall worsening of their medical condition, to please contact our office immediately. [email or web address] Not available 07/27/2023 17:00:54 11/23/2023 11/23/2023 Assessment: Bilateral thumb CMC arthritis, STT arthritis, bilateral carpal tunnel syndrome confirmed to be moderate on recent EMG Plan: We have discussed her treatment options for each of these problems. For the carpal tunnel syndrome, she understands the treatment options remaining include a cortisone injection which would be expected to provide temporary relief of her symptoms versus surgical release. She has elected to proceed with scheduling for a right carpal tunnel release. She has had cortisone injections for knee arthritis in the past and is interested in trying cortisone injections for the thumb arthritis but would prefer to have the first injections performed at the time of the carpal tunnel release surgery under sedation. Surgical consents are obtained today for right carpal tunnel release with bilateral thumb CMC joint injections. Postoperative recovery questions have been addressed. Risks of surgery include but not limited to: Infection, bleeding, damage small tissues, need for future surgeries. Benefits are found outweigh the risks and appropriate preoperative consents have been obtained today surgery to be scheduled with my executive legal secretary. [email or web address] Not available 11/23/2023 11:59:29 Plan of Treatment Reminders Order Date Submit Date Provider Last Modified By Organization Details Last Modified Time Details Appointments None record ed. Lab None record ed. Referral None record ed. Procedures nerve conduc tion study/ EMG (PROC) - diag bilat cts please do emg/nc vs upper extrem ities bilate ral please call pt with time and date of appt 2023 024 [facility] ([facility]), [address], [address], 4 13:41:42 Surgeries None record ed. Imaging XR, hand, 3 or more view - 3 views bilate ral hands pt in room 113 2023 024 ranjith Not available 14:39:38 Medication Orders None record ed. Patient TargetsNo targets recorded. Patient Instructions Encounter Date Encounter Id Patient Instructions Last Modified By Organization Details Last Modified Time 07/26/2024 [id number] work restrictions, upper extremity* - Dr. Mallory right carpal tunnel release 07/12/2024 [email or web address] Not available 07/26/2024 08:58:00 Reason for Referral None Reported. Results Created Date Observation Date Name Description Value Unit Range Abnormal Flag Note LastModifiedBy Organization Detail LastModifiedTime 10/28/19 24 10/23/2023 nerve condu ction study /EMG (PROC ) No observ ation record ed. [facility] [address], Jaden [place]agg[place], [id number], 10/28/2023 14:17:06 11/07/19 24 06/05/2020 patricki ng/danny art tic resul t No observ ation record ed. [email or web address] Not Available 10/09 01:09:53 Result Notes None recorded. Problems Name Problem SNOMED Code Status Onset Date Resolution Date Notes Provider Name and Address Organization Details Recorded Time No complaints 288188909 Active Status: 'I'; Not Available [facility] 4 09:21:01 Idiopathic osteoarthri tis 978922857 Active 2017 Problem Code: M17.12; Problem Code Type: ICD-10; Status: 'A'; Not Available [facility] 4 11:57:44 Problem Notes None recorded. Procedures Surgical History Date Name Laterality Status Provider Name and Address Organization Details Recorded Time CARPAL TUNNEL RELEASE (SURG) completed EDGAR BOLANOS [place] [facility] [place] [facility] 07/13/2024 12:49:31 Imaging Results None recorded. Procedure Notes None recorded. Medical Equipment None Reported. Medications Name Sig Start Date Stop Date Status Note LastModified by Organization Details LastModified Time cyclobenzap rine 10 mg tablet TAKE ONE TABLET BY MOUTH AT BEDTIME active Not Available Not Available No t Available amoxicillin 500 mg capsule TAKE 4 CAPSULES BY MOUTH 1 HOUR PRIOR TO APPOINTME NT active Not Available Not Available No t Available levothyroxi ne 137 mcg tablet TAKE ONE TABLET BY MOUTH EVERY DAY active Not Available Not Available No t Available trazodone 50 mg tablet TAKE 1 TO 2 TABLETS BY MOUTH AT BEDTIME active Not Available Not Available No t Available sucralfate 1 gram tablet TAKE ONE TABLET BY MOUTH FOUR TIMES A DAY ON AN EMPTY STOMACH 30 TO 60 MINUTES BEFORE A MEAL AND AT BEDTIME active Not Available Not Available No t Available famotidine 40 mg tablet TAKE ONE TABLET BY MOUTH TWICE A DAY FOR 10 DAYS active Not Available Not Available No t Available prednisone 5 mg tablet TAKE 1 TABLET BY MOUTH ONCE A DAY. active Not Available Not Available No t Available diphenoxyla te-atropine 2.5 mg-0.025 mg tablet TAKE ONE TO TWO TABLETS BY MOUTH EVERY 6 HOURS IF NEEDED FOR DIARRHEA active Not Available Not Available No t Available omeprazole 40 mg capsule,del ayed release TAKE ONE CAPSULE BY MOUTH TWICE A DAY active Not Available Not Available No t Available acetaminoph en 500 mg tablet TAKE ONE TABLET BY MOUTH EVERY 6 HOURS FOR PAIN active Not Available Not Available No t Available alprazolam 0.5 mg tablet TAKE ONE TABLET BY MOUTH TWICE A DAY active Not Available Not Available No t Available famotidine 20 mg tablet TAKE 1 TABLET BY MOUTH TWO TIMES A DAY active Not Available Not Available No t Available hyoscyamine ER 0.375 mg tablet,exte nded release,12 hr TAKE ONE TABLET BY MOUTH EVERY 12 HOURS active Not Available Not Available No t Available gabapentin 300 mg capsule TAKE ONE CAPSULE BY MOUTH DAILY AT BEDTIME active Not Available Not Available No t Available ibuprofen 600 mg tablet TAKE ONE TABLET BY MOUTH EVERY 6 HOURS NEEDED FOR PAIN active Not Available Not Available No t Available albuterol sulfate HFA 90 mcg/actuati on aerosol inhaler INHALE TWO PUFFS BY MOUTH TWICE A DAY NEEDED active Not Available Not Available No t Available ondansetron 4 mg disintegrat ing tablet DISSOLVE ONE TABLET BY MOUTH EVERY 6 HOURS NEEDED NAUSEA active Not Available Not Available No t Available cefdinir 300 mg capsule TAKE ONE CAPSULE BY MOUTH TWICE A DAY FOR 7 DAYS active Not Available Not Available No t Available fluticasone propionate 50 mcg/actuati on nasal spray,suspe nsion SPRAY 1 SPRAY INTO BOTH NOSTRILS TWICE A DAY. active Not Available Not Available No t Available loratadine 10 mg tablet TAKE 1 TABLET BY MOUTH ONCE A DAY active Not Available Not Available No t Available amoxicillin 875 mg-potassiu m clavulanate 125 mg tablet TAKE ONE TABLET BY MOUTH TWICE A DAY FOR 7 DAYS active Not Available Not Available No t Available oxycodone 5 mg tablet TAKE ONE TABLET BY MOUTH EVERY 6 HOURS NEEDED FOR PAIN active Not Available Not Available No t Available metoprolol tartrate 25 mg tablet TAKE ONE-HALF TABLET BY MOUTH TWICE A DAY active Not Available Not Available No t Available omeprazole active Not Available Not Av ailable Not Available levothyroxi ne (bulk) active Not Available Not Available No t Available diclofenac 1 % topical gel APPLY TO AFFECTED AREA S) FOUR TIMES A DAY active Not Available Not Available No t Available oxycodone HCl-oxycodo ne-ASA 1-2 tabs every 6 [address] pain[address] Do not drive while on this medicatio n. 04/08/ 2021 04/13 /2022 completed Statu s: 'Disc ontin ued'; Not Available Not Available Not Available Humira(CF) Pen Crohn's-Ulc Colitis-Hid Sup Strt 80 mg/0.8 mL subcut kt active Not Available Not Available No t Available Vitals Date Recorded Body height Body mass index (BMI) Body weight Provider Name and Address Organization Details Last Updated DateTime 07/27/2023 170.18 cm 20.8 kg/m2 89106.79 g REYNOLD OCTAVIOHARVEY [facility] 07/27/2023 14:22:37 Date Recorded Body height Body mass index (BMI) Body weight Provider Name and Address Organization Details Last Updated DateTime 11/23/2023 170.18 cm 21.8 kg/m2 53286.34 g REYNOLD COOPER [facility] 11/23/2023 11:05:22 Social History None recorded. Functional Status None recorded. Mental Status None recorded. Family History Nothing Reported. Medical History No medical history recorded. Gynecological HistoryNo gynecological history recorded. Obstetrics History GPAL:G 0 P 0 0 0 0 Past Encounters Encounter ID Performer Location Encounter Start Date Encounter Closed Date Diagnosis/Indication Diagnosis SNOMED-CT Code Diagnosis ICD10 Code Diagnosis IMO Codes Diagnosis Note [id number] MD Emily Prara [address] [place] [address] [address] [place] [address] 07/27/2023 13:58:08 08/17/2023 11:16:24 Pain of bilateral hands 5987842519 6606067 M79.642 M79.641 Carpal bernadette shey syndrome of left wrist 1874431853 46736 G56.02 Carpal bernadette shey syndrome of right wrist 0141967414 74832 G56.01 Osteoarthr osis of the carpometacarpal joint of the thumb 90849044 M18.9 [id number] MD Emily Parra [address] [place] [address] 11/23/2023 10:55:10 12/03/2023 08:28:53 Osteoarthrosis of the carpometacarpal joint of the thumb 60978395 M18.9 Carpal bernadette shey syndrome of left wrist 4197630559 44083 G56.02 Carpal bernadette shey syndrome of right wrist 7283685411 75813 G56.01 [id number] Cathy Monique, OTR/L,CHT NI[facility] [address] [place] [address] 07/26/2024 08:32:44 07/26/2024 08:58:07 Carpal tunnel syndrome of right wrist 2122710879 47961 G56.01 [id number] The surgical wound is inspected and found to be clean and dry. The edges of the incision are approximat ed with intact sutures. Patient has intact neurovascu lar structures with only slight tenderness at the incision. No surroundin g erythema, wound drainage, warmth or signs of infection. The patient states no pain when palpating around the surgical site and the surroundin g structures . The digits on the involved hand are able to demonstrat e a nearly full composite fist. Digits are able to demonstrat e full extension/ hyperexten mishel to open and flatten the palm. The wrist has nearly full flexion /extension /circumduc tion range of motion. The distal sensation for light touch is assessed. The patient is able to demonstrat e a positive response to light touch. Postoperative visit 8566 69938 Z48.89 [id number] Sutures are removed today without complicati on. Scar massage was instructed with a handout given to the patient. A small amount of therapy putty was introduced and demonstrat ed with the correspond ing worksheet was provided as well. Per the surgeon , since there are no wound care complicati ons or concerns, no follow up appointmen t needed. The patient was instructed to contact the office if there should arise any concerns with the surgical site or if there is not sufficient functional recovery. This office visit was complete at 15 minutes. Health Concerns Section Related Observation LastModified by Organization Detai ls LastModified Time None Recorded Concern Status LastModified by Organization Details LastModified Time None Recorded Advance Directives Directive None Recorded Payers Insurance Date Sequence Insurance Name Policy Number Policy Varma Covered Member ID Varma Member ID Guarantor Name 08/11/2024 1 [place] [facility] [place] [id number] Emperatriz Gonzalez [id number] Emperatriz Gonzalez Notes Date Note Type Note Provider Name and Address Organization Details Recorded Time 4 text/html ROS as noted in the HPI Patient is a 63-year-old uifdu-slld-ukpvcxot 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 She is here today with her daughter who had a carpal tunnel release in the past and feels that her symptoms are similar to those that are experienced. Symptoms are worse on the right side than the left. She has not tried any splints she has had no injections no electrodiagnostic studies. She also has pain at the base of the thumb with pinching nurse paralegal activities she has difficulty opening bottles and jars. 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 Symptoms are worse on the right side than the left. She has pain at the base of the thumb with pinching nurse paralegal activities she has difficulty opening bottles and jars. At the initial visit, EMG was ordered to assess for severity of nerve compression. She was also provided splints for each problem. Brace: +/- relief, the daytime splints for the thumb arthritis were more helpful. Vanessa Mallory MD [address], [place], [address], [facility] 11/23/2023 12:00:10 5 text/html This is a 64-year-old woman who had a right carpal tunnel release procedure on 07/12/[address] Mallory. Today at 2 weeks postop we will assess the postoperative site remove the sutures and advise on a home program. Cathy Monique, OTR/L,CHT [address], [place], [address], [facility] 07/26/2024 08:58:02 OBGyn Episode No OBEpisode recorded.
--- NOTE | 2025-01-24 11:15 | HO.ANESPROP2 ---
Documented by User: Matilde Dyson NP 01/24/25 11:18 HPI - Anesthesia Eval Consult details Narrative: 64 yr old female for L3-L4-DR L5 Medial Branch Block s/p upper endo, colon with TIVA 06/2024 GERD: controlled on PPI CAD-s/p ISIDRO x1 at age 48. Has not seen Cardiology in over 10 years. However, has no recurrent chest pain. Continues on baby aspirin, metoprolol. *Info obtained from 08/2024 PCP note Takes Xanax bid PMFSH Active Problems Active Problems: All Active Problems Chronic low back pain (Acute) Crusting of skin of eyelid (Acute) Lumbosacral spondylosis (Acute) Lumbar scoliosis (Acute) Lumbar degenerative disc disease (Acute) Lumbar radiculopathy, right (Acute) Seborrheic keratosis (Acute) Atypical nevi (Acute) Osteopenia (Acute) Fatigue (Acute) Right leg paresthesias (Acute) Multilevel degenerative disc disease (Acute) CAD (coronary artery disease) (Acute) Barretts esophagus (Acute) Hypothyroidism (Acute) Hyperlipidemia (Acute) Encounter for well woman exam with routine gynecological exam (Acute) Past Medical History Medical History Chronic low back pain Seborrheic keratosis Osteopenia Right leg paresthesias Multilevel degenerative disc disease CAD (coronary artery disease) Encounter for well woman exam with routine gynecological exam On beta rena at home Back pain History of degenerative disc disease Scoliosis Erosive esophagitis Collagenous colitis Barretts esophagus GERD (gastroesophageal reflux disease) Hyperlipidemia Hypothyroidism Anxiety Myocardial infarction Family History Family History Father Diabetes Family/Other Breast cancer Cervical cancer Skin cancer Family history of problems with anesthesia: No Surgical History Surgical History (Updated 01/27/25 @ 09:54 by Chanelle Alvarado RN) History of carpal tunnel surgery of right wrist H/O heart artery stent History of total left knee replacement History of endometrial ablation History of tubal ligation Hx of varicose vein ligation and stripping Hx of esophagogastroduodenoscopy Hx of colonoscopy (06/20/24) History of Problems with Anesthesia: No Social History Social History Are you a primary acute care certified nursing assistant to a significant other at home: No Do you presently have visiting nurse or other home services: No Alcohol intake: former Patient Tobacco Use Status: Former Tobacco user Tobacco use type: Cigarette Second Hand Smoke Exposure: No Use of substances other than those prescribed or required for medical reasons: No Have you been hit, kicked, punched, or otherwise hurt by someone within the past year? If so, by whom?: No Are you DNR?: No Advance Directives: No Advance Directives Information Provided: Yes Advance Directives on File: No Patient : No : No Sexual orientation: Straight/Heterosexual Gender identity: Female Meds Allergies Allergy/AdvReac Type Severity Reaction Status Date / Time droperidol (From Inapsine) Allergy Intermediate SHAKING Verified 12/27/24 10:20 Home Medications ?Medication ?Instructions ?Recorded ?Confirmed ?Last Taken ?Type albuterol sulfate 90 mcg/actuation 2 puff PO BID PRN Wheezing 07/22/21 01/27/25 Unknown History aerosol inhaler aspirin 81 mg tablet,delayed 81 mg PO DAILY 07/22/21 01/27/25 06/09/23 History release calcium carbonate 600 mg PO DAILY 07/22/21 01/27/25 Unknown History diphenoxylate-atropine 2.5 1 - 2 tab PO Q6H PRN diarrhea 07/22/21 01/27/25 Unknown History mg-0.025 mg tablet hyoscyamine sulfate 0.375 mg 1 tab PO Q12H 07/22/21 01/27/25 Unknown History tablet,extended release,12 hr loratadine 10 mg tablet 1 tab PO DAILY 07/22/21 01/27/25 Unknown History multivitamin with minerals 1 tab PO DAILY 07/22/21 01/27/25 Unknown History omeprazole 40 mg capsule,delayed 1 cap PO DAILY 07/22/21 01/27/25 07/26/21 History release prednisone 5 mg tablet 10 mg PO DAILY 07/22/21 01/27/25 01/27/25 History simethicone 80 mg chewable tablet 80 mg PO BEDTIME PRN Abdominal 07/22/21 01/27/25 Unknown History Discomfort ascorbic acid (vitamin C) 500 mg 500 mg PO DAILY 06/12/23 01/27/25 06/06/24 History tablet (Vitamin C) sucralfate 1 gram tablet 1 g PO QID 06/16/23 01/27/25 Unknown History Assessment and Plan Final Anesthetic Review Family History of Problems with Anesthesia: No History of Problems with Anesthesia: No Documented by User: Kaleb Carey MD 01/27/25 11:43 [facility] Past Medical History Medical History Chronic low back pain Seborrheic keratosis Osteopenia Right leg paresthesias Multilevel degenerative disc disease CAD (coronary artery disease) Encounter for well woman exam with routine gynecological exam On beta rena at home Back pain History of degenerative disc disease Scoliosis Erosive esophagitis Collagenous colitis Barretts esophagus GERD (gastroesophageal reflux disease) Hyperlipidemia Hypothyroidism Anxiety Myocardial infarction Family History Family History Father Diabetes Family/Other Breast cancer Cervical cancer Skin cancer Surgical History Surgical History (Updated 01/27/25 @ 09:54 by Chanelle Alvarado RN) History of carpal tunnel surgery of right wrist H/O heart artery stent History of total left knee replacement History of endometrial ablation History of tubal ligation Hx of varicose vein ligation and stripping Hx of esophagogastroduodenoscopy Hx of colonoscopy (06/20/24) Social History Social History Are you a primary acute care certified nursing assistant to a significant other at home: No Do you presently have visiting nurse or other home services: No Alcohol intake: former Patient Tobacco Use Status: Former Tobacco user Tobacco use type: Cigarette Second Hand Smoke Exposure: No Use of substances other than those prescribed or required for medical reasons: No Have you been hit, kicked, punched, or otherwise hurt by someone within the past year? If so, by whom?: No Are you DNR?: No Advance Directives: No Advance Directives Information Provided: Yes Advance Directives on File: No Patient : No : No Sexual orientation: Straight/Heterosexual Gender identity: Female Meds Allergies Allergy/AdvReac Type Severity Reaction Status Date / Time droperidol (From Inapsine) Allergy Intermediate SHAKING Verified 12/27/24 10:20 Home Medications ?Medication ?Instructions ?Recorded ?Confirmed ?Last Taken ?Type albuterol sulfate 90 mcg/actuation 2 puff PO BID PRN Wheezing 07/22/21 01/27/25 Unknown History aerosol inhaler aspirin 81 mg tablet,delayed 81 mg PO DAILY 07/22/21 01/27/25 06/09/23 History release calcium carbonate 600 mg PO DAILY 07/22/21 01/27/25 Unknown History diphenoxylate-atropine 2.5 1 - 2 tab PO Q6H PRN diarrhea 07/22/21 01/27/25 Unknown History mg-0.025 mg tablet hyoscyamine sulfate 0.375 mg 1 tab PO Q12H 07/22/21 01/27/25 Unknown History tablet,extended release,12 hr loratadine 10 mg tablet 1 tab PO DAILY 07/22/21 01/27/25 Unknown History multivitamin with minerals 1 tab PO DAILY 07/22/21 01/27/25 Unknown History omeprazole 40 mg capsule,delayed 1 cap PO DAILY 07/22/21 01/27/25 07/26/21 History release prednisone 5 mg tablet 10 mg PO DAILY 07/22/21 01/27/25 01/27/25 History simethicone 80 mg chewable tablet 80 mg PO BEDTIME PRN Abdominal 07/22/21 01/27/25 Unknown History Discomfort ascorbic acid (vitamin C) 500 mg 500 mg PO DAILY 06/12/23 01/27/25 06/06/24 History tablet (Vitamin C) sucralfate 1 gram tablet 1 g PO QID 06/16/23 01/27/25 Unknown History Exam Airway Mallampati Class: I TM Dist: <=3cm Neck ROM: Full Loose/Missing/Broken Teeth: No Heart: ok, see above. Lungs: ok. Assessment and Plan Assessment Anesthesia Assessment: Anesthesia Plan Discussed and Chart Reviewed Final Anesthetic Review NPO: Yes ASA Class: III Final Preanesthetic Review: No Changes in Pt Med Stat, Meds/Allgs Chart Reviewed, Consent Obtained/Reviewed and Anes Risks/Benef Reviewed Patient Risk: Intermediate Procedure Risk: Intermediate Anesthetic Plan Anesthetic Plan: MAC: and Agree w/ Assess. and Plan Disposition: Standard PACU
--- NOTE | ~2025-01-27 | FL_ITS ---
EXAMINATION: FL GUIDANCE ONLY HISTORY: L3 L4 DR L5 MBB COMPARISON: None available. TECHNIQUE: Fluoroscopy time: 42 seconds. Cumulative Dose: 6.90 mGy. DAP: 300.69 uGym2 Images: 12. FINDINGS: Fluoroscopic spot films of the lumbar spine demonstrate needles and contrast material in the regions of the bilateral L3-4, L4-5, and L5-S1 facet joints. FL/FL guidance in OR IMPRESSION: Fluoroscopy during procedure. Please see procedure report for additional information. Electronically signed by: Mathew Youngblood MD 01/27/2025 02:33 PM EST
[2025-01-27 09:46] VITALS: BMI 20.1
[2025-01-27 10:01] VITALS: BP 111/63; PULSE 60; RESP 16; TEMP 36.1; O2SAT 100
[2025-01-27] MEDS: Lactated Ringers 1,000 ML 100 ML IVCONT (10:02)
--- NOTE | 2025-01-27 11:10 | MHC.SHP ---
Pre-Procedural Eval Section A - 24 Hr Update-Section A only Date of Service: 01/27/25 The patient is an INPATIENT: No Changes since office visit: Yes Patient answered all questions The patient has been examined within 24 hours of the surgical procedure. The History & Physical has been completed within 30 days and I have reviewed it.: No Section B - Complete if H&P > 30 days Chief Complaint: Spondylosis without myelopathy or radiculopathy, Details of Present Illness: As above Relevant Family History (Specify if Yes): No Relevant Social History: None Present Medications: see Short Stay Collaborative assessment Medical History: No relevant PMH History of Previous Operations: No relevant previous surgery Allergies: Allergies Allergy/AdvReac Type Severity Reaction Status Date / Time droperidol (From Inapsine) Allergy Intermediate SHAKING Verified 12/27/24 10:20 Review of Systems Sugical H&P ROS: Negative: Constitution, Respiratory, Neurological, Psychiatric, Hem-Onc, Allergic/Immunologic, Genitourinary, Integumentary and Eyes/Ears/Nose/Throat and Yes, Specify: Cardiovascular (CAD), Gastrointestinal (Ramu Esophagus), Musculoskeletal (spondylosis lumbar) and Endocrine (hypothyroidism, osteopenia) Exam Surgical H&P Exam: Normal: HEENT, Normal: Heart, Normal: Lungs, Normal: Extremities, Normal: Abdomen, Normal: Skin and Normal: Neurological Plan Diagnosis/Plan: Unchanged I have reviewed the history and physical and performed a pertinent physical examination on my patient. No changes have occurred unless specified. Time Spent With Patient Time: Total time managing care of this patient today __5__ minutes.
[2025-01-27 11:59] VITALS: BP 113/62; PULSE 67; RESP 16; TEMP 36.4; O2SAT 97
[2025-01-27 12:00] VITALS: BP 124/61; PULSE 62; RESP 16; O2SAT 97
--- NOTE | 2025-01-27 12:03 | P.BOP_ITS ---
Brief Operative Note Date of Service: 01/27/25 Pre-op diagnosis: Spondylosis lumbar without myelopathy or radiculopathy Procedure: Diagnostic medial branch block L3, L4, dorsal ramus L5 bilateral. Surgeon: Kash Venegas MD Anesthesia: MAC Was an Unemployment Insurance Hearing Officer used for this Procedure?: No Estimated blood loss (mL): 0 Condition: stable Disposition: PACU
[2025-01-27 12:05] VITALS: BP 121/61; PULSE 63; RESP 16; O2SAT 97
--- NOTE | 2025-01-27 12:05 | P.OP_ITS ---
Operative Note Operative Note Date of Service: 01/27/25 Narrative: Diagnostic medial branch block L3,L4 dorsal ramus L5 bilateral.? ? ?Informed consent was explained to the patient. All questions were explained and? answered.? The patient was taken inside the operating room where she was positioned prone on the operating table. Time-out was performed delineating correct site, side, the nature of the procedure, patient's allergy, . All operating room staff was participating in OR time-out procedure. ASA monitors were applied and patient was deeply sedated. The lower back was prepped with ChloraPrep and draped with sterile utility towels.? C-arm was brought over the operating field and sq picture of L4-, L5 vertebra and S1 AREA were delineated on the screen.? Point of interest were delineated as confluence of superior articular process of L4 and L5 vertebra bilaterally with corresponding transverse processes as well as confluence of the sacral alae bilaterally with superior articular process of S1.? The projection of the point of interest to the skin were in jected with the small amount of local anesthetic lidocaine 2% mixed with ropivacaine 0.5% 1-1 approximately 1 cc.? After that 22 gauge 3.5 inch spinal needle was driven sequentially to the points of interest in tunnel vision fashion. After needles gently contacted the bone at the point of interests the needle was injected with small amount of the contrast.? The injection of the contrast did not demonstrate any intravascular or intrathecal spread of the contrast.? After that injection of the? ropivacaine 0.5%-1cc was performed at each needle location.?After that the needles were removed and Bandaids were applied.
[2025-01-27 12:10] VITALS: BP 113/62; PULSE 61; RESP 16; O2SAT 97
[2025-01-27 12:15] VITALS: BP 122/62; PULSE 60; RESP 16; O2SAT 98
== END 2025-01-27 12:50 | disposition home or self-care (01) ==
PROVIDERS: PCP Internal Medicine; Visit Provider Anesthesiology
PROC: (CPT 64493; principal; 2025-01-27 10:40)
DX: M47.817 Spondylosis without myelopathy or radiculopathy, lumbosacral region (principal); G89.29 Other chronic pain; M54.16 Radiculopathy, lumbar region; R20.0 Anesthesia of skin; M85.80 Other specified disorders of bone density and structure, unspecified site; M41.86 Other forms of scoliosis, lumbar region; M51.360 Other intervertebral disc degeneration, lumbar region with discogenic back pain only; I25.10 Atherosclerotic heart disease of native coronary artery without angina pectoris; I25.2 Old myocardial infarction; Z95.5 Presence of coronary angioplasty implant and graft; E78.5 Hyperlipidemia, unspecified; Z96.652 Presence of left artificial knee joint; Z79.899 Other long term (current) drug therapy; Z88.8 Allergy status to other drugs, medicaments and biological substances; Z87.891 Personal history of nicotine dependence
CPT/HCPCS: 64493; 64494; J2003; J2250; J2704; J2795; Q9967

== ENCOUNTER → 2025-01-27 09:37 | Outpatient (BNV) | payer BC, SELFPAY | PROVIDERS: PCP Internal Medicine; Visit Provider Anesthesiology | DX: M47.816 Spondylosis without myelopathy or radiculopathy, lumbar region (principal) | CPT/HCPCS: 64493; 64494 ==

== ENCOUNTER 2025-02-06 11:15 | Outpatient (AMB) | payer BC, SELFPAY ==
--- OUTSIDE RECORDS SUMMARY | 2025-02-04 23:59 | XMS_ITS | Continuity of Care Document ---
Author Organization [facility] Address [address] [place] [id number] Care Team Providers Care Instructional Materials Director Name Role Phone Jeff Marcelo MD Primary Care Physician Encounter [facility] [id number] Date(s): 01/05/25 - 02/04/25 [facility] [address] [place] [id number] Encounter Type: Triage Allergies, Adverse Reactions, Alerts Substance Criticality Severity Reaction Reaction Severity Status Inapsine Active Medications acetaminophen 325 mg oral tablet 650 mg, By Mouth, Every 6 hours, May take OTC, not to exceed 3000 mg/day, Refills 0, Maintenance, 06/06/20 8:25:00 AM EDT, Partial fill upon patient request if the prescription is for a schedule II opioid drug. Start Date: 06/06/20 Status: Ordered Medication Dispense Status: Completed Total Allowed Fills: 1 Fills Dispensed: 0 ALPRAZolam 0.5 mg oral tablet 0.5 mg, 1, tablet, By Mouth, 2 times a day, Refills 0, Maintenance, 06/05/20 6:56:00 AM EDT, Partialfill upon patient request if the prescription is for a schedule II opioid drug. Start Date: 06/05/20 Status: Ordered Medication Dispense Status: Completed Total Allowed Fills: 1 Fills Dispensed: 0 Aspirin Tablet 81 mg, By Mouth, Daily, Refills 0, Maintenance, 06/06/20 8:25:00 AM EDT, Partial fill upon patient request if the prescription is for a schedule II opioid drug. Start Date: 06/06/20 Status: Ordered Medication Dispense Status: Completed Total Allowed Fills: 1 Fills Dispensed: 0 atorvastatin 10 mg oral tablet 1 tablet, By Mouth, Daily, # 90 tablet, 3 Refills, Maintenance, 07/21/22 10:02:00 AM EDT, [facility], 169, cm, 08/23/21 14:23:00 EDT, Height Start Date: 07/21/22 Status: Ordered Medication Dispense Status: Completed Quantity: 90.0 Unit: tablet Total Allowed Fills: 1 Fills Dispensed: 0 famotidine 20 mg oral tablet 20 mg, 1, tablet, By Mouth, 2 times a day, # 60 tablet, Refills 0, Maintenance, 05/29/20 10:09:00 AMEDT, Partial fill upon patient request if the prescription is for a schedule II opioid drug. Start Date: 05/29/20 Status: Ordered Medication Dispense Status: Completed Quantity: 60.0 Unit: tablet Total Allowed Fills: 1 Fills Dispensed: 0 hyoscyamine 0.375 mg dual-release oral tablet, extended release 1 tablet = 0.375 mg, By Mouth, Every 12 hours, # 28 tablet, 0 Refills, Maintenance, 05/29/20 10:10:00 AM EDT, ER Tablet, Partial fill upon patient request if the prescription is for a schedule II opioid drug. Start Date: 05/29/20 Status: Ordered Medication Dispense Status: Completed Quantity: 28.0 Unit: tablet Total Allowed Fills: 1 Fills Dispensed: 0 levothyroxine 137 mcg (0.137 mg) oral capsule 1 capsule = 137 mcg, By Mouth, Daily, # 30 capsule, 0 Refills, Maintenance, 05/29/20 10:14:00 AM EDT, Capsule, Partial fill upon patient request if the prescription is for a schedule II opioid drug. Start Date: 05/29/20 Status: Ordered Medication Dispense Status: Completed Quantity: 30.0 Unit: capsule Total Allowed Fills: 1 Fills Dispensed: 0 Lipitor 10 mg oral tablet 1 tablet = 10 mg, By Mouth, Daily, # 90 tablet, 3 Refills, Maintenance, 01/04/21 4:52:00 PM EDT, [facility], 169, cm, 06/06/20 11:11:00 EDT, Height, 59.1, kg, 06/05/20 7:02:00 EDT, Dry Weight Start Date: 01/04/21 Stop Date: 12/30/21 Status: Ordered Medication Dispense Status: Completed Quantity: 90.0 Unit: tablet Total Allowed Fills: 4 Fills Dispensed: 0 metoprolol 25 mg oral tablet 12.5 mg, 0.5, tablet, By Mouth, 2 times a day, # 180 tablet, Refills 0, Tot. Refills 0, Maintenance, 05/29/20 10:26:00 AM EDT, Print Requisition, Partial fill upon patient request if the prescription is for a schedule II opioid drug. Start Date: 05/29/20 Status: Ordered Medication Dispense Status: Completed Quantity: 180.0 Unit: tablet Total Allowed Fills: 1 Fills Dispensed: 0 nitroglycerin 0.4 mg sublingual tablet 1 tablet, Sublingual, Once, PRN Chest Pain, one time only for chest pain and SBP greater than 100 mmHg, # 25 tablet, 0 Refills, Soft Stop, 08/25/08 10:12:00 AM EDT Start Date: 08/25/08 Status: Ordered Medication Dispense Status: Completed Quantity: 25.0 Unit: tablet Total Allowed Fills: 1 Fills Dispensed: 0 omeprazole 20 mg oral enteric coated capsule = 40 mg, By Mouth, 2 times a day, # 30 capsule, 0 Refills, 08/25/08 5:22:03 PM EDT Start Date: 08/25/08 Status: Ordered Medication Dispense Status: Completed Quantity: 30.0 Unit: capsule Total Allowed Fills: 1 Fills Dispensed: 0 predniSONE 5 mg oral tablet 1 tablet = 5 mg, By Mouth, Daily, # 50 tablet, 0 Refills, Maintenance, 05/29/20 10:14:00 AM EDT, Tablet, Partial fill upon patient request if the prescription is for a schedule II opioid drug. Start Date: 05/29/20 Status: Ordered Medication Dispense Status: Completed Quantity: 50.0 Unit: tablet Total Allowed Fills: 1 Fills Dispensed: 0 Sucralfate = 600 mg, By Mouth, 3 times a day before meals and bedtime, 0 Refills, Maintenance, 08/23/21 2:28:00PM EDT, Partial fill upon patient request if the prescription is for a schedule II opioid drug. Start Date: 08/23/21 Status: Ordered Medication Dispense Status: Completed Total Allowed Fills: 1 Fills Dispensed: 0 traZODone 50 mg oral tablet 50 mg, 1, tablet, By Mouth, Daily at bedtime, # 30 tablet, Refills 0, Maintenance, 06/05/20 6:56:00 AM EDT, Partial fill upon patient request if the prescription is for a schedule II opioid drug. Start Date: 06/05/20 Status: Ordered Medication Dispense Status: Completed Quantity: 30.0 Unit: tablet Total Allowed Fills: 1 Fills Dispensed: 0 Problem List Condition Confirmation Course Effective Dates [...] Confirmed Active History of smoking Confirmed Active Social History Social History Type Response Smoking Status Former smoker, quit more than 30 days ago entered on: 05/09/24 Sex Sex Representation Female (finding) Patient Care team information Care Team Personnel Name: Jeff Marcelo MD Position: [facility] Outreach Member Role: PCP Address: [address] [place] [address] Jeff Marcelo MD [place], [place] [address] Telecom: Name: Jelena Stringer RN Position: [facility] RN Member Role: Primary Care Nurse Care Team Related Persons Name: BETTIE MOREIRA Insurance Providers Guarantor name: MARISOL Health Plan Information #: 1 Payer: [facility] Payer Identifier: MARISOL Member Number: [id number] Group Number: [id number] Subscriber Identifier: MARISOL Relationship to Subscriber: spouse Coverage Type: NA Coverage Verification Date: Telecom: Address:
--- NOTE | 2025-02-06 11:18 | A.OFFVIS_ITS ---
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 Venegas. Following the procedure, the patient experienced significant pain relief for more than 3 days and reports very little current discomfort. Reports current 0/10 pain. The patient also has a history of chronic, intermittent right leg radicular pain, which has unexpectedly improved significantly since the injections, despite no steroids being administered. Prior to the injections, the pain was described as awful. Since the procedure, the patient reports sleeping better, functioning better, and walking more. Patient is interested to proceed with lumbar medial branch radiofrequency ablation for a longer term pain relief. Denies any recent cough, cold, infection, fever or any significant changes in medical history since last office visit. Past Procedures: 01/27/25: Bilateral Diagnostic L3-L4-DR L5 MBB-90% pain relief for >3 days PRIOR: The patient is a 64-year-old female presenting with chronic low back pain due to arthritis and lumbar spinal stenosis associated pain. Back pain is persistent and significant, ranging from moderate to severe, and has been impacting her daily activities. She is apprehensive about GABBIE injections and back surgery, seeking alternative management options to address her axial low back pain. Patient reports, since last visit in August, her right leg symptoms have been intermittent. She reports lower back pain with prolonged standing, movements, especially bending backwards or side rotations. She also reports mild to moderate pain with bending down or vacuuming. The patient has a history of multilevel lumbar spondylosis, which contributes to her lower back pain. Imaging from a year ago revealed disc bulging and foraminal narrowing, particularly wruvrgfy-px-fscpsf right foraminal narrowing at L4-5 le adamaris which exacerbates her right leg symptoms. She reports that her back pain varies with activity, sometimes improving slightly but often worsening with exertion. The pain primarily affects her lower back rather than her right leg, although intermittent numbness in the leg is noted. The patient has tried physical therapy, which provides temporary relief, and she continues exercises at home as instructed. She is cautious about starting new medications without knowing her current vitamin levels, particularly vitamin D and calcium for osteopenia. In July, she experienced carpal tunnel syndrome, which required cortisone injections administered under sedation due to her fear of the procedure. She is interested to undergo diagnostic lumbar medial branch blocks under light sedation for potential Sprint PNS trial or RFA procedures. Denies any recent cough, cold, infection, fever or any significant changes in medical history since last office visit. PRIOR: The patient is a 64-year-old female presenting with chronic back pain radiating to the right leg. The back pain has been present for several years, with the patient reporting it started a couple of years ago. The pain is described as aching, heavy, shooting, radiating, throbbing and lancinating, with a severity of 10/10, affecting daily activities and mobility but not sleep. The pain radiates from the lower back across both buttocks and down the right leg, anterior thigh and into lateral shine with associated numbness and tingling. The patient denies any trauma or injury as a cause of the pain. 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 The patient has not undergone any recent physical therapy, massage, acupunture, TENS unit or chiropractic manipulation for the back pain. She completed PT about 6 years ago with partial relief. She has been using Tylenol for pain relief, which provides some alleviation. The patient also uses a heating pad at night, which helps reduce the pain. The patient has significant scoliosis with kyphotic posture and osteoarthritis, with imaging showing disc degeneration and spinal stenosis at L4-L5. She also has history of a left knee replacement four years ago, which healed well. The patient has a history of a bleeding ulcer and is currently taking prednisone for stomach issues per GI provider. She experienced a myocardial infarction at age 48 and currently takes baby aspirin. - Onset: Pain started a couple of years ago. - Quality: Described as aching, heavy, shooting, throbbing, radiating, numbness, pins and needles and lancinating. - Location: Lower back, radiating across both buttocks and down the right leg anteriorly and laterally. - Radiation: Pain radiates to the right leg. - Severity: Rated as 10/10 with movements, 2/10 sitting or resting. - Exacerbating factors: Standing for long periods, bending down, and driving for extended periods. Weather changes. - Relieving factors: Sitting, rest, Tylenol, and heat application. - Impact: Affects daily activities but not sleep. - Affect: Pain impacts daily activities but not sleep. - Analgesia: Currently using Tylenol and heating pad for pain relief; pain rated as 10/10 with ADLs/walking. - Adverse Effects: No adverse effects from current pain management reported. - Activities of Daily Living: Pain affects standing, bending, and driving. - Aberrant Drug Related Behaviors: No aberrant behaviors reported. Oswestry Low Back Pain Disability Score=18 PFSH Medical History Chronic low back pain Seborrheic keratosis Osteopenia Right leg paresthesias Multilevel degenerative disc disease CAD (coronary artery disease) Encounter for well woman exam with routine gynecological exam On beta rena at home Back pain History of degenerative disc disease Scoliosis Erosive esophagitis Collagenous colitis Barretts esophagus GERD (gastroesophageal reflux disease) Hyperlipidemia Hypothyroidism Anxiety Myocardial infarction Surgical History History of carpal tunnel surgery of right wrist H/O heart artery stent History of total left knee replacement History of endometrial ablation History of tubal ligation Hx of varicose vein ligation and stripping Hx of esophagogastroduodenoscopy Hx of colonoscopy (06/20/24) Family History Father Diabetes Family/Other Breast cancer Cervical cancer Skin cancer Social History Are you a primary care coordinator to a significant other at home: No Do you presently have visiting nurse or other home services: No Alcohol intake: former Patient Tobacco Use Status: Former Tobacco user Tobacco use type: Cigarette Second Hand Smoke Exposure: No Sexual orientation: Straight/Heterosexual Gender identity: Female Review of Systems Const All systems reviewed & are unremarkable except as noted in HPI and below Physical Exam Vital Signs: Last Vital Signs Pulse 77 02/06/25 11:19 Resp 16 02/06/25 11:19 BP 114/71 02/06/25 11:19 Pulse Ox 97 02/06/25 11:19 Oxygen Delivery Method Room Air 02/06/25 11:19 BMI result Body Mass Index 20.0 General: Appears afebrile. Alert and oriented. Mood and affect appropriate. Follows and participates in conversation appropriately. Respiratory effort is unlabored. No cough. Able to transition from sit to stand unassisted. Ambulates with bilaterally normal heel strike and toe off. General: Yes no CVA tenderness Back/Spine/Pelvis Back: no CVA tenderness Cervical Spine: cervical ROM normal, cervical muscular tenderness and No Cervical spine tenderness Thoracic/Lumbar Spine: thoracic and lumbar spine normal to inspection, No Thoracic/lumbar spine scar(s), Lasegue's sign negative, straight leg raise negative bilaterally, kyphosis, pain with thoraco-lumbar ROM (Positive facet loading bilaterally), thoraco-lumbar ROM limited, Thoracic/lumbar scoliosis, No thoracic spinal tenderness and lumbar spinal tenderness at L3, at L4 and at L5 Pelvis: no buttock tenderness Sacroiliac joints: on the right (+Chriss's) tender to palpation and on the left nontender Extrem General: Yes capillary refill normal, Yes no clubbing, cyanosis or edema and Yes no calf tenderness Results Reviewed Results Reviewed: MR SPINE LUMBAR without CONTRAST 12/19/23 at [facility] INDICATION: Low back pain, RLE radiculopathy for 4 years, scoliosis. TECHNIQUE: Unenhanced multiplanar, multisequence MR imaging of the lumbar spine. COMPARISON: None available. FINDINGS: There is a right convex thoracolumbar curvature. Normal lumbar alignment is demonstrated. Vertebral heights are well maintained. Bone marrow signal is within normal limits, and no suspicious osseous lesion is identified. Conus medullaris is unremarkable. Paraspinal soft tissues and visualized portions of the abdomen and pelvis are unremarkable. At L1-2 concentric disc bulge with qels-kq-ofckuiwh canal narrowing, and jcax-vy-lkbiakfa bilateral foraminal narrowing. At L2-3 concentric disc bulge with mild canal narrowing, mild right and moderate left foraminal narrowing. At L3-4 concentric disc bulge with bfis-ku-cgbytgyf canal narrowing, moderate right and xqzcopjt-yt-caflbq left foraminal narrowing. At L4-5 concentric disc bulge with kgmp-tt-dsmyqdfj canal narrowing, aqxehpjp-ru-rsotwq right and mild left foraminal narrowing. At L5-S1 concentric disc bulge with mild canal narrowing and mild bilateral foraminal narrowing. IMPRESSION: 1.Right convex thoracolumbar curvature. 2.Yfes-dr-nqgxmelr multilevel degenerative disc disease with loss of disc height and disc desiccation seen diffusely throughout the lumbar spine. 3.Vertebral heights are preserved. No malalignments. 4.No high-grade canal stenosis or disc herniation. 5.Concentric disc bulges with multilevel foraminal narrowing as above. Jgqubogp-ky-fsfonx right foraminal narrowing at L4-5 level. 6.No STIR signal abnormality to suggest bone marrow edema, soft tissue or ligamentous injury. XR LUMBOSACRAL SPINE 08/19/23 CLINICAL INFORMATION: Back pain. COMPARISON: KUB of 08/25/2022, lumbar spine of 07/29/2021. TECHNIQUE: Three views of the lumbosacral spine. FINDINGS: Dextroscoliosis of the lumbar spine. Facet arthritis in the lower lumbar spine. Multilevel lumbar spondylosis with loss of disc space height and hypertrophic change most notable at L2-L3. IMPRESSION: Multilevel lumbar spondylosis most notable at L2-L3. Assessment & Plan Assessment & Plan (1) Lumbar degenerative disc disease: Code(s): M51.369 - Other intervertebral disc degeneration, lumbar region without mention of lumbar back pain or lower extremity pain Category: Medical (2) Lumbar scoliosis: Code(s): M41.9 - Scoliosis, unspecified Category: Medical (3) Lumbosacral spondylosis: Code(s): M47.817 - Spondylosis without myelopathy or radiculopathy, lumbosacral region Category: Medical (4) Chronic low back pain: Code(s): M54.50 - Low back pain, unspecified; G89.29 - Other chronic pain Category: Medical (5) Sacroiliac joint pain: Code(s): M53.3 - Sacrococcygeal disorders, not elsewhere classified Category: Medical Plan The patient has had a positive response to diagnostic bilateral L3-L4-L5 medial branch blocks for lumbar facet-mediated pain. We reviewed treatment options for axial low back pain for a longer term pain relief, including peripheral nerve stimulation radiofrequency ablation (RFA). The patient expressed a preference for radiofrequency ablation. A lumbar radiofrequency ablation will be scheduled, and an informational pamphlet was provided. Schedule Bilateral L3-L4 DR L5 Medial Branch RFA with sedation and fluoroscopy. Expectations, risks and benefits were reviewed. Patient is aware she will be contacted to schedule this procedure. All questions and concerns have been answered and patient agreed with the treatment plan. Follow up lumbar RFA and sooner as needed. Patient was informed and verbally consented to the use of an ambient scribe for clinic note documentation during this visit. Coding Level of Care Code Est Pt Level 3 (42121) Complex visit Add On G2211 Diagnoses Lumbar degenerative disc disease M51.369 Lumbar scoliosis M41.9 Lumbosacral spondylosis M47.817 Chronic low back pain M54.50; G89.29 Sacroiliac joint pain M53.3
[2025-02-06 11:19] VITALS: BP 114/71; PULSE 77; RESP 16; O2SAT 97
== END 2025-02-06 11:36 | disposition home or self-care (01) ==
LOC: HO.PMC 11:16
PROVIDERS: Visit Provider Nurse Practitioner Family
DX: M51.369 Other intervertebral disc degeneration, lumbar region without mention of lumbar back pain or lower extremity pain (principal); M41.9 Scoliosis, unspecified; M47.817 Spondylosis without myelopathy or radiculopathy, lumbosacral region; M54.50 Low back pain, unspecified; G89.29 Other chronic pain; M53.3 Sacrococcygeal disorders, not elsewhere classified
CPT/HCPCS: 99213

== ENCOUNTER 2025-02-24 10:06 | Outpatient (AMB) | payer BC, SELFPAY ==
--- OUTSIDE RECORDS SUMMARY | 2023-10-27 08:20 | XMS_ITS ---
Author Organization [facility] Address [address] [facility] [address] [place] [phone] Care Team Providers Care Identification Clerk Name Role Phone Fouzia Sargent M.D. Primary Care Provider Mathew Morales [phone] REASON FOR VISIT Patient presents today for pyloric stricture Encounters Encounter Location Date Provider Diagnosis [facility] [address] [place] [phone] 10/27/2023 Mathew Perez Plan Of Treatment Next Appt Details Provider Name:Mathew Perez , 12/12/2025 10:20:00 AM, [address] [place] [address], Suite [facility], [place], [address], Progress Notes * BRITTNEY MOREIRAOB:1960 (64 yo F)Acc No.[id number]:10/27/2023 Progress Notes Patient: BRITTNEY LIRIANO Provider: Ronal Perez MD :1960 A ge:63 Y S ex:Female Date:10/27/2023 Address:[address] [place] [address] Pcp:Fouzia Sargent M.D. Subjective: * Chief Complaints: * P atient presents today for pyloric stricture Billing Information: * Procedure Codes: * The named appointment provid er may or may not be the originator of this progress note, and it is not deemed complete until electronically signed by the appointment provider. Sign off status: Pending * Provider: Ronal Perez MD Date: 0 10/27/2023 Generated for Marina michael/Lamin/Shaheeditting on: 1 04/27/2024 11:23 AM EST
--- OUTSIDE RECORDS SUMMARY | 2024-06-20 04:30 | XMS_ITS ---
Author Organization [facility] Address [address] [place] [address] Care Team Providers Care Streetcar Repairer Name Role Phone Fouzia Sargent M.D. Primary Care Provider Mathew Morales Unavailable [phone] REASON FOR VISIT screening,gerd,richardson's, pyloric stricture, acute pyloric channel ulcer Encounters Encounter Location Date Provider Diagnosis [facility] [place] Outpatient [address] [place] [id number] 06/20/2024 Mathew Perez Colon cancer scree sergey [...] 10:20:00 AM, [address], [address], [place], [address], Progress Notes * BRITTNEY MOREIRAOB:1960 (64 yo F)Acc No.[id number]:06/20/2024 EGD and COL/MAC Patient: BRITTNEY LIRIANO Provider: Ronal Perez MD :1960 A ge:64 Y S ex:Female Date:06/20/2024 Address:[address] [place] [address] Pcp:Fouzia Sargent M.D. Subjective: * Chief Complaints: * S creening,gerd,richardson's, pyloric stricture, acute pyloric channel ulcer Assessment: * Assessment: 1. C olon cancer screening - Z12.11 (Primary) 2 . C olon polyps - K63.5? 3. D iverticulosis of large intestine without perforation or abscess without bleeding - K57.30 4 . O ther hemorrhoids - K64.8 5 . P yloric stricture - K31.1 6 . H iatal hernia - K44.9 Plan: * Procedure Codes: 4 5385 LESION REMOVAL [id number] COLONOSCOPY AND BIOPSY, Modifiers: 59 85045 ESOPH ENDOSCOPY, DILATION Billing Information: * Procedure Codes: 54228 LESION REMOVAL COLONOSCOPY. 65972 COLONOSCOPY AND BIOPSY. Modifiers: 59 23689 ESOPH ENDOSCOPY, DILATION. * The named appointment provid er may or may not be the originator of this progress note, and it is not deemed complete until electronically signed by the appointment provider. Sign off status: Pending * Provider: Ronal Perez MD Date: 0 06/20/2024 Generated for Marina michael/Lamin/eTransmitting on: 1 04/27/2024 11:23 AM EST
--- NOTE | 2025-02-24 10:09 | A.OFFPC_ITS ---
Vital Signs 02/24/25 10:14 Height 5 ft 7 in Weight 132 lb 6 oz BMI 20.7 BP 112/66 Pulse 70 Pulse Source Pulse Oximeter Temp 96.9 F Temp Source Temporal Artery Scan Pulse Oximetry (%) 98 Oxygen Delivery Method Room Air Intake Visit Reasons: 6 month f/u - see comments Application Developer Required: No Accompanied by: Self / Same As Patient Allergies droperidol (From Inapsine) Allergy (Intermediate, Verified 02/24/25 10:09) SHAKING Medication List - Last Reconciled 02/24/25 by Rohan Underwood MD alprazolam 0.5 mg PO BID ascorbic acid (vitamin C) (Vitamin C) 500 mg PO DAILY aspirin 81 mg PO DAILY atorvastatin (Lipitor) 40 mg PO BEDTIME calcium carbonate 600 mg PO DAILY diphenoxylate-atropine 2.5-0.025 mg 1 - 2 tabs PO Q6H PRN famotidine (Pepcid) 20 mg PO BID gabapentin 300 mg PO BEDTIME hyoscyamine sulfate ER 1 tab PO Q12H levothyroxine 137 mcg PO DAILY lidocaine 5% 1 patch topical DAILY 30 days loratadine 1 tab PO DAILY metoprolol tartrate 12.5 mg (1/2 x 25 mg) PO BID multivitamin with minerals 1 tab PO DAILY ondansetron 4 mg PO Q8H PRN prednisone 10 mg PO DAILY simethicone 80 mg PO BEDTIME PRN sucralfate 1 g PO QID trazodone 100 mg PO BEDTIME Tobacco use date assessed: 02/24/25 Fall risk assessment: No Falls in past year Last assessed Fall Risk: 02/24/25 Dental Screening Dental Screen Date: 02/24/25 Did you have a dental visit in the last 12 months?: Yes Did you have a dental problem in the last 6 months where you did not have access to dental care?: No Was dental information given to patient?: Patient has dentist HPI HPI Comments History of Present Illness Details History of Present Illness The patient is a 64 year old female presenting for medication review and manage ment of chronic conditions. She has a history of anxiety for over 20 years, for which she has been taking alprazolam 0.5 mg twice daily. She reports her anxiety manifests as a large cramp in her upper body. Past medication trials for anxiety include Effexor, Prozac, Paxil, and Lexapro. The patient is managed by Dr. Perez for pyloric stenosis and Mandel's esophagus. She has also been on prednisone 5 mg daily for her stomach for quite a while, though the dose has been tapered down. She has a history of a bleeding ulcer and anemia, which she states was the precipitating event for her restless legs syndrome, for which she takes gabapentin. Her hypothyroidism has been managed with levothyroxine 137 mcg for years with a stable dose. Her last TSH level in August was 3.84. Other chronic conditions include hypertension, managed with metoprolol 12.5 mg twice daily, and hypercholesterolemia, treated with atorvastatin 40 mg. For the past few months, she has experienced sores in her nostrils and smells an odor she describes as fungus or yeast. She had carpal tunnel surgery in July with cortisone injections, and she developed skin thinning on her hands approximately two months later. Medical History: - Anxiety, for over 20 years - Hypercholesterolemia - Pyloric stenosis - Mandel's esophagus - Restless legs syndrome - Anemia, history of - Bleeding ulcer, history of - Hypothyroidism - Hypertension Surgical History: - Carpal tunnel surgery in July with savannah isone injections Medications: - Albuterol inhaler, as needed, but not used recently - Alprazolam 0.5 mg twice a day for anxi ety - Atorvastatin 40 mg for high cholestero l - Atropine combination for pyloric steno sis - Famotidine 20 mg twice a day for Regan tt's esophagus - Gabapentin 300 mg at night for restles s legs syndrome - Hyoscyamine sulfate for abdominal cram ping associated with pyloric stenosis - Levothyroxine 137 mcg every morning fo r hypothyroidism - Metoprolol tartrate 12.5 mg twice a da y for hypertension - Prednisone 5 mg daily for stomach issu es - Simethicone, as needed for abdominal d iscomfort - Sucralfate 1 g four times a day for Ba rrett's esophagus - Trazodone 100 mg at night for sleep Diagnostic Results: - Labs from August: TSH 3.84, blood counts were fine, vitamin B levels were high, vitamin D levels were fine, and cholesterol was high. 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 Health Maintenance - Thyroid monitoring: Ordered a TSH leve l check today due to a borderline high result six months prior. - Vitamin level management: The patient was advised to stop taking B vitamin supplements due to high levels on recent labs. Her vitamin D level was adequate. - Medication safety counseling: Discusse d the risks associated with long-term use of benzodiazepines (alprazolam) and systemic corticosteroids (prednisone), especially in older adults, per Beers criteria. Patient was informed and verbally consented to the use of an ambient scribe for clinic note documentation during this visit. Vital signs reviewed. Comprehensive history, review of systems, and physical exam completed. Medications, allergies, and problem list reviewed and updated. Counseling provided on nutrition, regular exercise, sleep hygiene, and moderation of alcohol use. Discussed age-appropriate screenings (mammogram, colonoscopy, Pap, bone density) and immunizations (flu, COVID, shingles, Tdap). Screened for depression, fall risk, and home safety; no current concerns. Discussed stress management, dental and vision care, and importance of ongoing preventive follow-up. Routine labs ordered for metabolic and lipid screening. Patient educated on healthy lifestyle and agrees with the plan. 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 Chronic low back pain Seborrheic keratosis Osteopenia Right leg paresthesias Multilevel degenerative disc disease CAD (coronary artery disease) Encounter for well woman exam with routine gynecological exam On beta rena at home Back pain History of degenerative disc disease Scoliosis Erosive esophagitis Collagenous colitis Barretts esophagus GERD (gastroesophageal reflux disease) Hyperlipidemia Hypothyroidism Anxiety Myocardial infarction Surgical History History of carpal tunnel surgery of right wrist H/O heart artery stent History of total left knee replacement History of endometrial ablation History of tubal ligation Hx of varicose vein ligation and stripping Hx of esophagogastroduodenoscopy Hx of colonoscopy (06/20/24) Family History Father Diabetes Family/Other Breast cancer Cervical cancer Skin cancer Social History Housing: Apartment Are you a primary critical care physician to a significant other at home: No Do you presently have visiting nurse or other home services: No Alcohol intake: former Patient Tobacco Use Status: Former Tobacco user Tobacco use type: Cigarette e-Cigarette/Vaping Use: Never Used Second Hand Smoke Exposure: No service: No Current occupational status: retired Sexual orientation: Straight/Heterosexual Gender identity: Female Cognitive needs: No Hearing needs: No Vision needs: Yes (Reading glasses PRN) Questionnaire Thrive Questionnaire Date Thrive assessed: 08/09/24 HÉCTOR-7 AMB Questionnaire HÉCTOR-7 Date HÉCTOR - 7 assessed: 08/09/24 Source: Developed by Drs. Mathew Biswas, Claudette Saldana, Pratik Kim and colleagues, with an educational javi from [employer]. Review of Systems Narrative Review of Systems - General: Denies nausea, vomiting. - HEENT: Reports sores in her nostrils and smelling fungus or yeast for a few months. Denies headaches, vision changes. - Cardiovascular: Denies chest pain. - Respiratory: Denies shortness of breath. - Neurological: Reports restless legs. - Psychological: Reports anxiety. - Integumentary: Reports skin thinning on her hands. All systems reviewed & are unremarkable except as reviewed in HPI and above Physical exam (Primary Care) Vital Signs: Last Vital Signs Temp 96.9 F 02/24/25 10:14 Pulse 70 02/24/25 10:14 BP 112/66 02/24/25 10:14 Pulse Ox 98 02/24/25 10:14 Oxygen Delivery Method Room Air 02/24/25 10:14 BMI result Body Mass Index 20.7 Tobacco/Smoking Status: Tobacco use Status Tobacco use date assessed 02/24/25 02/24/25 10:16 Patient Tobacco Use Status Former Tobacco user 02/24/25 10:11 Tobacco use type Cigarette 02/24/25 10:11 e-Cigarette/Vaping Use Never Used 02/24/25 10:16 Thrive Assessment: Date of Thrive Assessment Date Thrive assessed 08/09/24 02/24/25 10:11 Narrative Physical Exam General: Alert and oriented, Well nourished, No acute distress. Eye: Pupils are equal, round and reactive to light, Intact accommodation, Extraocular movements are intact, Normal conjunctiva, Vision unchanged. HENT: Normocephalic, Atraumatic, Tympanic membranes are clear, Normal hearing, Oral mucosa is moist, No pharyngeal erythema, Ear canals patent. Respiratory: Lungs CTA bilaterally, No wheeze, Respirations are non-labored. Cardiovascular: Regular rate, Regular rhythm, S1 auscultated, S2 auscultated, No murmur, Good pulses equal in all extremities, Normal peripheral perfusion, No edema. Gastrointestinal: Soft, Non-tender, Non-distended, Normal bowel sounds, No organomegaly. Musculoskeletal: Normal range of motion, Normal strength, No tenderness, No swelling, No deformity, Normal gait. Integumentary: Warm, Dry, [place], Intact. Neurologic: Alert, Oriented, Normal sensory, Normal motor function, No focal defects, Cranial Nerves II-XII are grossly intact, Normal deep tendon reflexes. Psychiatric: Cooperative, Appropriate mood & affect, Normal judgment. Coding Level of Care Code Est Pt Level 4 (70141) Add On Problem Visit Only Diagnoses Anxiety F41.9 Other specified hypothyroidism E03.8 Hypothyroidism type: other residential systemic steroid user Z79.52 Other hyperlipidemia E78.49 Hyperlipidemia type: other hyperlipidemia Coronary artery disease, unspecified vessel or lesion type, unspecified whether angina present, unspecified whether [place] or transplanted heart I25.10 Coronary Disease-Associated Artery/Lesion type: unspecified vessel or lesion type [place] vs. transplanted heart: unspecified whether [place] or transplanted heart Associated angina: unspecified whether angina present Mandel's esophagus with dysplasia K22.719 Mandel's esophagus type: with dysplasia of unspecified degree Assessment & Plan Assessment & Plan (1) Anxiety: Comment: - The patient has a 20-year history of anxiety managed with alprazolam, a benzodiazepine not recommended for long-term use in the elderly per Beers criteria. - While she notes symptomatic relief and is dependent on the medication, it does not treat the underlying pathology. - After discussion of risks and alternatives, she agreed to a trial of a safer agent. - Plan is to start buspirone 5 mg twice daily. - She will continue alprazolam for now. Code(s): F41.9 - Anxiety disorder, unspecified Category: Medical (2) Hypothyroidism: Comment: - Her last TSH six months ago was borderline high at 3.84 on a stable dose of levothyroxine 137 mcg. - Plan is to recheck TSH levels today to guide further management. 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 - I have advised her of the significant long-term risks, including bone fractures and skin thinning. - Plan is to have the patient discuss tapering off prednisone with her GI specialist, Dr. Perez. Code(s): Z79.52 - long term care social worker (current) use of systemic steroids Category: Medical (4) Hyperlipidemia: Comment: Elevated on last blood work in and she had an atorvastatin 40 we will continue to monitor annually Code(s): E78.5 - Hyperlipidemia, unspecified Category: Medical Qualifiers: Hyperlipidemia type: other hyperlipidemia Qualified Code(s): E78.49 - Other hyperlipidemia (5) CAD (coronary artery disease): Comment: Status post stenting Continue aspirin 81 mg daily Code(s): I25.10 - Atherosclerotic heart disease of [place] coronary artery without angina pectoris Category: Medical Qualifiers: Coronary Disease-Associated Artery/Lesion type: unspecified vessel or lesion type [place] vs. transplanted heart: unspecified whether [place] or transplanted heart Associated angina: unspecified whether angina present Qualified Code(s): I25.10 - Atherosclerotic heart disease of [place] coronary artery without angina pectoris (6) Barretts esophagus: Comment: Continue sucralfate 1 g q.i.d. and famotidine 20 mg b.i.d. Code(s): K22.70 - Mandel's esophagus without dysplasia Category: Medical Qualifiers: Mandel's esophagus type: with dysplasia of unspecified degree Qualified Code(s): K22.719 - Mandel's esophagus with dysplasia, unspecified Plan: Health Maintenance: - Thyroid monitoring: Ordered a TSH level check today due to a borderline high result six months prior. - Vitamin level management: The patient was advised to stop taking B vitamin supplements due to high levels on recent labs. Her vitamin D level was adequate. - Medication safety counseling: Discussed the risks associated with long-term use of benzodiazepines (alprazolam) and systemic corticosteroids (prednisone), especially in older adults, per Beers criteria. Patient was informed and verbally consented to the use of an ambient scribe for clinic note documentation during this visit. Plan I had an extended discussion with the patient regarding her long-term use of alprazolam for anxiety. I explained that this medication is not ideal for chronic management, particularly in her age group, due to the risk of dependence and other safety concerns as highlighted by the Beers criteria. I emphasized that while it provides temporary relief, it does not treat the underlying cause of her anxiety. I recommended starting buspirone 5 mg twice a day, a safer, non-addictive alternative. After she voiced concerns based on her daughter's experience, which she was initially hesitant about, she ultimately agreed to a trial of the medication. I also counseled her on the risks of her chronic prednisone use, including bone fractures and skin thinning, and strongly urged her to speak with her annual giving manager, Dr. Perez, about tapering off the medication. Regarding her new nasal symptoms, I recommended conservative management with saline rinses. We will recheck her TSH today because her last level was borderline high. She is scheduled to follow up in six months. Orders: Orders TSH reflex Free T4 Today E03.9 - Hypothyroidism, unspecified Medications: New buspirone 5 mg PO BID 60 tabs 5RF 30 days Patient Instructions: - Please go to the lab today to get your blood drawn to check your thyroid levels. - Start taking Buspirone 5 mg, one tablet by mouth twice a day for anxiety. It may take up to a month to feel the full benefit of this medication. - For the sores and unusual smell in your nose, try rinsing your nostrils with a saline solution. If you use a humidifier, make sure the machine and the water in it are clean. - It is important that you talk to your stomach doctor (Dr. Perez) about creating a plan to safely stop taking your prednisone medication, as it is not meant for long-term use and can cause serious side effects. - Continue taking all your other medications as prescribed. - Please make a follow-up appointment to be seen in six months.
[2025-02-24 10:14] VITALS: BP 112/66; PULSE 70; TEMP 36.1; O2SAT 98; BMI 20.7
--- OUTSIDE RECORDS SUMMARY | 2025-02-24 11:23 | XMS_ITS | Patient Health Record ---
Author Organization [facility] Address [address] [facility] [address] [place] [phone] Care Team Providers Care Web Operations Manager Name Role Phone Winter Myers M.D. Primary Care Provider Kelechi able Mathew Marie Unavailable [phone] Allergies Allergen (clinical drug ingredient) Drug/Non Drug Allergy documented on EMR Reaction Allergy Type Onset Date Status Inapsine Unknown Drug Allergy Active Results Component Value Reference Range Notes Pathology Reviewed date:06/29/2024 11:45:15 AM Interpretation: Performing Lab:[facility], [address] [place] [phone] Notes/Report: Reason For Referral Referral Organization [facility] Referring Provider First Name Mathew Referring Provider Last Name Chris Referring Provider Speciality Gastroente rology Referred Provider Davian (RETIRED)Nia Referred Provider Specialty Internal Med icine General Notes Loretta Beckett 2024 11:00:15 AM pt is calling /bs to request change of provide to Dr. Aishwarya Myers. Call [facility] to request a new referral for the patient's procedure on 06-20-[address] Marie Referral Priority Routine Referring Provider First Name Winter Referring Provider Last Name Arie Referred Organization [facility] Referred Provider Mathew Marie Referred Address [address] [facility],[address],[place], [place],[address], Referred Provider Specialty Gastroentero logy General Notes Loretta Beckett 2024 11:30:52 AM >requested referral from winter myers's office for colon and egd with dr marie on 06-17-24 Referral Priority Routine Medications Medication SIG (Take, Route, Frequency, Duration) Notes Start Date End Date Status Vitamin C 500 MG Capsule 1 tablet Orally Once a day Active predniSONE 10 MG Tablet 1 tablet Orally Once a day Not-Taking/PRN Gas-X 80 MG Tablet Chewable 1 tablet after meals and at bedtime as needed Orally prn Active Ondansetron 4 MG Tablet Disintegrating 1 tablet on the tongue and allow to dissolve Orally Every 6 hours as needed for nausea; Duration: 30 day(s) 03/26/2023 Not-Taking/P RN Claritin 10 MG Tablet 1 tablet Orally On ce a day; Duration: 30 day(s) Active Omeprazole 40 MG Capsule Delayed Release TAKE ONE CAPSULE BY MOUTH TWICE A DAY Orally Twice a day; Duration: 30 days Not-Taking/PRN Caltrate 600 Active Diphenoxylate-Atropine Active Atorvastatin Calcium 10 MG Tablet 1 tablet Orally Once a day; Duration: 30 day(s) Active Lomotil 2.5-0.025 MG Tablet 1-2 tablets PO Q 6 hours prn diarrhea; Duration: 30 days 12/19/2020 Active ALPRAZolam 0.5 MG Tablet 1 tablet Orally BID Active Diphenoxylate-Atropine 2.5-0.025 MG Tablet TAKE 1-2 TABLETS EVERY 6 HOURS IF NEEDED FOR DIARRHEA; Duration: 12 02/21/2025 Active predniSONE 5 MG Tablet TAKE 1 TABLET BY MOUTH ONCE A DAY.; Duration: 90 Active Famotidine 20 MG Tablet 1 Orally Twice a day; Duration: 10 days 04/12/2023 Active Levothyroxine Sodium 137 MCG Capsule 1 capsule Orally Once a day Active Sucralfate 1 GM Tablet TAKE 1 TABLET BY MOUTH 4 TIMES A DAY ON AN EMPTY STOMACH, 30 TO 60 MINUTES BEFORE A MEAL, AND ONCE AT BEDTIME; Duration: 30 Active traZODone HCl 50 MG Tablet 1 tablet at bedtime as needed Orally Once a day Active Aspirin 81 MG Tablet Chewable 1 tablet Orally Once a day Active Metoprolol Tartrate 25 MG Tablet 1/2 tablet with food Orally Twice a day Active Hyoscyamine Sulfate ER 0.375 MG Tablet Extended Release 12 Hour TAKE ONE TABLET BY MOUTH EVERY 12 HOURS; Duration: 30 Active Multi Vitamin/Minerals - Tablet as directed Orally once a day Active Diclofenac Sodium 1 % Gel 1 application Externally Gel Not-Taking/PRN Immunizations Vaccine Route Administration Date Status Comme nts Influenza Unknown 12/16/2017 Administered Influenza Unknown 11/07/2018 Administered Influenza Unknown 05/09/2020 Refused Influenza Unknown 12/19/2020 Administered Influenza Unknown 01/04/2021 Administered Influenza Unknown 01/28/2022 Administered Influenza Unknown 02/24/2024 Refused Influenza Unknown 12/15/2024 Refused Social History Tobacco Use: Social History Observation Description Date Details (start date - stop date) Former Smoker NA - NA Social History Drugs/Alcohol: Social Info Question Answer Notes Alcohol Screen Did you have a drink containing alcohol in the past year? No Points 0 Interpretation Negative Tobacco Use: Social Info Question Answer Notes Tobacco Use/Smoking Patient is a former smoker How long has it been since you last smoked? 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 Section Notes: Smokes 1/2 ppd; no sig [...] Problem Screening for malignant neoplasm of colon (074527454) Encounter for screening for malignant neoplasm of colon (Z12.11) Active confirmed Problem Abdominal bloating (365532520) Abdominal bloating (R14.0) Active confirmed Problem Diarrhea (11249352) Diarrhea (R19.7) Active confirmed Problem Irritable bowel syndrome with diarrhea (705847204) Irritable bowel syndrome with diarrhea (K58.0) Active confirmed Problem Screening for malignant neoplasm of rectum (124564247) Encounter for screening for malignant neoplasm of rectum (Z12.12) Active confirmed Problem Epigastric pain (17599249) Abdominal pain, epigastric (R10.13) Active confirmed Problem Iron deficiency anemia (91671763) Iron deficiency anemia (D50.9) Active confirmed Problem Mandel's esophagus (891926293) Barretts esophagus without dysplasia (K22.70) Active confirmed Problem Microscopic colitis (512831035) Microscopic colitis (K52.89) Active confirmed Problem Iron deficiency anemia due to chronic blood loss (057846074) Iron deficiency anemia due to chronic blood loss (D50.0) Active confirmed Problem Gastroesophageal reflux disease with esophagitis (disorder) (232943885) GERD with esophagitis (K21.0) Active confirmed Problem Gastroesophageal reflux disease (952241394) GERD (gastroesophag eal reflux disease) (K21.9) Active confirmed Problem Collagenous colitis (22282417) Collagenous colitis (K52.89) Active confirmed Problem Generalized abdominal pain (853962953) Abdominal pain, generalized (R10.84) Active confirmed Problem Diarrhea (53399566) Diarrhea, unspecified type (R19.7) Active confirmed Problem Collagenous colitis (84760499) Collagenous colitis (K52.831) Active confirmed Problem Gastric ulcer (976200143) Gastric ulcer (K25.9) Active confirmed Problem Acquired hypertrophic pyloric stenosis (01516106) Pyloric stricture (K31.1) Active confirmed Problem Acute gastric ulcer without hemorrhage, without perforation AND without obstruction (71971880) Pyloric channel ulcer, acute (K25.3) Active confirmed Problem Acute gastric ulcer without hemorrhage, without perforation AND without obstruction (44985145) Acute pyloric channel ulcer (K25.3) Active confirmed Problem Gastroesophageal reflux disease with esophagitis (disorder) (930302132) Gastro-esophag eal reflux disease with esophagitis, without bleeding (K21.00) Active confirmed Problem Acquired hypertrophic pyloric stenosis (17227793) Partial gastric outlet obstruction (K31.1) Active confirmed Problem Family history of polyp of colon (situation) (424560397) Family history of colon polyps, unspecified (Z83.719) Active confirmed Problem Abnormality of secretion of gastrin (53928140) Elevated gastrin level (E16.4) Active confirmed Vital Signs Temperature 98.6 degrees Fahrenheit 12/15/2024 Blood pressure diastolic 01 mm Hg 12/15/2024 Height 66.5 in 12/15/2024 Blood pressure systolic 001 mm Hg 12/15/2024 Weight 132 lbs 12/15/2024 BMI 20.98 kg/m2 12/15/2024 Encounters Encounter Location Date Provider Diagnosis [facility] [place] [place] Outpatient [address] [place] [phone] 06/20/2024 Mathew Marie Colon cancer screeni ng Z12.11 ; Colon polyps K63.5 ; Diverticulosis of large intestine without perforation or abscess without bleeding K57.30 ; Other hemorrhoids K64.8 ; Pyloric stricture K31.1 and Hiatal hernia K44.9 [facility] [address] [place] [phone] 12/15/2024 Mathew Marie Encounter for screen ing for malignant neoplasm of colon Z12.11 ; Collagenous colitis K52.831 ; GERD (gastroesophageal reflux disease) K21.9 ; Acute pyloric channel ulcer K25.3 and Partial gastric outlet obstruction K31.1 [facility] [address] [place] [phone] 05/16/2024 Mathew Marie [facility] [address] [place] [phone] 06/01/2024 Mathew Marie [facility] [address] [place] [phone] 06/16/2024 Mathew Marie [facility] [address] [place] [phone] 06/19/2024 Mathew Marie [facility] [address] [place] [phone] 06/28/2024 Mathew Marie [facility] [address] [place] [phone] 06/28/2024 Mathew Marie [facility] [address] [place] [phone] 08/03/2024 Mathew Marie Assessments Encounter Date Diagnosis (ICD Code) Assessment Notes Treatment Notes Treatment Clinical Notes Section Notes 06/20/2024 Colon cancer screening (ICD-10 - Z12.11) 06/20/2024 Colon polyps (ICD-10 - K63.5) 12/15/2024 Encounter for screening for malignant neoplasm of colon (ICD-10 - Z12.11) Repeat colonoscopy in 2030 Overall, Brittney Meyer appears quite well and [...] K57.30) 06/20/2024 Other hemorrhoids (ICD-10 - K64.8) 12/15/2024 Acute pyloric channel ulcer (ICD-10 - K25.3) Continue the sucralfate and the famotidine half-way for the history of the ulcer and [...] progress. 06/20/2024 Pyloric stricture (ICD-10 - K31.1) 06/20/2024 Hiatal hernia (ICD-10 - K44.9) Plan Of Treatment Pending Test Test Name Order Date CHEM 7 PROFILE 2022 CHEM 7 PROFILE 09/17/2019 CHEM 7 PROFILE 01/24/2020 LIVER PROFILE 09/17/2019 LIVER PROFILE 08/21/2014 LIVER PROFILE 2022 LIVER PROFILE 06/20/2021 LIVER PROFILE 01/24/2020 AMYLASE 09/17/2019 AMYLASE 01/24/2020 LIPASE 01/24/2020 LIPASE 09/17/2019 LIPASE 06/20/2021 T4 (THYROXINE) 01/24/2020 TSH (THYROID STIMULATING HORMONE) 2019 IRON + IBC (FE) 01/24/2020 FERRITIN 01/24/2020 CRP 01/24/2020 CRP 2022 CRP 06/20/2021 CRP 08/21/2014 CRP 09/17/2019 VITAMIN B12 AND FOLATE 01/24/2020 CBC w DIFF 02/23/2023 CBC w DIFF 02/26/2023 CBC w DIFF 2022 CBC w DIFF 09/17/2019 CBC w DIFF 08/21/2014 CBC w DIFF 06/20/2021 CBC with MANUAL DIFFERENTIAL 01/24/2020 SED RATE (ESR) 01/24/2020 SED RATE (ESR) 09/17/2019 SED RATE (ESR) 08/21/2014 SED RATE (ESR) 06/20/2021 SED RATE (ESR) 2022 HEPATITIS B PROFILE 2022 HEPATITIS B PROFILE [...] 10:20:00 AM, [address], [address], [place], [address], Insurance Providers Payer Name Payer Address Payer Phone Subscriber Number Group Number Insured Name Patient Relationship to Insured Coverage Start Date Coverage End Date [facility] [place] [facility] [employer] CLAIM[employer] [address] [place] [address] [id number] HARISH BRITTNEY MEYER Self - patient is the insured Medical (General) History Medical History History ICD Code Colonoscopy 06-03-2004- diagn osed with collagenous colitis- responded well to Asacol for a few years- has responded to courses of Entocort- -celiac disease labs are negative Hypothyroidism Denies DM,CVA,Lung disease,renal disease Anxiety [place] at age 48-had 1 stent placed Hyperlipiodemia [...] that time nonetheless. Surgical History Surgery Date(Month/Year) Varicose vein stripping Tubal ligation Uterine ablation Left knee replacement 06/05/[address] Nunez Carpal tunnel
== END 2025-02-24 10:33 | disposition home or self-care (01) ==
LOC: HO.HMCHD 10:07
PROVIDERS: PCP Physician Assistant; Visit Provider Student in an Organized Health Care Education/Training Program
DX: F41.9 Anxiety disorder, unspecified (principal); E03.8 Other specified hypothyroidism; Z79.52 Long term (current) use of systemic steroids; E78.49 Other hyperlipidemia; I25.10 Atherosclerotic heart disease of native coronary artery without angina pectoris; K22.719 Barrett's esophagus with dysplasia, unspecified